=== PATIENT | female | born 1980 | race Caucasian/White ===

== ENCOUNTER 2018-06-03 15:29 | Emergency (ER) | payer BC ==
[2018-06-03] MEDS ORDERED: NA CHLORIDE 0.9% 1,000 ML ONE (16:21)
[2018-06-03] MEDS ORDERED: ONDANSETRON 4 MG/2 ML VIAL ONE (16:21)
[2018-06-03] MEDS ORDERED: DIAZEPAM 10 MG/2 ML INJ SYRINGE ONE (16:25)
[2018-06-03 16:28] LABS: Absolute Lymphocytes (CBC) 1.9 K/uL (0.7-4.9); Absolute Monocytes 0.5 K/uL (0.1-1.3); Absolute Neutrophil 8.7 K/uL (1.8-8.0); Basophils % 0.4 % (0-1.3); Eosinophils % 0.5 % (0-4.4); Hematocrit 48.9 % (36.0-45.0); Lymphocytes % 16.7 % (15.3-44.8); MCH 32.9 pg (27.0-35.0); MCV 97.5 fL (80-100); MPV 8.9 fL (7.6-11.3); Monocytes % 4.7 % (3.3-12.3); RBC Red Blood Cell Count 5.02 M/uL (3.86-4.86)
[2018-06-03 16:46] LABS: ALT/SGPT 19 U/L (12-78); AST/SGOT 23 U/L (15-37); Alkaline Phosphatase 88 U/L (45-117); BUN Blood Urea Nitrogen 9 mg/dL (7-18); Bicarbonate 20 mmol/L (21-32); Bilirubin Total 0.7 mg/dL (0.2-1.0); Glucose Level 89 mg/dL (74-106); Potassium 3.7 mmol/L (3.5-5.1); Protein, Total 7.7 g/dL (6.4-8.2); Sodium Level 141 mmol/L (136-145)
[2018-06-03] MEDS ORDERED: MORPHINE 4 MG/ML SYR ONE (17:01)
--- NOTE | 2018-06-03 17:15 | RAD REPORT ---
EXAM DESCRIPTION: RAD - Chest Pa And Lat (2 Views) - 06/03/2018 4:40 pm CLINICAL HISTORY: Back pain, neck pain, cough COMPARISON: November 2016 TECHNIQUE: AP and lateral views obtained with the patient seated. FINDINGS: The lungs are normal volume. No peripheral mass, consolidation or failure. Enlarged right pulmonary artery has not changed. Left pulmonary artery is not enlarged. Heart size is normal. No a cute vascular engorgement. No pleural effusion or pneumothorax seen. No acute bony finding noted. N o aortic abnormality. IMPRESSION: No acute cardiopulmonary process. Above detailed findings are not significantly differe nt from comparison.
--- NOTE | 2018-06-03 17:33 | EDPHYS ---
Physician Documentation [facility] Name: Alicia Morton Age: 37 yrs Sex: Female : 1980 Arrival Date: 06/03/2018 Time: 15:30 Bed 28 Private MD: ED Physician Yonathan John HPI: 06/03 16:04 This 37 yrs old Female presents to ER via Wheelchair with complaints of Neck jmm Pain, >24Hrs Old, Ear Pain, Nausea/Vomiting. 16:04 The patient or guardian complains of pain, that is acute. Onset: The symptoms/episode jmm began/occurred 1 week(s) ago. This is a 37 year old female with a history of ASD that presents to the ED with right sided neck pain which she awoke too approx 1 week ago. Patient states the pain has worsened radiating to her right ear. Patient also admits to chronic vomiting and cough she attributes to her medication and smoking. Denies other symptoms. . 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 - Social history:: Smoking status: Patient uses tobacco products, smokes one-half pack cigarettes per day. - Ebola Screening: : No symptoms or risks identified at this time. ROS: 16:04 Constitutional: Negative for fever, chills, and weight loss, Cardiovascular: Negative jmm for chest pain, palpitations, and edema. 16:04 Neck: Positive for pain with movement. 16:04 Respiratory: Positive for cough. 16:04 Abdomen/GI: Positive for vomiting. 16:04 All other systems are negative. Exam: 16:04 Head/Face: atraumatic. jmm 16:04 Constitutional: The patient appears alert, awake, uncomfortable. 16:04 Neck: painful rotation to the right, the right trapezius is tender to palpation. 16:04 Cardiovascular: Rate: normal, Rhythm: regular, Pulses: no pulse deficits are appreciated. 16:04 Respiratory: the patient does not display signs of respiratory distress, Respirations: normal, Breath sounds: are clear throughout. 16:04 Abdomen/GI: Inspection: abdomen appears normal, Bowel sounds: normal, Palpation: abdomen is soft and non-tender. 16:04 Musculoskeletal/extremity: ROM: intact in all extremities. 16:04 Skin: Appearance: Color: normal in color. 16:04 Neuro: Orientation: is normal, Mentation: is normal, Memory: is normal. 16:04 Psych: Behavior/mood is pleasant, cooperative. Vital Signs: 15:40 BP 110 / 90; Pulse 91; Resp 16; Temp 97.3; Pulse Ox 92% on R/A; Weight 56.7 kg; Height la1 5 ft. 3 in. (160.02 cm); 17:30 Pulse 62; Resp 18; Pulse Ox 94% on R/A; Pain 4/10; mg2 17:57 BP 111 / 78; Pulse 68; Resp 18; Pulse Ox 95% on R/A; Pain 0/10; mg2 15:40 Body Mass Index 22.14 (56.70 kg, 160.02 cm) la1 MDM: 16:10 Patient medically screened. [facility] 17:29 Data reviewed: vital signs, nurses notes, lab test result(s), radiologic studies, plain [facility] films. Data interpreted: Pulse oximetry: on room air is 92 %. Counseling: I had a detailed discussion with the patient and/or guardian regarding: the historical points, exam findings, and any diagnostic results supporting the discharge/admit diagnosis, lab results, radiology results, the need for outpatient follow up, to return to the emergency department if symptoms worsen or persist or if there are any questions or concerns that arise at home. ED course: Patient states feeling much better. Patient still has mild point tenderness along the insertion point of the scm. Symptoms appear musculoskeletal. Patient will be prescribed muscle relaxers and is advised to follow up with PCP for reevaluation and otherwise given strict return precautions for worsening symptoms. Patient understood and agrees with the plan of care. . 06/03 16:04 Order name: Urine Dipstick--Ancillary (enter results) [facility] 06/03 16:13 Order name: CBC with Diff [facility] 06/03 16:13 Order name: CMP [facility] 06/03 16:13 Order name: Influenza Screen (a \T\ B) [facility] 06/03 16:13 Order name: CBC with Automated Diff; Complete Time: 16:37 EDMS 06/03 16:13 Order name: Comprehensive Metabolic Panel; Complete Time: 16:51 EDMS 06/03 16:04 Order name: Urine Dipstick-Ancillary (obtain specimen); Complete Time: 16:04 em1 06/03 16:13 Order name: Chest Pa And Lat (2 Views) XRAY; Complete Time: 17:21 [facility] 06/03 16:13 Order name: Influenza Screen (A ; Complete Time: 16:51 EDMS Administered Medications: 16:26 Drug: NS 0.9% 1000 ml Route: IV; Rate: 1 bolus; Site: left antecubital; mg2 17:30 Follow up: Response: No adverse reaction; Marked relief of symptoms; IV Status: mg2 Completed infusion 17:56 Follow up: Response: No adverse reaction mg2 16:26 Drug: Valium 5 mg Route: IVP; Site: left antecubital; mg2 17:30 Follow up: Response: No adverse reaction; Marked relief of symptoms mg2 16:26 Drug: Zofran 4 mg Route: IVP; Site: left antecubital; mg2 17:30 Follow up: Response: No adverse reaction; Nausea is decreased; Vomiting decreased mg2 16:59 Drug: morphine 4 mg Route: IVP; Site: left antecubital; mg2 17:25 Follow up: Response: No adverse reaction; Pain is decreased mg2 17:30 Drug: Ketorolac 30 mg Route: IVP; Site: left antecubital; mg2 17:37 Follow up: Response: No adverse reaction; Marked relief of symptoms mg2 Disposition: 18:04 Co-signature as Attending Physician, Yonathan John MD I agree with the assessment and kdr plan of care. Disposition: 06/03/18 17:32 Discharged to Home. Impression: Muscle spasm. - Condition is Stable. - Discharge Instructions: Muscle Pain, Adult. - Prescriptions for Zanaflex 4 mg Oral Tablet - take 1 tablet by ORAL route every 8 hours As needed; 20 tablet. Zofran ODT 4 mg Oral tablet,disintegrating - place 1 tablet by TRANSLINGUAL route every 4-6 hours; 20 tablet. - Medication Reconciliation Form, Thank You Letter, Antibiotic Education, Prescription Opioid Use form. - Follow up: Private Physician; When: 2 - 3 days; Reason: Recheck today's complaints, Continuance of care, Re-evaluation by your physician. Signatures: Dispatcher [employer] EDMS Yonathan John MD MD [facility] Jacques Berrios PA PA jmm Martinez, Eric em1 Kirit Daniels RN RN la1 Beka Celeste, MANUELA RN mg2 Corrections: (The following items were deleted from the chart) 17:57 17:32 06/03/2018 17:32 Discharged to Home. Impression: Muscle spasm. Condition is mg2 Stable. Forms are Medication Reconciliation Form, Thank You Letter, Antibiotic Education, Prescription Opioid Use. Follow up: Private Physician; When: 2 - 3 days; Reason: Recheck today's complaints, Continuance of care, Re-evaluation by your physician. kermit
--- NOTE | 2018-06-03 17:33 | ER ---
Nurse's Notes [facility] Name: Bassam Morton Age: 37 yrs Sex: Female : 1980 Arrival Date: 06/03/2018 Time: 15:30 Bed 28 Private MD: Diagnosis: Muscle spasm Presentation: 06/03 15:38 Presenting complaint: Patient states: I started having neck pain a week ago then it la1 became a headache. I have also been vomiting about every day for the last year because of a medication I started but I have not been able to follow up with my doctor. Transition of care: patient was not received from another setting of care. Onset of symptoms was June 03, 2018. Risk Assessment: Do you want to hurt yourself or someone else? Patient reports no desire to harm self or others. Initial Sepsis Screen: Does the patient meet any 2 criteria? No. Patient's initial sepsis screen is negative. Does the patient have a suspected source of infection? No. Patient's initial sepsis screen is negative. Care prior to arrival: None. 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 - Social history:: Smoking status: Patient uses tobacco products, smokes one-half pack cigarettes per day. - Ebola Screening: : No symptoms or risks identified at this time. Screenin:50 Abuse screen: Denies threats or abuse. Denies injuries from another. Nutritional mg2 screening: No deficits noted. Tuberculosis screening: No symptoms or risk factors identified. Fall Risk Gait- Weak (10 pts.). Assessment: 15:51 General: Appears in no apparent distress. uncomfortable, Behavior is calm, cooperative. mg2 Pain: Complains of pain in head Pain does not radiate. Pain currently is 8 out of 10 on a pain scale. Quality of pain is described as aching, Pain began gradually, Is intermittent. Neuro: Level of Consciousness is awake, alert, obeys commands, Oriented to person, place, time, situation. Cardiovascular: Capillary refill < 3 seconds Patient's skin is warm and dry. Respiratory: Airway is patent Respiratory effort is even, unlabored, Respiratory pattern is regular, symmetrical. GI: Reports vomiting. EENT: No deficits noted. Derm: Skin is intact, is healthy with good turgor, Skin is pink, warm \T\ dry. normal. Musculoskeletal: No deficits noted. 16:27 Reassessment: Patient appears in no apparent distress at this time. patient [place] [facility]. Vital Signs: 15:40 BP 110 / 90; Pulse 91; Resp 16; Temp 97.3; Pulse Ox 92% on R/A; Weight 56.7 kg; Height la1 5 ft. 3 in. (160.02 cm); 17:30 Pulse 62; Resp 18; Pulse Ox 94% on R/A; Pain 4/10; mg2 17:57 BP 111 / 78; Pulse 68; Resp 18; Pulse Ox 95% on R/A; Pain 0/10; mg2 15:40 Body Mass Index 22.14 (56.70 kg, 160.02 cm) la1 ED Course: 15:30 Patient arrived in ED. as 15:39 Triage completed. la1 15:40 Arm band placed on left wrist. la1 15:41 Beka Celeste, MANUELA is Primary Nurse. mg2 15:49 Jacques Berrios PA is PHCP. [facility] 15:49 Yonathan John MD is Attending Physician. [facility] 15:50 No provider procedures requiring assistance completed. mg2 15:51 Patient has correct armband on for positive identification. Pulse ox on. NIBP on. Door mg2 closed. Warm blanket given. 16:00 Inserted saline lock: 20 gauge in left antecubital area, using aseptic technique. Blood mg2 collected. 16:23 Initial lab(s) drawn, by ED staff, sent to lab. Urine collected: clean catch specimen, jp3 clear, bassam colored, Amount Voided: 2mL Flu and/or RSV swab sent to lab. 16:23 Influenza Screen (A Sent. jp3 16:23 Comprehensive Metabolic Panel Sent. jp3 16:24 CBC with Automated Diff Sent. jp3 16:24 Influenza Screen (a \T\ B) Sent. jp3 16:24 CMP Sent. jp3 16:24 CBC with Diff Sent. jp3 16:26 Patient moved to radiology via wheelchair. tm4 16:26 X-ray completed. Patient tolerated procedure well. tm4 16:35 Chest Pa And Lat (2 Views) XRAY In Process Unspecified. EDMS 17:56 IV discontinued, intact, bleeding controlled, No redness/swelling at site. Pressure mg2 dressing applied. Administered Medications: 16:26 Drug: NS 0.9% 1000 ml Route: IV; Rate: 1 bolus; Site: left antecubital; mg2 17:30 Follow up: Response: No adverse reaction; Marked relief of symptoms; IV Status: mg2 Completed infusion 17:56 Follow up: Response: No adverse reaction mg2 16:26 Drug: Valium 5 mg Route: IVP; Site: left antecubital; mg2 17:30 Follow up: Response: No adverse reaction; Marked relief of symptoms mg2 16:26 Drug: Zofran 4 mg Route: IVP; Site: left antecubital; mg2 17:30 Follow up: Response: No adverse reaction; Nausea is decreased; Vomiting decreased mg2 16:59 Drug: morphine 4 mg Route: IVP; Site: left antecubital; mg2 17:25 Follow up: Response: No adverse reaction; Pain is decreased mg2 17:30 Drug: Ketorolac 30 mg Route: IVP; Site: left antecubital; mg2 17:37 Follow up: Response: No adverse reaction; Marked relief of symptoms mg2 Outcome: 17:32 Discharge ordered by MD. jmm 17:56 Discharged to home ambulatory, with family. mg2 17:56 Condition: stable 17:56 Discharge instructions given to patient, family, Instructed on discharge instructions, follow up and referral plans. medication usage, Demonstrated understanding of instructions, follow-up care, medications, Prescriptions given X 2. 17:57 Patient left the ED. mg2 Signatures: Dispatcher [employer] EDMS Jacques Berrios PA PA jmm Elis Caceres tm4 Madelin Kasper Lee RN RN la1 Beka Celeste RN RN mg2 Jonah Lentz jp3 Corrections: (The following items were deleted from the chart) 17:57 17:30 Pulse 62bpm; Resp 18bpm; Pulse Ox 100% RA; Pain 4/10; mg2 mg2
[2018-06-03] MEDS ORDERED: KETOROLAC 30 MG/ML INJ ONE (17:35)
[2018-06-03 18:19] VITALS: TEMP 97.3
[2018-06-03 18:24] VITALS: BP 111/78; O2SAT 95
[2018-06-03 20:57] LABS: Urine Blood 1+ (NEG); Urine Glucose TRACE (NEG); Urine Protein 3+ (NEG); Urine Specific Gravity >1.030 (1.005-1.030); Urine pH 5.5 (5.0-7.0)
== END 2018-06-03 17:57 | disposition home or self-care (01) ==
LOC: ER 15:29
DX: M62.838 Other muscle spasm (principal); F17.210 Nicotine dependence, cigarettes, uncomplicated; Z91.018 Allergy to other foods
CPT/HCPCS: 36415; 71046; 80053; 81003; 85025; 87804; 96361; 96374; 96375; 99284; J2405; J3360; J7030

== ENCOUNTER 2018-06-09 11:08 | Observation (INO) | payer BC ==
[2018-06-09] MEDS ORDERED: MORPHINE 4 MG/ML SYR ONE ×2 (12:31→14:48)
[2018-06-09] MEDS ORDERED: NA CHLORIDE 0.9% 1,000 ML ONE (12:31)
[2018-06-09] MEDS ORDERED: ONDANSETRON 4 MG/2 ML VIAL ONE ×2 (12:31→14:48)
[2018-06-09 13:03] LABS: Absolute Lymphocytes (CBC) 0.8 K/uL (0.7-4.9); Absolute Monocytes 0.6 K/uL (0.1-1.3); Absolute Neutrophil 7.3 K/uL (1.8-8.0); Basophils % 0.4 % (0-1.3); Eosinophils % 0.6 % (0-4.4); Hematocrit 46.7 % (36.0-45.0); Lymphocytes % 9.2 % (15.3-44.8); MCH 33.7 pg (27.0-35.0); MCV 97.3 fL (80-100); MPV 9.5 fL (7.6-11.3); Monocytes % 6.5 % (3.3-12.3)
[2018-06-09 13:23] LABS: Albumin 3.9 g/dL (3.4-5.0); Bilirubin Direct 0.2 mg/dL (0-0.2); Bilirubin Total 0.8 mg/dL (0.2-1.0); Potassium 3.2 mmol/L (3.5-5.1); Protein, Total 7.6 g/dL (6.4-8.2)
[2018-06-09 13:40] LABS: Urine RBC <5 /HPF (NONE SEEN)
[2018-06-09 13:41] LABS: Urine Bacteria 20-50 /HPF (<20); Urine Culture Reflex Order REFLEXED; Urine Mucus 3+ /HPF (NONE SEEN)
[2018-06-09 13:42] LABS: Urine Blood NEGATIVE (NEG); Urine Glucose NEGATIVE (NEG); Urine Protein 2+ (NEG); Urine pH 5.5 (5.0-7.0)
--- NOTE | 2018-06-09 13:44 | RAD REPORT ---
EXAM DESCRIPTION: CT - Abdomen Pelvis W Contrast - 06/09/2018 1:28 pm CLINICAL HISTORY: Abdominal pain with vomiting COMPARISON: 2014 TECHNIQUE: Computed axial tomography of the abdomen pelvis was obtained. 100 cc Isovue-300 was admin istered intravenously. Oral contrast was not requested which limits evaluation of bowel. All CT scans are performed using dose optimization technique as appropriate and may include automated exposure control or mA/KV adjustment according to patient size. FINDINGS: The liver, spleen, pancreas, adrenal and kidneys appear unremarkable. There is no evidence of diverticulitis. The gallbladder is been removed The wall of most of the colon is mildly thickened The appendix is dilated measuring 10 millimeters. It is without significant change the prior exam. St randing within the adjacent fat not seen IMPRESSION: Mild pancolitis The appendix is dilated without significant change from the 2014 exam this may simply be a normal fin ding for the patient. An appendicitis can also have this appearance should be correlated clinically
--- NOTE | 2018-06-09 14:13 | EDPHYS ---
Physician Documentation [facility] Name: Alicia Morton Age: 37 yrs Sex: Female : 1980 Arrival Date: 06/09/2018 Time: 11:10 Bed 8 Private MD: ED Physician Jairon Coronado HPI: 06/09 12:30 This 37 yrs old Female presents to ER via Wheelchair with complaints of pm1 Vomiting. 12:30 The patient presents to the emergency department with nausea, vomiting, multiple times pm1 unable to count, greater than 10 daily, described as bilious, undigested food. Onset: The symptoms/episode began/occurred onset 1 week ago, stopped for two and then has continued for the past 3 days. Possible causes: unknown. The symptoms are aggravated by nothing. The symptoms are alleviated by nothing. Associated signs and symptoms: Pertinent positives: abdominal pain, constipation, Decreased urination, Pertinent negatives: fever, chest pain, shortness of breath. Severity of symptoms: in the emergency department the symptoms are worse. The patient has experienced similar episodes in the past, a few times. The patient has not recently seen a physician, and does not have an established primary care provider, See a specialist in [place] for ASD and PAH. 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 - Social history:: Smoking status: Patient uses tobacco products, smokes one-half pack cigarettes per day. - Ebola Screening: : No symptoms or risks identified at this time. ROS: 12:30 Constitutional: Negative for fever, chills, and weight loss, Eyes: Negative for injury, pm1 pain, redness, and discharge, ENT: Negative for injury, pain, and discharge, Neck: Negative for injury, pain, and swelling, Cardiovascular: Negative for chest pain, palpitations, and edema, Respiratory: Negative for shortness of breath, cough, wheezing, and pleuritic chest pain. 12:30 Back: Negative for injury and pain, MS/Extremity: Negative for injury and deformity, Skin: Negative for injury, rash, and discoloration. 12:30 Neuro: Negative for headache, weakness, numbness, tingling, and seizure. 12:30 Abdomen/GI: Positive for abdominal pain, of the epigastric area, right lower quadrant and left lower quadrant. 12:30 : Positive for difficulty urinating, Negative for flank pain, burning with urination. Exam: 12:30 Constitutional: This is a well developed, well nourished patient who is awake, alert, pm1 and in no acute distress. Head/Face: Normocephalic, atraumatic. Eyes: Pupils equal round and reactive to light, extra-ocular motions intact. Lids and lashes normal. Conjunctiva and sclera are non-icteric and not injected. Cornea within normal limits. Periorbital areas with no swelling, redness, or edema. ENT: Nares patent. No nasal discharge, no septal abnormalities noted. Tympanic membranes are normal and external auditory canals are clear. Oropharynx with no redness, swelling, or masses, exudates, or evidence of obstruction, uvula midline. Mucous membranes moist. Neck: Trachea midline, no thyromegaly or masses palpated, and no cervical lymphadenopathy. Supple, full range of motion without nuchal rigidity, or vertebral point tenderness. No Meningismus. Chest/axilla: Normal chest wall appearance and motion. Nontender with no deformity. No lesions are appreciated. Cardiovascular: Regular rate and rhythm with a normal S1 and S2. No gallops, murmurs, or rubs. No pulse deficits. Respiratory: Lungs have equal breath sounds bilaterally, clear to auscultation and percussion. No rales, rhonchi or wheezes noted. No increased work of breathing, no retractions or nasal flaring. 12:30 Back: No spinal tenderness. No costovertebral tenderness. Full range of motion. Skin: Warm, dry with normal turgor. Normal color with no rashes, no lesions, and no evidence of cellulitis. MS/ Extremity: Pulses equal, no cyanosis. Neurovascular intact. Full, normal range of motion. 12:30 Abdomen/GI: Inspection: abdomen appears normal, Bowel sounds: normal, Palpation: abdomen is soft and non-tender, in all quadrants, mass, is not appreciated, rebound tenderness, is not appreciated, Indicators: McBurney's point is not tender, Still's sign is negative, Rovsing's sign is negative, Obturator sign is negative, Psoas sign is negative. 12:30 Neuro: Orientation: is normal, Motor: is normal, moves all fours, Gait: is steady, at a normal pace, without difficulty, no abdominal pain present with ambulation. Vital Signs: 11:47 BP 121 / 69; Pulse 80; Resp 22 S; Temp 97.9(O); Pulse Ox 96% on R/A; Weight 56.7 kg aa5 (R); Height 5 ft. 4 in. (162.56 cm) (R); Pain 8/10; 13:00 BP 130 / 80; Pulse 79; Resp 16 S; Pulse Ox 97% on R/A; jl7 14:45 BP 131 / 82; Pulse 80; Resp 14; Pulse Ox 91% ; jl7 11:47 Body Mass Index 21.46 (56.70 kg, 162.56 cm) aa5 MDM: 12:11 Patient medically screened. pm1 14:08 Data reviewed: vital signs. Data interpreted: Pulse oximetry: on room air is 96 %. pm1 Interpretation: normal. Counseling: I had a detailed discussion with the patient and/or guardian regarding: the historical points, exam findings, and any diagnostic results supporting the discharge/admit diagnosis, lab results, radiology results, the need for further work-up and treatment in the hospital. 14:25 Physician consultation: Los Quintanilla MD was called at 14:25, was contacted at 14:25, pm1 regarding admission, patient's condition, and will see patient in ED. 06/09 12:17 Order name: Creatinine for Radiology; Complete Time: 13:46 pm1 06/09 12:17 Order name: Basic Metabolic Panel; Complete Time: 13:46 pm1 06/09 12:17 Order name: CBC with Diff; Complete Time: 13:10 pm1 06/09 12:17 Order name: Hepatic Function; Complete Time: 13:46 pm1 06/09 12:17 Order name: Lipase; Complete Time: 13:46 pm1 06/09 13:09 Order name: Urine Microscopic Only; Complete Time: 13:46 iw 06/09 12:17 Order name: CT Abd/Pelvis - W/Contrast: IV contrast only; Complete Time: 13:46 pm1 06/09 13:40 Order name: Urine Dipstick--Ancillary (enter results); Complete Time: 13:46 eb 06/09 13:40 Order name: Urine --Ancillary (enter results); Complete Time: 13:46 eb 06/09 13:42 Order name: Urine Culture EDMS 06/09 12:17 Order name: IV Saline Lock; Complete Time: 13:33 pm1 06/09 12:17 Order name: Labs collected and sent; Complete Time: 13:33 pm1 06/09 12:17 Order name: Urine Dipstick-Ancillary (obtain specimen); Complete Time: 13:33 pm1 06/09 12:17 Order name: Urine Test (obtain specimen); Complete Time: 13:33 pm1 06/09 13:33 Order name: Straight Cath; Complete Time: 13:33 jl7 Administered Medications: 12:44 Drug: NS 0.9% 1000 ml Route: IV; Rate: 1000 ml; Site: right antecubital; jl7 13:45 Follow up: IV Status: Completed infusion jl7 12:45 Drug: Zofran 4 mg Route: IVP; Site: right antecubital; jl7 14:25 Follow up: Response: No adverse reaction; Nausea is decreased jl7 12:47 Drug: morphine 4 mg Route: IVP; Site: right antecubital; jl7 13:30 Follow up: Response: No adverse reaction; Pain is decreased jl7 14:19 Drug: Rocephin 1 grams Route: IV; Rate: calculated rate; Site: right antecubital; jl7 14:22 Follow up: Response: No adverse reaction; IV Status: Completed infusion jl7 14:23 Drug: Flagyl 500 mg Volume: 100 ml; Route: IVPB; Rate: 200 ml/hr; Infused Over: 30 jl7 mins; Site: right antecubital; 15:03 Follow up: Response: No adverse reaction; IV Status: Completed infusion jl7 14:43 Drug: Zofran 4 mg Route: IVP; Site: right antecubital; jl7 15:01 Follow up: Response: No adverse reaction; Nausea is decreased jl7 14:45 Drug: morphine 4 mg Route: IVP; Site: right antecubital; jl7 15:01 Follow up: Response: No adverse reaction; Pain is decreased jl7 Disposition: 16:35 Co-signature as Attending Physician, Jairon Coronado MD. Disposition: 06/09/18 14:12 Hospitalization ordered by Los Quintanilla for Observation. Preliminary diagnosis are Pancolitis, Dehydration, Vomiting. - Bed requested for Telemetry/MedSurg (observation). - Status is Observation. jl7 - Condition is Stable. - Problem is new. - Symptoms have improved. UTI on Admission? No Signatures: Dispatcher [employer] EDMS Kendal Disla RN RN Chey Vasquez RN RN aa5 Viral Patel, FEDERAL MEDIATION COMMISSIONER FEDERAL MEDIATION COMMISSIONER pm1 Kulwant Mckeon RN RN jl7 Jairon Coronado MD MD Corrections: (The following items were deleted from the chart) 14:12 14:12 Hospitalization Ordered by Gianni Avila DO for Observation. Preliminary pm1 diagnosis is Pancolitis; Dehydration. Bed requested for Telemetry/MedSurg (observation). Status is Observation. Condition is Stable. Problem is new. Symptoms have improved. UTI on Admission? No. pm1 14:13 14:12 06/09/2018 14:12 Hospitalization Ordered by Gianni Avila DO for Observation. pm1 Preliminary diagnosis is Pancolitis; Dehydration. Bed requested for Telemetry/MedSurg (observation). Status is Observation. Condition is Stable. Problem is new. Symptoms have improved. UTI on Admission? Yes. pm1 14:21 14:13 06/09/2018 14:12 Hospitalization Ordered by Gianni Avila DO for Observation. pm1 Preliminary diagnosis is Pancolitis; Dehydration; Urinary tract infection, site not specified. Bed requested for Telemetry/MedSurg (observation). Status is Observation. Condition is Stable. Problem is new. Symptoms have improved. UTI on Admission? Yes. pm1 14:25 14:21 06/09/2018 14:12 Hospitalization Ordered by Los Quintanilla MD for Observation. pm1 Preliminary diagnosis is Pancolitis; Dehydration; Urinary tract infection, site not specified. Bed requested for Telemetry/MedSurg (observation). Status is Observation. Condition is Stable. Problem is new. Symptoms have improved. UTI on Admission? Yes. pm1 14:29 14:25 06/09/2018 14:12 Hospitalization Ordered by Los Quintanilla MD for Observation. pm1 Preliminary diagnosis is Pancolitis; Dehydration. Bed requested for Telemetry/MedSurg (observation). Status is Observation. Condition is Stable. Problem is new. Symptoms have improved. UTI on Admission? No. pm1 14:33 14:29 06/09/2018 14:12 Hospitalization Ordered by Los Quintanilla MD for Observation. dw Preliminary diagnosis is Pancolitis; Dehydration; Vomiting. Bed requested for Telemetry/MedSurg (observation). Status is Observation. Condition is Stable. Problem is new. Symptoms have improved. UTI on Admission? No. pm1 15:05 14:33 06/09/2018 14:12 Hospitalization Ordered by Los Quintanilla MD for Observation. jl7 Preliminary diagnosis is Pancolitis; Dehydration; Vomiting. Bed requested for Telemetry/MedSurg (observation). Status is Observation. Condition is Stable. Problem is new. Symptoms have improved. UTI on Admission? No. dw
--- NOTE | 2018-06-09 14:13 | ER ---
Nurse's Notes [facility] Name: Bassam Morton Age: 37 yrs Sex: Female : 1980 Arrival Date: 06/09/2018 Time: 11:10 Bed 8 Private MD: Diagnosis: Pancolitis;Dehydration;Vomiting Presentation: 06/09 11:45 Presenting complaint: Patient states: vomiting x 1 week ago. Pt states last BM was last aa5 week. Pt denies abd pain. Transition of care: patient was not received from another setting of care. Onset of symptoms was May 2018. Risk Assessment: Do you want to hurt yourself or someone else? Patient reports no desire to harm self or others. Care prior to arrival: None. 11:45 Method Of Arrival: Wheelchair aa5 11:45 Acuity: RICARDO 3 aa5 12:00 Initial Sepsis Screen: Does the patient meet any 2 criteria? No. Patient's initial jl7 sepsis screen is negative. Does the patient have a suspected source of infection? No. Patient's initial sepsis screen is negative. 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 - Social history:: Smoking status: Patient uses tobacco products, smokes one-half pack cigarettes per day. - Ebola Screening: : No symptoms or risks identified at this time. Screenin:45 Abuse screen: Denies threats or abuse. Denies injuries from another. Nutritional jl7 screening: No deficits noted. Tuberculosis screening: No symptoms or risk factors identified. Fall Risk IV access (20 points). Total Garcia Fall Scale indicates No Risk (0-24 pts). Assessment: 12:45 General: Appears in no apparent distress. uncomfortable, Behavior is cooperative, jl7 anxious. Pain: Complains of pain in left lower quadrant and right lower quadrant Pain currently is 8 out of 10 on a pain scale. Neuro: Level of Consciousness is awake, alert, obeys commands, Oriented to person, place, time, situation. Cardiovascular: Patient's skin is warm and dry. Respiratory: Airway is patent Respiratory effort is even, unlabored, Respiratory pattern is regular, symmetrical. GI: Abdomen is flat, non-distended, Stools are reported to be loose, Bowel sounds present X 4 quads. Abd is soft X 4 quads Abdomen is tender to palpation X 4 quads. Reports constipation. : No signs and/or symptoms were reported regarding the genitourinary system. EENT: No signs and/or symptoms were reported regarding the EENT system. Derm: Skin is pink, warm \T\ dry. Musculoskeletal: No signs and/or symptoms reported regarding the musculoskeletal system. 13:45 Reassessment: Patient and/or family updated on plan of care and expected duration. Pain jl7 level reassessed. Patient is alert, oriented x 3, equal unlabored respirations, skin warm/dry/pink. Patient states feeling better. 14:35 Reassessment: Pt c/o increased pain and nausea, provider notified, see MAR for orders. jl7 Vital Signs: 11:47 BP 121 / 69; Pulse 80; Resp 22 S; Temp 97.9(O); Pulse Ox 96% on R/A; Weight 56.7 kg aa5 (R); Height 5 ft. 4 in. (162.56 cm) (R); Pain 8/10; 13:00 BP 130 / 80; Pulse 79; Resp 16 S; Pulse Ox 97% on R/A; jl7 14:45 BP 131 / 82; Pulse 80; Resp 14; Pulse Ox 91% ; jl7 11:47 Body Mass Index 21.46 (56.70 kg, 162.56 cm) aa5 ED Course: 11:10 Patient arrived in ED. mr 11:45 Arm band placed on. aa5 11:46 Triage completed. aa5 12:00 Patient has correct armband on for positive identification. Placed in gown. Bed in low jl7 position. Call light in reach. Side rails up X 1. Pulse ox on. NIBP on. Warm blanket given. 12:00 Inserted saline lock: 22 gauge in right antecubital area, using aseptic technique. jl7 Blood collected. 12:11 Viral Patel NP is PHCP. pm1 12:11 Jairon Coronado MD is Attending Physician. pm1 12:11 Kulwant Mckeon RN is Primary Nurse. jl7 12:24 Radiology exam delayed due to test not completed at this time. 12:45 Initial lab(s) drawn, by me, sent to lab. Urine collected: straight cath specimen, jl7 bassam colored, Amount Returned: 50mL. Straight cath inserted, using sterile technique, 16 Fr. Specimen obtained. Returned bassam urine. Patient tolerated well. 13:28 CT completed. Patient moved to CT via stretcher. Patient moved back from CT. cw1 13:28 CT Abd/Pelvis - W/Contrast: IV contrast only In Process Unspecified. EDMS 14:11 Gianni Avila DO is Hospitalizing Provider. pm1 14:21 Los Quintanilla MD is Hospitalizing Provider. pm1 15:04 No provider procedures requiring assistance completed. Patient admitted, IV remains in jl7 place. intact, No redness/swelling at site. Administered Medications: 12:44 Drug: NS 0.9% 1000 ml Route: IV; Rate: 1000 ml; Site: right antecubital; jl7 13:45 Follow up: IV Status: Completed infusion jl7 12:45 Drug: Zofran 4 mg Route: IVP; Site: right antecubital; jl7 14:25 Follow up: Response: No adverse reaction; Nausea is decreased jl7 12:47 Drug: morphine 4 mg Route: IVP; Site: right antecubital; jl7 13:30 Follow up: Response: No adverse reaction; Pain is decreased jl7 14:19 Drug: Rocephin 1 grams Route: IV; Rate: calculated rate; Site: right antecubital; jl7 14:22 Follow up: Response: No adverse reaction; IV Status: Completed infusion jl7 14:23 Drug: Flagyl 500 mg Volume: 100 ml; Route: IVPB; Rate: 200 ml/hr; Infused Over: 30 jl7 mins; Site: right antecubital; 15:03 Follow up: Response: No adverse reaction; IV Status: Completed infusion jl7 14:43 Drug: Zofran 4 mg Route: IVP; Site: right antecubital; jl7 15:01 Follow up: Response: No adverse reaction; Nausea is decreased jl7 14:45 Drug: morphine 4 mg Route: IVP; Site: right antecubital; jl7 15:01 Follow up: Response: No adverse reaction; Pain is decreased jl7 Outcome: 14:12 Decision to Hospitalize by Provider. pm1 15:04 Admitted to Tele accompanied by tech, via wheelchair, room 426, with chart, Report jl7 called to MANUELA Rodriguez 15:04 Condition: stable 15:04 Discharge instructions given to patient, Instructed on the need for admit, Demonstrated understanding of instructions. 15:05 Patient left the ED. jl7 Signatures: Dispatcher [employer] IAN Malik Herminia ChristiansonKristofer Audri, RN RN aa5 Yolie Kilgore cw1 Viral Patel, UDAY DATA EXAMINATION CLERK pm1 Kulwant Mckeon RN RN jl7 Corrections: (The following items were deleted from the chart) 11:48 11:47 Pulse 80bpm; Resp 22bpm; Spontaneous; Pulse Ox 96% RA; 56.7 kg Reported; Height 5 aa5 ft. 4 in. Reported; BMI: 21.4; Pain 10/10; aa5 11:49 11:47 BP 121 / 69; Pulse 80bpm; Resp 22bpm; Spontaneous; Pulse Ox 96% RA; 56.7 kg aa5 Reported; Height 5 ft. 4 in. Reported; BMI: 21.4; Pain 8/10; aa5 14:24 14:10 Rocephin 1 grams IV at calculated rate in right antecubital jl7 jl7
[2018-06-09] MEDS ORDERED: CEFTRIAXONE/SWI 1gm 1 GM/10 ML SYR ONE (14:26)
[2018-06-09] MEDS ORDERED: METRONIDAZOLE 500mg IVPB 500 MG/100 ML BAG IV ONE (14:26)
[2018-06-09 15:18] VITALS: BMI 21.4
[2018-06-09] MEDS ORDERED: ENOXAPARIN 40 MG/0.4 ML SQ SCH (17:00)
[2018-06-09] MEDS: NA CHLORIDE 0.9% 1,000 ML IV SCH ×2 (17:03→23:32)
--- NOTE | 2018-06-09 17:42 | P.HP ---
Certification for Inpatient Patient admitted to: Observation Practitioner: I am a practitioner with admitting privileges, knowledge of patient current condition, hospital course, and medical plan of care. Services: Services provided to patient in accordance with Admission requirements found in Title 42 Section 412.3 of the Code of Federal Regulations Patient History Date of Service: 06/09/18 Reason for admission: Abdominal pain History of Present Illness: This is a 37-year-old female with history of pulmonary artery hypertension admitted for abdominal pain, constipation vomiting. Per patient sat mild pain since yesterday along with constant vomiting and constipation. She has a history of similar symptoms in the past and has been previously also diagnosed with colitis. At the time of my exam, patient reported that her abdominal pain had almost resolved and she was having good bowel movements. The CT scan of her abdomen/pelvis showed da silva colitis, questionable appendicitis and though stable from previous imaging and no stranding. She was hemodynamically stable, alert oriented x3. 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 - Family History Mother -: Lung disease Brother -: GI disease, Other (see notes) - Social History Smoking Status: Current every day smoker Alcohol use: Yes CD- Drugs: No Caffeine use: No Place of Residence: Home Review of Systems General: Unremarkable Eyes: Unremarkable ENT: Unremarkable Respiratory: Unremarkable Cardiovascular: Unremarkable Gastrointestinal: Nausea, Vomiting, Abdominal Pain, Constipation, As per HPI Genitourinary: Unremarkable Musculoskeletal: Unremarkable Integumentary: Unremarkable Neurological: Unremarkable Lymphatics: Unremarkable Physical Examination - Vital Signs Temperature: 97.9 F Blood Pressure: 136/74 Pulse: 73 Respirations: 16 Pulse Ox (%): 91 - Physical Exam General: Alert, In no apparent distress, Oriented x3 HEENT: Atraumatic, PERRLA, Mucous membr. moist/pink, EOMI, Sclerae nonicteric Neck: Supple, 2+ carotid pulse no bruit, No LAD, Without JVD or thyroid abnormality Respiratory: Clear to auscultation bilaterally, Normal air movement Cardiovascular: Regular rate/rhythm, Normal S1 S2 Gastrointestinal: No masses, No rebound, No guarding, Tenderness Musculoskeletal: No tenderness Integumentary: No rashes Neurological: Normal gait, Normal speech, Normal strength at 5/5 x4 extr, Normal tone, Normal affect - Studies Laboratory Data (last 24 hrs) 06/09/18 12:45: WBC 8.8 D, Hgb 16.2 H, Hct 46.7 H, Plt Count 230 D 06/09/18 12:45: Sodium 140, Potassium 3.2 L, BUN 7, Creatinine 0.80, Glucose 123 H, Total Bilirubin 0.8, AST 14 L, ALT 16, Alkaline Phosphatase 83, Lipase 102 06/09/18 12:45: Creatinine 0.80 Assessment and Plan - Plan This is a 37-year-old female with Abdominal pain with nausea and vomiting. Mild Da Silva colitis Patient with abdominal pain, nausea and vomiting with constipation. Symptoms have almost resolved and patient states she is hungry she would like to eat as she has had previous episodes like this before. IV fluids, will start clear liquid diet. Advance as tolerated. Discussed with patient that if unable to tolerate diet, back off. Pain control IV antibiotics with Rocephin and Flagyl Monitor with serial abdominal exams, though abdominal exam fairly unremarkable at the time of my exam. UA with evidence of urinary tract infection Cultures pending, continue IV Rocephin Pulmonary artery hypertension Stable. Restart home meds. Patient has own medication bottles. DVT prophylaxis: Lovenox GI prophylaxis: Not needed Diet: Clear liquid diet, advance as tolerated Disposition: Admit to floor with tele. Monitor with serial abdominal exams. Monitor overnight for possible appendicitis, though clinically not looking like an appendicitis picture. Likely discharge home tomorrow if tolerating diet. Discharge Plan: Home Plan to discharge in: 24 Hours - Advance Directives Does patient have a Living Will: No Does patient have a Durable POA for Healthcare: No
[2018-06-09] MEDS: METRONIDAZOLE 250mg IVPB 250 MG/50 ML BAG IV SCH ×2 (18:15→23:32)
[2018-06-09] MEDS: MORPHINE 2 MG/ML SYR IV PRN (18:17)
[2018-06-09 18:32] LABS: Urine Appearance CLEAR; Urine Blood NEGATIVE (NEG); Urine Color DK YELLOW; Urine Glucose NEGATIVE (NEG); Urine Protein TRACE (NEG); Urine Specific Gravity >=1.030 (1.005-1.030); Urine pH 5.5 (5.0-7.0)
[2018-06-09 19:06] LABS: Urine Microscopic Reflex ORDER UMIC
[2018-06-09 19:19] LABS: Urine Bacteria <20 /HPF (<20); Urine RBC <5 /HPF (NONE SEEN)
[2018-06-09 19:20] LABS: Urine Culture Reflex Order NOT NEEDED
[2018-06-09] MEDS: RIOCIGUAT 2.5 MG PO SCH (19:37)
[2018-06-09 20:29] LABS: Urine Bilirubin NEGATIVE (NEG)
[2018-06-09] MEDS: ACETAMINOPHEN 500 MG TAB PO PRN (23:32)
[2018-06-10 05:20] LABS: Absolute Lymphocytes (CBC) 1.4 K/uL (0.7-4.9); Absolute Monocytes 0.6 K/uL (0.1-1.3); Absolute Neutrophil 4.2 K/uL (1.8-8.0); Basophils % 0.6 % (0-1.3); Eosinophils % 2.3 % (0-4.4); Hematocrit 39.4 % (36.0-45.0); Lymphocytes % 21.7 % (15.3-44.8); MCH 33.6 pg (27.0-35.0); MCV 99.7 fL (80-100); MPV 9.6 fL (7.6-11.3); Monocytes % 9.7 % (3.3-12.3); RBC Red Blood Cell Count 3.95 M/uL (3.86-4.86)
[2018-06-10 05:42] LABS: ALT/SGPT 11 U/L (12-78); AST/SGOT 15 U/L (15-37); Albumin 2.7 g/dL (3.4-5.0); Alkaline Phosphatase 53 U/L (45-117); BUN Blood Urea Nitrogen 6 mg/dL (7-18); Bicarbonate 26 mmol/L (21-32); Bilirubin Total 0.5 mg/dL (0.2-1.0); Glucose Level 89 mg/dL (74-106); Potassium 3.6 mmol/L (3.5-5.1); Protein, Total 5.2 g/dL (6.4-8.2); Sodium Level 142 mmol/L (136-145)
[2018-06-10] MEDS ORDERED: POTASSIUM 25 MEQ EFFERV TAB PO ONE (06:02)
[2018-06-10] MEDS: METRONIDAZOLE 250mg IVPB 250 MG/50 ML BAG IV SCH ×2 (06:14→11:57)
[2018-06-10] MEDS: MORPHINE 2 MG/ML SYR IV PRN (06:20)
[2018-06-10] MEDS ORDERED: MACITENTAN PO SCH (09:00)
[2018-06-10] MEDS: RIOCIGUAT 2.5 MG PO SCH ×2 (09:00→14:00)
[2018-06-10] MEDS ORDERED: CEFTRIAXONE/SWI 1gm 1 GM/10 ML SYR IV SCH (09:00)
[2018-06-10] MEDS: NA CHLORIDE 0.9% 1,000 ML IV SCH (11:43)
[2018-06-10] MEDS: ACETAMINOPHEN 500 MG TAB PO PRN (11:58)
[2018-06-10 12:33] VITALS: BP 113/61; TEMP 98.8
[2018-06-10 13:50] VITALS: O2SAT 93
== END 2018-06-10 16:26 | disposition home or self-care (01) ==
LOC: ER 11:08 → ERHOLD 14:28 → 4TH 15:01
PROVIDERS: ADMIT Family Medicine; ATTEND Family Medicine
DX: K51.00 Ulcerative (chronic) pancolitis without complications (principal); N39.0 Urinary tract infection, site not specified; I27.20 Pulmonary hypertension, unspecified; F17.210 Nicotine dependence, cigarettes, uncomplicated; Z91.018 Allergy to other foods
CPT/HCPCS: 36415; 51702; 74177; 80048; 80053; 80076; 81003; 81015; 81025; 83690; 85025; 87086; 87088; 87493; 96361; 96365; 96375; 99285; G0378; J0696; J1650; J2270; J2405; J7030; Q9967

== ENCOUNTER 2018-06-19 00:08 | Observation (INO) | payer BC ==
[2018-06-19] MEDS ORDERED: MORPHINE 4 MG/ML SYR ONE (01:01)
[2018-06-19] MEDS ORDERED: ONDANSETRON 4 MG/2 ML VIAL ONE (01:01)
[2018-06-19 01:11] LABS: Absolute Neutrophil 8.1 K/uL (1.8-8.0); Basophils % 0.7 % (0-1.3); Eosinophils % 1.9 % (0-4.4); Hematocrit 48.7 % (36.0-45.0); Lymphocytes % 17.3 % (15.3-44.8); MCH 33.4 pg (27.0-35.0); MCV 97.2 fL (80-100); MPV 9.1 fL (7.6-11.3); Monocytes % 8.5 % (3.3-12.3); RBC Red Blood Cell Count 5.01 M/uL (3.86-4.86)
[2018-06-19 01:18] LABS: ALT/SGPT 21 U/L (12-78); AST/SGOT 23 U/L (15-37); Albumin 3.8 g/dL (3.4-5.0); Alkaline Phosphatase 60 U/L (45-117); BUN Blood Urea Nitrogen 6 mg/dL (7-18); Bicarbonate 21 mmol/L (21-32); Bilirubin Direct 0.2 mg/dL (0-0.2); Bilirubin Total 0.7 mg/dL (0.2-1.0); Glucose Level 106 mg/dL (74-106); Lipase 94 U/L (73-393); Potassium 3.3 mmol/L (3.5-5.1); Protein, Total 7.6 g/dL (6.4-8.2); Sodium Level 138 mmol/L (136-145)
[2018-06-19] MEDS ORDERED: CIPROFLOXACIN 400mg IV 400 MG/200 ML BAG IV ONE (02:04)
[2018-06-19] MEDS ORDERED: ACETAMINOPHEN 500 MG TAB PO PRN (02:40)
[2018-06-19] MEDS ORDERED: ONDANSETRON 4 MG/2 ML VIAL IV PRN (02:40)
[2018-06-19] MEDS ORDERED: POLYETHYL GLY 3350 17 GM/DOSE PO PRN (02:42)
[2018-06-19] MEDS ORDERED: POLYETHYL GLY 3350 17 GM/DOSE PO ONE (02:42)
--- NOTE | 2018-06-19 03:05 | EDPHYS ---
Physician Documentation [facility] Name: Alicia Morton Age: 37 yrs Sex: Female : 1980 Arrival Date: 06/19/2018 Time: 00:10 Bed 23 Private MD: ED Physician Barron Ordoñez HPI: 06/19 00:54 This 37 yrs old Female presents to ER via Ambulatory with complaints of jmm Abdominal Pain, Constipation, Nausea/Vomiting. 00:54 The patient presents with abdominal pain in the lower abdomen. Onset: The jmm symptoms/episode began/occurred gradually, 2 day(s) ago. The symptoms do not radiate. Associated signs and symptoms: Pertinent positives: nausea and vomiting, constipation, diarrhea. The symptoms are described as achy, sharp. Modifying factors: The symptoms are alleviated by nothing, the symptoms are aggravated by. This is a 37 year old female that presents to the ED with abdominal pain, vomiting beginning today. Lower abdominal pain began two days ago with complains of constipation and loose bowel movements. Patient states is currently taking metronidazole with no relief. . Historical: - Allergies: 00:25 AVOCADO (LAURUS PERSEA); wh - Home Meds: 00:25 Opsumit 10 mg Oral tab 1 tab once daily [Active]; riociguat oral oral 1 tab 3 times per wh day [Active]; - PMHx: 00:25 ASD; Pulmonary Hypertensive Artery Dz; wh - PSHx: 00:25 None; wh - Immunization history:: Adult Immunizations up to date. - Social history:: Smoking status: Patient uses tobacco products, smokes one-half pack cigarettes per day. - Ebola Screening: : Patient negative for fever greater than or equal to 101.5 degrees Fahrenheit, and additional compatible Ebola Virus Disease symptoms Patient denies exposure to infectious person. ROS: 00:54 Constitutional: Negative for fever, chills, and weight loss, Cardiovascular: Negative jmm for chest pain, palpitations, and edema, Respiratory: Negative for shortness of breath, cough, wheezing, and pleuritic chest pain. 00:54 Abdomen/GI: Positive for abdominal pain, nausea and vomiting, diarrhea, constipation. 00:54 All other systems are negative. Exam: 00:54 Constitutional: This is a well developed, well nourished patient who is awake, alert, jmm and in no acute distress. Head/Face: atraumatic. Eyes: EOMI, no conjunctival erythema appreciated ENT: Moist Mucus Membranes Neck: Trachea midline, Supple Chest/axilla: Normal chest wall appearance and motion. Cardiovascular: Regular rate and rhythm. No edema appreciated Respiratory: Normal respirations, no respiratory distress appreciated 00:54 Abdomen/GI: Inspection: abdomen appears normal, Bowel sounds: normal, Palpation: soft, moderate abdominal tenderness, in all quadrants. 00:54 Back: ROM is normal. 00:54 Musculoskeletal/extremity: ROM: intact in all extremities. 00:54 Skin: Appearance: Color: normal in color. 00:54 Neuro: Orientation: is normal, Mentation: is normal, Memory: is normal. 00:54 Psych: Behavior/mood is pleasant, cooperative. Vital Signs: 00:20 BP 121 / 88; Pulse 81; Resp 18; Temp 97.7; Pulse Ox 95% on R/A; Pain 10/10; mg2 02:09 BP 107 / 71; Pulse 71; Resp 18; Pulse Ox 100% on R/A; Pain 2/10; mg2 MDM: 00:49 Patient medically screened. [facility] 02:57 Data reviewed: vital signs, nurses notes, lab test result(s), radiologic studies, CT [facility] scan. Counseling: I had a detailed discussion with the patient and/or guardian regarding: the historical points, exam findings, and any diagnostic results supporting the discharge/admit diagnosis, lab results, radiology results. 06/19 00:32 Order name: Basic Metabolic Panel tw4 06/19 00:32 Order name: CBC with Diff tw4 06/19 00:32 Order name: Creatinine for Radiology tw4 06/19 00:32 Order name: Hepatic Function tw4 06/19 00:32 Order name: Lipase tw4 06/19 01:17 Order name: Creatinine (Radiology Only); Complete Time: 01:24 EDMS 06/19 01:25 Order name: Basic Metabolic Panel; Complete Time: 01:47 EDMS 06/19 01:25 Order name: Liver (Hepatic) Function; Complete Time: 01:47 EDMS 06/19 01:25 Order name: Lipase; Complete Time: 01:47 EDMS 06/19 01:25 Order name: CBC with Automated Diff; Complete Time: 01:47 EDMS 06/19 02:29 Order name: Urine Dipstick--Ancillary (enter results) ar5 06/19 02:29 Order name: Test, Serum ar5 06/19 03:09 Order name: Urine Dipstick-Ancillary; Complete Time: 03:26 EDNM 06/19 03:14 Order name: Test Serum, Qualitat; Complete Time: 03:26 EDNM 06/19 00:32 Order name: IV Saline Lock; Complete Time: 00:35 tw4 06/19 00:32 Order name: Labs collected and sent; Complete Time: 00:35 tw4 06/19 00:50 Order name: CT Abd/Pelvis - W/Contrast [facility] Administered Medications: 01:00 Drug: Zofran 4 mg Route: IVP; Site: right forearm; mg2 01:50 Follow up: Response: No adverse reaction; Marked relief of symptoms mg2 01:00 Drug: morphine 4 mg Route: IVP; Site: right forearm; mg2 01:50 Follow up: Response: No adverse reaction; Marked relief of symptoms mg2 02:12 Drug: Cipro 400 mg Volume: 200 ml; Route: IVPB; Infused Over: 60 mins; Site: right mg2 forearm; 03:16 Follow up: IV Status: Completed infusion ak1 Disposition: 05:29 Co-signature as Attending Physician, Barron Ordoñez MD I agree with the assessment and 4 plan of care. Disposition: 06/19/18 03:04 Hospitalization ordered by Shanice De Luna for Observation. Preliminary diagnosis is Sigmoid Diverticulitis without performation. - Bed requested for Telemetry/MedSurg (observation). - Status is Observation. ak1 - Condition is Stable. - Problem is new. - Symptoms have improved. UTI on Admission? No Signatures: Dispatcher [employer] [facility] Jacques Berrios PA PA jmm Krenek, Amber, RN RN ak1 Carolina Jaramillo RN RN Elias Rodriguez Terrence, MD MD tw4 Beka Celeste RN RN mg2 Corrections: (The following items were deleted from the chart) 03:16 03:04 Hospitalization Ordered by Shanice De Luna MD for Observation. Preliminary cg diagnosis is Sigmoid Diverticulitis without performation. Bed requested for Telemetry/MedSurg (observation). Status is Observation. Condition is Stable. Problem is new. Symptoms have improved. UTI on Admission? No. jmm 03:29 03:16 06/19/2018 03:04 Hospitalization Ordered by Shanice De Luna MD for Observation. ak1 Preliminary diagnosis is Sigmoid Diverticulitis without performation. Bed requested for Telemetry/MedSurg (observation). Status is Observation. Condition is Stable. Problem is new. Symptoms have improved. UTI on Admission? No. cg
--- NOTE | 2018-06-19 03:05 | ER ---
Nurse's Notes [facility] Name: Alicia Morton Age: 37 yrs Sex: Female : 1980 Arrival Date: 06/19/2018 Time: 00:10 Bed 23 Private MD: Diagnosis: Sigmoid Diverticulitis without performation Presentation: 06/19 00:21 Presenting complaint: Patient states: Pt C/O abdominal pain that started 2-3 days ago, Abd pain is sharp, 10/10 on pain scale, associated Sx of projectile vomiting and nausea. Pt was already seen with the same complaint last Monday and was prescribed flagyl and zofran. Transition of care: patient was not received from another setting of care. Onset of symptoms was June 18, 2018. Risk Assessment: Do you want to hurt yourself or someone else? Patient reports no desire to harm self or others. Initial Sepsis Screen: Does the patient meet any 2 criteria? No. Patient's initial sepsis screen is negative. Does the patient have a suspected source of infection? No. Patient's initial sepsis screen is negative. Care prior to arrival: None. 00:21 Acuity: RICARDO 3 00:21 Method Of Arrival: Ambulatory Historical: - Allergies: 00:25 AVOCADO (LAURUS PERSEA); - Home Meds: 00:25 Opsumit 10 mg Oral tab 1 tab once daily [Active]; riociguat oral oral 1 tab 3 times per day [Active]; - PMHx: 00:25 ASD; Pulmonary Hypertensive Artery Dz; - PSHx: 00:25 None; - Immunization history:: Adult Immunizations up to date. - Social history:: Smoking status: Patient uses tobacco products, smokes one-half pack cigarettes per day. - Ebola Screening: : Patient negative for fever greater than or equal to 101.5 degrees Fahrenheit, and additional compatible Ebola Virus Disease symptoms Patient denies exposure to infectious person. Screenin:18 Abuse screen: Denies threats or abuse. Denies injuries from another. Nutritional mg2 screening: No deficits noted. Tuberculosis screening: No symptoms or risk factors identified. Fall Risk Assessment: 00:35 General: Appears uncomfortable, Behavior is crying. Pain:. mg2 02:10 Reassessment: Patient appears in no apparent distress at this time. Patient and/or mg2 family updated on plan of care and expected duration. Pain level reassessed. Patient is alert, oriented x 3, equal unlabored respirations, skin warm/dry/pink. patient is back from ct scan. 03:13 GI: Bowel sounds present X 4 quads. ak1 Vital Signs: 00:20 BP 121 / 88; Pulse 81; Resp 18; Temp 97.7; Pulse Ox 95% on R/A; Pain 10/10; mg2 02:09 BP 107 / 71; Pulse 71; Resp 18; Pulse Ox 100% on R/A; Pain 2/10; mg2 ED Course: 00:10 Patient arrived in ED. am2 00:18 Beka Celeste, RN is Primary Nurse. mg2 00:18 No provider procedures requiring assistance completed. Inserted saline lock: 24 gauge mg2 in right forearm, using aseptic technique. Blood collected. by ESTEPHANIA Olguin Tech. 00:24 Triage completed. wh 00:25 Patient has correct armband on for positive identification. Bed in low position. Call light in reach. Side rails up X 1. Pulse ox on. NIBP on. 00:36 Jacques Berrios PA is PHCP. [facility] 00:36 Barron Ordoñez MD is Attending Physician. jmm 01:28 Radiology exam delayed due to lab results not completed at this time. (BUN/Creatinine) kw1 test not completed at this time. 01:[address] via wheelchair. kw1 02:01 CT completed. Patient tolerated procedure well. Patient moved back from CT. kw1 03:03 Shanice De Luna MD is Hospitalizing Provider. jm 03:11 Arm band placed on Patient placed in an exam room, on a stretcher, Patient notified of ak1 wait time. 03:13 Patient admitted, IV remains in place. ak1 Administered Medications: 01:00 Drug: Zofran 4 mg Route: IVP; Site: right forearm; mg2 01:50 Follow up: Response: No adverse reaction; Marked relief of symptoms mg2 01:00 Drug: morphine 4 mg Route: IVP; Site: right forearm; mg2 01:50 Follow up: Response: No adverse reaction; Marked relief of symptoms mg2 02:12 Drug: Cipro 400 mg Volume: 200 ml; Route: IVPB; Infused Over: 60 mins; Site: right mg2 forearm; 03:16 Follow up: IV Status: Completed infusion ak1 Outcome: 03:04 Decision to Hospitalize by Provider. kermit 03:13 Condition: stable ak1 03:13 Instructed on the need for admit. 03:25 Admitted to Med/surg accompanied by claudia, via wheelchair, room 229, with chart, Report ak1 called to milton 03:29 Patient left the ED. ak1 Signatures: Jacques Berrios PA PA jmm Krenek, Amber, RN RN ak1 Olga Jalloh Winsy wh Wilhelm, Kimberly kw1 Beka Celeste, MANUELA RN mg2 Corrections: (The following items were deleted from the chart) 00:23 00:19 Initial Sepsis Screen: Does the patient meet any 2 criteria? mg2 mg2
[2018-06-19 03:09] LABS: Urine Blood NEGATIVE (NEG); Urine Glucose NEGATIVE (NEG); Urine Protein NEGATIVE (NEG); Urine Specific Gravity <1.005 (1.005-1.030)
[2018-06-19] MEDS: NA CHLORIDE 0.9% 1,000 ML IV SCH ×3 (03:47→21:12)
[2018-06-19] MEDS ORDERED: KCL 20 MEQ/100 mL IVPB 20 MEQ/100 ML BAG IV SCH (04:00)
[2018-06-19 04:38] VITALS: BMI 20.4
--- NOTE | 2018-06-19 06:29 | P.HP ---
Certification for Inpatient Patient admitted to: Observation With expected LOS: <2 Midnights Patient will require the following post-hospital care: None Practitioner: I am a practitioner with admitting privileges, knowledge of patient current condition, hospital course, and medical plan of care. Services: Services provided to patient in accordance with Admission requirements found in Title 42 Section 412.3 of the Code of Federal Regulations Patient History Date of Service: 06/19/18 Reason for admission: Abdominal pain; nausea and vomiting; constipation History of Present Illness: Patient is a 37-year-old female who presents to the hospital with abdominal discomfort. Patient also has been having intractable nausea and vomiting. She has had 2 different episodes. She states she has had a hard time moving her bowels as well. She was recently diagnosed with inflammation in her colon. However, she states everything was ruled out. She presented to the emergency room with the complaints as above and her CT reveals she has acute sigmoid diverticulitis. She has had prior C diff colitis in the past however recent C diff testing was negative. She does not have any diarrhea at this time. Try to review prior pathology reports but there are none. She has not had a Prometheus screen either. Will go ahead and admit her to the hospital for further evaluation. Continue her on antibiotics for now. If her symptoms do not improve then she may benefit from IV steroids. Patient does have a history of cardiac issues including atrial septal defect and pulmonary hypertension. She has leukocytosis and secondary polycythemia as well as a reactive thrombocytosis. Will need to keep these in mind as we treat the patient while in the hospital. 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 - Family History Mother Medical History: Lung disease, Other (see notes) Notes: CROHNS DSE Brother Medical History: GI disease, Other (see notes) Notes: CROHNS DSE - Social History Smoking Status: Current every day smoker Alcohol use: No CD- Drugs: No Caffeine use: No Place of Residence: Home Review of Systems 10-point ROS is otherwise unremarkable Physical Examination - Vital Signs Temperature: 97.5 F Blood Pressure: 107/55 Pulse: 72 Respirations: 16 Pulse Ox (%): 91 - Physical Exam General: Alert, In no apparent distress, Oriented x3 HEENT: Atraumatic, PERRLA, Mucous membr. moist/pink, EOMI, Sclerae nonicteric Neck: Supple, 2+ carotid pulse no bruit, No LAD, Without JVD or thyroid abnormality Respiratory: Clear to auscultation bilaterally, Normal air movement Cardiovascular: Regular rate/rhythm, Normal S1 S2, No murmurs Gastrointestinal: Normal bowel sounds, Soft and benign, Non-distended, No rebound, No guarding, Tenderness Musculoskeletal: No tenderness Integumentary: No rashes, No breakdown Neurological: Normal gait, Normal speech, Normal strength at 5/5 x4 extr, Normal tone, Sensation intact, Cranial nerves 3-12 intact, Normal affect Lymphatics: No axilla or inguinal lymphadenopathy - Studies Laboratory Data (last 24 hrs) 06/19/18 00:40: Creatinine 0.60 06/19/18 00:40: WBC 11.3 H D, Hgb 16.7 H D, Hct 48.7 H D, Plt Count 414 H D 06/19/18 00:40: Sodium 138, Potassium 3.3 L, BUN 6 L, Creatinine 0.60, Glucose 106, Total Bilirubin 0.7, AST 23, ALT 21, Alkaline Phosphatase 60, Lipase 94 Assessment & Plan - Problems (Diagnosis) (1) Sigmoid diverticulitis Current Visit: Yes Status: Acute (2) Intractable nausea and vomiting Current Visit: Yes Status: Acute (3) Leukocytosis Current Visit: Yes Status: Acute (4) Secondary polycythemia Current Visit: Yes Status: Acute (5) Reactive thrombocytosis Current Visit: Yes Status: Acute (6) ASD (atrial septal defect) Onset Date: 12/30/16 Current Visit: No Status: Acute (7) Abdominal pain Onset Date: 12/30/16 Current Visit: No Status: Acute Qualifiers: Abdominal location: left lower quadrant Qualified Code(s): R10.32 - Left lower quadrant pain (8) Pulmonary HTN Onset Date: 12/30/16 Current Visit: No Status: Acute - Plan 1. Continue with IV hydration 2. Continue with IV antibiotics 3. Continue with pain control 4. NPO 5. GI consultation as an outpatient; outpatient colonoscopy in 6-12 weeks; may need Prometheus screening 6. Serial H&H, and we will monitor CBC, BMP, LFTs and lipase along with electrolytes. 7. GI and DVT prophylaxis Discharge Plan: Home Plan to discharge in: 48 Hours - Advance Directives Does patient have a Living Will: No Does patient have a Durable POA for Healthcare: No - Code Status/Comfort Care Code Status Assessed: Yes Code Status: Full Code Critical Care: No Time Spent Managing PTS Care (In Minutes): 50
[2018-06-19] MEDS: MORPHINE 4 MG/ML SYR IV PRN ×4 (07:23→23:30)
[2018-06-19 07:47] LABS: Urine Appearance CLEAR; Urine Bilirubin NEGATIVE (NEG); Urine Blood NEGATIVE (NEG); Urine Color YELLOW; Urine Glucose NEGATIVE (NEG); Urine Protein NEGATIVE (NEG); Urine Specific Gravity >=1.030 (1.005-1.030); Urine Urobilinogen 0.2 mg/dL (0.2-1.0); Urine pH 6.5 (5.0-7.0)
[2018-06-19 07:49] LABS: Urine Microscopic Reflex NO UMIC
--- NOTE | 2018-06-19 08:51 | RAD REPORT ---
EXAM DESCRIPTION: CTAbdomen Pelvis W Contrast - 06/19/2018 6:26 am CLINICAL HISTORY: Abdominal pain. Abdominal pain, vomiting, IV ONLY COMPARISON: Abdomen Pelvis W Contrast dated 06/09/2018; Abdomen Pelvis W Contrast dated 12/29/2016 ; CT ABD PELVIS W CONTRAST dated 02/13/2014 TECHNIQUE: Biphasic CT imaging of the abdomen and pelvis was performed with 100 ml non-ionic IV cont rast. All CT scans are performed using dose optimization technique as appropriate and may include automated exposure control or mA/KV adjustment according to patient size. FINDINGS: The lung bases are clear.Cholecystectomy clips. Mild intra and extrahepatic biliary tree dilatation is seen. This may be a result of cholecystectomy reservoir effect. The spleen, pancreas, adrenal glands and kidneys are within normal limits. The proximal sigmoid colon demonstrates multiple diverticula with wall thickening and pericolonic inf lammatory changes. Findings have a similar appearance to the comparative study. Fluid is present in t he right adnexal region. Moderate fecal retention is noted. Mild wall thickening of the descending co isabel with trace left pericolic gutter fluid also seen. The appendix is poorly visualized on this study . No evidence of significant lymphadenopathy. No suspicious bony findings. IMPRESSION: Prominent intramural edema and wall thickening with surrounding inflammatory changes and fluid particularly in the region of the sigmoid colon noted. The findings are most compatible with c olitis or acute diverticulitis. Followup colonoscopy would be useful for further assessment. The appendix is poorly visualized on this study. Cholecystectomy with mild biliary prominence. If clinically indicated, MRCP may be of value for furth er characterization.
[2018-06-19] MEDS: METRONIDAZOLE 500mg IVPB 500 MG/100 ML BAG IV SCH ×2 (09:26→18:14)
[2018-06-19] MEDS: Levofloxacin500mg IV 500 MG/100 ML BAG IV SCH (09:26)
[2018-06-19] MEDS: RIOCIGUAT 2.5 MG PO SCH (21:12)
[2018-06-20] MEDS: MORPHINE 4 MG/ML SYR IV PRN (05:32)
[2018-06-20 06:47] LABS: Absolute Lymphocytes (CBC) 1.6 K/uL (0.7-4.9); Absolute Monocytes 0.9 K/uL (0.1-1.3); Absolute Neutrophil 4.6 K/uL (1.8-8.0); Basophils % 0.6 % (0-1.3); Eosinophils % 3.3 % (0-4.4); Hematocrit 40.5 % (36.0-45.0); Lymphocytes % 22.3 % (15.3-44.8); MCH 33.7 pg (27.0-35.0); MCV 99.6 fL (80-100); MPV 8.4 fL (7.6-11.3); Monocytes % 11.7 % (3.3-12.3); RBC Red Blood Cell Count 4.07 M/uL (3.86-4.86)
[2018-06-20 07:06] LABS: ALT/SGPT 17 U/L (12-78); AST/SGOT 22 U/L (15-37); Albumin 2.9 g/dL (3.4-5.0); Alkaline Phosphatase 50 U/L (45-117); BUN Blood Urea Nitrogen 3 mg/dL (7-18); Bicarbonate 26 mmol/L (21-32); Bilirubin Total 0.4 mg/dL (0.2-1.0); Glucose Level 84 mg/dL (74-106); Potassium 4.6 mmol/L (3.5-5.1); Protein, Total 5.8 g/dL (6.4-8.2); Sodium Level 142 mmol/L (136-145)
[2018-06-20] MEDS: NA CHLORIDE 0.9% 1,000 ML IV SCH (09:00)
[2018-06-20] MEDS: RIOCIGUAT 2.5 MG PO SCH ×3 (09:00→14:00)
[2018-06-20] MEDS: MACITENTAN 10 MG PO SCH ×2 (09:00→09:38)
[2018-06-20] MEDS: Levofloxacin500mg IV 500 MG/100 ML BAG IV SCH (09:28)
[2018-06-20] MEDS: METRONIDAZOLE 500mg IVPB 500 MG/100 ML BAG IV SCH ×2 (09:28)
[2018-06-20 11:10] VITALS: O2SAT 90
[2018-06-20 15:49] VITALS: BP 110/60; TEMP 98.2
--- NOTE | 2018-06-20 16:27 | P.SSS ---
Patient History Date of Service: 06/20/18 Reason for admission: Abdominal pain; nausea and vomiting; constipation History of Present Illness: Patient is a 37-year-old female who presents to the hospital with abdominal discomfort. Patient also has been having intractable nausea and vomiting. She has had 2 different episodes. She states she has had a hard time moving her bowels as well. She was recently diagnosed with inflammation in her colon. However, she states everything was ruled out. She presented to the emergency room with the complaints as above and her CT reveals she has acute sigmoid diverticulitis. She has had prior C diff colitis in the past however recent C diff testing was negative. She does not have any diarrhea at this time. Try to review prior pathology reports but there are none. She has not had a Prometheus screen either. Will go ahead and admit her to the hospital for further evaluation. Continue her on antibiotics for now. If her symptoms do not improve then she may benefit from IV steroids. Patient does have a history of cardiac issues including atrial septal defect and pulmonary hypertension. She has leukocytosis and secondary polycythemia as well as a reactive thrombocytosis. Will need to keep these in mind as we treat the patient while in the hospital. 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 - Family History Mother -: Lung disease, Other (see notes) Notes: CROHNS DSE Brother -: GI disease, Other (see notes) Notes: CROHNS DSE - Social History Smoking Status: Current every day smoker Alcohol use: No CD- Drugs: No Caffeine use: No Place of Residence: Home Review of Systems 10-point ROS is otherwise unremarkable Physical Examination - Vital Signs Temperature: 98.2 F Blood Pressure: 110/60 Pulse: 71 Respirations: 20 Pulse Ox (%): 90 - Physical Exam General: Alert, In no apparent distress HEENT: Atraumatic, PERRLA, Mucous membr. moist/pink, EOMI, Sclerae nonicteric Neck: Supple, 2+ carotid pulse no bruit, No LAD, Without JVD or thyroid abnormality Respiratory: Clear to auscultation bilaterally, Normal air movement Cardiovascular: Regular rate/rhythm, Normal S1 S2 Gastrointestinal: Normal bowel sounds, No tenderness Musculoskeletal: No tenderness Integumentary: No rashes Neurological: Normal gait, Normal speech, Normal strength at 5/5 x4 extr, Normal tone, Normal affect Lymphatics: No axilla or inguinal lymphadenopathy - Studies Microbiology Data (last 24 hrs): 06/19/18 11:40 Stool Clostridium difficile Toxin Assay - Final 06/19/18 02:44 Stool Fecal Leukocyte Stain - Final - Diagnosis (Problem(s)) (1) Intractable nausea and vomiting Onset Date: 06/20/18 Status: Acute Qualifiers: Vomiting type: cyclical vomiting Qualified Code(s): G43.A1 - Cyclical vomiting, intractable (2) Sigmoid diverticulitis Onset Date: 06/20/18 Status: Acute (3) Alcohol use Onset Date: 12/30/16 Status: Chronic (4) GERD (gastroesophageal reflux disease) Onset Date: 12/30/16 Status: Chronic Qualifiers: Esophagitis presence: esophagitis presence not specified Qualified Code(s) : K21.9 - Gastro-esophageal reflux disease without esophagitis (5) Tobacco abuse Onset Date: 12/30/16 Status: Chronic Treatment Summary: Overall during the hospital stay patient remained stable Patient was admitted to the hospital for acute sigmoid colon diverticulitis was started on IV antibiotics had marked improvement in her symptoms abdominal pain will improved markedly while here in the hospital. Patient's diet was advanced to as tolerated. Patient's antibiotics was switched over to p.o.. Patient was discharged home in about 24-48 hr post admission. When she had marked resolution of her symptoms. Patient was asked to follow up with GI doctor outpatient and was asked to get a colonoscopy in 6 weeks with GI doctor. - Disposition Disposition: ROUTINE DISCHARGE Condition: GOOD Diet: Regular Activity: Ad doris
== END 2018-06-20 14:11 | disposition home or self-care (01) ==
LOC: ER 00:08 → ERHOLD 02:44 → 2ND 03:20 → OBSVTOIN 11:47 → INTOOBSV 11:47
PROVIDERS: ADMIT Hospitalist; ATTEND Hospitalist
DX: K57.32 Diverticulitis of large intestine without perforation or abscess without bleeding (principal); K21.9 Gastro-esophageal reflux disease without esophagitis; Z72.89 Other problems related to lifestyle; Q21.1 Atrial septal defect; I27.20 Pulmonary hypertension, unspecified; F17.210 Nicotine dependence, cigarettes, uncomplicated
CPT/HCPCS: 36415; 74177; 80048; 80053; 80076; 81003; 83690; 84132; 84703; 85025; 87045; 87046; 87177; 87209; 87493; 89055; 96365; 96375; 99285; J0744; J2405; J7030; Q9967

== ENCOUNTER 2018-06-23 20:23 | Observation (INO) | payer BC ==
[2018-06-23] MEDS ORDERED: NA CHLORIDE 0.9% 1,000 ML ONE (20:57)
[2018-06-23] MEDS ORDERED: PROMETHAZINE 25 MG/ML VIAL ONE (21:03)
[2018-06-23] MEDS ORDERED: FENTANYL CITR 100 MCG/2 ML ONE (21:26)
[2018-06-23] MEDS ORDERED: METRONIDAZOLE 500mg IVPB 500 MG/100 ML BAG IV ONE (21:27)
[2018-06-23] MEDS ORDERED: CIPROFLOXACIN 400mg IV 400 MG/200 ML BAG IV ONE (21:27)
[2018-06-23 21:42] LABS: Absolute Lymphocytes (CBC) 1.1 K/uL (0.7-4.9); Absolute Monocytes 1.1 K/uL (0.1-1.3); Absolute Neutrophil 4.7 K/uL (1.8-8.0); Basophils % 1.1 % (0-1.3); Eosinophils % 0.4 % (0-4.4); Hematocrit 48.4 % (36.0-45.0); Lymphocytes % 15.5 % (15.3-44.8); MCH 32.8 pg (27.0-35.0); MCV 97.9 fL (80-100); MPV 9.2 fL (7.6-11.3); Monocytes % 15.3 % (3.3-12.3); RBC Red Blood Cell Count 4.95 M/uL (3.86-4.86)
[2018-06-23 21:47] LABS: Albumin 3.8 g/dL (3.4-5.0); Bilirubin Direct 0.2 mg/dL (0-0.2); Bilirubin Total 0.6 mg/dL (0.2-1.0); Potassium 3.1 mmol/L (3.5-5.1); Protein, Total 7.3 g/dL (6.4-8.2)
[2018-06-23 22:16] LABS: Blood Morphology Comment NOT SEEN (NOT SEEN); Platelet Estimate ADEQ; Urine White Blood Cell Casts OK
[2018-06-23] MEDS ORDERED: KCL 20 MEQ/100 mL IVPB 20 MEQ/100 ML BAG IV ONE (23:17)
[2018-06-24] MEDS ORDERED: DIAZEPAM 10 MG/2 ML INJ SYRINGE ONE (00:18)
--- NOTE | 2018-06-24 00:55 | ER ---
Nurse's Notes [facility] Name: Alicia Morton Age: 37 yrs Sex: Female : 1980 Arrival Date: 06/23/2018 Time: 20:24 Bed 24 Private MD: Diagnosis: Vomiting, unspecified;Diarrhea, unspecified;Upper abdominal pain, unspecified-failed outpt therapy Presentation: 06/23 20:37 Presenting complaint: Patient states: she was here three days ago and diagnosed with bb diverticulitis this morning she started having abdominal pain and vomiting with diarrhea. Transition of care: patient was not received from another setting of care. Onset of symptoms was June 23, 2018. Risk Assessment: Do you want to hurt yourself or someone else? Patient reports no desire to harm self or others. Initial Sepsis Screen: Does the patient meet any 2 criteria? No. Patient's initial sepsis screen is negative. Does the patient have a suspected source of infection? No. Patient's initial sepsis screen is negative. Care prior to arrival: None. 20:37 Method Of Arrival: Ambulatory bb 20:37 Acuity: RICARDO 3 bb Triage Assessment: 21:55 General: Appears distressed, uncomfortable, Behavior is cooperative, appropriate for tl3 age, anxious. Pain: Complains of pain in left upper quadrant and right upper quadrant and epigastric area. GI: Reports vomiting. 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 - Social history:: Smoking status: Patient uses tobacco products, smokes one-half pack cigarettes per day. - Ebola Screening: : No symptoms or risks identified at this time. Screenin:52 Abuse screen: Denies threats or abuse. Nutritional screening: No deficits noted. tl3 Tuberculosis screening: No symptoms or risk factors identified. Fall Risk None identified. Assessment: 21:52 Reassessment: No changes from previously documented assessment. Patient and/or family tl3 updated on plan of care and expected duration. Pain level reassessed. Patient is alert, oriented x 3, equal unlabored respirations, skin warm/dry/pink. 22:04 GI: Abdomen is round. tl3 22:04 Reassessment: Patient and/or family updated on plan of care and expected duration. Pain tl3 level reassessed. Patient is alert, oriented x 3, equal unlabored respirations, skin warm/dry/pink. pt is resting no further vomiting, no needs at this time. Pain: Complains of pain in left upper quadrant and right upper quadrant and epigastric area. 23:12 Reassessment: Patient appears in no apparent distress at this time. No changes from tl3 previously documented assessment. Patient and/or family updated on plan of care and expected duration. Pain level reassessed. Patient is alert, oriented x 3, equal unlabored respirations, skin warm/dry/pink. 06/24 00:22 Reassessment: No changes from previously documented assessment. Patient and/or family tl3 updated on plan of care and expected duration. Pain level reassessed. Patient is alert, oriented x 3, equal unlabored respirations, skin warm/dry/pink. pt c/o pain and vomiting new orders received and administered, lights dimmed, no needs at this time. 01:17 Reassessment: No changes from previously documented assessment. Patient and/or family tl3 updated on plan of care and expected duration. Pain level reassessed. Patient is alert, oriented x 3, equal unlabored respirations, skin warm/dry/pink. pt resting, report given to Tony ROY. Vital Signs: 06/23 20:40 BP 126 / 75; Pulse 88; Resp 20 S; Temp 98.6(O); Pulse Ox 92% on R/A; Weight 53.98 kg bb (R); Height 5 ft. 4 in. (162.56 cm) (R); Pain 7/10; 21:52 BP 123 / 76; Pulse 79; Resp 18; Pulse Ox 93% on R/A; tl3 22:04 BP 119 / 76; Pulse 77; Resp 18; Pulse Ox 94% on R/A; tl3 23:12 BP 114 / 75; Pulse 75; Resp 18; Pulse Ox 90% on R/A; tl3 06/24 00:22 BP 122 / 85; Pulse 96; Resp 18; Pulse Ox 92% on R/A; tl3 01:17 BP 114 / 71; Pulse 82; Resp 18; Pulse Ox 88% on R/A; tl3 06/23 20:40 Body Mass Index 20.43 (53.98 kg, 162.56 cm) bb ED Course: 06/23 20:24 Patient arrived in ED. ds1 20:33 Jennifer Jones FNP-C is PHCP. snw 20:33 Shanice Hernandez MD is Attending Physician. snw 20:39 Triage completed. bb 20:40 Nyla Gonzáles, RN is Primary Nurse. tl3 20:40 Arm band placed on Patient placed in an exam room, on a stretcher, on pulse oximetry. bb 21:10 Inserted saline lock: 20 gauge in left forearm, using aseptic technique. tl3 21:52 Patient has correct armband on for positive identification. Placed in gown. Bed in low tl3 position. Call light in reach. Side rails up X2. Pulse ox on. NIBP on. 21:52 No provider procedures requiring assistance completed. tl3 06/24 00:54 Shanice De Luna MD is Hospitalizing Provider. snw Administered Medications: 06/23 21:12 Drug: NS 0.9% 1000 ml Route: IV; Rate: 125 ml/hr; Site: left forearm; Delivery: Primary tl3 tubing; 21:12 Drug: Phenergan 12.5 mg Route: IVP; Infused Over: 3 mins; Site: left forearm; tl3 21:41 Follow up: Response: No adverse reaction; Marked relief of symptoms tl3 21:20 Drug: Flagyl 500 mg Volume: 100 ml; Route: IVPB; Rate: 200 ml/hr; Infused Over: 30 tl3 mins; Site: left forearm; Delivery: Level 1 Tubing; 22:15 Follow up: IV Status: Completed infusion; IV Intake: 100ml tl3 21:20 Drug: fentaNYL (PF) 50 mcg Route: IVP; Infused Over: 2 mins; Site: left forearm; tl3 06/24 00:21 Follow up: Response: No adverse reaction tl3 06/23 21:41 Drug: Cipro 400 mg Volume: 200 ml; Route: IVPB; Infused Over: 60 mins; Site: left tl3 forearm; Delivery: Primary tubing; 23:00 Follow up: IV Status: Completed infusion; IV Intake: 200ml tl3 23:07 Drug: Potassium Chloride 20 mEq Route: IV; Rate: calculated rate; Site: left forearm; tl3 Delivery: Primary tubing; 06/24 00:18 Drug: Valium 5 mg Route: IVP; Infused Over: 3 mins; Site: left forearm; tl3 00:21 Follow up: Response: Marked relief of symptoms tl3 00:19 Drug: Phenergan 12.5 mg Route: IVP; Infused Over: 3 mins; Site: left forearm; tl3 00:21 Follow up: Response: No adverse reaction tl3 Intake: 06/23 22:15 IV: 100ml; Total: 100ml. tl3 23:00 IV: 200ml; Total: 300ml. tl3 Outcome: 06/24 00:55 Decision to Hospitalize by Provider. snw 01:00 Admitted to ER Hold. Please see [facility] for further documentation. bb 14:41 Patient left the ED. iw Signatures: Jennifer Jones, PHARMACY INTAKE TECHNICIAN-C PHARMACY INTAKE TECHNICIAN-Liane Ellison ds1 Praveena Mae RN RN bb Chapis Durant RN RN iw Nyla Gonzáles RN RN tl3
--- NOTE | 2018-06-24 00:55 | EDPHYS ---
Physician Documentation [facility] Name: Alicia Morton Age: 37 yrs Sex: Female : 1980 Arrival Date: 06/23/2018 Time: 20:24 Bed 24 Private MD: ED Physician Shanice Hernandez HPI: 06/23 20:53 This 37 yrs old Female presents to ER via Ambulatory with complaints of snw Vomiting/Diarrhea. 20:53 The patient presents to the emergency department with nausea, vomiting, diarrhea, snw abdominal pain. Onset: The symptoms/episode began/occurred suddenly, today. Possible causes: flare up of bowel problem, just discharged this week with Diverticulitis. Associated signs and symptoms: Pertinent positives: abdominal pain, diarrhea, nausea, vomiting. Severity of symptoms: At their worst the symptoms were moderate severe. The patient has experienced similar episodes in the past, multiple times, today's symptoms are similar. The patient has been recently been admitted at [facility], was discharged earlier this week, for similar complaints, but despite evaluation and treatment the patient has continued symptoms, but despite evaluation and treatment the patient now has worsening symptoms. ate ham and potato salad yesterday, today with worsening abd pain and inability to hold anything down. 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 - Social history:: Smoking status: Patient uses tobacco products, smokes one-half pack cigarettes per day. - Ebola Screening: : No symptoms or risks identified at this time. ROS: 20:53 Constitutional: Negative for fever, chills, and weight loss, Eyes: Negative for injury, snw pain, redness, and discharge, ENT: Negative for injury, pain, and discharge, Neck: Negative for injury, pain, and swelling, Cardiovascular: Negative for chest pain, palpitations, and edema, Respiratory: Negative for shortness of breath, cough, wheezing, and pleuritic chest pain, Back: Negative for injury and pain, : Negative for injury, bleeding, discharge, and swelling, MS/Extremity: Negative for injury and deformity, Skin: Negative for injury, rash, and discoloration, Neuro: Negative for headache, weakness, numbness, tingling, and seizure. 20:53 Abdomen/GI: Positive for abdominal pain, nausea, vomiting, and diarrhea. Exam: 20:52 Head/Face: Normocephalic, atraumatic. Eyes: Pupils equal round and reactive to light, snw extra-ocular motions intact. Lids and lashes normal. Conjunctiva and sclera are non-icteric and not injected. Cornea within normal limits. Periorbital areas with no swelling, redness, or edema. 20:52 Neck: Trachea midline, no thyromegaly or masses palpated, and no cervical lymphadenopathy. Supple, full range of motion without nuchal rigidity, or vertebral point tenderness. No Meningismus. Chest/axilla: Normal chest wall appearance and motion. Nontender with no deformity. No lesions are appreciated. Cardiovascular: Regular rate and rhythm with a normal S1 and S2. No gallops, murmurs, or rubs. Normal PMI, no JVD. No pulse deficits. 20:52 Back: No spinal tenderness. No costovertebral tenderness. Full range of motion. Skin: Warm, dry with normal turgor. Normal color with no rashes, no lesions, and no evidence of cellulitis. MS/ Extremity: Pulses equal, no cyanosis. Neurovascular intact. Full, normal range of motion. Neuro: Awake and alert, GCS 15, oriented to person, place, time, and situation. Cranial nerves II-XII grossly intact. Motor strength 5/5 in all extremities. Sensory grossly intact. Cerebellar exam normal. Normal gait. Psych: Awake, alert, with orientation to person, place and time. Behavior, mood, and affect are within normal limits. 20:52 Constitutional: The patient appears alert, awake, anxious, restless. 20:52 ENT: Mouth: Oral mucosa: dry, Voice: is normal. 20:52 Abdomen/GI: Inspection: abdomen appears normal, Bowel sounds: active, Palpation: moderate abdominal tenderness, in the epigastric area, right upper quadrant and left upper quadrant. Vital Signs: 20:40 BP 126 / 75; Pulse 88; Resp 20 S; Temp 98.6(O); Pulse Ox 92% on R/A; Weight 53.98 kg bb (R); Height 5 ft. 4 in. (162.56 cm) (R); Pain 7/10; 21:52 BP 123 / 76; Pulse 79; Resp 18; Pulse Ox 93% on R/A; tl3 22:04 BP 119 / 76; Pulse 77; Resp 18; Pulse Ox 94% on R/A; tl3 23:12 BP 114 / 75; Pulse 75; Resp 18; Pulse Ox 90% on R/A; tl3 06/24 00:22 BP 122 / 85; Pulse 96; Resp 18; Pulse Ox 92% on R/A; tl3 01:17 BP 114 / 71; Pulse 82; Resp 18; Pulse Ox 88% on R/A; tl3 06/23 20:40 Body Mass Index 20.43 (53.98 kg, 162.56 cm) bb MDM: 06/23 20:39 Patient medically screened. snw 06/24 01:14 Data reviewed: vital signs, nurses notes. Data interpreted: Pulse oximetry: on room air snw is 92 %. Interpretation: acceptable. Counseling: I had a detailed discussion with the patient and/or guardian regarding: the historical points, exam findings, and any diagnostic results supporting the discharge/admit diagnosis, the presence of at least one elevated blood pressure reading (>120/80) during this emergency department visit, lab results, the need for further work-up and treatment in the hospital. Physician consultation: Shanice De Luna MD was called at 01:15, was contacted at 01:15, regarding admission, to the medical/surgical unit. 06/23 20:41 Order name: Basic Metabolic Panel; Complete Time: 21:54 snw 06/23 20:41 Order name: CBC with Diff; Complete Time: 22:18 snw 06/23 20:41 Order name: Creatinine for Radiology; Complete Time: 21:43 snw 06/23 20:41 Order name: Hepatic Function; Complete Time: 21:54 snw 06/23 20:41 Order name: Lipase; Complete Time: 21:54 snw 06/23 20:41 Order name: Blood Culture Adult (2) snw 06/23 21:48 Order name: CBC Smear Scan; Complete Time: 22:18 EDMS 06/24 01:24 Order name: CBC with Automated Diff EDMS 06/24 01:24 Order name: Comprehensive Metabolic Panel EDMS 06/24 01:24 Order name: Creatine Phosphokinase EDMS 06/24 01:24 Order name: Magnesium EDMS 06/24 01:24 Order name: Phosphorus EDMS 06/24 01:24 Order name: PTT, Activated Partial Thromb EDMS 06/24 10:10 Order name: CBC with Automated Diff EDMS 06/24 01:24 Order name: Echo with Doppler EDMS 06/24 10:23 Order name: Protime (+INR) EDMS 06/24 10:23 Order name: PTT, Activated Partial Thromb EDMS 06/24 10:30 Order name: Sedimentation Rate, [place] EDWA 06/24 10:33 Order name: C-Reactive Protein EDMS 06/24 10:33 Order name: Iron EDMS 06/24 10:42 Order name: CBC Smear Scan EDWA 06/24 10:56 Order name: Comprehensive Metabolic Panel EDWA 06/24 10:56 Order name: Phosphorus EDMS 06/24 10:56 Order name: Magnesium EDWA 06/24 10:56 Order name: Folic Acid, (Folate) EDWA 06/24 10:56 Order name: Vitamin B12 Level [facility] 06/23 20:41 Order name: IV Saline Lock; Complete Time: 21:13 [facility] 06/23 20:41 Order name: Labs collected and sent; Complete Time: 21:13 [facility] 06/24 01:24 Order name: CONS Physician Consult EDWA 06/24 01:24 Order name: Heart Healthy EDWA Administered Medications: 06/23 21:12 Drug: NS 0.9% 1000 ml Route: IV; Rate: 125 ml/hr; Site: left forearm; Delivery: Primary tl3 tubing; 21:12 Drug: Phenergan 12.5 mg Route: IVP; Infused Over: 3 mins; Site: left forearm; tl3 21:41 Follow up: Response: No adverse reaction; Marked relief of symptoms tl3 21:20 Drug: Flagyl 500 mg Volume: 100 ml; Route: IVPB; Rate: 200 ml/hr; Infused Over: 30 tl3 mins; Site: left forearm; Delivery: Level 1 Tubing; 22:15 Follow up: IV Status: Completed infusion; IV Intake: 100ml tl3 21:20 Drug: fentaNYL (PF) 50 mcg Route: IVP; Infused Over: 2 mins; Site: left forearm; tl3 06/24 00:21 Follow up: Response: No adverse reaction tl3 06/23 21:41 Drug: Cipro 400 mg Volume: 200 ml; Route: IVPB; Infused Over: 60 mins; Site: left tl3 forearm; Delivery: Primary tubing; 23:00 Follow up: IV Status: Completed infusion; IV Intake: 200ml tl3 23:07 Drug: Potassium Chloride 20 mEq Route: IV; Rate: calculated rate; Site: left forearm; tl3 Delivery: Primary tubing; 06/24 00:18 Drug: Valium 5 mg Route: IVP; Infused Over: 3 mins; Site: left forearm; tl3 00:21 Follow up: Response: Marked relief of symptoms tl3 00:19 Drug: Phenergan 12.5 mg Route: IVP; Infused Over: 3 mins; Site: left forearm; tl3 00:21 Follow up: Response: No adverse reaction tl3 Disposition: 06/24/18 00:55 Hospitalization ordered by Shanice De Luna for Inpatient Admission. Preliminary diagnosis are Vomiting, unspecified, Diarrhea, unspecified, Upper abdominal pain, unspecified - failed outpt therapy. - Bed requested for Telemetry/MedSurg (Inpatient). - Status is Inpatient Admission. iw - Condition is Stable. - Problem is an acute exacerbation. - Symptoms have worsened. UTI on Admission? No Addendum: 06/28/2018 10:27 Co-signature as Attending Physician, Yonathan John MD I agree with the assessment and k dr plan of care. Signatures: Dispatcher [employer] EDMS Leah Alfaro RN RN Kendal Disla RN RN dw Rittger, Kevin, MD MD kdr Therrien, Shelly, MARINE INSURANCE CLAIM EXAMINER-C MARINE INSURANCE CLAIM EXAMINER-Fredericw Praveena Mae, RN RN Chapis Haney, Nyla Lujan RN, RN RN tl3 Corrections: (The following items were deleted from the chart) 06/24 01:01 00:55 Hospitalization Ordered by Shanice De Luna MD for Inpatient Admission. Preliminary diagnosis is Vomiting, unspecified; Diarrhea, unspecified; Upper abdominal pain, unspecified - failed outpt therapy. Bed requested for Telemetry/MedSurg (Inpatient). Status is Inpatient Admission. Condition is Stable. Problem is an acute exacerbation. Symptoms have worsened. UTI on Admission? No. snw 11:37 01:01 06/24/2018 00:55 Hospitalization Ordered by Shanice De Luna MD for Inpatient dw Admission. Preliminary diagnosis is Vomiting, unspecified; Diarrhea, unspecified; Upper abdominal pain, unspecified - failed outpt therapy. Bed requested for [email or web address] ER HOLD. Status is Inpatient Admission. Condition is Stable. Problem is an acute exacerbation. Symptoms have worsened. UTI on Admission? No. mw 14:41 11:37 06/24/2018 00:55 Hospitalization Ordered by Shanice De Luna MD for Inpatient iw Admission. Preliminary diagnosis is Vomiting, unspecified; Diarrhea, unspecified; Upper abdominal pain, unspecified - failed outpt therapy. Bed requested for Telemetry/MedSurg (Inpatient). Status is Inpatient Admission. Condition is Stable. Problem is an acute exacerbation. Symptoms have worsened. UTI on Admission? No. dw
[2018-06-24] MEDS ORDERED: ACETAMINOPHEN 500 MG TAB PO PRN (01:14)
[2018-06-24] MEDS ORDERED: MAGNESIUM HYDROXIDE 8% 30 ML PO PRN (01:14)
[2018-06-24] MEDS ORDERED: ALPRAZOLAM 0.25 MG TABLET PO PRN (01:14)
[2018-06-24] MEDS ORDERED: NITROGLYCERIN 0.4 MG/TAB SL PRN (01:14)
[2018-06-24] MEDS ORDERED: ENOXAPARIN 100 MG/ML SYR SQ SCH (02:00)
[2018-06-24 02:11] VITALS: O2SAT 97
[2018-06-24 02:16] VITALS: BMI 20.4
[2018-06-24] MEDS ORDERED: ENOXAPARIN 100 MG/ML SYR SQ ONE (02:45)
[2018-06-24 05:09] LABS: Absolute Lymphocytes (CBC) 2.1 K/uL (0.7-4.9); Absolute Neutrophil 3.2 K/uL (1.8-8.0); Eosinophils % 0.5 % (0-4.4); Hematocrit 41.8 % (36.0-45.0); Lymphocytes % 33.2 % (15.3-44.8); MCH 33.5 pg (27.0-35.0); MCV 97.9 fL (80-100); MPV 9.3 fL (7.6-11.3); RBC Red Blood Cell Count 4.27 M/uL (3.86-4.86)
[2018-06-24 05:11] LABS: Monocytes % 15.7 % (3.3-12.3)
[2018-06-24] MEDS ORDERED: ONDANSETRON 4 MG/2 ML VIAL IV PRN (05:14)
[2018-06-24 05:16] LABS: ALT/SGPT 93 U/L (12-78); AST/SGOT 219 U/L (15-37); Albumin 3.2 g/dL (3.4-5.0); Alkaline Phosphatase 60 U/L (45-117); BUN Blood Urea Nitrogen 6 mg/dL (7-18); Bicarbonate 23 mmol/L (21-32); Bilirubin Total 0.5 mg/dL (0.2-1.0); Creatine Phosphokinase 44 U/L (26-192); Glucose Level 80 mg/dL (74-106); Magnesium 2.1 mg/dL (1.8-2.4); Phosphorus 3.5 mg/dL (2.5-4.9); Potassium 3.4 mmol/L (3.5-5.1); Protein, Total 6.2 g/dL (6.4-8.2); Sodium Level 142 mmol/L (136-145)
[2018-06-24] MEDS ORDERED: POTASSIUM CL SA 10 MEQ TAB PO ONE ×2 (08:00→09:38)
[2018-06-24] MEDS ORDERED: HEPARIN 5000 UNIT/ML 1 ML VIAL SQ SCH (09:00)
[2018-06-24] MEDS ORDERED: CLOPIDOGREL 75 MG TABLET PO SCH (09:00)
[2018-06-24] MEDS: ENOXAPARIN 40 MG/0.4 ML SQ SCH (09:00)
[2018-06-24] MEDS ORDERED: LISINOPRIL 10 MG TAB PO SCH (09:00)
[2018-06-24] MEDS: ASPIRIN EC 81 MG TAB PO SCH (09:00)
[2018-06-24] MEDS ORDERED: METOPROLOL TAR 50 MG TAB PO SCH (09:00)
[2018-06-24] MEDS ORDERED: MACITENTAN PO SCH (09:00)
[2018-06-24] MEDS ORDERED: ENALAPRIL 10 MG TAB PO SCH (09:00)
[2018-06-24] MEDS: RIOCIGUAT PO SCH ×2 (09:00→13:28)
[2018-06-24] MEDS ORDERED: SPIRONOLACTONE 25 MG TABLET PO SCH (09:00)
[2018-06-24] MEDS ORDERED: ASPIRIN EC 81 MG TAB PO ONE (09:38)
[2018-06-24] MEDS ORDERED: ENOXAPARIN 40 MG/0.4 ML SQ ONE (09:39)
[2018-06-24 10:10] LABS: Absolute Neutrophil 2.8 K/uL (1.8-8.0); Basophils % 1.4 % (0-1.3); Eosinophils % 1.2 % (0-4.4); Hematocrit 42.3 % (36.0-45.0); Lymphocytes % 34.2 % (15.3-44.8); MCH 32.9 pg (27.0-35.0); MCV 97.2 fL (80-100); Monocytes % 16.1 % (3.3-12.3); RBC Red Blood Cell Count 4.35 M/uL (3.86-4.86)
[2018-06-24 10:13] LABS: Protime INR 1.3
[2018-06-24 10:33] LABS: C-Reactive Protein 6.26 mg/L (<3.00)
[2018-06-24 10:40] LABS: Platelet Estimate ADEQ; Urine White Blood Cell Casts OK
[2018-06-24 10:41] LABS: Blood Morphology Comment NOT SEEN (NOT SEEN)
[2018-06-24 10:55] LABS: ALT/SGPT 95 U/L (12-78); AST/SGOT 200 U/L (15-37); Alkaline Phosphatase 56 U/L (45-117); BUN Blood Urea Nitrogen 6 mg/dL (7-18); Bicarbonate 23 mmol/L (21-32); Bilirubin Total 0.5 mg/dL (0.2-1.0); Folic Acid, (Folate) 19.1 ng/mL (3.1-17.5); Glucose Level 93 mg/dL (74-106); Magnesium 2.2 mg/dL (1.8-2.4); Potassium 3.5 mmol/L (3.5-5.1); Sodium Level 141 mmol/L (136-145)
--- NOTE | 2018-06-24 12:05 | CON ---
Chief Complaint: Abdominal pain. Reason For Cardiology Consult: The patient with congenital heart disease and resultant pulmonary hyp ertension. History Of Present Illness: Mrs. Morton is 37. She has an atrial septal defect that was discovere d fairly recently, it was in November 2015. She was discovered to have an atrial septal defect with sever e pulmonary hypertension. Right and left heart catheterization were done and the recommendation was made not to close it. I do not have the notes. I am not sure if they recommended not closing it bec ause it had already resulted in hypertension and there was no significant flow or if it was just too small, but she has not had any attempt at closure. She is on medications to treat pulmonary hyperten carlos and sees a specialist about it. She takes macitentan 10 mg riociguat or Adempas 2.5 mg 3 times a day. 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 Recentl y, she has been seen for the abdominal pain. She has been on metronidazole and Cipro and she was adri d that she probably had diverticulitis, but came to the hospital because the abdominal pain is not ge tting better. She was not having chest pain or any cardiac complaints since she has been in the hosp ital. She has a very elevated AST, otherwise known as SGOT. Bilirubins are fine. The SGOTs are omer nding downward, but they are still very elevated along with SGPT. Lipase level is low. The C-reacti ve protein is very elevated, but that of course is nonspecific. She has a normal white blood cell co unt, normal hemoglobin and hematocrit. The sedimentation rate is 6. Impression: The patient has stable pulmonary hypertension and atrial septal defect that was not clos ed after consideration of the data. I think she should continue on the Adempas and macitentan. We c an do an echocardiogram to estimate what her pulmonary artery pressure is today. I think a consult m ay be in to have more information about the abdominal problem. I wonder if she has diverticulitis or some other diagnosis. At this point, there is not a CT of the abdomen available for us. She has a history of cholecystectomy and tubal ligation. She continues to smoke 10 cigarettes per day, has been instructed on discontinuing tobacco. KATHERINE Voice ID: [id number] Report ID: [id number]
--- NOTE | 2018-06-24 13:51 | P.HP ---
Certification for Inpatient Patient admitted to: Inpatient With expected LOS: >2 Midnights Patient will require the following post-hospital care: None Practitioner: I am a practitioner with admitting privileges, knowledge of patient current condition, hospital course, and medical plan of care. Services: Services provided to patient in accordance with Admission requirements found in Title 42 Section 412.3 of the Code of Federal Regulations Patient History Date of Service: 06/24/18 Reason for admission: Abdominal pain; nausea and vomiting; diarrhea History of Present Illness: patient is a 37-year-old female who was recently admitted to the hospital for similar complaints. She was diagnosed with diverticulitis. She was sent home on IV Cipro and Flagyl. She has history of atrial septal defect and pulmonary hypertension. She tends to be hypoxic. In the emergency room after pain medication she remained slightly hypoxic. Patient continued to have vague abdominal discomfort. Will need to work her up for other causes of abdominal pain and diarrhea. Will consult GI as well. Patient recently had a CT of the abdomen and pelvis so this has not been done but she does not improve then we may need to repeat this as well to make sure patient hasn't developed micro perforations or abscesses. 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 - Family History Mother Medical History: Lung disease, Other (see notes) Notes: CROHNS DSE Brother Medical History: GI disease, Other (see notes) Notes: CROHNS DSE - Social History Smoking Status: Current every day smoker Alcohol use: No CD- Drugs: No Caffeine use: No Place of Residence: Home Review of Systems 10-point ROS is otherwise unremarkable Physical Examination - Vital Signs Temperature: 98.6 F Blood Pressure: 128/72 Pulse: 86 Respirations: 16 Pulse Ox (%): 90 - Physical Exam General: Alert, In no apparent distress, Oriented x3 HEENT: Atraumatic, PERRLA, Mucous membr. moist/pink, EOMI, Sclerae nonicteric Neck: Supple, 2+ carotid pulse no bruit, No LAD, Without JVD or thyroid abnormality Respiratory: Clear to auscultation bilaterally, Normal air movement Cardiovascular: Regular rate/rhythm, Normal S1 S2, No murmurs Gastrointestinal: Normal bowel sounds, Hypoactive, Soft and benign, Non- distended, No masses, No rebound, No guarding, Tenderness Musculoskeletal: No clubbing, No swelling, No tenderness Integumentary: No rashes Neurological: Normal gait, Normal speech, Normal strength at 5/5 x4 extr, Normal tone, Sensation intact, Cranial nerves 3-12 intact, Normal affect Lymphatics: No axilla or inguinal lymphadenopathy - Studies Laboratory Data (last 24 hrs) 06/23/18 21:00: Creatinine 0.70 06/23/18 21:00: WBC 6.9, Hgb 16.2 H D, Hct 48.4 H D, Plt Count 348 D 06/23/18 21:00: Sodium 141, Potassium 3.1 L, BUN 6 L, Creatinine 0.80, Glucose 93, Total Bilirubin 0.6, AST 353 H* D, ALT 111 H, Alkaline Phosphatase 70, Lipase 66 L Assessment & Plan - Problems (Diagnosis) (1) Cirrhosis Current Visit: Yes Status: Acute (2) Acute hepatic failure Current Visit: Yes Status: Acute (3) ASD (atrial septal defect) Onset Date: 12/30/16 Current Visit: No Status: Acute (4) Abdominal pain Onset Date: 12/30/16 Current Visit: No Status: Acute Qualifiers: (5) Intractable nausea and vomiting Onset Date: 06/20/18 Current Visit: No Status: Acute Qualifiers: (6) Pancolitis Onset Date: 12/30/16 Current Visit: No Status: Acute (7) Secondary polycythemia Current Visit: Yes Status: Acute - Plan Plan: 1. Continue with gentle IV hydration 2. Workup for abdominal pain 3. GI consultation 4. Patient with atrial septal defect in secondary pulmonary hypertension- patient remains hypoxic secondary to this-will monitor closely. 5. Patient may need to have a prometheus ordered. 6. Patient has secondary polycythemia. With normal hemoglobin most likely related to bleeding. Will continue to monitor closely. Maybe should recheck reticulocyte count and iron studies as well. 7. GI and DVT prophylaxis Discharge Plan: Home Plan to discharge in: Greater than 2 days - Advance Directives Does patient have a Living Will: No Does patient have a Durable POA for Healthcare: No - Code Status/Comfort Care Code Status Assessed: Yes Code Status: Full Code Critical Care: No Time Spent Managing PTS Care (In Minutes): 50
[2018-06-24] MEDS: TRAMADOL HCL 50 MG TAB PO PRN ×2 (14:45→20:49)
[2018-06-24] MEDS: ADEMPAS 2.5 MG PO SCH (20:46)
[2018-06-24] MEDS ORDERED: ATORVASTATIN 20 MG TAB PO SCH (21:00)
[2018-06-24] MEDS ORDERED: ATORVASTATIN 80 MG TAB PO SCH (21:00)
[2018-06-25 05:57] LABS: RBC Red Blood Cell Count 4.2 M/uL (3.86-4.86)
[2018-06-25 06:26] LABS: BUN Blood Urea Nitrogen 5 mg/dL (7-18); Bicarbonate 24 mmol/L (21-32); Glucose Level 80 mg/dL (74-106); HDL Cholesterol 39 mg/dL (40-60); LDL Cholesterol, Calculated 80 (<130); Potassium 3.7 mmol/L (3.5-5.1); Sodium Level 141 mmol/L (136-145)
--- NOTE | 2018-06-25 07:36 | EKG ---
Test Date: 2018-06-24 Test Time: 16:12:26 Sanitarian: DONOVAN MEASUREMENT RESULTS: Intervals: Rate: 68 ND: 174 QRSD: 90 QT: 432 QTc: 459 [place]: P: 25 ND: 174 QRS: 123 T: 91 INTERPRETIVE STATEMENTS: Normal sinus rhythm Low voltage QRS Lateral infarct, age undetermined T wave abnormality, consider anterior ischemia Abnormal ECG Compared to ECG 12/13/2016 18:49:32 Low QRS voltage now present Myocardial infarct finding still present Possible ischemia still present Electronically Signed On 06-25-18 07:34:48 ANIMAL STICKER by Bogdan Cooper
[2018-06-25] MEDS ORDERED: POTASSIUM CL SA 10 MEQ TAB PO ONE (09:00)
[2018-06-25] MEDS ORDERED: OPSUMIT 10 MG TABLET PO SCH (09:00)
[2018-06-25] MEDS: ENOXAPARIN 40 MG/0.4 ML SQ SCH (09:00)
[2018-06-25] MEDS: ASPIRIN EC 81 MG TAB PO SCH (09:50)
[2018-06-25] MEDS: ADEMPAS 2.5 MG PO SCH ×2 (09:50→13:54)
--- NOTE | 2018-06-25 13:15 | P.DS ---
Admission Date: 06/24/18 Discharge Date: 06/25/18 Primary Care Provider: None; Cardiology-Dr. Kelly([facility]) Discharge Condition: GOOD Reason for Admission: Abdominal pain; nausea and vomiting; diarrhea Consultations: Cardiology-Dr. Cooper Procedures: CT scan: Done 06/19/2018. COMPARISON: Abdomen Pelvis W Contrast dated 06/09/2018; Abdomen Pelvis W Contrast dated 12/29/2016; CT ABD PELVIS W CONTRAST dated 02/13/2014 TECHNIQUE: Biphasic CT imaging of the abdomen and pelvis was performed with 100 ml non-ionic IV contrast. All CT scans are performed using dose optimization technique as appropriate and may include automated exposure control or mA/KV adjustment according to patient size. FINDINGS: The lung bases are clear.Cholecystectomy clips. Mild intra and extrahepatic biliary tree dilatation is seen. This may be a result of cholecystectomy reservoir effect. The spleen, pancreas, adrenal glands and kidneys are within normal limits. The proximal sigmoid colon demonstrates multiple diverticula with wall thickening and pericolonic inflammatory changes. Findings have a similar appearance to the comparative study. Fluid is present in the right adnexal region. Moderate fecal retention is noted. Mild wall thickening of the descending colon with trace left pericolic gutter fluid also seen. The appendix is poorly visualized on this study. No evidence of significant lymphadenopathy. No suspicious bony findings. IMPRESSION: Prominent intramural edema and wall thickening with surrounding inflammatory changes and fluid particularly in the region of the sigmoid colon noted. The findings are most compatible with colitis or acute diverticulitis. Followup colonoscopy would be useful for further assessment. The appendix is poorly visualized on this study. Cholecystectomy with mild biliary prominence. Medical Problem List: Recurrent abdominal pain with nausea/vomiting secondary to sigmoid diverticulitis Elevated liver function with mild prominence of biliary system with improvement GERD History of Atrial septal defect and Pulmonary HTN Brief History of Present Illness: 37-year-old female present emergency room with abdominal pain. Patient recently diagnosed with diverticulitis. She was sent home on Cipro and Flagyl. She reported nausea with Cipro. Patient also has a history of atrial septal defect and pulmonary hypertension. In the emergency room she came and slightly hypoxic with abdominal pain. Patient admitted to the hospital for recurrent diverticulitis. Hospital Course: Patient presented with recurrent abdominal pain. Patient recently hospitalized for sigmoid diverticulitis and sent home with Cipro and Flagyl. She reported increased nausea with Cipro. Patient readmitted for further evaluation and continued abdominal pain with nausea. During the course of her stay her symptoms improved with IV antibiotic therapy. At discharge she is without any significant abdominal pain, nausea and vomiting. No need for repeat CT scan done at this time. At discharge she will continue with Flagyl 500 mg 1 pill 3 times a day for 7 days. Cipro will be discontinued and replaced with Augmentin 875 mg 1 pill twice daily for 7 days. Recommendation is for the patient to follow up with GI in 1-2 weeks to follow up this hospitalization. Patient has appointment to see GI soon. Recommendation is to have a colonoscopy in 4-6 weeks to further monitor and address. Lifestyle modification education on diverticulitis will provided. Diverticular diet education will be provided. Patient had elevated liver function tests. Patient with history of cholecystectomy. Mild biliary prominence noted. Patient reported no further nausea, vomiting or abdominal pain to the epigastric region. Patient with GERD. Repeat lab showed improvement and almost complete resolution. At discharge patient will continue with Protonix 40 mg 1 pill once daily. Repeat lab showed improvement of liver function test. This can be further monitored and addressed as an outpatient with GI. Patient plans to see GI here soon within the next 1-2 weeks to follow up this hospitalization and continue her care. Patient with history of atrial septal defect and pulmonary hypertension. This apparently had been discovered recently in November of 2015. Patient had right and left heart catheterization. Patient seen and followed by Cardiology. No intervention to close it was recommended at that time. At discharge patient will continue with her medication Macitentan 10 mg or Adempas 2.5 mg one pill three times daily. Patient plans to follow up with asset recovery specialist July 10. Further adjustment in medication can be done at that time. Echocardiogram done to evaluate ejection fraction. Patient with tobacco abuse. Tobacco cessation education provided. Vital Signs/Physical Exam: Temp Pulse Resp BP Pulse Ox 97.7 F 64 18 110/56 L 84 L 06/25/18 04:00 06/25/18 04:00 06/25/18 04:00 06/25/18 04:00 06/25/18 04:00 General: Alert, In no apparent distress, Oriented x3, Cooperative HEENT: Atraumatic Neck: Supple Respiratory: Clear to auscultation bilaterally, Normal air movement Cardiovascular: Normal pulses, Regular rate/rhythm, Systolic murmur Gastrointestinal: Normal bowel sounds, No tenderness, No masses, No rebound, No guarding Musculoskeletal: No erythema, No tenderness, No warmth Integumentary: No tenderness/swelling, No erythema, No warmth, No cyanosis Neurological: Normal speech, Normal strength at 5/5 x4 extr, Normal tone, Normal affect Laboratory Data at Discharge: WBC 5.9 K/uL (4.3-10.9) 06/24/18 09:50 Hgb 14.3 g/dL (12.0-15.0) 06/24/18 09:50 Hct 42.3 % (36.0-45.0) 06/24/18 09:50 Plt Count 307 K/uL (152-406) 06/24/18 09:50 PT 15.4 SECONDS (9.5-12.5) H 06/24/18 09:50 INR 1.30 06/24/18 09:50 APTT 49.4 SECONDS (24.3-36.9) H 06/24/18 09:50 Sodium 141 mmol/L (136-145) 06/25/18 05:19 Potassium 3.7 mmol/L (3.5-5.1) 06/25/18 05:19 BUN 5 mg/dL (7-18) L 06/25/18 05:19 Creatinine 0.50 mg/dL (0.55-1.3) L 06/25/18 05:19 Glucose 80 mg/dL (74-106) 06/25/18 05:19 Phosphorus 3.0 mg/dL (2.5-4.9) 06/24/18 09:50 Magnesium 2.2 mg/dL (1.8-2.4) 06/24/18 09:50 Total Bilirubin 0.5 mg/dL (0.2-1.0) 06/24/18 09:50 AST 200 U/L (15-37) H 06/24/18 09:50 ALT 95 U/L (12-78) H 06/24/18 09:50 Alkaline Phosphatase 56 U/L (45-117) 06/24/18 09:50 Triglycerides 121 mg/dL (<150) 06/25/18 05:19 Cholesterol 143 mg/dL (<200) 06/25/18 05:19 HDL Cholesterol 39 mg/dL (40-60) L 06/25/18 05:19 Cholesterol/HDL Ratio 3.67 06/25/18 05:19 Lipase 66 U/L (73-393) L 06/23/18 21:00 Home Medications: Macitentan [Opsumit] 1 tab PO DAILY 06/19/18 Riociguat [Adempas] 1 tab PO TID 06/19/18 Amox/Clavulanate [Augmentin 875-125 Tab*] 875 mg PO BID #14 tab 06/25/18 Pantoprazole [Protonix Tab] 40 mg PO DAILY #30 tab 06/25/18 metroNIDAZOLE [Flagyl*] 500 mg PO TID #21 tablet 06/25/18 New Medications: Amox/Clavulanate [Augmentin 875-125 Tab*] 875 mg PO BID #14 tab metroNIDAZOLE [Flagyl*] 500 mg PO TID #21 tablet Pantoprazole [Protonix Tab] 40 mg PO DAILY #30 tab Patient Discharge Instructions: 1. Follow up with PCP to establish care and continue his care. 2. Patient presented with recurrent abdominal pain and nausea/vomiting. Patient recently hospitalized for sigmoid diverticulitis and sent home with Cipro and Flagyl. She reported increased nausea with Cipro. Patient readmitted for further evaluation and continued abdominal pain with nausea. During the course of her stay her symptoms improved with IV antibiotic therapy. At discharge she is without any significant abdominal pain, nausea and vomiting. No need for repeat CT scan done at this time. At discharge she will continue with Flagyl 500 mg 1 pill 3 times a day for 7 days. Cipro will be discontinued and replaced with Augmentin 875 mg 1 pill twice daily for 7 days. Recommendation is for the patient to follow up with GI in 1-2 weeks to follow up this hospitalization. Patient has appointment to see GI soon. Recommendation is to have a colonoscopy in 4-6 weeks to further monitor and address. Lifestyle modification education on diverticulitis will provided. Diverticular diet education will be provided. 3. Patient had elevated liver function tests. Patient with history of cholecystectomy. Mild biliary prominence noted on recent CT scan. Patient reported no further nausea, vomiting or abdominal pain to the epigastric region. Patient with GERD. Lab improved. At discharge patient will continue with Protonix 40 mg 1 pill once daily. Repeat lab showed improvement of liver function test. This can be further monitored and addressed as an outpatient with GI. Patient plans to see GI here soon within the next 1-2 weeks to follow up this hospitalization and continue her care. 4. Patient with history of atrial septal defect and pulmonary hypertension. This apparently had been discovered recently in November of 2015. Patient had right and left heart catheterization. Patient seen and followed by Cardiology. No intervention to close it was recommended at that time. At discharge patient will continue with her medication Macitentan 10 mg or Adempas 2.5 mg one pill three times daily. Patient plans to follow up with asset recovery specialist July 10. Further adjustment in medication can be done at that time. Echocardiogram done to evaluate ejection fraction. 5. Patient with tobacco abuse. Tobacco cessation education provided. Diet: diverticular diet Activity: Ad doris Time spent managing pt's care (in minutes): 55
[2018-06-25] MEDS ORDERED: metroNIDAZOLE 500 MG TABLET PO SCH (14:00)
[2018-06-25] MEDS: TRAMADOL HCL 50 MG TAB PO PRN (14:05)
[2018-06-25 14:45] LABS: ALT/SGPT 75 U/L (12-78); AST/SGOT 100 U/L (15-37); Alkaline Phosphatase 52 U/L (45-117); BUN Blood Urea Nitrogen 5 mg/dL (7-18); Bicarbonate 25 mmol/L (21-32); Bilirubin Total 0.3 mg/dL (0.2-1.0); Glucose Level 106 mg/dL (74-106); Potassium 4.4 mmol/L (3.5-5.1); Protein, Total 5.9 g/dL (6.4-8.2); Sodium Level 138 mmol/L (136-145)
[2018-06-25 15:21] VITALS: BP 108/55; TEMP 97.2
[2018-06-25] MEDS ORDERED: AMOX/K CLAV 875 MG TAB PO SCH (21:00)
== END 2018-06-25 18:16 | disposition home or self-care (01) ==
LOC: ER 20:23 → ERHOLD 06-24 01:37 → INTOOBSV 06-24 01:37 → 2ND 06-24 13:59
PROVIDERS: ADMIT Hospitalist; ATTEND Hospitalist
DX: K57.92 Diverticulitis of intestine, part unspecified, without perforation or abscess without bleeding (principal); Q21.1 Atrial septal defect; I27.20 Pulmonary hypertension, unspecified; K21.9 Gastro-esophageal reflux disease without esophagitis; F17.210 Nicotine dependence, cigarettes, uncomplicated; R79.89 Other specified abnormal findings of blood chemistry
CPT/HCPCS: 36415; 80048; 80053; 80061; 80076; 82550; 82607; 82746; 82962; 83540; 83690; 83735; 84100; 84132; 85025; 85044; 85610; 85652; 85730; 86140; 87040; 93005; 96365; 96368; 96375; 99285; G0378; J0744; J1650; J2405; J2550; J3010; J3360; J7030

== ENCOUNTER 2018-06-30 14:26 | Observation (INO) | payer BC ==
[2018-06-30] MEDS ORDERED: ONDANSETRON 4 MG/2 ML VIAL ONE (15:05)
[2018-06-30] MEDS ORDERED: NA CHLORIDE 0.9% 1,000 ML ONE (15:05)
[2018-06-30] MEDS ORDERED: MORPHINE 4 MG/ML SYR ONE (15:11)
[2018-06-30 15:17] LABS: Absolute Lymphocytes (CBC) 1.9 K/uL (0.7-4.9); Absolute Neutrophil 10.5 K/uL (1.8-8.0); Basophils % 0.8 % (0-1.3); Eosinophils % 2.1 % (0-4.4); Hematocrit 51.3 % (36.0-45.0); MCH 33.2 pg (27.0-35.0); MCV 96.9 fL (80-100); MPV 9.8 fL (7.6-11.3); Monocytes % 7.2 % (3.3-12.3); RBC Red Blood Cell Count 5.29 M/uL (3.86-4.86)
[2018-06-30 15:32] LABS: BUN Blood Urea Nitrogen 5 mg/dL (7-18); Bicarbonate 22 mmol/L (21-32); Glucose Level 123 mg/dL (74-106); Potassium 3.8 mmol/L (3.5-5.1); Sodium Level 139 mmol/L (136-145)
--- NOTE | 2018-06-30 16:05 | RAD REPORT ---
EXAM DESCRIPTION: CTAbdomen Pelvis W Contrast - 06/30/2018 3:27 pm CLINICAL HISTORY: Abdominal pain. IV contrast only;Abd pain COMPARISON: Abdomen Pelvis W Contrast dated 06/19/2018; Abdomen Pelvis W Contrast dated 06/09/20 18; Abdomen Pelvis W Contrast dated 12/29/2016; CT ABD PELVIS W CONTRAST dated 02/13/2014 TECHNIQUE: Biphasic CT imaging of the abdomen and pelvis was performed with 100 ml non-ionic IV cont rast. All CT scans are performed using dose optimization technique as appropriate and may include automated exposure control or mA/KV adjustment according to patient size. FINDINGS: The lung bases are clear. Diffuse fatty liver infiltration is seen. Cholecystectomy clips are present. The spleen, pancreas, ad renal glands and kidneys are within normal limits. Significant thickening of the rectosigmoid colon is noted with upstream retention of fecal material. Colitis is the most likely etiology of this finding. Several diverticula are present in the sigmoid c olon as well. No drainable abscess. The appendix is not identified as a discrete structure, however, no secondary findings of appendicitis are identified. No free air seen. No suspicious bony findings. IMPRESSION: Significant thickening involving the rectosigmoid colon, most likely representing coliti s, mildly improved since the most recent comparative study, however still present. Upstream retention of fecal material in colon is noted. Prominent fatty liver.
--- NOTE | 2018-06-30 16:46 | EDPHYS ---
Physician Documentation [facility] Name: Alicia Morton Age: 37 yrs Sex: Female : 1980 Arrival Date: 06/30/2018 Time: 14:30 Bed 26 Private MD: ED Physician Anthony May HPI: 06/30 15:00 This 37 yrs old Female presents to ER via Ambulatory with complaints of kb Vomiting. 15:00 The patient presents with abdominal pain in the left lower quadrant. Onset: The kb symptoms/episode began/occurred 1.5 hour(s) ago. The symptoms do not radiate. Associated signs and symptoms: Pertinent positives: nausea and vomiting, Pertinent negatives: anorexia, blood in stools, chest pain, constipation, diarrhea, dysuria, fever, headache, hematuria, palpitations, shortness of breath, vaginal discharge, vomiting blood. The symptoms are described as constant. Modifying factors: The symptoms are alleviated by nothing, the symptoms are aggravated by nothing. Severity of pain: At its worst the pain was moderate in the emergency department the pain is unchanged. The patient has experienced a previous episode. The patient has been recently been admitted at [facility], was discharged a couple of weeks ago. 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 - Social history:: Smoking status: Patient uses tobacco products. - Ebola Screening: : Patient negative for fever greater than or equal to 101.5 degrees Fahrenheit, and additional compatible Ebola Virus Disease symptoms Patient denies exposure to infectious person Patient denies travel to an Ebola-affected area in the 21 days before illness onset No symptoms or risks identified at this time. ROS: 15:00 Constitutional: Negative for fever, chills, and weight loss, ENT: Negative for injury, kb pain, and discharge, Neck: Negative for injury, pain, and swelling, Cardiovascular: Negative for chest pain, palpitations, and edema, Respiratory: Negative for shortness of breath, cough, wheezing, and pleuritic chest pain, Back: Negative for injury and pain, : Negative for injury, bleeding, discharge, and swelling, MS/Extremity: Negative for injury and deformity, Skin: Negative for injury, rash, and discoloration, Neuro: Negative for headache, weakness, numbness, tingling, and seizure. 15:00 Abdomen/GI: Positive for abdominal pain, nausea and vomiting, Negative for diarrhea, constipation, abdominal cramps, abdominal distension, anorexia. Exam: 15:00 Constitutional: This is a well developed, well nourished patient who is awake, alert, kb and in no acute distress. Head/Face: Normocephalic, atraumatic. Chest/axilla: Normal chest wall appearance and motion. Nontender with no deformity. No lesions are appreciated. Cardiovascular: Regular rate and rhythm with a normal S1 and S2. No gallops, murmurs, or rubs. Normal PMI, no JVD. No pulse deficits. Respiratory: Lungs have equal breath sounds bilaterally, clear to auscultation and percussion. No rales, rhonchi or wheezes noted. No increased work of breathing, no retractions or nasal flaring. Back: No spinal tenderness. No costovertebral tenderness. Full range of motion. Skin: Warm, dry with normal turgor. Normal color with no rashes, no lesions, and no evidence of cellulitis. MS/ Extremity: Pulses equal, no cyanosis. Neurovascular intact. Full, normal range of motion. Neuro: Awake and alert, GCS 15, oriented to person, place, time, and situation. Cranial nerves II-XII grossly intact. Motor strength 5/5 in all extremities. Sensory grossly intact. Cerebellar exam normal. Normal gait. 15:00 Abdomen/GI: Inspection: abdomen appears normal, Bowel sounds: normal, in all quadrants, Palpation: mild abdominal tenderness, in all quadrants, moderate abdominal tenderness, in the left lower quadrant. Vital Signs: 14:57 BP 152 / 87; Pulse 111; Resp 17; Temp 97.7; Pulse Ox 100% on R/A; Pain 10/10; sg 16:00 BP 126 / 75; Pulse 73; Resp 18; Temp 98; Pulse Ox 93% on R/A; Pain 5/10; mg2 16:00 BP 95 / 68; Pulse 70; Resp 20; Temp 98; Pulse Ox 98% on R/A; Pain 0/10; mg2 MDM: 14:36 Patient medically screened. kb 15:00 Data reviewed: vital signs, nurses notes. Data interpreted: Pulse oximetry: on room air kb is 100 %. Interpretation: normal. 16:36 Counseling: I had a detailed discussion with the patient and/or guardian regarding: the kb historical points, exam findings, and any diagnostic results supporting the discharge/admit diagnosis, lab results, radiology results, the need for further work-up and treatment in the hospital. Physician consultation: Gianni Avila DO was contacted at 16:37, regarding admission, to the medical/surgical unit. patient's condition, and will see patient in ED, shortly. 06/30 14:48 Order name: Basic Metabolic Panel kb 06/30 14:48 Order name: CBC with Diff kb 06/30 15:20 Order name: CBC with Automated Diff; Complete Time: 15:22 EDMS 06/30 15:49 Order name: Basic Metabolic Panel; Complete Time: 15:53 EDMS 06/30 16:44 Order name: Procalcitonin 06/30 16:44 Order name: Lactate 06/30 14:48 Order name: IV Saline Lock; Complete Time: 15:04 kb 06/30 14:48 Order name: Labs collected and sent; Complete Time: 15:04 kb 06/30 14:49 Order name: CT Abd/Pelvis - W/Contrast kb 06/30 16:06 Order name: CT; Complete Time: 16:12 EDMS 06/30 17:08 Order name: Urine Dipstick--Ancillary (enter results) bd Administered Medications: 15:03 Drug: Zofran 4 mg Route: IVP; Site: right forearm; mg2 18:34 Follow up: Response: No adverse reaction; Marked relief of symptoms mg2 15:03 Drug: morphine 4 mg Route: IVP; Site: right forearm; mg2 18:04 Follow up: Response: No adverse reaction; Marked relief of symptoms mg2 15:04 Drug: NS 0.9% 1000 ml Route: IV; Rate: 1000 ml; Site: right forearm; mg2 18:34 Follow up: Response: No adverse reaction; IV Status: Completed infusion mg2 Disposition: 06/30/18 16:45 Hospitalization ordered by Gianni Avila for Observation. Preliminary diagnosis are Lower abdominal pain, unspecified - colitis - failed outpatient treatment, Nausea and vomiting. - Bed requested for Telemetry/MedSurg (observation). - Status is Observation. mg2 - Condition is Stable. - Problem is an ongoing problem. - Symptoms are unchanged. UTI on Admission? No Addendum: 07/02/2018 07:27 Co-signature as Attending Physician, Anthony May MD I agree with the assessment and c donahue plan of care. Signatures: Dispatcher [employer] EDMS Carmelina Ramesh, BAND SAW OPERATOR CAKE CUTTING-C BAND SAW OPERATOR CAKE CUTTING-Ckb Disha Woo Steven, RN RN Anthony Chahal MD MD cha Gardose, Michele, MANUELA RN mg2 Corrections: (The following items were deleted from the chart) 06/30 16:53 16:45 Hospitalization Ordered by Gianni Avila DO for Inpatient Admission. Preliminary kb diagnosis is Lower abdominal pain, unspecified - colitis - failed outpatient treatment; Nausea and vomiting. Bed requested for Telemetry/MedSurg (Inpatient). Status is Inpatient Admission. Condition is Stable. Problem is an ongoing problem. Symptoms are unchanged. UTI on Admission? No. kb 17:40 16:53 06/30/2018 16:45 Hospitalization Ordered by Gianni Avila DO for Observation. bd Preliminary diagnosis is Lower abdominal pain, unspecified - colitis - failed outpatient treatment; Nausea and vomiting. Bed requested for Telemetry/MedSurg (observation). Status is Observation. Condition is Stable. Problem is an ongoing problem. Symptoms are unchanged. UTI on Admission? No. kb 18:33 17:40 06/30/2018 16:45 Hospitalization Ordered by Gianni Avila DO for Observation. mg2 Preliminary diagnosis is Lower abdominal pain, unspecified - colitis - failed outpatient treatment; Nausea and vomiting. Bed requested for Telemetry/MedSurg (observation). Status is Observation. Condition is Stable. Problem is an ongoing problem. Symptoms are unchanged. UTI on Admission? No. bd
--- NOTE | 2018-06-30 16:46 | ER ---
Nurse's Notes [facility] Name: Alicia Morton Age: 37 yrs Sex: Female : 1980 Arrival Date: 06/30/2018 Time: 14:30 Bed 26 Private MD: Diagnosis: Lower abdominal pain, unspecified-colitis - failed outpatient treatment;Nausea and vomiting Presentation: 06/30 14:40 Presenting complaint: pt in ER lobby vomiting for 15 mins, awaiting pt to finish for sg transport to exam room. 14:42 Transition of care: patient was not received from another setting of care. Onset of sg symptoms was June 29, 2018. Risk Assessment: Do you want to hurt yourself or someone else? Patient reports no desire to harm self or others. Initial Sepsis Screen: Does the patient meet any 2 criteria? HR > 90 bpm. Does the patient have a suspected source of infection? No. Patient's initial sepsis screen is negative. Care prior to arrival: None. 14:42 Acuity: RICARDO 3 sg 14:42 Method Of Arrival: Ambulatory sg 14:42 Presenting complaint: Patient states: I was diagnosed with Diverticulitis about three sg weeks ago, was feeling fine until last night and the abd pain and vomiting came back. Triage Assessment: 15:22 General: Appears uncomfortable. GI: Reports lower abdominal pain, upper abdominal pain. 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 - Social history:: Smoking status: Patient uses tobacco products. - Ebola Screening: : Patient negative for fever greater than or equal to 101.5 degrees Fahrenheit, and additional compatible Ebola Virus Disease symptoms Patient denies exposure to infectious person Patient denies travel to an Ebola-affected area in the 21 days before illness onset No symptoms or risks identified at this time. Screenin:21 Abuse screen: Denies threats or abuse. Denies injuries from another. Nutritional mg2 screening: No deficits noted. Tuberculosis screening: No symptoms or risk factors identified. Fall Risk IV access (20 points). Assessment: 15:19 General: Appears uncomfortable, Behavior is crying. Pain: Complains of pain in left mg2 lower quadrant Pain does not radiate. Neuro: Level of Consciousness is awake, alert, obeys commands, Oriented to person, place, time, situation. Cardiovascular: Capillary refill < 3 seconds Patient's skin is warm and dry. Respiratory: Airway is patent Respiratory effort is even, unlabored, Respiratory pattern is regular, symmetrical. GI: Abdomen is flat, non-distended, Pt is actively vomiting clear fluid. : No signs and/or symptoms were reported regarding the genitourinary system. EENT: No signs and/or symptoms were reported regarding the EENT system. Derm: Skin is intact, is healthy with good turgor, Skin is pink, warm \T\ dry. normal. Musculoskeletal: No signs and/or symptoms reported regarding the musculoskeletal system. 17:00 Reassessment: Patient appears in no apparent distress at this time. Patient and/or mg2 family updated on plan of care and expected duration. Pain level reassessed. Patient is alert, oriented x 3, equal unlabored respirations, skin warm/dry/pink. seen by dr sharma. admission advised. Vital Signs: 14:57 BP 152 / 87; Pulse 111; Resp 17; Temp 97.7; Pulse Ox 100% on R/A; Pain 10/10; sg 16:00 BP 126 / 75; Pulse 73; Resp 18; Temp 98; Pulse Ox 93% on R/A; Pain 5/10; mg2 16:00 BP 95 / 68; Pulse 70; Resp 20; Temp 98; Pulse Ox 98% on R/A; Pain 0/10; mg2 ED Course: 14:30 Patient arrived in ED. as 14:36 Carmelina Ramesh FNP-C [facility]. kb 14:36 Anthony May MD is Attending Physician. kb 14:36 Jennifer Navarrete RN is Primary Nurse. kr2 14:42 Arm band placed on. sg 14:43 Triage completed. sg 15:21 No provider procedures requiring assistance completed. Inserted saline lock: 20 gauge mg2 in right forearm, using aseptic technique. Blood collected. 15:22 Patient has correct armband on for positive identification. mg2 15:24 CT completed. Patient moved to CT via wheelchair. Patient moved back from CT. cw1 16:45 Gianni Sharma DO is Hospitalizing Provider. kb 18:33 Patient admitted, IV remains in place. mg2 Administered Medications: 15:03 Drug: Zofran 4 mg Route: IVP; Site: right forearm; mg2 18:34 Follow up: Response: No adverse reaction; Marked relief of symptoms mg2 15:03 Drug: morphine 4 mg Route: IVP; Site: right forearm; mg2 18:04 Follow up: Response: No adverse reaction; Marked relief of symptoms mg2 15:04 Drug: NS 0.9% 1000 ml Route: IV; Rate: 1000 ml; Site: right forearm; mg2 18:34 Follow up: Response: No adverse reaction; IV Status: Completed infusion mg2 Outcome: 16:45 Decision to Hospitalize by Provider. kb 18:32 Admitted to Tele accompanied by tech, via wheelchair, room 426, with chart, Report mg2 called to MANUELA Escalera 18:32 Condition: stable 18:32 Instructed on the need for admit, Demonstrated understanding of instructions. 18:33 Patient left the ED. mg2 Signatures: Carmelina Ramesh, STRATEGIC PLANNING DIRECTOR-C STRATEGIC PLANNING DIRECTOR-CkRosalino Chadwick RN RN sg Martinez, Amelia as Woodley, Crystal cw1 Jennifer Navarrete RN RN kr2 Beka Celeste RN RN mg2
[2018-06-30] MEDS ORDERED: TRAMADOL HCL 50 MG TAB PO PRN (16:55)
[2018-06-30] MEDS ORDERED: HYDROCODONE/APAP 7.5/325 MG TAB PO PRN (16:55)
[2018-06-30] MEDS ORDERED: ACETAMINOPHEN 500 MG TAB PO PRN (16:55)
[2018-06-30] MEDS ORDERED: ONDANSETRON 4 MG/2 ML VIAL IV PRN (16:55)
--- NOTE | 2018-06-30 17:06 | P.HP ---
Certification for Inpatient Patient admitted to: Observation With expected LOS: <2 Midnights Patient will require the following post-hospital care: None Practitioner: I am a practitioner with admitting privileges, knowledge of patient current condition, hospital course, and medical plan of care. Services: Services provided to patient in accordance with Admission requirements found in Title 42 Section 412.3 of the Code of Federal Regulations Patient History Date of Service: 06/30/18 Primary Care Provider: None Reason for admission: Nausea and vomiting, left lower quadrant pain History of Present Illness: 37-year-old female presented to the emergency room with nausea and vomiting with left lower quadrant pain. Patient recently hospitalized 06/24 through 06/25/2018 for sigmoid diverticulitis. Since discharge patient was doing well. She was tolerating her diet. She was having good bowel movement. Today she reported increased nausea and vomiting. 8 pain to the left lower quadrant was noted. She had been compliant with her medication-Augmentin and Flagyl. She decided to come to the ER for further evaluation. In the ER patient evaluated. White count elevated since last discharge at 13.9 , hemoglobin 17.6. Sodium 139, potassium 3.8, blood sugar 123. CT scan revealed significant thickening of the rectosigmoid colon with upstream fecal retention. No drainable abscess noted. No signs of appendicitis noted. This appeared improved since the most recent CT scan. Patient was given pain medication and nausea medication in the emergency room. I was asked to evaluate the patient for admission. When I saw the patient in the ER, she appeared very comfortable. Pain improved. She just had a large bowel movement. She is without any significant nausea or vomiting. Patient with history of pulmonary hypertension and atrial septal defect. She also has GERD. She still smokes regularly. Allergies Avocado (Laurus Allergy (Uncoded 06/19/18 03:42) Nausea/Vomiting Home medications list reviewed: Yes Home Medications: Macitentan [Opsumit] 1 tab PO DAILY 06/19/18 Riociguat [Adempas] 1 tab PO TID 06/19/18 Amox/Clavulanate [Augmentin 875-125 Tab*] 875 mg PO BID #14 tab 06/25/18 Pantoprazole [Protonix Tab] 40 mg PO DAILY #30 tab 06/25/18 metroNIDAZOLE [Flagyl*] 500 mg PO TID #21 tablet 06/25/18 - Past Medical/Surgical History Diabetic: No -: Tobacco abuse -: Pulmonary hypertension/atrioseptal defect -: GERD -: Secondary polycythemia -: Tubal ligation 1999 -: Cholecystectomy 2009 Psychosocial/ Personal History: -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 - Family History Mother -: Lung disease, Other (see notes) Notes: CROHNS DSE Brother -: GI disease, Other (see notes) Notes: CROHNS DSE - Social History Smoking Status: Heavy Tobacco smoker (>10 cigarettes/day) Counseled patient to stop smoking for: less than 10 minutes Smoking therapy provided: Yes Patient receptive to therapy: Yes Alcohol use: No CD- Drugs: No Caffeine use: No Place of Residence: Home Review of Systems General: Unremarkable Eyes: Unremarkable ENT: Unremarkable Respiratory: Unremarkable Cardiovascular: Unremarkable Gastrointestinal: Nausea, Vomiting, Abdominal Pain, As per HPI Genitourinary: Unremarkable Musculoskeletal: Unremarkable Integumentary: Unremarkable Neurological: Unremarkable Lymphatics: Unremarkable Physical Examination - Physical Exam General: Alert, In no apparent distress, Oriented x3, Cooperative HEENT: Atraumatic Neck: Supple Respiratory: Clear to auscultation bilaterally, Normal air movement Cardiovascular: Normal pulses, Regular rate/rhythm Gastrointestinal: Normal bowel sounds, Soft and benign, Non-distended, No masses , No rebound, No guarding, Tenderness (less tenderness to the LLQ since my last exam on last hospitalization) Musculoskeletal: No erythema, No tenderness, No warmth Integumentary: No tenderness/swelling, No erythema, No warmth, No cyanosis Neurological: Normal speech, Normal strength at 5/5 x4 extr, Normal tone, Normal affect - Studies Laboratory Data (last 24 hrs) 06/30/18 14:45: WBC 13.9 H D, Hgb 17.6 H D, Hct 51.3 H D, Plt Count 325 06/30/18 14:45: Sodium 139, Potassium 3.8, BUN 5 L, Creatinine 0.70, Glucose 123 H Assessment and Plan - Plan Impression: Nausea and vomiting with recurrent abdominal pain, leukocytosis secondary to recurrent sigmoid diverticulitis likely related to constipation History of pulmonary hypertension and atrial septal defect GERD Tobacco abuse Plan: Nausea and vomiting with recurrent abdominal pain, leukocytosis secondary to recurrent sigmoid diverticulitis likely related to constipation: Patient will be admitted for observation. When I saw the patient in the emergency room she had a large bowel movement. This seemed to relieve her significantly. CT scan shows improvement since last CT scan. She appears since the last hospitalization and discharge. White count slightly elevated. Will provide IV fluids. Will continue with IV antibiotic therapy. Will consult surgery further evaluate the patient. Will start with a GI soft diet. Anticipate discharge in the next 24 hr as she has shown significant improvement. Will monitor closely. Patient will need colonoscopy in 4-6 weeks. Patient reports that she has tolerated recent antibiotics-Augmentin and Flagyl. History of pulmonary hypertension and atrial septal defect: Will continue with her medication of Opsumit 10 mg daily and Adempas 2.5 mg 1 pill 3 times a day. GERD: Will continue the Protonix. Tobacco abuse: Cessation education addressed in detail. Will provide nicotine patch. Discharge Plan: Home Plan to discharge in: 24 Hours - Advance Directives Does patient have a Living Will: No Does patient have a Durable POA for Healthcare: No - Code Status/Comfort Care Code Status Assessed: Yes (Patient full code.) Time Spent Managing Pts Care (In Minutes): 55
[2018-06-30 18:44] VITALS: BMI 20.7
[2018-06-30 19:17] LABS: Urine Blood NEGATIVE (NEG); Urine Glucose NEGATIVE (NEG); Urine Specific Gravity <1.005 (1.005-1.030); Urine pH 5.5 (5.0-7.0)
[2018-06-30 19:18] LABS: Urine Protein NEGATIVE (NEG)
[2018-06-30] MEDS: NA CHLORIDE 0.9% 1,000 ML IV SCH ×2 (19:44→21:07)
[2018-06-30] MEDS: METRONIDAZOLE 500mg IVPB 500 MG/100 ML BAG IV SCH (19:45)
[2018-06-30] MEDS ORDERED: CEFTRIAXONE/SWI 1gm 1 GM/10 ML SYR IV SCH (21:00)
[2018-06-30] MEDS ORDERED: CEFAZOLIN/SWI 1gm 1 GM/10 ML SYR IV SCH (21:00)
[2018-06-30] MEDS: ADEMPAS 2.5 MG PO SCH (21:00)
[2018-06-30] MEDS: MORPHINE 2 MG/ML SYR IV PRN (21:07)
[2018-06-30 21:55] LABS: Urine Appearance CLEAR; Urine Bilirubin NEGATIVE (NEG); Urine Blood NEGATIVE (NEG); Urine Color DK YELLOW; Urine Glucose NEGATIVE (NEG); Urine Protein NEGATIVE (NEG); Urine Specific Gravity >=1.030 (1.005-1.030); Urine Urobilinogen 0.2 mg/dL (0.2-1.0); Urine pH 5.5 (5.0-7.0)
[2018-06-30 21:58] LABS: Urine Microscopic Reflex NO UMIC
--- NOTE | 2018-07-01 01:23 | CON ---
Date of Consultation: 06/30/2018 Brief History Of Present Illness: The patient is a 37-year-old female , who presents to the emergency room with nausea, vomiting, left lower quadrant abdominal pain. She was recently hospitalized on 06/24 for 1 day with sigmoid diverticulitis. She has been having issues for the past several weeks, however , with abdominal pain. She was originally told she had colitis, which was later revised to diverticulitis. She tolerated diet, had increased bowel function and decreased pain and as such, was deemed appropriate for discharge on the . She now comes back with the above-stated complaints. She while in the emergency room, however, had a large bowel movement associated with some nausea, vomiting, and after that large bowel movement she describes. She states essentially almost all of her pain is gone now. She has no more nausea, no vomiting. She is very hungry and feels quite well at this time. Past Medical History: Significant for atrial septal defect and pulmonary hypertension, GERD, secondary polycythemia. Past Surgical History: Cholecystectomy in 2009 and tubal ligation in 1999. Social History: She is for 20 years. Children 3. 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 She smokes currently half pack to a pack per day. She recreationally uses marijuana. She denies any other recreational drug use. She has a past history of significant heavy alcohol use of vodka, which she quit 3 months ago, I believe. Allergies: AVOCADO. Home Medications: Include Opsumit, Adempas, Augmentin, Protonix, and Flagyl. Maternal History: Lung disease and Crohn's. Her brother also had Crohn disease. Review of Systems: A 10-point review of systems other than HPI, denies. Physical Examination: Vital Signs: At the time of my examination, BMI is 20.8. Her blood pressure 100/66, pulse is 72, respiratory rate 20, temperature 98.2. General: She is awake, alert, and oriented. Psychiatric: She is appropriate, conversive. HEENT: She is normocephalic. Sclerae icteric. Mucous membranes are moist. Oropharynx is clear. Neck: Supple. No JVD. Chest: Normal expansion and excursion. Cardiovascular: Regular rate and rhythm. Pulmonary: Clear to auscultation bilaterally. Abdomen: Soft, nontender, nondistended. No rebound. No guarding. No focal peritonitis. Well-healed surgical scars are evident from her laparoscopic surgery. Skin: Warm and dry. Laboratory Data: Reveals a white blood count of 13.9, hemoglobin 17.6, hematocrit of 51.3, neutrophils of 75%, platelets are 325. Sodium 139, potassium 3.8, chloride 108, carbon dioxide 22, BUN 5, creatinine 0.7, glucose is 123. Lactic acid 0.6. Procalcitonin is less than 0.05. UA is essentially negative down the line. She had a CT scan of the abdomen and pelvis, which was officially read as significant thickening involving the rectosigmoid colon, most likely representing colitis, mildly improved since most recent comparative study, however, still present. Upstream retention of fecal material and a prominent fatty liver. Assessment And Plan: This is a 37-year-old female, who comes in with likely continuation or exacerbation of her past evidence of colitis, possibly diverticulitis. 1. IV fluid hydration. 2. Antibiotic coverage. 3. I recommend starting clear liquid diet advancing as tolerated. 4. Patient requires colonoscopy as an outpatient to confirm the diagnosis, however, not during the acute inflammatory. She has an appointment with Dr. Yang to follow up. I have reiterated the need for her to follow up with Dr. Yang regarding this, will be available for future need. PATTIE Voice ID: [id number] Report ID: [id number] MTDD
[2018-07-01] MEDS: METRONIDAZOLE 500mg IVPB 500 MG/100 ML BAG IV SCH ×2 (01:51→09:59)
[2018-07-01 05:49] LABS: Absolute Monocytes 0.8 K/uL (0.1-1.3); Absolute Neutrophil 5.6 K/uL (1.8-8.0); Basophils % 0.6 % (0-1.3); Hematocrit 39.3 % (36.0-45.0); Lymphocytes % 23.1 % (15.3-44.8); MCH 33.4 pg (27.0-35.0); MCV 97.5 fL (80-100); MPV 9.7 fL (7.6-11.3); Monocytes % 9.6 % (3.3-12.3); RBC Red Blood Cell Count 4.03 M/uL (3.86-4.86)
[2018-07-01 05:55] LABS: BUN Blood Urea Nitrogen 7 mg/dL (7-18); Bicarbonate 25 mmol/L (21-32); Glucose Level 93 mg/dL (74-106); Magnesium 2.1 mg/dL (1.8-2.4); Potassium 4.5 mmol/L (3.5-5.1); Sodium Level 140 mmol/L (136-145)
[2018-07-01] MEDS ORDERED: PANTOPRAZOLE 40MG TABLET PO SCH (06:30)
[2018-07-01] MEDS: ADEMPAS 2.5 MG PO SCH ×2 (08:13→12:45)
[2018-07-01 08:58] VITALS: BP 101/52; TEMP 97.5
[2018-07-01] MEDS ORDERED: ENOXAPARIN 40 MG/0.4 ML SQ SCH (09:00)
[2018-07-01] MEDS ORDERED: CEFTRIAXONE 1 GM/NS 50 ML 1 GM/50 ML BAG IV SCH (09:00)
[2018-07-01] MEDS ORDERED: OPSUMIT 10 MG PO SCH (09:00)
[2018-07-01] MEDS ORDERED: NICOTINE 21 MG/PAT TD SCH (09:00)
[2018-07-01 09:15] VITALS: O2SAT 91
[2018-07-01] MEDS: MORPHINE 2 MG/ML SYR IV PRN (10:30)
--- NOTE | 2018-07-01 11:02 | P.DS ---
Admission Date: 06/30/18 Discharge Date: 07/01/18 Primary Care Provider: None Disposition: ROUTINE DISCHARGE Discharge Condition: GOOD Reason for Admission: Nausea and vomiting, left lower quadrant pain Consultations: Surgery-Dr. Steinberg Procedures: CT scan: COMPARISON: Abdomen Pelvis W Contrast dated 06/19/2018; Abdomen Pelvis W Contrast dated 06/09/2018; Abdomen Pelvis W Contrast dated 12/29/2016; CT ABD PELVIS W CONTRAST dated 02/13/2014 TECHNIQUE: Biphasic CT imaging of the abdomen and pelvis was performed with 100 ml non-ionic IV contrast. All CT scans are performed using dose optimization technique as appropriate and may include automated exposure control or mA/KV adjustment according to patient size. FINDINGS: The lung bases are clear. Diffuse fatty liver infiltration is seen. Cholecystectomy clips are present. The spleen, pancreas, adrenal glands and kidneys are within normal limits. Significant thickening of the rectosigmoid colon is noted with upstream retention of fecal material. Colitis is the most likely etiology of this finding. Several diverticula are present in the sigmoid colon as well. No drainable abscess. The appendix is not identified as a discrete structure, however, no secondary findings of appendicitis are identified. No free air seen. No suspicious bony findings. IMPRESSION: Significant thickening involving the rectosigmoid colon, most likely representing colitis, mildly improved since the most recent comparative study, however still present. Upstream retention of fecal material in colon is noted. Prominent fatty liver. Medical Problem List: Nausea and vomiting with recurrent abdominal pain, leukocytosis secondary to recurrent sigmoid diverticulitis likely related to constipation History of pulmonary hypertension and atrial septal defect Fatty liver GERD Tobacco abuse Brief History of Present Illness: 37-year-old female presented to the emergency room with nausea and vomiting with left lower quadrant pain. Patient recently hospitalized 06/24 through 06/25/2018 for sigmoid diverticulitis. Since discharge patient was doing well. She was tolerating her diet. She was having good bowel movement. Today she reported increased nausea and vomiting. 8 pain to the left lower quadrant was noted. She had been compliant with her medication-Augmentin and Flagyl. She decided to come to the ER for further evaluation. In the ER patient evaluated. White count elevated since last discharge at 13.9 , hemoglobin 17.6. Sodium 139, potassium 3.8, blood sugar 123. CT scan revealed significant thickening of the rectosigmoid colon with upstream fecal retention. No drainable abscess noted. No signs of appendicitis noted. This appeared improved since the most recent CT scan. Patient was given pain medication and nausea medication in the emergency room. I was asked to evaluate the patient for admission. When I saw the patient in the ER, she appeared very comfortable. Pain improved. She just had a large bowel movement. She is without any significant nausea or vomiting. Patient with history of pulmonary hypertension and atrial septal defect. She also has GERD. She still smokes regularly. Hospital Course: Patient presented with nausea, vomiting and recurrent abdominal pain. Patient recently hospitalized for sigmoid diverticulitis. Patient had a sharp pain to the left lower quadrant. It was associated with some nausea and vomiting. Patient was evaluated the emergency room. CT scan showed thickening involving the rectosigmoid colon. This was improved since her last comparative study. Upstream fecal retention was noted. Patient did have a good bowel movement which resolved her symptoms. Patient likely with constipation. At discharge she was able tolerate her diet. Patient without any significant abdominal pain , nausea and vomiting. Lab significantly improved. At discharge she will continue with her previous medications of Augmentin and Flagyl for diverticulitis. She is to continue to finish the course of treatment. Patient will also be provided docusate 100 mg daily as a stool softener and lactulose twice daily as needed for constipation. Patient will continue with a GI soft diet. Recommendation is for the patient follow up with surgery or GI for colonoscopy in 4-6 weeks. Patient on diverticulitis addressed in detail. Patient has pulmonary hypertension and atrial septal defect. Patient recently evaluated by Cardiology. Patient may continue with her medication of Opsumit 10 mg daily and Adempas 2.5 mg 1 pill 3 times a day. Recommendations for the patient follow up with cardiology as an outpatient to further monitor. Patient has GERD. Patient will continue with Protonix 40 mg 1 pill once daily. Lifestyle modification education will be provided. Patient has fatty liver. Patient may follow up with GI as an outpatient to further assess and evaluate. Tobacco cessation addressed in detail. This will need to be enforced as an outpatient. Vital Signs/Physical Exam: Temp Pulse Resp BP Pulse Ox 97.5 F 70 18 101/52 L 92 07/01/18 08:00 07/01/18 08:00 07/01/18 08:00 07/01/18 08:00 07/01/18 08:00 General: Alert, In no apparent distress, Oriented x3, Cooperative HEENT: Atraumatic, Normocephalic, PERRLA, Mucous membr. moist/pink Neck: Supple, No Thyromegaly Respiratory: Clear to auscultation bilaterally Cardiovascular: Normal pulses, Regular rate/rhythm Gastrointestinal: Normal bowel sounds, Soft and benign, Non-distended, No tenderness, No masses, No rebound, No guarding Musculoskeletal: No erythema, No tenderness, No warmth Integumentary: No tenderness/swelling, No erythema, No warmth, No cyanosis Neurological: Normal speech, Normal strength at 5/5 x4 extr, Normal tone, Normal affect Laboratory Data at Discharge: WBC 8.7 K/uL (4.3-10.9) D 07/01/18 05:09 Hgb 13.5 g/dL (12.0-15.0) D 07/01/18 05:09 Hct 39.3 % (36.0-45.0) D 07/01/18 05:09 Plt Count 231 K/uL (152-406) D 07/01/18 05:09 Sodium 140 mmol/L (136-145) 07/01/18 05:09 Potassium 4.5 mmol/L (3.5-5.1) 07/01/18 05:09 BUN 7 mg/dL (7-18) 07/01/18 05:09 Creatinine 0.60 mg/dL (0.55-1.3) 07/01/18 05:09 Glucose 93 mg/dL (74-106) 07/01/18 05:09 Magnesium 2.1 mg/dL (1.8-2.4) 07/01/18 05:09 Home Medications: Macitentan [Opsumit] 1 tab PO DAILY 06/19/18 Riociguat [Adempas] 1 tab PO TID 06/19/18 Amox/Clavulanate [Augmentin 875-125 Tab*] 875 mg PO BID #14 tab 06/25/18 Pantoprazole [Protonix Tab*] 40 mg PO DAILY #30 tab 06/25/18 metroNIDAZOLE [Flagyl*] 500 mg PO TID #21 tablet 06/25/18 Docusate [Colace Cap*] 100 mg PO DAILY #30 cap 07/01/18 Lactulose 15 ml PO BID PRN #1 bottle 07/01/18 New Medications: Docusate [Colace Cap*] 100 mg PO DAILY #30 cap Lactulose 15 ml PO BID PRN #1 bottle PRN Reason: Constipation Patient Discharge Instructions: 1. Will need to follow up with her PCP in 1 week to follow up this hospitalization. 2. Patient presented with nausea, vomiting and recurrent abdominal pain. Patient recently hospitalized for sigmoid diverticulitis. Patient had a sharp pain to the left lower quadrant. It was associated with some nausea and vomiting. Patient was evaluated the emergency room. CT scan showed thickening involving the rectosigmoid colon. This was improved since her last comparative study. Upstream fecal retention was noted. Patient did have a good bowel movement which resolved her symptoms. Patient likely with constipation. At discharge she was able tolerate her diet. Patient without any significant abdominal pain, nausea and vomiting. Lab significantly improved. At discharge she will continue with her previous medications of Augmentin and Flagyl for diverticulitis. She is to continue to finish the course of treatment. Patient will also be provided docusate 100 mg daily as a stool softener and lactulose twice daily as needed for constipation. Patient will continue with a GI soft diet. Recommendation is for the patient follow up with surgery or GI for colonoscopy in 4-6 weeks. Patient on diverticulitis addressed in detail. 3. Patient has pulmonary hypertension and atrial septal defect. Patient recently evaluated by Cardiology. Patient may continue with her medication of Opsumit 10 mg daily and Adempas 2.5 mg 1 pill 3 times a day. Recommendations for the patient follow up with cardiology as an outpatient to further monitor. 4. Patient has GERD. Patient will continue with Protonix 40 mg 1 pill once daily. Lifestyle modification education will be provided. 5. Patient has fatty liver. Patient may follow up with GI as an outpatient to further assess and evaluate. 6. Tobacco cessation addressed in detail. This will need to be enforced as an outpatient. Diet: GI soft Activity: Ad doris Time spent managing pt's care (in minutes): 55
--- NOTE | 2018-07-01 12:24 | P.PN ---
Subjective Date of Service: 07/01/18 Primary Care Provider: None Chief Complaint: Nausea and vomiting, left lower quadrant pain Subjective: Improving Physical Examination - Vital Signs Temperature: 97.5 F Blood Pressure: 101/52 Pulse: 70 Respirations: 18 Pulse Ox (%): 92 - Physical Exam General: Alert, In no apparent distress, Cooperative HEENT: Mucous membr. moist/pink Gastrointestinal: Soft and benign, No ascites, No tenderness, No masses, No rebound, No guarding - Studies Laboratory Data (last 24 hrs) 06/30/18 14:45: WBC 13.9 H D, Hgb 17.6 H D, Hct 51.3 H D, Plt Count 325 06/30/18 14:45: Sodium 139, Potassium 3.8, BUN 5 L, Creatinine 0.70, Glucose 123 H Assessment And Plan - Current Problems (Diagnosis) (1) Abdominal pain Onset Date: 06/11/18 Current Visit: No Status: Acute Plan: DC home on antibiotics -stool softeners - low residue diet - follow up with Dr. Sanders
== END 2018-07-01 13:21 | disposition home or self-care (01) ==
LOC: ER 14:26 → INTOOBSV 16:46 → ERHOLD 16:46 → 4TH 18:21
PROVIDERS: ADMIT Family Medicine; ATTEND Family Medicine
DX: K57.32 Diverticulitis of large intestine without perforation or abscess without bleeding (principal); I27.20 Pulmonary hypertension, unspecified; Q21.1 Atrial septal defect; K76.0 Fatty (change of) liver, not elsewhere classified; K21.9 Gastro-esophageal reflux disease without esophagitis; F17.210 Nicotine dependence, cigarettes, uncomplicated
CPT/HCPCS: 36415; 74177; 80048; 81003; 83605; 83735; 84145; 85025; 87045; 87046; 87177; 87209; 96361; 96374; 96375; 99285; G0378; J0696; J1650; J2270; J2405; J7030; Q9967

== ENCOUNTER 2018-07-10 14:08 | Inpatient (IN) | payer BC ==
[2018-07-10] MEDS ORDERED: ONDANSETRON 4 MG/2 ML VIAL ONE (15:20)
[2018-07-10] MEDS ORDERED: NA CHLORIDE 0.9% 1,000 ML ONE ×2 (15:20→16:15)
[2018-07-10] MEDS ORDERED: MEPERIDINE HCL 25 MG/0.5 ML ONE (15:20)
[2018-07-10 15:33] LABS: Absolute Lymphocytes (CBC) 1.1 K/uL (0.7-4.9); Absolute Neutrophil 9.1 K/uL (1.8-8.0); Basophils % 0.6 % (0-1.3); Eosinophils % 1.8 % (0-4.4); Hematocrit 49.3 % (36.0-45.0); Lymphocytes % 9.5 % (15.3-44.8); MCH 32.8 pg (27.0-35.0); MCV 96.5 fL (80-100); MPV 9.5 fL (7.6-11.3); Monocytes % 8.7 % (3.3-12.3); RBC Red Blood Cell Count 5.11 M/uL (3.86-4.86)
[2018-07-10 15:37] LABS: ALT/SGPT 31 U/L (12-78); AST/SGOT 22 U/L (15-37); Alkaline Phosphatase 65 U/L (45-117); BUN Blood Urea Nitrogen 7 mg/dL (7-18); Bicarbonate 23 mmol/L (21-32); Bilirubin Direct 0.2 mg/dL (0-0.2); Bilirubin Total 0.8 mg/dL (0.2-1.0); Glucose Level 101 mg/dL (74-106); Lipase 116 U/L (73-393); Protein, Total 7.8 g/dL (6.4-8.2); Sodium Level 138 mmol/L (136-145)
[2018-07-10 15:47] LABS: Urine Bacteria <20 /HPF (<20); Urine Culture Reflex Order NOT NEEDED; Urine RBC >50 /HPF (NONE SEEN)
--- NOTE | 2018-07-10 17:32 | RAD REPORT ---
EXAM DESCRIPTION: CT - Abdomen Pelvis W Contrast - 07/10/2018 5:21 pm CLINICAL HISTORY: Abdominal pain. Vomiting COMPARISON: June 30, 2018 TECHNIQUE: Computed axial tomography of the abdomen and pelvis was obtained. 100 cc Isovue-300 is ad ministered intravenously. Oral contrast was given. All CT scans are performed using dose optimization technique as appropriate and may include automated exposure control or mA/KV adjustment according to patient size. FINDINGS: The liver, spleen, pancreas, adrenals and kidneys appear unremarkable. The appendix is normal caliber. There is no evidence of diverticulitis Moderate to marked thickening of the wall of the distal transverse colon, descending colon, sigmoid c olon and rectum. Pneumatosis intestinalis is not seen. Mild thickening of the right colon wall A tampon is present within the vagina IMPRESSION: Moderate to marked left colitis
--- NOTE | 2018-07-10 17:47 | EDPHYS ---
Physician Documentation [facility] Name: Alicia Morton Age: 37 yrs Sex: Female : 1980 Arrival Date: 07/10/2018 Time: 14:12 Bed External Waiting Private MD: None, None ED Physician Zaid Cortez HPI: 07/10 15:27 This 37 yrs old Female presents to ER via Ambulatory with complaints of rn Vomiting. 15:27 The patient presents to the emergency department with nausea, vomiting. Onset: The rn symptoms/episode began/occurred this morning. Possible causes: unknown. The symptoms are aggravated by nothing. The symptoms are alleviated by nothing. Severity of symptoms: At their worst the symptoms were moderate in the emergency department the symptoms have improved. The patient has experienced similar episodes in the past. REports vomiting, abd pain, similar to previous episodes of diverticulitis, reports has GI appt scheduled and colonoscopy planned, reports several episodes of this before, usually gets pain meds/zofran/abx, and gets better, had a flare 2 weeks ago, finished amoxicillin and flagyl, got better, symptoms returned today. . 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 - Social history:: Smoking status: Patient uses tobacco products, smokes one pack cigarettes per day. - Ebola Screening: : Patient negative for fever greater than or equal to 101.5 degrees Fahrenheit, and additional compatible Ebola Virus Disease symptoms. - Family history:: not pertinent. - Hospitalizations: : No recent hospitalization is reported. ROS: 15:27 Constitutional: Negative for fever, chills, and weight loss, Eyes: Negative for injury, rn pain, redness, and discharge, Neck: Negative for injury, pain, and swelling, Cardiovascular: Negative for chest pain, palpitations, and edema, Respiratory: Negative for shortness of breath, cough, wheezing, and pleuritic chest pain, Abdomen/GI: Negative for diarrhea, and constipation, MS/Extremity: Negative for injury and deformity, Skin: Negative for injury, rash, and discoloration, Neuro: Negative for headache, weakness, numbness, tingling, and seizure. Exam: 15:27 Constitutional: This is a well developed, well nourished patient who is awake, alert, rn and in no acute distress. Head/Face: Normocephalic, atraumatic. ENT: mmm Cardiovascular: Regular rate and rhythm, No pulse deficits. Respiratory: Lungs have equal breath sounds bilaterally, clear to auscultation, speaking full sentences Abdomen/GI: soft, + mild RLQ/suprapubic/LLE tenderness. MS/ Extremity: Pulses equal, no cyanosis. Neurovascular intact. Full, normal range of motion. Equal circumference. Neuro: Awake and alert, GCS 15, oriented to person, place, time, and situation. Cranial nerves II-XII grossly intact. Motor strength 5/5 in all extremities. Sensory grossly intact. Cerebellar exam normal. Normal gait. Vital Signs: 14:28 BP 99 / 69; Pulse 90; Resp 26; Temp 97.5; Pulse Ox 94% on R/A; Weight 54.88 kg; Height ph 5 ft. 4 in. (162.56 cm); Pain 8/10; 16:01 BP 102 / 73; Pulse 82; Resp 18; Pulse Ox 93% on R/A; Pain 2/10; mg2 17:04 BP 103 / 69; Pulse 80; Resp 18; Pulse Ox 97% on R/A; Pain 0/10; mg2 18:23 BP 98 / 68; Pulse 77; Resp 18; Pulse Ox 91% on R/A; Pain 0/10; mg2 14:28 Body Mass Index 20.77 (54.88 kg, 162.56 cm) ph MDM: 14:31 Patient medically screened. rn 17:44 Differential diagnosis: Nonspecific abd pain, colitis, divertilculitis. Data reviewed: rn vital signs, nurses notes, lab test result(s), radiologic studies, CT scan, and as a result, I will admit patient. Counseling: I had a detailed discussion with the patient and/or guardian regarding: the historical points, exam findings, and any diagnostic results supporting the discharge/admit diagnosis, lab results, radiology results, the need for further work-up and treatment in the hospital. Response to treatment: the patient's symptoms have mildly improved after treatment, and as a result, I will admit patient. Admission orders: after a detailed discussion of the patient's condition and case, the admit orders are written by me. ED course: Pt admitted to Dr. Hernandez for colitis, has had multiple episodes and given young age, most likely IBD, has outpt colonoscopy scheduled in July, but just finished abx, will admit for marked colitis. 07/10 14:36 Order name: Basic Metabolic Panel; Complete Time: 15:53 rn 07/10 14:36 Order name: CBC with Diff; Complete Time: 15:53 rn 07/10 14:36 Order name: Creatinine for Radiology; Complete Time: 15:53 rn 07/10 14:36 Order name: Hepatic Function; Complete Time: 15:53 rn 07/10 14:36 Order name: Lipase; Complete Time: 15:53 rn 07/10 14:36 Order name: Urine Microscopic Only; Complete Time: 15:53 rn 07/10 16:09 Order name: Urine Dipstick--Ancillary (enter results) eb 07/10 17:54 Order name: CBC with Automated Diff EDMS 07/10 17:54 Order name: CBC with Automated Diff EDMS 07/10 17:54 Order name: CBC with Automated Diff EDMS 07/10 17:54 Order name: CBC with Automated Diff EDMS 07/10 17:54 Order name: Comprehensive Metabolic Panel EDMS 07/10 17:54 Order name: Comprehensive Metabolic Panel EDMS 07/10 17:54 Order name: Comprehensive Metabolic Panel EDMS 07/10 14:36 Order name: IV Saline Lock; Complete Time: 15:32 rn 07/10 14:36 Order name: Labs collected and sent; Complete Time: 15:32 rn 07/10 14:36 Order name: Urine Test (obtain specimen); Complete Time: 15:32 rn 07/10 14:36 Order name: Urine Dipstick-Ancillary (obtain specimen); Complete Time: 15:32 rn 07/10 14:59 Order name: CT Abd/Pelvis - W/Contrast; Complete Time: 17:37 rn 07/10 17:54 Order name: NPO EDMS 07/10 17:54 Order name: Magnesium EDMS 07/10 17:54 Order name: Magnesium EDMS 07/10 17:54 Order name: Phosphorus EDMS 07/10 17:54 Order name: Phosphorus EDMS Administered Medications: 15:20 Drug: Demerol 25 mg Route: IVP; Site: right wrist; rb1 15:40 Follow up: Response: No adverse reaction; Pain is decreased rb1 15:20 Drug: Zofran 4 mg Route: IVP; Site: right wrist; rb1 15:40 Follow up: Response: No adverse reaction; Nausea is decreased rb1 15:20 Drug: NS 0.9% 1000 ml Route: IV; Rate: 1000 ml; Site: right wrist; rb1 16:00 Follow up: Response: No adverse reaction; IV Status: Completed infusion mg2 16:13 Drug: NS 0.9% 1000 ml Route: IV; Rate: 1000 ml; Site: right forearm; mg2 16:45 Follow up: Response: No adverse reaction; IV Status: Completed infusion mg2 17:46 Drug: Zosyn 3.375 grams Route: IVPB; Infused Over: 60 mins; Site: right forearm; mg2 19:18 Follow up: Response: No adverse reaction; IV Status: Completed infusion mg2 Disposition: 07/10/18 17:47 Hospitalization ordered by David Hernandez for Inpatient Admission. Preliminary diagnosis are Left sided colitis, Failure of outpatient therapy. - Bed requested for Telemetry/MedSurg (Inpatient). - Status is Inpatient Admission. mg2 - Condition is Stable. - Problem is new. - Symptoms have improved. UTI on Admission? No Signatures: Dispatcher [facility] Kendal Disla RN RN Zaid Cortez MD MD rn Hall, Patricia, RN RN Jessica Barnhart, MANUELA RN rb1 Beka Celeste RN RN mg2 Corrections: (The following items were deleted from the chart) 18:37 17:47 Hospitalization Ordered by David Hernandez MD for Inpatient Admission. Preliminary dw diagnosis is Left sided colitis; Failure of outpatient therapy. Bed requested for Telemetry/MedSurg (Inpatient). Status is Inpatient Admission. Condition is Stable. Problem is new. Symptoms have improved. UTI on Admission? No. rn 20:22 18:37 07/10/2018 17:47 Hospitalization Ordered by David Hernandez MD for Inpatient mg2 Admission. Preliminary diagnosis is Left sided colitis; Failure of outpatient therapy. Bed requested for Telemetry/MedSurg (Inpatient). Status is Inpatient Admission. Condition is Stable. Problem is new. Symptoms have improved. UTI on Admission? No. dw
--- NOTE | 2018-07-10 17:47 | ER ---
Nurse's Notes [facility] Name: Alicia Morton Age: 37 yrs Sex: Female : 1980 Arrival Date: 07/10/2018 Time: 14:12 Bed External Waiting Private MD: None, None Diagnosis: Left sided colitis;Failure of outpatient therapy Presentation: 07/10 14:26 Presenting complaint: Patient states: N/V and lower abdominal pain since this morning, ph states, " I was just seen here for the same thing not long ago and I'm pretty sure it's diverticulitis again." Pt reports that she has follow up appt w/ GI but not until 08/02, recently finished ABX, denies diarrhea or fever. Transition of care: patient was not received from another setting of care. Onset of symptoms was July 10, 2018. Risk Assessment: Do you want to hurt yourself or someone else? Patient reports no desire to harm self or others. Initial Sepsis Screen: Does the patient meet any 2 criteria? No. Patient's initial sepsis screen is negative. Does the patient have a suspected source of infection? No. Patient's initial sepsis screen is negative. Care prior to arrival: None. 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 - Social history:: Smoking status: Patient uses tobacco products, smokes one pack cigarettes per day. - Ebola Screening: : Patient negative for fever greater than or equal to 101.5 degrees Fahrenheit, and additional compatible Ebola Virus Disease symptoms. - Family history:: not pertinent. - Hospitalizations: : No recent hospitalization is reported. Screenin:25 Abuse screen: Denies threats or abuse. Nutritional screening: No deficits noted. rb1 Tuberculosis screening: No symptoms or risk factors identified. Fall Risk None identified. Assessment: 14:25 General: Appears uncomfortable, slender, Behavior is calm, cooperative, Denies fever. rb1 Pain: Complains of pain in right lower quadrant and left lower quadrant Pain currently is 8 out of 10 on a pain scale. Pain began this morning. Neuro: Level of Consciousness is awake, alert, obeys commands, Oriented to person, place, time, situation. Cardiovascular: Capillary refill < 3 seconds is brisk in bilateral fingers. Respiratory: Airway is patent Respiratory effort is even, unlabored, Respiratory pattern is regular, symmetrical. GI: Abdomen is non-distended, Reports nausea, vomiting, x 5 times today. Pt. reports soft stools. : No signs and/or symptoms were reported regarding the genitourinary system. Derm: Skin is pink, warm \\T\\ dry. 15:20 Reassessment: Patient appears in no apparent distress at this time. Patient and/or rb1 family updated on plan of care and expected duration. Pain level reassessed. Patient is alert, oriented x 3, equal unlabored respirations, skin warm/dry/pink. 16:00 Reassessment: Patient appears in no apparent distress at this time. Patient and/or mg2 family updated on plan of care and expected duration. Pain level reassessed. Patient is alert, oriented x 3, equal unlabored respirations, skin warm/dry/pink. 18:22 Reassessment: Patient appears in no apparent distress at this time. Patient and/or mg2 family updated on plan of care and expected duration. Pain level reassessed. Patient is alert, oriented x 3, equal unlabored respirations, skin warm/dry/pink. patient informed about the need for admission, patient agreed. Vital Signs: 14:28 BP 99 / 69; Pulse 90; Resp 26; Temp 97.5; Pulse Ox 94% on R/A; Weight 54.88 kg; Height ph 5 ft. 4 in. (162.56 cm); Pain 8/10; 16:01 BP 102 / 73; Pulse 82; Resp 18; Pulse Ox 93% on R/A; Pain 2/10; mg2 17:04 BP 103 / 69; Pulse 80; Resp 18; Pulse Ox 97% on R/A; Pain 0/10; mg2 18:23 BP 98 / 68; Pulse 77; Resp 18; Pulse Ox 91% on R/A; Pain 0/10; mg2 14:28 Body Mass Index 20.77 (54.88 kg, 162.56 cm) ph ED Course: 14:12 Patient arrived in ED. mr 14:12 None, None is Private Physician. mr 14:25 Patient has correct armband on for positive identification. Bed in low position. Call rb1 light in reach. Side rails up X 1. Pulse ox on. NIBP on. 14:25 Arm band placed on right wrist. rb1 14:28 Triage completed. ph 14:31 Zaid Cortez MD is Attending Physician. rn 14:37 Jessica Barnhart RN is Primary Nurse. rb1 15:07 Inserted saline lock: 22 gauge in right wrist, using aseptic technique. Blood collected.rb1 16:00 Report given to MANUELA Ireland. rb1 16:01 No provider procedures requiring assistance completed. mg2 17:21 CT Abd/Pelvis - W/Contrast In Process Unspecified. EDMS 17:46 David Hernandez MD is Hospitalizing Provider. rn 19:54 Patient admitted, IV remains in place. mg2 Administered Medications: 15:20 Drug: Demerol 25 mg Route: IVP; Site: right wrist; rb1 15:40 Follow up: Response: No adverse reaction; Pain is decreased rb1 15:20 Drug: Zofran 4 mg Route: IVP; Site: right wrist; rb1 15:40 Follow up: Response: No adverse reaction; Nausea is decreased rb1 15:20 Drug: NS 0.9% 1000 ml Route: IV; Rate: 1000 ml; Site: right wrist; rb1 16:00 Follow up: Response: No adverse reaction; IV Status: Completed infusion mg2 16:13 Drug: NS 0.9% 1000 ml Route: IV; Rate: 1000 ml; Site: right forearm; mg2 16:45 Follow up: Response: No adverse reaction; IV Status: Completed infusion mg2 17:46 Drug: Zosyn 3.375 grams Route: IVPB; Infused Over: 60 mins; Site: right forearm; mg2 19:18 Follow up: Response: No adverse reaction; IV Status: Completed infusion mg2 Outcome: 17:47 Decision to Hospitalize by Provider. rn 20:21 Admitted to Tele accompanied by nurse, via wheelchair, room 419, with chart, Report mg2 called to MANUELA Vargas 20:21 Condition: stable 20:21 Instructed on the need for admit, Demonstrated understanding of instructions. 20:22 Patient left the ED. mg2 Signatures: Dispatcher [employer] IAN GanHerminia CortezZaid MD MD rn Hall, Patricia, RN RN Jessica Quezada RN RN [facility] Beka Celeste RN RN mg2 Corrections: (The following items were deleted from the chart) : 19:54 Patient transferred, IV remains in place. mg2 mg2
[2018-07-10] MEDS ORDERED: PIPER/TAZO/NS 3.375gm 3.375 GM/100 ML BAG ONE (17:50)
[2018-07-10] MEDS ORDERED: ONDANSETRON 4 MG/2 ML VIAL IV PRN (17:50)
[2018-07-10] MEDS ORDERED: ACETAMINOPHEN 650MG/RECT SUPP PR PRN (17:50)
[2018-07-10] MEDS: D5.45NS W/KCL 20MEQ 1,000 ML IV SCH ×2 (18:00→21:13)
[2018-07-10 19:13] LABS: Urine Blood 3+ (NEG); Urine Glucose NEGATIVE (NEG); Urine Protein NEGATIVE (NEG); Urine Specific Gravity 1.005 (1.005-1.030); Urine pH 6.5 (5.0-7.0)
[2018-07-10 22:06] VITALS: BMI 20.2
[2018-07-10] MEDS: KETOROLAC 30 MG/ML INJ IV PRN (22:30)
--- NOTE | 2018-07-10 22:38 | P.HP ---
Certification for Inpatient Patient admitted to: Inpatient With expected LOS: >2 Midnights Practitioner: I am a practitioner with admitting privileges, knowledge of patient current condition, hospital course, and medical plan of care. Services: Services provided to patient in accordance with Admission requirements found in Title 42 Section 412.3 of the Code of Federal Regulations Patient History Date of Service: 07/10/18 Reason for admission: colitis History of Present Illness: Ms Morton is a 37 years old woman with history of ASD, pulmonary HTN, who start about 1 month ago with abdominal pain, associated with nausea and vomiting , previous CT abd pelvis showed extensive diverticula and she was diagnosed with colitis. The patient has scheduled a colonoscopy for the next month. Today , she came back to ED because a new episode of abdominal pain, localized on LLQ , 05/09, associated with nausea and vomiting. She denied fever, chills, or diarrhea. Lab work remarkable for leukocytosis, CT abdomen and pelvis remarkable for extensive area of inflammation, involving rectosigmoid, transeverse, descending and right colon, consistent with colitis. Allergies Avocado (Laurus Allergy (Mild, Uncoded 07/10/18 22:24) Nausea/Vomiting Home medications list reviewed: Yes Home Medications: Macitentan [Opsumit] 1 tab PO DAILY 06/19/18 Riociguat [Adempas] 1 tab PO TID 06/19/18 Amox/Clavulanate [Augmentin 875-125 Tab*] 875 mg PO BID #14 tab 06/25/18 Pantoprazole [Protonix Tab*] 40 mg PO DAILY #30 tab 06/25/18 metroNIDAZOLE [Flagyl*] 500 mg PO TID #21 tablet 06/25/18 Docusate [Colace Cap*] 100 mg PO DAILY #30 cap 07/01/18 Lactulose 15 ml PO BID PRN #1 bottle 07/01/18 - Past Medical/Surgical History Diabetic: No -: Tobacco abuse -: Pulmonary hypertension/atrioseptal defect -: GERD -: Secondary polycythemia -: Secondary polycythemia -: Tubal ligation 1999 -: Cholecystectomy 2009 Psychosocial/ Personal History: -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 - Family History Mother -: Lung disease, Other (see notes) Notes: CROHNS DSE Brother -: GI disease, Other (see notes) Notes: CROHNS DSE - Social History Smoking Status: Current every day smoker Counseled patient to stop smoking for: less than 10 minutes Smoking therapy provided: Yes Alcohol use: Yes CD- Drugs: No Caffeine use: No Place of Residence: Home Review of Systems 10-point ROS is otherwise unremarkable Physical Examination - Vital Signs Temperature: 97.6 F Blood Pressure: 98/59 Pulse: 83 Respirations: 20 Pulse Ox (%): 94 - Physical Exam General: Alert, In no apparent distress HEENT: Atraumatic, PERRLA, Mucous membr. moist/pink, EOMI, Sclerae nonicteric Neck: Supple, 2+ carotid pulse no bruit, No LAD, Without JVD or thyroid abnormality Respiratory: Clear to auscultation bilaterally, Normal air movement Cardiovascular: Regular rate/rhythm, Normal S1 S2 Gastrointestinal: Normal bowel sounds, Tenderness (LLQ) Musculoskeletal: No tenderness Integumentary: No rashes Neurological: Normal speech, Normal strength at 5/5 x4 extr, Normal tone, Normal affect Lymphatics: No axilla or inguinal lymphadenopathy - Studies Laboratory Data (last 24 hrs) 07/10/18 15:07: Creatinine 0.50 L 07/10/18 15:07: WBC 11.5 H D, Hgb 16.7 H D, Hct 49.3 H D, Plt Count 289 D 07/10/18 15:07: Sodium 138, Potassium 4.0, BUN 7, Creatinine 0.60, Glucose 101, Total Bilirubin 0.8, AST 22, ALT 31, Alkaline Phosphatase 65, Lipase 116 Assessment and Plan - Problems (Diagnosis) (1) Abdominal pain Onset Date: 12/30/16 Current Visit: No Status: Acute Qualifiers: Abdominal location: left lower quadrant Qualified Code(s): R10.32 - Left lower quadrant pain (2) Nausea and vomiting Onset Date: 12/30/16 Current Visit: No Status: Acute Qualifiers: Vomiting type: unspecified Vomiting Intractability: non-intractable Qualified Code(s): R11.2 - Nausea with vomiting, unspecified (3) Pancolitis Onset Date: 12/30/16 Current Visit: No Status: Acute (4) Tobacco abuse Onset Date: 12/30/16 Current Visit: No Status: Chronic - Plan The patient will be admitted to the hospital due to colitis. She states that Crohn's disease strongly runs in her family. Will continue empiric antibiotic treatment, start IV steroids, consult GI specialist for evaluation and recommendations. - Advance Directives Does patient have a Living Will: No Does patient have a Durable POA for Healthcare: No - Code Status/Comfort Care Code Status Assessed: Yes Code Status: Full Code
[2018-07-10] MEDS: METHYLPREDNISOLONE 125 MG INJ IV SCH (23:52)
[2018-07-11] MEDS: PIPER/TAZO/NS 3.375gm 3.375 GM/100 ML BAG IVPB SCH ×3 (01:25→16:54)
[2018-07-11] MEDS: D5.45NS W/KCL 20MEQ 1,000 ML IV SCH ×4 (02:00→15:00)
[2018-07-11 04:44] LABS: Absolute Lymphocytes (CBC) 0.6 K/uL (0.7-4.9); Absolute Monocytes 0.1 K/uL (0.1-1.3); Absolute Neutrophil 8.3 K/uL (1.8-8.0); Basophils % 0.3 % (0-1.3); Eosinophils % 0.2 % (0-4.4); Hematocrit 41.6 % (36.0-45.0); Lymphocytes % 6.3 % (15.3-44.8); MCH 33.3 pg (27.0-35.0); MCV 96.9 fL (80-100); Monocytes % 0.9 % (3.3-12.3); RBC Red Blood Cell Count 4.29 M/uL (3.86-4.86)
[2018-07-11 04:54] LABS: ALT/SGPT 26 U/L (12-78); AST/SGOT 21 U/L (15-37); Albumin 3.4 g/dL (3.4-5.0); Alkaline Phosphatase 53 U/L (45-117); BUN Blood Urea Nitrogen 5 mg/dL (7-18); Bicarbonate 23 mmol/L (21-32); Bilirubin Total 0.8 mg/dL (0.2-1.0); Glucose Level 115 mg/dL (74-106); Phosphorus 2.8 mg/dL (2.5-4.9); Potassium 4.4 mmol/L (3.5-5.1); Protein, Total 6.5 g/dL (6.4-8.2); Sodium Level 139 mmol/L (136-145)
[2018-07-11 05:16] LABS: Blood Morphology Comment NOT SEEN (NOT SEEN); Platelet Estimate ADEQ; Toxic Granulation 1+; Urine White Blood Cell Casts OK
[2018-07-11] MEDS: METHYLPREDNISOLONE 125 MG INJ IV SCH ×3 (05:22→16:54)
[2018-07-11] MEDS: RIOCIGUAT 2.5 MG PO SCH (14:33)
[2018-07-11] MEDS: MACITENTAN 10 MG PO SCH (14:33)
--- NOTE | 2018-07-11 19:37 | PN ---
Date of Progress Note: 07/11/2018 Subjective: The patient seen and examined. Chart reviewed and case discussed with RN and Dr. Rojas. The patient denies any significant amount of pain. States that her pain has improved. According to nurses, patient did go downstairs and smoke. The patient asking for food. Code Status: Full code. Medications: List reviewed. Physical Examination: Vital Signs: Temperature 96.8, heart rate 70, blood pressure 95/55, respirations 16, O2 93% on room air, did have desaturation of 86% earlier. General: Awake, alert, oriented x3, not in any acute distress. CV: S1 and S2. Regular rate and rhythm. Peripheral pulses present. Respiratory: Moving air well bilaterally. No wheezing or stridor. Gastrointestinal: Abdomen is soft. Minimal tenderness to palpation. Nondistended. Positive bowel sounds. No guarding or rigidity. Extremities: No clubbing, cyanosis, or edema. Neuro: Cranial nerves 2 through 12 intact grossly. No focal neurological deficit. Speech is normal. Laboratory Data: Sodium 139, potassium 4.4, chloride 109, CO2 23, BUN 5, creatinine 0.5, glucose 115, calcium 8.2, phosphorus 2.8, magnesium 2. WBC 9, H and H 14.3 and 41.6, platelets 247, neutrophils 92%. Assessment And Plan: A 37-year-old female with: 1. Acute abdominal pain, left lower quadrant secondary to colitis. 2. Pancolitis. CT shows thickening of the wall of the distal transverse colon , descending colon, sigmoid colon and rectum. The patient has family history of Crohn's disease and will need a colonoscopy to determine and biopsy to determine the etiology. We will continue with IV antibiotics and steroids. GI has been consulted. We will advance diet to clear liquids and advance as tolerated. 3. Nicotine dependence with cigarette smoking. Counseled. 4. Not intractable nausea and vomiting. Continue antiemetics. Plan: Continue to monitor closely. GI and DVT prophylaxis addressed. Likely discharge in next 24-48 hours depending on response. We will need outpatient colonoscopy once the inflammation resolves. The patient states she has colonoscopy scheduled in early July. /MARYBETH Voice ID: [id number] Report ID: [id number] KARL
[2018-07-11] MEDS: KETOROLAC 30 MG/ML INJ IV PRN (20:13)
[2018-07-11] MEDS ORDERED: ZOLPIDEM TARTRATE 5 MG TABLET PO PRN (21:26)
[2018-07-12] MEDS: PIPER/TAZO/NS 3.375gm 3.375 GM/100 ML BAG IVPB SCH ×3 (00:20→16:27)
[2018-07-12] MEDS: METHYLPREDNISOLONE 125 MG INJ IV SCH ×3 (00:20→12:40)
[2018-07-12 04:17] LABS: Absolute Lymphocytes (CBC) 0.7 K/uL (0.7-4.9); Absolute Monocytes 0.3 K/uL (0.1-1.3); Basophils % 0.1 % (0-1.3); Hematocrit 40.7 % (36.0-45.0); Lymphocytes % 6.6 % (15.3-44.8); MCH 33.1 pg (27.0-35.0); MPV 9.5 fL (7.6-11.3); Monocytes % 2.6 % (3.3-12.3)
[2018-07-12 04:31] LABS: ALT/SGPT 22 U/L (12-78); AST/SGOT 13 U/L (15-37); Albumin 3.2 g/dL (3.4-5.0); Alkaline Phosphatase 49 U/L (45-117); BUN Blood Urea Nitrogen 8 mg/dL (7-18); Bicarbonate 24 mmol/L (21-32); Bilirubin Total 0.5 mg/dL (0.2-1.0); Glucose Level 166 mg/dL (74-106); Potassium 4.4 mmol/L (3.5-5.1); Protein, Total 6.3 g/dL (6.4-8.2); Sodium Level 140 mmol/L (136-145)
[2018-07-12] MEDS: D5.45NS W/KCL 20MEQ 1,000 ML IV SCH ×2 (05:50→16:27)
[2018-07-12] MEDS ORDERED: PANTOPRAZOLE 40MG TABLET PO SCH ×2 (07:30)
[2018-07-12] MEDS: RIOCIGUAT 2.5 MG PO SCH (08:10)
[2018-07-12] MEDS: MACITENTAN 10 MG PO SCH (08:12)
[2018-07-12 11:33] VITALS: O2SAT 87
--- NOTE | 2018-07-12 13:01 | RAD REPORT ---
EXAM DESCRIPTION: RAD - Chest Pa And Lat (2 Views) - 07/12/2018 12:55 pm CLINICAL HISTORY: Shortness of breath, decreased O2 saturation COMPARISON: Chest exam June 03, 2018 TECHNIQUE: PA and lateral views of the chest were obtained. FINDINGS: The lungs are clear of focal infiltrate, mass or failure finding. Lung markings are simila r to comparison. Heart size is normal and central vasculature is within normal limits. No pleural effusion or pneumothorax seen. No acute bony finding noted. No aortic abnormality. IMPRESSION: No acute cardiopulmonary process. No significant change from comparison.
[2018-07-12 16:14] VITALS: BP 120/55; TEMP 98
--- NOTE | 2018-07-13 07:50 | DS ---
Date of Discharge: 07/12/2018 Consultants: Dr. Rojas, GI. Admitting Diagnoses: 1. Abdominal pain, left lower quadrant. 2. Non-intractable nausea and vomiting. 3. Pancolitis. 4. Nicotine dependence with cigarette smoking. 5. Atrial septal defect. 6. Pulmonary hypertension. Discharge Diagnoses: 1. Acute abdominal pain at left lower quadrant secondary to colitis. 2. Pancolitis including distal transverse colon, descending colon, and sigmoid colon, as well as rectum. 3. Atrial septal defect. 4. Hypoxia, secondary to atrial septal defect. 5. Pulmonary hypertension. 6. Nicotine dependence with cigarette smoking, continuous, counseled. Hospital Course: The patient is a 37-year-old female who has had recurrent episodes of colitis with multiple admissions to the hospital. The patient again was found to have pancolitis on CT scan. The patient was started on IV antibiotics and IV steroids. The patient does have a strong family history of Crohn's disease. The patient will need outpatient colonoscopy. GI was consulted and Dr. Rojas was involved in the care of the patient. He recommended outpatient colonoscopy once inflammation from the colitis has resolved and able to safely perform colonoscopy without risk of perforation. The patient overall did well. Her white count normalized. Her pain improved. She was able to tolerate a diet. She did continue to smoke multiple times throughout the hospital stay. C. diff assay was obtained which was negative for C. diff. The patient overall started feeling better. Diarrhea improved as well. The patient was noted to be hypoxic. Chest x-ray was done, which showed no acute cardiopulmonary process. No change from comparison. The patient does have ASD. Initially, she was refusing supplemental oxygen and also refused 6- minute walk test. The patient was to be set up with home oxygen if she qualifies. The patient was counseled again regarding smoking cessation. Activity: As tolerated. Medications: As per medication reconciliation list. Followup: Follow up with primary care physician in 2-3 days. Follow up with GI , Dr. Rojas, in 2-4 weeks for repeat colonoscopy. Return to ER for worsening condition. Diet: [place] diet. Activity: As tolerated. Medications: As per medication reconciliation list. Finish off course of Cipro and Flagyl and steroid taper. Physical Examination: General: Awake, alert, oriented x3. No acute distress. CV: S1, S2. Murmurs present. Respiratory: Moving air well bilaterally. No wheezing. Gastrointestinal: Abdomen is soft, nontender, nondistended. Positive bowel sounds. Extremities: No clubbing, cyanosis, or edema. Neurologic: Nonfocal. Total Time Spent Discharging The Patient: 45 minutes. ADDENDUM: Patient refused to have walk test done w resp therapy and refused to have O2 set up. She said it would not help her. I explained to her that she is hypoxic which will worsen her pulmon HTN however she was not interested in home oxygen. She understands the risks. Significant other at the bedside. Patient then signed out MANNIE LOBATO/MARYBETH Voice ID: [id number] Report ID: [id number] KARL
== END 2018-07-12 17:34 | disposition left against medical advice (07) | DRG 392 ==
LOC: ER 14:08 → ERHOLD 18:05 → 4TH 19:54
PROVIDERS: ADMIT Family Medicine; ATTEND Family Medicine
DX: K52.9 Noninfective gastroenteritis and colitis, unspecified (principal); K51.00 Ulcerative (chronic) pancolitis without complications; Q21.1 Atrial septal defect; R09.02 Hypoxemia; I27.20 Pulmonary hypertension, unspecified; F17.210 Nicotine dependence, cigarettes, uncomplicated; D75.1 Secondary polycythemia
CPT/HCPCS: 36415; 71046; 74177; 80048; 80053; 80076; 81003; 81015; 83690; 83735; 84100; 85025; 87493; 94760; 96361; 96365; 96366; 96375; 99285; J2175; J2405; J2543; J2930; J7030; Q9967

== ENCOUNTER 2018-07-20 22:42 | Observation (INO) | payer BC ==
[2018-07-20 23:40] LABS: Absolute Lymphocytes (CBC) 2.5 K/uL (0.7-4.9); Absolute Monocytes 0.9 K/uL (0.1-1.3); Absolute Neutrophil 4.2 K/uL (1.8-8.0); Basophils % 0.8 % (0-1.3); Eosinophils % 2.9 % (0-4.4); Hematocrit 44.3 % (36.0-45.0); Lymphocytes % 31.4 % (15.3-44.8); Monocytes % 11.5 % (3.3-12.3); RBC Red Blood Cell Count 4.63 M/uL (3.86-4.86)
[2018-07-20 23:41] LABS: Protime INR 1.08
[2018-07-20 23:41] LABS: Urine Blood NEGATIVE (NEG); Urine Glucose NEGATIVE (NEG); Urine Protein NEGATIVE (NEG); Urine pH 8.5 (5.0-7.0)
[2018-07-20] MEDS ORDERED: ONDANSETRON 4 MG/2 ML VIAL ONE (23:44)
[2018-07-20] MEDS ORDERED: MORPHINE 4 MG/ML SYR ONE (23:44)
[2018-07-20] MEDS ORDERED: NA CHLORIDE 0.9% 1,000 ML ONE (23:44)
[2018-07-21 00:28] LABS: ALT/SGPT 42 U/L (12-78); AST/SGOT 31 U/L (15-37); Albumin 3.3 g/dL (3.4-5.0); Alkaline Phosphatase 42 U/L (45-117); BUN Blood Urea Nitrogen 4 mg/dL (7-18); Bicarbonate 24 mmol/L (21-32); Bilirubin Direct 0.1 mg/dL (0-0.2); Bilirubin Total 0.4 mg/dL (0.2-1.0); Glucose Level 90 mg/dL (74-106); Lipase 77 U/L (73-393); NT PRO-BNP 820 pg/mL (<125); Potassium 3.8 mmol/L (3.5-5.1); Protein, Total 6.4 g/dL (6.4-8.2); Sodium Level 142 mmol/L (136-145); Troponin (Emerg Dept Use Only) < 0.02 ng/mL (0.0-0.045)
[2018-07-21] MEDS ORDERED: ONDANSETRON 4 MG/2 ML VIAL ONE (00:30)
[2018-07-21] MEDS ORDERED: MORPHINE 4 MG/ML SYR ONE (00:30)
--- NOTE | 2018-07-21 00:34 | ER ---
Nurse's Notes [facility] Name: Alicia Morton Age: 37 yrs Sex: Female : 1980 Arrival Date: 07/20/2018 Time: 22:52 Bed 28 Private MD: Diagnosis: Vomiting;Other chest pain;Primary pulmonary hypertension Presentation: 07/20 23:03 Presenting complaint: Patient states: cullen been vomiting for 3-4 hours now. denies mg2 abdominal pain. Transition of care: patient was not received from another setting of care. Onset of symptoms was July 20, 2018 at 19:00. Risk Assessment: Do you want to hurt yourself or someone else? Patient reports no desire to harm self or others. Initial Sepsis Screen: Does the patient meet any 2 criteria? No. Patient's initial sepsis screen is negative. Does the patient have a suspected source of infection? No. Patient's initial sepsis screen is negative. Care prior to arrival: None. 23:03 Method Of Arrival: Ambulatory mg2 23:03 Acuity: RICARDO 3 mg2 Triage Assessment: 23:08 General: Appears in no apparent distress. uncomfortable, Behavior is calm, cooperative. mg2 Pain: Denies pain. EENT: No deficits noted. Neuro: Level of Consciousness is awake, alert, obeys commands, Oriented to person, place, time, situation. Cardiovascular: Capillary refill < 3 seconds Patient's skin is warm and dry. Respiratory: Airway is patent Respiratory effort is even, unlabored, Respiratory pattern is regular, symmetrical. GI: Pt is actively vomiting clear fluid, Reports vomiting. : No signs and/or symptoms were reported regarding the genitourinary system. Derm: Skin is intact, is healthy with good turgor, Skin is pink, warm \T\ dry. normal. Musculoskeletal: No signs and/or symptoms reported regarding the musculoskeletal system. 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 - Social history:: Smoking status: Patient uses tobacco products, smokes one-half pack cigarettes per day, Patient/guardian denies using alcohol, street drugs, IV drugs. - Ebola Screening: : No symptoms or risks identified at this time. Screenin:07 Abuse screen: Denies threats or abuse. Denies injuries from another. Nutritional mg2 screening: No deficits noted. Tuberculosis screening: No symptoms or risk factors identified. Fall Risk None identified. Assessment: 23:55 General: Appears in no apparent distress. uncomfortable, Behavior is calm, cooperative. mg2 Pain: Complains of pain in left lower quadrant and right lower quadrant and left upper quadrant and right upper quadrant Pain does not radiate. Pain currently is 4 out of 10 on a pain scale. Quality of pain is described as aching, Pain began gradually, 30 min ago. Is intermittent, Alleviated by medications. Neuro: Level of Consciousness is awake, alert, obeys commands, Oriented to person, place, time, situation. Cardiovascular: Capillary refill < 3 seconds Patient's skin is warm and dry. Respiratory: Airway is patent Respiratory effort is even, unlabored, Respiratory pattern is regular, symmetrical. GI: Abdomen is flat, non-distended, Pt is actively vomiting. : No signs and/or symptoms were reported regarding the genitourinary system. EENT: No signs and/or symptoms were reported regarding the EENT system. Derm: Skin is intact, is healthy with good turgor, Skin is pink, warm \T\ dry. normal. Musculoskeletal: No signs and/or symptoms reported regarding the musculoskeletal system. 07/21 00:52 Reassessment: Patient appears in no apparent distress at this time. Patient and/or mg2 family updated on plan of care and expected duration. Pain level reassessed. Patient is alert, oriented x 3, equal unlabored respirations, skin warm/dry/pink. patient informed about the need for admission. patient agreed. Vital Signs: 07/20 23:04 BP 106 / 81; Pulse 98; Resp 18; Temp 98.5; Pulse Ox 95% on R/A; Weight 56.7 kg; Height mg2 5 ft. 4 in. (162.56 cm); Pain 0/10; 23:55 BP 93 / 67; Pulse 89; Resp 18; Pulse Ox 92% on R/A; Pain 5/10; mg2 07/21 02:12 BP 101 / 59; Pulse 70; Resp 18; Temp 98.8; Pulse Ox 92% on R/A; Pain 0/10; mg2 07/20 23:04 Body Mass Index 21.46 (56.70 kg, 162.56 cm) mg2 ED Course: 07/20 22:52 Patient arrived in ED. ag3 22:53 Anthony May MD is Attending Physician. hailey 22:59 Beka Celeste, MANUELA is Primary Nurse. mg2 23:04 Triage completed. mg2 23:07 Arm band placed on. mg2 23:10 Patient has correct armband on for positive identification. mg2 23:10 No provider procedures requiring assistance completed. mg2 23:35 X-ray completed. Portable x-ray completed in exam room. Patient tolerated procedure sg4 well. 23:37 XRAY Chest (1 view) In Process Unspecified. EDMS 23:57 Inserted saline lock: 20 gauge in left forearm, using aseptic technique. Blood mg2 collected. 07/21 00:32 Shanice De Luna MD is Hospitalizing Provider. hailey 02:23 Patient admitted, IV remains in place. mg2 Administered Medications: 07/20 23:42 Drug: Zofran 4 mg Route: IVP; Site: left forearm; mg2 07/21 00:10 Follow up: Response: No adverse reaction; Marked relief of symptoms mg2 07/20 23:42 Drug: morphine 4 mg Route: IVP; Site: left forearm; mg2 07/21 00:10 Follow up: Response: No adverse reaction; Pain is decreased mg2 07/20 23:43 Drug: NS 0.9% 1000 ml Route: IV; Rate: 1 bolus; Site: left forearm; mg2 07/21 00:30 Follow up: Response: No adverse reaction; IV Status: Completed infusion mg2 00:25 Drug: morphine 4 mg Route: IVP; Site: left forearm; mg2 02:21 Follow up: Response: No adverse reaction; Marked relief of symptoms mg2 00:25 Drug: Zofran 4 mg Route: IVP; Site: left forearm; mg2 02:21 Follow up: Response: No adverse reaction; Marked relief of symptoms mg2 00:52 Drug: Aspirin 162 mg Route: PO; mg2 02:21 Follow up: Response: No adverse reaction mg2 00:52 Drug: Pepcid 20 mg Route: IVP; Site: left forearm; mg2 02:21 Follow up: Response: No adverse reaction; Marked relief of symptoms mg2 00:52 Drug: Lovenox 1 mg/kg Route: Sub-Q; Site: left lower abdomen; mg2 02:20 Follow up: Response: No adverse reaction mg2 Outcome: 00:33 Decision to Hospitalize by Provider. hailey 02:23 Admitted to Med/surg accompanied by nurse, via wheelchair, room 210, with chart, Report mg2 called to MANUELA bradley 02:23 Condition: stable 02:23 Instructed on the need for admit, Demonstrated understanding of instructions. 02:53 Patient left the ED. mg2 Signatures: Dispatcher [employer] Anthony Cristina MD MD cha Gardose, Michele, RN RN mg2 Suleman, Alicia [email or web address] Myah Jaramillo [email or web address]
--- NOTE | 2018-07-21 00:34 | EDPHYS ---
Physician Documentation [facility] Name: Alicia Morton Age: 37 yrs Sex: Female : 1980 Arrival Date: 07/20/2018 Time: 22:52 Bed 28 Private MD: ED Physician Anthony May HPI: 07/20 23:47 This 37 yrs old Female presents to ER via Ambulatory with complaints of hailey Vomiting. 23:47 The patient presents to the emergency department with nausea, vomiting, abdominal pain, hailey of the right upper quadrant, left upper quadrant, right lower quadrant and left lower quadrant. Onset: The symptoms/episode began/occurred today. Possible causes: unknown. The symptoms are aggravated by nothing. The symptoms are alleviated by nothing. Associated signs and symptoms: The patient has no apparent associated signs or symptoms. Severity of symptoms: At their worst the symptoms were. The patient has not experienced similar symptoms in the past. 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 - Social history:: Smoking status: Patient uses tobacco products, smokes one-half pack cigarettes per day, Patient/guardian denies using alcohol, street drugs, IV drugs. - Ebola Screening: : No symptoms or risks identified at this time. ROS: 23:48 Constitutional: Negative for fever, chills, and weight loss, Eyes: Negative for injury, hailey pain, redness, and discharge, ENT: Negative for injury, pain, and discharge, Neck: Negative for injury, pain, and swelling, Cardiovascular: Negative for chest pain, palpitations, and edema, Respiratory: Negative for shortness of breath, cough, wheezing, and pleuritic chest pain, Back: Negative for injury and pain, : Negative for injury, bleeding, discharge, and swelling, MS/Extremity: Negative for injury and deformity, Skin: Negative for injury, rash, and discoloration, Neuro: Negative for headache, weakness, numbness, tingling, and seizure, Psych: Negative for depression, anxiety, suicide ideation, homicidal ideation, and hallucinations, Allergy/Immunology: Negative for hives, rash, and allergies, Endocrine: Negative for neck swelling, polydipsia, polyuria, polyphagia, and marked weight changes, Hematologic/Lymphatic: Negative for swollen nodes, abnormal bleeding, and unusual bruising. 23:48 Abdomen/GI: Positive for abdominal pain, nausea and vomiting. Exam: 23:48 Constitutional: This is a well developed, well nourished patient who is awake, alert, hailey and in no acute distress. Head/Face: Normocephalic, atraumatic. Eyes: Pupils equal round and reactive to light, extra-ocular motions intact. Lids and lashes normal. Conjunctiva and sclera are non-icteric and not injected. Cornea within normal limits. Periorbital areas with no swelling, redness, or edema. ENT: Nares patent. No nasal discharge, no septal abnormalities noted. Tympanic membranes are normal and external auditory canals are clear. Oropharynx with no redness, swelling, or masses, exudates, or evidence of obstruction, uvula midline. Mucous membranes moist. Neck: Trachea midline, no thyromegaly or masses palpated, and no cervical lymphadenopathy. Supple, full range of motion without nuchal rigidity, or vertebral point tenderness. No Meningismus. Chest/axilla: Normal chest wall appearance and motion. Nontender with no deformity. No lesions are appreciated. Cardiovascular: Regular rate and rhythm with a normal S1 and S2. No gallops, murmurs, or rubs. Normal PMI, no JVD. No pulse deficits. Respiratory: Lungs have equal breath sounds bilaterally, clear to auscultation and percussion. No rales, rhonchi or wheezes noted. No increased work of breathing, no retractions or nasal flaring. Abdomen/GI: Soft, non-tender, with normal bowel sounds. No distension or tympany. No guarding or rebound. No evidence of tenderness throughout. Back: No spinal tenderness. No costovertebral tenderness. Full range of motion. Skin: Warm, dry with normal turgor. Normal color with no rashes, no lesions, and no evidence of cellulitis. MS/ Extremity: Pulses equal, no cyanosis. Neurovascular intact. Full, normal range of motion. Neuro: Awake and alert, GCS 15, oriented to person, place, time, and situation. Cranial nerves II-XII grossly intact. Motor strength 5/5 in all extremities. Sensory grossly intact. Cerebellar exam normal. Normal gait. Psych: Awake, alert, with orientation to person, place and time. Behavior, mood, and affect are within normal limits. Vital Signs: 23:04 BP 106 / 81; Pulse 98; Resp 18; Temp 98.5; Pulse Ox 95% on R/A; Weight 56.7 kg; Height mg2 5 ft. 4 in. (162.56 cm); Pain 0/10; 23:55 BP 93 / 67; Pulse 89; Resp 18; Pulse Ox 92% on R/A; Pain 5/10; mg2 07/21 02:12 BP 101 / 59; Pulse 70; Resp 18; Temp 98.8; Pulse Ox 92% on R/A; Pain 0/10; mg2 07/20 23:04 Body Mass Index 21.46 (56.70 kg, 162.56 cm) mg2 MDM: 07/20 22:58 Patient medically screened. [facility] 23:49 Data reviewed: vital signs, nurses notes, lab test result(s), EKG, radiologic studies, [facility] plain films. 07/20 23:15 Order name: Basic Metabolic Panel; Complete Time: 00:30 [facility] 07/20 23:15 Order name: CBC with Diff; Complete Time: 23:46 [facility] 07/20 23:15 Order name: LFT's; Complete Time: 00:30 [facility] 07/20 23:15 Order name: Magnesium; Complete Time: 00:30 [facility] 07/20 23:15 Order name: NT PRO-BNP; Complete Time: 00:30 [facility] 07/20 23:15 Order name: PT-INR; Complete Time: 00:30 [facility] 07/20 23:15 Order name: Troponin (emerg Dept Use Only); Complete Time: 00:30 [facility] 07/20 23:15 Order name: Lipase; Complete Time: 00:30 [facility] 07/20 23:15 Order name: Urine Culture [facility] 07/20 23:35 Order name: Urine Dipstick--Ancillary (enter results); Complete Time: 23:46 07/20 23:35 Order name: Urine --Ancillary (enter results); Complete Time: 23:46 gm 07/21 01:26 Order name: Basic Metabolic Panel [facility] 07/21 01:26 Order name: Basic Metabolic Panel [facility] 07/21 01:26 Order name: CBC with Automated Diff [facility] 07/20 23:15 Order name: XRAY Chest (1 view) [facility] 07/20 23:15 Order name: EKG; Complete Time: 23:16 [facility] 07/21 01:26 Order name: Heart Healthy [facility] 07/21 01:26 Order name: Echo with Doppler [facility] 07/21 01:26 Order name: CBC with Automated Diff [facility] 07/21 01:26 Order name: Troponin I [facility] 07/21 01:26 Order name: Troponin I [facility] 07/21 01:26 Order name: Troponin I [facility] 07/20 23:15 Order name: Cardiac monitoring; Complete Time: 23:44 [facility] 07/20 23:15 Order name: EKG - Nurse/Tech; Complete Time: 23:44 [facility] 07/20 23:15 Order name: IV Saline Lock; Complete Time: 23:44 [facility] 07/20 23:15 Order name: Labs collected and sent; Complete Time: 23:44 [facility] 07/20 23:15 Order name: O2 Per Protocol; Complete Time: 23:44 [facility] 07/20 23:15 Order name: O2 Sat Monitoring; Complete Time: 23:44 [facility] 07/20 23:15 Order name: Urine Dipstick-Ancillary (obtain specimen); Complete Time: 23:42 [facility] 07/21 01:26 Order name: EKG Electrocardiogram [facility] 07/21 01:26 Order name: EKG Electrocardiogram [facility] Administered Medications: 23:42 Drug: Zofran 4 mg Route: IVP; Site: left forearm; mg2 07/21 00:10 Follow up: Response: No adverse reaction; Marked relief of symptoms mg2 07/20 23:42 Drug: morphine 4 mg Route: IVP; Site: left forearm; mg2 07/21 00:10 Follow up: Response: No adverse reaction; Pain is decreased mg2 07/20 23:43 Drug: NS 0.9% 1000 ml Route: IV; Rate: 1 bolus; Site: left forearm; mg2 07/21 00:30 Follow up: Response: No adverse reaction; IV Status: Completed infusion mg2 00:25 Drug: morphine 4 mg Route: IVP; Site: left forearm; mg2 02:21 Follow up: Response: No adverse reaction; Marked relief of symptoms mg2 00:25 Drug: Zofran 4 mg Route: IVP; Site: left forearm; mg2 02:21 Follow up: Response: No adverse reaction; Marked relief of symptoms mg2 00:52 Drug: Aspirin 162 mg Route: PO; mg2 02:21 Follow up: Response: No adverse reaction mg2 00:52 Drug: Pepcid 20 mg Route: IVP; Site: left forearm; mg2 02:21 Follow up: Response: No adverse reaction; Marked relief of symptoms mg2 00:52 Drug: Lovenox 1 mg/kg Route: Sub-Q; Site: left lower abdomen; mg2 02:20 Follow up: Response: No adverse reaction mg2 Disposition: 07/21/18 00:33 Hospitalization ordered by Shanice De Luna for Observation. Preliminary diagnosis are Vomiting, Other chest pain, Primary pulmonary hypertension. - Bed requested for Telemetry/MedSurg (observation). - Status is Observation. mg2 - Condition is Fair. - Problem is new. - Symptoms have improved. UTI on Admission? No Signatures: Dispatcher [employer] EDMS Anthony May MD MD cha Garcia, Cindy, MANUELA RN cg Beka Celeste RN RN mg2 Corrections: (The following items were deleted from the chart) 00:36 00:33 Hospitalization Ordered by Shanice De Luna MD for Observation. Preliminary hailey diagnosis is Vomiting; Other chest pain. Bed requested for Telemetry/MedSurg (observation). Status is Observation. Condition is Fair. Problem is new. Symptoms have improved. UTI on Admission? No. hailey 02:11 00:36 07/21/2018 00:33 Hospitalization Ordered by Shanice De Luna MD for Observation. cg Preliminary diagnosis is Vomiting; Other chest pain; Primary pulmonary hypertension. Bed requested for Telemetry/MedSurg (observation). Status is Observation. Condition is Fair. Problem is new. Symptoms have improved. UTI on Admission? No. hailey 02:53 02:11 07/21/2018 00:33 Hospitalization Ordered by Shanice De Luna MD for Observation. mg2 Preliminary diagnosis is Vomiting; Other chest pain; Primary pulmonary hypertension. Bed requested for Telemetry/MedSurg (observation). Status is Observation. Condition is Fair. Problem is new. Symptoms have improved. UTI on Admission? No. cg
[2018-07-21] MEDS ORDERED: FAMOTIDINE 20 MG/2 ML VIAL IV ONE (00:55)
[2018-07-21] MEDS ORDERED: ASPIRIN EC 81 MG TAB PO ONE (00:55)
[2018-07-21] MEDS ORDERED: ENOXAPARIN 60 MG/0.6 ML SQ ONE (00:56)
[2018-07-21] MEDS ORDERED: ACETAMINOPHEN 500 MG TAB PO PRN (01:23)
[2018-07-21] MEDS ORDERED: MORPHINE 4 MG/ML SYR IV PRN (01:23)
[2018-07-21 03:38] VITALS: BMI 20.6
--- NOTE | 2018-07-21 08:41 | P.HP ---
Certification for Inpatient Patient admitted to: Observation With expected LOS: <2 Midnights Patient will require the following post-hospital care: None Practitioner: I am a practitioner with admitting privileges, knowledge of patient current condition, hospital course, and medical plan of care. Services: Services provided to patient in accordance with Admission requirements found in Title 42 Section 412.3 of the Code of Federal Regulations Patient History Date of Service: 07/21/18 Reason for admission: Chest pain History of Present Illness: Patient is a 37-year-old female who came to the hospital with chest discomfort. Pain was mainly in the sternal region. Patient has some shortness of breath. Patient states the pain subsided. She has had multiple admissions for similar complaints. She has significant cardiac disease. She has had significant workup in the past. She will be admitted for rule out acute coronary syndrome. Allergies Avocado (Laurus Allergy (Mild, Uncoded 07/21/18 03:26) itchiness and tighthness of throat Home Medications: Macitentan [Opsumit] 1 tab PO DAILY 06/19/18 Riociguat [Adempas] 1 tab PO TID 06/19/18 Pantoprazole [Protonix Tab*] 40 mg PO DAILY #30 tab 06/25/18 Docusate [Colace Cap*] 100 mg PO DAILY #30 cap 07/01/18 Lactulose 15 ml PO BID PRN #1 bottle 07/01/18 Ciprofloxacin HCl [Cipro 500 MG Tablet] 500 mg PO BID #16 tab 07/12/18 metroNIDAZOLE [Flagyl] 500 mg PO Q8H #24 tablet 07/12/18 predniSONE [Prednisone] 20 mg PO SEECOM #14 tablet 07/12/18 - Past Medical/Surgical History Has patient received pneumonia vaccine in the past: No Diabetic: No -: Tobacco abuse -: Pulmonary hypertension/atrioseptal defect -: GERD -: Secondary polycythemia -: Tubal ligation 1999 -: Cholecystectomy 2009 Psychosocial/ Personal History: -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 - Family History Mother Medical History: Lung disease, Other (see notes) Notes: CROHNS DSE Brother Medical History: GI disease, Other (see notes) Notes: CROHNS DSE - Social History Smoking Status: Current every day smoker Alcohol use: No CD- Drugs: No Place of Residence: Home Review of Systems 10-point ROS is otherwise unremarkable Physical Examination - Vital Signs Temperature: 97.4 F Blood Pressure: 96/54 Pulse: 76 Respirations: 17 Pulse Ox (%): 92 - Physical Exam General: Alert, In no apparent distress, Oriented x3 HEENT: Atraumatic, Normocephalic, PERRLA, Mucous membr. moist/pink Neck: Supple, 2+ carotid pulse no bruit, JVD not distended, No Thyromegaly Respiratory: Clear to auscultation bilaterally, Normal air movement Cardiovascular: Regular rate/rhythm, Normal S1 S2, No murmurs Gastrointestinal: Normal bowel sounds, Hypoactive, Soft and benign, Non- distended, No tenderness Musculoskeletal: No clubbing, No swelling, No contractures Integumentary: No rashes, No breakdown, No significant lesion, No tenderness/ swelling Neurological: Normal gait, Normal speech, Normal strength at 5/5 x4 extr, Normal tone, Sensation intact, Cranial nerves 3-12 intact, Normal reflexes 2+ Lymphatics: No axilla or inguinal lymphadenopathy - Studies Laboratory Data (last 24 hrs) 07/20/18 23:25: PT 12.7 H, INR 1.08 07/20/18 23:25: WBC 7.9 D, Hgb 15.1 H, Hct 44.3, Plt Count 304 07/20/18 23:25: Sodium 142, Potassium 3.8, BUN 4 L, Creatinine 0.59, Glucose 90 , Magnesium 2.0, Total Bilirubin 0.4, AST 31, ALT 42, Alkaline Phosphatase 42 L , Lipase 77 Assessment & Plan - Problems (Diagnosis) (1) Chest pain, rule out acute myocardial infarction Current Visit: Yes Status: Acute (2) Secondary polycythemia Onset Date: 06/20/18 Current Visit: No Status: Acute (3) GERD (gastroesophageal reflux disease) Onset Date: 12/30/16 Current Visit: No Status: Chronic Qualifiers: - Plan 1. Serial troponins and EKG 2. Anti-platelet therapy, anti coagulation, beta-cody, statin, and O2 as needed 3. PPI 4. Outpatient follow-up Discharge Plan: Home Plan to discharge in: 24 Hours - Advance Directives Does patient have a Living Will: No Does patient have a Durable POA for Healthcare: No - Code Status/Comfort Care Code Status Assessed: Yes Code Status: Full Code Critical Care: No Time Spent Managing PTS Care (In Minutes): 50
--- NOTE | 2018-07-21 08:46 | P.DS ---
Discharge Date: 07/21/18 Disposition: ROUTINE DISCHARGE Discharge Condition: GOOD Reason for Admission: Chest pain - Problems (1) Chest pain, rule out acute myocardial infarction Current Visit: Yes Status: Acute (2) Secondary polycythemia Onset Date: 06/20/18 Current Visit: No Status: Acute (3) GERD (gastroesophageal reflux disease) Onset Date: 12/30/16 Current Visit: No Status: Chronic Qualifiers: Brief History of Present Illness: Patient is a 37-year-old female who came to the hospital with chest discomfort. Pain was mainly in the sternal region. Patient has some shortness of breath. Patient states the pain subsided. She has had multiple admissions for similar complaints. She has significant cardiac disease. She has had significant workup in the past. She will be admitted for rule out acute coronary syndrome. Hospital Course: Patient has serial troponins and EKG which were negative. Patient stable for discharge home. Patient needs to follow-up with Cardiology and GI. Vital Signs/Physical Exam: Temp Pulse Resp BP Pulse Ox 97.4 F 70 17 102/64 92 07/21/18 08:42 07/21/18 08:43 07/21/18 08:42 07/21/18 08:43 07/21/18 08:42 General: Alert, In no apparent distress, Oriented x3 Laboratory Data at Discharge: WBC 7.9 K/uL (4.3-10.9) D 07/20/18 23:25 Hgb 15.1 g/dL (12.0-15.0) H 07/20/18 23:25 Hct 44.3 % (36.0-45.0) 07/20/18 23:25 Plt Count 304 K/uL (152-406) 07/20/18 23:25 PT 12.7 SECONDS (9.5-12.5) H 07/20/18 23:25 INR 1.08 07/20/18 23:25 Sodium 142 mmol/L (136-145) 07/20/18 23:25 Potassium 3.8 mmol/L (3.5-5.1) 07/20/18 23:25 BUN 4 mg/dL (7-18) L 07/20/18 23:25 Creatinine 0.59 mg/dL (0.55-1.3) 07/20/18 23:25 Glucose 90 mg/dL (74-106) 07/20/18 23:25 Magnesium 2.0 mg/dL (1.8-2.4) 07/20/18 23:25 Total Bilirubin 0.4 mg/dL (0.2-1.0) 07/20/18 23:25 AST 31 U/L (15-37) 07/20/18 23:25 ALT 42 U/L (12-78) 07/20/18 23:25 Alkaline Phosphatase 42 U/L (45-117) L 07/20/18 23:25 Troponin I 0.03 ng/mL (0.0-0.045) 07/21/18 04:59 Lipase 77 U/L (73-393) 07/20/18 23:25 Home Medications: Macitentan [Opsumit] 1 tab PO DAILY 06/19/18 Riociguat [Adempas] 1 tab PO TID 06/19/18 Pantoprazole [Protonix Tab*] 40 mg PO DAILY #30 tab 06/25/18 Docusate [Colace Cap*] 100 mg PO DAILY #30 cap 07/01/18 Lactulose 15 ml PO BID PRN #1 bottle 07/01/18 Ciprofloxacin HCl [Cipro 500 MG Tablet] 500 mg PO BID #16 tab 07/12/18 metroNIDAZOLE [Flagyl*] 500 mg PO Q8H #24 tablet 07/12/18 predniSONE [Prednisone] 20 mg PO SEECOM #14 tablet 07/12/18 Patient Discharge Instructions: OK TO DC IV AND DC HOME. FOLLOW-UP WITH PRIMARY CARE PROVIDER IN 1-2 WEEKS. FOLLOW-UP WITH CARDIOLOGY and gastroenterology IN 1-2 WEEKS. RETURN TO THE ER IF symptoms worsen. CALL or TEXT DR. ZARATE AT [phone] IF ANY QUESTIONS REGARDING HOSPITAL STAY. PLEASE CALL THE FLOOR AT [phone] IF ANY MEDICATION OR NURSING QUESTIONS. Diet: AHA Activity: Fall precautions Time spent managing pt's care (in minutes): 20
[2018-07-21] MEDS ORDERED: ASPIRIN EC 81 MG TAB PO SCH (09:00)
[2018-07-21] MEDS ORDERED: METOPROLOL TAR 50 MG TAB PO SCH (09:00)
[2018-07-21] MEDS ORDERED: ENOXAPARIN 40 MG/0.4 ML SQ SCH (09:00)
--- NOTE | 2018-07-21 09:25 | RAD REPORT ---
EXAM DESCRIPTION: Jessicat Single View07/20/2018 11:37 pm CLINICAL HISTORY: Cough COMPARISON: May 2018 FINDINGS: The lungs appear clear of acute infiltrate. The heart is normal size. Mild prominence of the central pulmonary arteries
[2018-07-21 12:15] VITALS: O2SAT 92
[2018-07-21 15:20] VITALS: BP 111/66; TEMP 97.1
--- NOTE | 2018-07-21 16:09 | EKG ---
Test Date: 2018-07-20 Test Time: 23:46:19 Toter: MEASUREMENT RESULTS: Intervals: Rate: 74 [place]: 166 QRSD: 76 QT: 458 QTc: 508 [place]: P: 41 [place]: 166 QRS: 110 T: 94 INTERPRETIVE STATEMENTS: Normal sinus rhythm Septal infarct, age undetermined Lateral infarct, age undetermined ST & T wave abnormality, consider anterior ischemia Prolonged QT Abnormal ECG Compared to ECG 06/24/2018 16:12:26 ST (T wave) deviation now present Prolonged QT interval now present T-wave abnormality no longer present Myocardial infarct finding still present Possible ischemia still present Electronically Signed On 07-21-18 16:08:07 DIGITAL CARTOGRAPHER by Sherif Moreno
--- NOTE | 2018-07-22 17:29 | EKG ---
Test Date: 2018-07-21 Test Time: 00:25:57 Financial Analysis Manager: CORKY MEASUREMENT RESULTS: Intervals: Rate: 80 MD: 158 QRSD: 78 QT: 456 QTc: 525 [place]: P: 47 MD: 158 QRS: 110 T: 82 INTERPRETIVE STATEMENTS: Normal sinus rhythm Low voltage QRS Septal infarct, age undetermined Lateral infarct, age undetermined ST & T wave abnormality, consider anterior ischemia Prolonged QT Abnormal ECG Compared to ECG 07/20/2018 23:46:19 Low QRS voltage now present Myocardial infarct finding still present ST (T wave) deviation still present Possible ischemia still present Electronically Signed On 07-22-18 17:18:22 LOOSELEAF BINDER COVERER by Sherif Moreno
== END 2018-07-21 12:18 | disposition home or self-care (01) ==
LOC: ER 22:42 → ERHOLD 07-21 01:23 → 2ND 07-21 02:30
PROVIDERS: ADMIT Hospitalist; ATTEND Hospitalist
DX: R07.9 Chest pain, unspecified (principal); D75.1 Secondary polycythemia; Q21.1 Atrial septal defect; K21.9 Gastro-esophageal reflux disease without esophagitis; F17.210 Nicotine dependence, cigarettes, uncomplicated; Z91.018 Allergy to other foods
CPT/HCPCS: 36415; 71045; 80048; 80076; 81003; 81025; 83690; 83735; 83880; 84484; 85025; 85610; 87086; 87088; 93005; 96361; 96372; 96374; 96375; 99285; G0378; J1650; J2405; J7030

== ENCOUNTER 2018-07-23 15:55 | Emergency (ER) | payer BC ==
[2018-07-23] MEDS ORDERED: NA CHLORIDE 0.9% 1,000 ML ONE (16:41)
[2018-07-23] MEDS ORDERED: MORPHINE 4 MG/ML SYR ONE ×2 (16:41→17:09)
[2018-07-23] MEDS ORDERED: ONDANSETRON 4 MG/2 ML VIAL ONE (16:41)
[2018-07-23 16:46] LABS: Absolute Lymphocytes (CBC) 0.7 K/uL (0.7-4.9); Absolute Monocytes 0.3 K/uL (0.1-1.3); Basophils % 0.5 % (0-1.3); Eosinophils % 0.1 % (0-4.4); Hematocrit 44.4 % (36.0-45.0); Lymphocytes % 7.2 % (15.3-44.8); MCH 32.8 pg (27.0-35.0); MCV 96.1 fL (80-100); MPV 10.1 fL (7.6-11.3); Monocytes % 2.9 % (3.3-12.3); RBC Red Blood Cell Count 4.62 M/uL (3.86-4.86)
[2018-07-23] MEDS ORDERED: METRONIDAZOLE 500mg IVPB 500 MG/100 ML BAG IV ONE (17:09)
[2018-07-23] MEDS ORDERED: CIPROFLOXACIN 400mg IV 400 MG/200 ML BAG IV ONE (17:09)
--- NOTE | 2018-07-23 17:24 | RAD REPORT ---
EXAM DESCRIPTION: CT - Abdomen Pelvis W Contrast - 07/23/2018 5:10 pm CLINICAL HISTORY: Abdominal pain with vomiting COMPARISON: none. TECHNIQUE: Computed axial tomography of the abdomen pelvis was obtained. 100 cc Isovue-300 was admin istered intravenously. Oral contrast was not requested which limits evaluation of bowel. All CT scans are performed using dose optimization technique as appropriate and may include automated exposure control or mA/KV adjustment according to patient size. FINDINGS: The liver, spleen, pancreas, adrenal and kidneys appear unremarkable. There is no evidence of diverticulitis. Mild thickening of the wall of the left colon. The appendix appears mildly dilated. Stranding within the adjacent fat is not seen. Small area of inc reased density within the appendix likely represents contrast from prior exams IMPRESSION: Mild left colitis Mild dilatation of the appendix. This may be a normal finding given that stranding within the adjacen t fat is not seen. Early appendicitis is a another consideration
[2018-07-23 17:28] LABS: Platelet Estimate ADEQ; Urine White Blood Cell Casts OK
[2018-07-23 17:29] LABS: Blood Morphology Comment NOT SEEN (NOT SEEN)
--- NOTE | 2018-07-23 17:31 | ER ---
Nurse's Notes [facility] Name: Alicia Morton Age: 38 yrs Sex: Female : 1980 Arrival Date: 07/23/2018 Time: 15:58 Bed 23 Private MD: None, None Diagnosis: Abdominal tenderness;Left sided colitis;Vomiting Presentation: 07/23 16:03 Presenting complaint: Patient states: lower abd pain with nausea and vomiting. Pt aa5 reports being seen here 3 days ago for same complaint. Transition of care: patient was not received from another setting of care. Onset of symptoms was June 2018. Risk Assessment: Do you want to hurt yourself or someone else? Patient reports no desire to harm self or others. Initial Sepsis Screen: Does the patient meet any 2 criteria? No. Patient's initial sepsis screen is negative. Does the patient have a suspected source of infection? No. Patient's initial sepsis screen is negative. Care prior to arrival: None. 16:03 Method Of Arrival: Ambulatory aa5 16:03 Acuity: RICARDO 3 aa5 Triage Assessment: 16:39 General: Appears in no apparent distress. uncomfortable, Behavior is calm, cooperative. mg2 GI: Abdomen is flat, non-distended, Reports lower abdominal pain, nausea, vomiting. 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 - Social history:: Smoking status: Patient uses tobacco products, smokes one-half pack cigarettes per day. - Ebola Screening: : No symptoms or risks identified at this time. Screenin:36 Abuse screen: Denies threats or abuse. Denies injuries from another. Nutritional mg2 screening: No deficits noted. Tuberculosis screening: No symptoms or risk factors identified. Fall Risk IV access (20 points). Assessment: 16:16 General: Appears in no apparent distress. uncomfortable, Behavior is calm, cooperative. mg2 Pain: Complains of pain in abdomen Pain does not radiate. Pain Quality of pain is described as aching, Pain began gradually, Is intermittent. 17:32 Neuro: Level of Consciousness is awake, alert, obeys commands, Oriented to person, mg2 place, time, situation. Cardiovascular: Capillary refill < 3 seconds Patient's skin is warm and dry. Respiratory: Airway is patent Respiratory effort is even, unlabored, Respiratory pattern is regular, symmetrical. GI: Bowel sounds present X 4 quads. Abd is soft and non tender. : No signs and/or symptoms were reported regarding the genitourinary system. EENT: No signs and/or symptoms were reported regarding the EENT system. Derm: Skin is intact, is healthy with good turgor, Skin is pink, warm \T\ dry. normal. Musculoskeletal: No signs and/or symptoms reported regarding the musculoskeletal system. 17:34 GI: Reports lower abdominal pain, nausea, vomiting. mg2 19:05 Reassessment: Patient appears in no apparent distress at this time. Patient and/or mg2 family updated on plan of care and expected duration. Pain level reassessed. Patient is alert, oriented x 3, equal unlabored respirations, skin warm/dry/pink. Vital Signs: 16:04 BP 129 / 82; Pulse 71; Resp 18 S; Temp 98.8(TE); Pulse Ox 96% on R/A; Weight 54.43 kg aa5 (R); Height 5 ft. 4 in. (162.56 cm) (R); Pain 8/10; 18:00 BP 108 / 80; Pulse 82; Resp 18; Pulse Ox 92% on R/A; Pain 1/10; mg2 19:05 BP 110 / 78; Pulse 70; Resp 18; Pulse Ox 94% on R/A; Pain 0/10; mg2 16:04 Body Mass Index 20.60 (54.43 kg, 162.56 cm) aa5 ED Course: 15:58 Patient arrived in ED. sb2 15:58 None, None is Private Physician. sb2 16:03 Arm band placed on. aa5 16:04 Triage completed. aa5 16:06 Beka Celeste, MANUELA is Primary Nurse. mg2 16:18 Anthony May MD is Attending Physician. hailey 16:38 Patient has correct armband on for positive identification. mg2 16:38 No provider procedures requiring assistance completed. Inserted saline lock: 22 gauge mg2 in right forearm, using aseptic technique. Blood collected. 17:11 CT Abd/Pelvis - W/Contrast: iv oral , no oral In Process Unspecified. EDMS 19:00 IV discontinued, intact, bleeding controlled, No redness/swelling at site. Pressure mg2 dressing applied. Administered Medications: 16:35 Drug: NS 0.9% 1000 ml Route: IV; Rate: 1 bolus; Site: right forearm; mg2 19:04 Follow up: Response: No adverse reaction; IV Status: Completed infusion mg2 16:36 Drug: morphine 4 mg Route: IVP; Site: right forearm; mg2 17:00 Follow up: Response: No adverse reaction; Marked relief of symptoms mg2 16:36 Drug: Zofran 4 mg Route: IVP; Site: right forearm; mg2 17:00 Follow up: Response: No adverse reaction; Marked relief of symptoms mg2 17:21 Drug: Flagyl 500 mg Volume: 100 ml; Route: IVPB; Rate: 200 ml/hr; Infused Over: 30 mg2 mins; Site: right forearm; 19:04 Follow up: Response: No adverse reaction; IV Status: Completed infusion mg2 17:21 Drug: morphine 4 mg Route: IVP; Site: right forearm; mg2 19:03 Follow up: Response: No adverse reaction; Marked relief of symptoms mg2 18:00 Drug: Cipro 400 mg Volume: 200 ml; Route: IVPB; Infused Over: 60 mins; Site: right mg2 forearm; 19:04 Follow up: Response: No adverse reaction; IV Status: Completed infusion mg2 Outcome: 17:31 Discharge ordered by . hailey 19:06 Discharged to home ambulatory. mg2 19:06 Condition: stable 19:06 Discharge instructions given to patient, Instructed on discharge instructions, follow up and referral plans. medication usage, Demonstrated understanding of instructions, follow-up care, medications, Prescriptions given X 3. 19:07 Patient left the ED. mg2 Signatures: Dispatcher [employer] EDOK Anthony May MD MD cha Calderon, Audri, RN RN aa5 Apoorva Toledo sb2 Beka Celeste RN RN mg2 Corrections: (The following items were deleted from the chart) 17:33 16:16 Pain: Complains of pain in abdomen Pain does not radiate. Pain mg2 mg2 17:34 17:32 : Reports pain in left flank(s), since today mg2 mg2
--- NOTE | 2018-07-23 17:31 | EDPHYS ---
Physician Documentation [facility] Name: Alicia Morton Age: 38 yrs Sex: Female : 1980 Arrival Date: 07/23/2018 Time: 15:58 Bed 23 Private MD: None, None ED Physician Anthony May HPI: 07/23 16:50 This 38 yrs old Female presents to ER via Ambulatory with complaints of hailey Abdominal Pain, Vomiting. 16:50 The patient presents to the emergency department with nausea, vomiting, abdominal pain, hailey of the left upper quadrant and left lower quadrant. Onset: The symptoms/episode began/occurred 1 day(s) ago. Possible causes: unknown, colitis. The symptoms are aggravated by nothing. The symptoms are alleviated by nothing. Associated signs and symptoms: The patient has no apparent associated signs or symptoms. Severity of symptoms: At their worst the symptoms were mild moderate in the emergency department the symptoms are unchanged. The patient has experienced similar episodes in the past, several times. 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 - Social history:: Smoking status: Patient uses tobacco products, smokes one-half pack cigarettes per day. - Ebola Screening: : No symptoms or risks identified at this time. ROS: 16:51 Constitutional: Negative for fever, chills, and weight loss, Eyes: Negative for injury, hailey pain, redness, and discharge, ENT: Negative for injury, pain, and discharge, Neck: Negative for injury, pain, and swelling, Cardiovascular: Negative for chest pain, palpitations, and edema, Respiratory: Negative for shortness of breath, cough, wheezing, and pleuritic chest pain, Back: Negative for injury and pain, : Negative for injury, bleeding, discharge, and swelling, MS/Extremity: Negative for injury and deformity, Skin: Negative for injury, rash, and discoloration, Neuro: Negative for headache, weakness, numbness, tingling, and seizure, Psych: Negative for depression, anxiety, suicide ideation, homicidal ideation, and hallucinations, Allergy/Immunology: Negative for hives, rash, and allergies, Endocrine: Negative for neck swelling, polydipsia, polyuria, polyphagia, and marked weight changes, Hematologic/Lymphatic: Negative for swollen nodes, abnormal bleeding, and unusual bruising. 16:51 Abdomen/GI: Positive for abdominal pain, nausea and vomiting, of the epigastric area, left upper quadrant and left lower quadrant. Exam: 16:51 Constitutional: This is a well developed, well nourished patient who is awake, alert, hailey and in no acute distress. Head/Face: Normocephalic, atraumatic. Eyes: Pupils equal round and reactive to light, extra-ocular motions intact. Lids and lashes normal. Conjunctiva and sclera are non-icteric and not injected. Cornea within normal limits. Periorbital areas with no swelling, redness, or edema. ENT: Nares patent. No nasal discharge, no septal abnormalities noted. Tympanic membranes are normal and external auditory canals are clear. Oropharynx with no redness, swelling, or masses, exudates, or evidence of obstruction, uvula midline. Mucous membranes moist. Neck: Trachea midline, no thyromegaly or masses palpated, and no cervical lymphadenopathy. Supple, full range of motion without nuchal rigidity, or vertebral point tenderness. No Meningismus. Chest/axilla: Normal chest wall appearance and motion. Nontender with no deformity. No lesions are appreciated. Cardiovascular: Regular rate and rhythm with a normal S1 and S2. No gallops, murmurs, or rubs. Normal PMI, no JVD. No pulse deficits. Respiratory: Lungs have equal breath sounds bilaterally, clear to auscultation and percussion. No rales, rhonchi or wheezes noted. No increased work of breathing, no retractions or nasal flaring. Back: No spinal tenderness. No costovertebral tenderness. Full range of motion. Skin: Warm, dry with normal turgor. Normal color with no rashes, no lesions, and no evidence of cellulitis. MS/ Extremity: Pulses equal, no cyanosis. Neurovascular intact. Full, normal range of motion. Neuro: Awake and alert, GCS 15, oriented to person, place, time, and situation. Cranial nerves II-XII grossly intact. Motor strength 5/5 in all extremities. Sensory grossly intact. Cerebellar exam normal. Normal gait. Psych: Awake, alert, with orientation to person, place and time. Behavior, mood, and affect are within normal limits. 16:51 Abdomen/GI: Inspection: abdomen appears normal, Bowel sounds: normal, Palpation: mild abdominal tenderness, in the left upper quadrant and left lower quadrant. Vital Signs: 16:04 BP 129 / 82; Pulse 71; Resp 18 S; Temp 98.8(TE); Pulse Ox 96% on R/A; Weight 54.43 kg aa5 (R); Height 5 ft. 4 in. (162.56 cm) (R); Pain 8/10; 18:00 BP 108 / 80; Pulse 82; Resp 18; Pulse Ox 92% on R/A; Pain 1/10; mg2 19:05 BP 110 / 78; Pulse 70; Resp 18; Pulse Ox 94% on R/A; Pain 0/10; mg2 16:04 Body Mass Index 20.60 (54.43 kg, 162.56 cm) aa5 MDM: 16:18 Patient medically screened. [facility] 16:52 Data reviewed: vital signs, nurses notes, lab test result(s), radiologic studies, CT hailey scan. 07/23 16:20 Order name: Basic Metabolic Panel [facility] 07/23 16:20 Order name: CBC with Diff; Complete Time: 17:30 [facility] 07/23 16:20 Order name: Creatinine for Radiology; Complete Time: 17:10 [facility] 07/23 16:20 Order name: Hepatic Function [facility] 07/23 16:20 Order name: Lipase [facility] 07/23 16:20 Order name: Urine Culture [facility] 07/23 16:53 Order name: CT Abd/Pelvis - W/Contrast: iv oral , no oral; Complete Time: 17:30 [facility] 07/23 17:09 Order name: Urine Dipstick--Ancillary (enter results) 07/23 17:09 Order name: Urine --Ancillary (enter results) 07/23 17:29 Order name: CBC Smear Scan; Complete Time: 17:30 [facility] 07/23 16:20 Order name: IV Saline Lock; Complete Time: 16:24 [facility] 07/23 16:20 Order name: Labs collected and sent; Complete Time: 16:24 [facility] 07/23 16:20 Order name: Urine Dipstick-Ancillary (obtain specimen); Complete Time: 17:13 [facility] 07/23 16:20 Order name: Urine Test (obtain specimen); Complete Time: 17:13 [facility] 07/23 16:48 Order name: Labs - recollect needed; Complete Time: 17:31 bd Administered Medications: 16:35 Drug: NS 0.9% 1000 ml Route: IV; Rate: 1 bolus; Site: right forearm; mg2 19:04 Follow up: Response: No adverse reaction; IV Status: Completed infusion mg2 16:36 Drug: morphine 4 mg Route: IVP; Site: right forearm; mg2 17:00 Follow up: Response: No adverse reaction; Marked relief of symptoms mg2 16:36 Drug: Zofran 4 mg Route: IVP; Site: right forearm; mg2 17:00 Follow up: Response: No adverse reaction; Marked relief of symptoms mg2 17:21 Drug: Flagyl 500 mg Volume: 100 ml; Route: IVPB; Rate: 200 ml/hr; Infused Over: 30 mg2 mins; Site: right forearm; 19:04 Follow up: Response: No adverse reaction; IV Status: Completed infusion mg2 17:21 Drug: morphine 4 mg Route: IVP; Site: right forearm; mg2 19:03 Follow up: Response: No adverse reaction; Marked relief of symptoms mg2 18:00 Drug: Cipro 400 mg Volume: 200 ml; Route: IVPB; Infused Over: 60 mins; Site: right mg2 forearm; 19:04 Follow up: Response: No adverse reaction; IV Status: Completed infusion mg2 Disposition: 07/23/18 17:31 Discharged to Home. Impression: Abdominal tenderness, Left sided colitis, Vomiting. - Condition is Stable. - Discharge Instructions: Abdominal Pain, Adult, Nausea and Vomiting, Adult, Nausea and Vomiting, Adult, [id number], Abdominal Pain, Adult, [id number]. - Prescriptions for Flagyl 500 mg Oral Tablet - take 1 tablet by ORAL route every 8 hours for 7 days; 21 tablet. Zofran 4 mg Oral Tablet - take 1 tablet by ORAL route every 12 hours As needed; 20 tablet. Cipro 500 mg Oral Tablet - take 1 tablet by ORAL route every 12 hours for 7 days; 14 tablet. - Medication Reconciliation Form, Thank You Letter, Antibiotic Education, Prescription Opioid Use form. - Follow up: Private Physician; When: 2 - 3 days; Reason: Recheck today's complaints, Continuance of care, Re-evaluation by your physician. - Problem is new. - Symptoms have improved. Signatures: Dispatcher [employer] [facility] Disha Woo Corey, MD MD cha Calderon, Audri, RN RN aa5 Beka Celeste, MANUELA RN mg2 Corrections: (The following items were deleted from the chart) 16:57 16:50 Abdomen Pelvis W Con+[id number] ordered. [facility] 19:07 17:31 07/23/2018 17:31 Discharged to Home. Impression: Abdominal tenderness; Left sided mg2 colitis; Vomiting. Condition is Stable. Discharge Instructions: Abdominal Pain, Adult, Nausea and Vomiting, Adult, Nausea and Vomiting, Adult, [id number], Abdominal Pain, Adult, [id number]. Prescriptions for Flagyl 500 mg Oral Tablet - take 1 tablet by ORAL route every 8 hours for 7 days; 21 tablet, Zofran 4 mg Oral Tablet - take 1 tablet by ORAL route every 12 hours As needed; 20 tablet, Cipro 500 mg Oral Tablet - take 1 tablet by ORAL route every 12 hours for 7 days; 14 tablet. and Forms are Medication Reconciliation Form, Thank You Letter, Antibiotic Education, Prescription Opioid Use. Follow up: Private Physician; When: 2 - 3 days; Reason: Recheck today's complaints, Continuance of care, Re-evaluation by your physician. Problem is new. Symptoms have improved. hailey
[2018-07-23 17:51] LABS: ALT/SGPT 64 U/L (12-78); AST/SGOT 70 U/L (15-37); Albumin 3.1 g/dL (3.4-5.0); Alkaline Phosphatase 67 U/L (45-117); BUN Blood Urea Nitrogen 4 mg/dL (7-18); Bicarbonate 25 mmol/L (21-32); Bilirubin Direct 0.2 mg/dL (0-0.2); Bilirubin Total 0.4 mg/dL (0.2-1.0); Glucose Level 111 mg/dL (74-106); Lipase 84 U/L (73-393); Potassium 3.7 mmol/L (3.5-5.1); Protein, Total 5.8 g/dL (6.4-8.2); Sodium Level 139 mmol/L (136-145)
[2018-07-23 19:19] LABS: Urine Blood NEGATIVE (NEG); Urine Glucose NEGATIVE (NEG); Urine Protein NEGATIVE (NEG); Urine Specific Gravity 1.015 (1.005-1.030)
[2018-07-23 20:42] VITALS: TEMP 98.8
[2018-07-23 20:45] VITALS: BP 110/78; O2SAT 94
== END 2018-07-23 19:07 | disposition home or self-care (01) ==
LOC: ER 15:55
DX: K51.50 Left sided colitis without complications (principal); R11.2 Nausea with vomiting, unspecified; F17.210 Nicotine dependence, cigarettes, uncomplicated; Z91.018 Allergy to other foods
CPT/HCPCS: 36415; 74177; 80048; 80076; 81003; 81025; 83690; 85025; 87086; 87088; 96361; 96365; 96368; 96375; 99284; J0744; J2405; J7030; Q9967

== ENCOUNTER 2018-08-03 08:19 | Emergency (ER) | payer BC ==
[2018-08-03] MEDS ORDERED: ONDANSETRON 4 MG/2 ML VIAL ONE ×2 (08:47→09:28)
[2018-08-03] MEDS ORDERED: MORPHINE 4 MG/ML SYR ONE (08:47)
[2018-08-03] MEDS ORDERED: NA CHLORIDE 0.9% 1,000 ML ONE (08:47)
[2018-08-03 08:58] LABS: Absolute Monocytes 0.9 K/uL (0.1-1.3); Absolute Neutrophil 6.3 K/uL (1.8-8.0); Basophils % 0.7 % (0-1.3); Eosinophils % 2.4 % (0-4.4); Hematocrit 48.4 % (36.0-45.0); Lymphocytes % 20.9 % (15.3-44.8); MPV 9.5 fL (7.6-11.3); Monocytes % 9.6 % (3.3-12.3); RBC Red Blood Cell Count 5.04 M/uL (3.86-4.86)
[2018-08-03] MEDS ORDERED: METOCLOPRAMIDE 10 MG/2mL INJ ONE (09:50)
[2018-08-03 09:51] LABS: Bilirubin Direct 0.2 mg/dL (0-0.2); Bilirubin Total 0.6 mg/dL (0.2-1.0); Potassium 3.7 mmol/L (3.5-5.1); Protein, Total 7.8 g/dL (6.4-8.2)
--- NOTE | 2018-08-03 10:50 | RAD REPORT ---
EXAM DESCRIPTION: CT - Thorax W/ Con CLINICAL HISTORY: Chest pain PAIN COMPARISON: Chest For Pe Angio dated 12/24/2015 FINDINGS: The lungs are clear. No pleural thickening or pleural effusion. No pneumothorax. No axillary, mediastinal or hilar adenopathy. Aberrant right subclavian artery noted, normal variant. No concerning bony finding. No gross upper abdominal finding. All CT scans are performed using dose optimization technique as appropriate and may include automated exposure control or mA/KV adjustment according to patient size. IMPRESSION: No acute intrathoracic finding.
--- NOTE | 2018-08-03 12:08 | EDPHYS ---
Physician Documentation [facility] Name: Alicia Morton Age: 38 yrs Sex: Female : 1980 Arrival Date: 08/03/2018 Time: 08:20 Bed 6 Private MD: None, None ED Physician Yonathan John HPI: 08/03 08:48 This 38 yrs old Female presents to ER via Ambulatory with complaints of kdr Vomiting. 08:48 The patient presents to the emergency department with nausea, that is severe, with "dry kdr heaves", vomiting, that is intermittent, abdominal pain, of the epigastric area, Esophageal pain. Onset: The symptoms/episode began/occurred suddenly, this morning. Possible causes: unknown. The symptoms are aggravated by food , The symptoms are alleviated by nothing. Associated signs and symptoms: Pertinent positives: belching, nausea, vomiting, Pertinent negatives: fever, GI bleeding. Severity of symptoms: At their worst the symptoms were moderate severe incapacitating just prior to arrival, in the emergency department the symptoms are unchanged. The patient has experienced similar episodes in the past, multiple times. The patient has been recently seen by a physician: The patient has been recently seen at the [facility] Emergency Department, The patient had a colonoscopy on Monday with only mild inflammation of the sigmoid colon per Dr. Penn. 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 - Social history:: Smoking status: Patient uses tobacco products, Patient uses alcohol. - Ebola Screening: : Patient negative for fever greater than or equal to 101.5 degrees Fahrenheit, and additional compatible Ebola Virus Disease symptoms Patient denies exposure to infectious person Patient denies travel to an Ebola-affected area in the 21 days before illness onset. ROS: 08:54 Constitutional: Negative for fever, chills, and weight loss, Eyes: Negative for injury, kdr pain, redness, and discharge, ENT: Negative for injury, pain, and discharge, Neck: Negative for injury, pain, and swelling, Cardiovascular: Negative for chest pain, palpitations, and edema, Respiratory: Negative for shortness of breath, cough, wheezing, and pleuritic chest pain, Back: Negative for injury and pain, : Negative for injury, bleeding, discharge, and swelling, MS/Extremity: Negative for injury and deformity, Skin: Negative for injury, rash, and discoloration, Neuro: Negative for headache, weakness, numbness, tingling, and seizure activity. Psych: Negative for depression, anxiety, suicide ideation, homicidal ideation, and hallucinations, Allergy/Immunology: Negative for hives, rash, and allergies, Endocrine: Negative for neck swelling, polydipsia, polyuria, polyphagia, and marked weight changes, Hematologic/Lymphatic: Negative for swollen nodes, abnormal bleeding, and unusual bruising. 08:54 Abdomen/GI: Positive for nausea and vomiting, Negative for constipation, abdominal cramps, abdominal distension, anorexia, black/tarry stool, rectal pain, rectal bleeding. Exam: 08:54 Constitutional: This is a well developed, well nourished patient who is awake, alert, kdr and in no acute distress. Head/Face: Normocephalic, atraumatic. Neck: Trachea midline, no thyromegaly or masses palpated, and no cervical lymphadenopathy. Supple, full range of motion without nuchal rigidity, or vertebral point tenderness. No Meningismus. Chest/axilla: Normal chest wall appearance and motion. Nontender with no deformity. No lesions are appreciated. Cardiovascular: Regular rate and rhythm with a normal S1 and S2. No gallops, murmurs, or rubs. Normal PMI, no JVD. No pulse deficits. Respiratory: Lungs have equal breath sounds bilaterally, clear to auscultation and percussion. No rales, rhonchi or wheezes noted. No increased work of breathing, no retractions or nasal flaring. Back: No spinal tenderness. No costovertebral tenderness. Full range of motion. Skin: Warm, dry with normal turgor. Normal color with no rashes, no lesions, and no evidence of cellulitis. MS/ Extremity: Pulses equal, no cyanosis. Neurovascular intact. Full, normal range of motion. Neuro: Awake and alert, GCS 15, oriented to person, place, time, and situation. Cranial nerves II-XII grossly intact. Motor strength 5/5 in all extremities. Sensory grossly intact. Cerebellar exam normal. Normal gait. Psych: Awake, alert, with orientation to person, place and time. Behavior, mood, and affect are within normal limits. 08:54 Abdomen/GI: Inspection: abdomen appears normal, Bowel sounds: active, diminished, Palpation: soft, moderate abdominal tenderness, in the epigastric area, mass, is not appreciated, rebound tenderness, is not appreciated. Vital Signs: 08:29 BP 118 / 77; Pulse 85; Resp 18; Temp 96.8(O); Pulse Ox 98% on R/A; Weight 54.43 kg; hj Height 5 ft. 4 in. (162.56 cm); Pain 7/10; 09:13 BP 113 / 67; Pulse 63; Resp 18; Pulse Ox 100% on R/A; hj 13:25 BP 108 / 82; Pulse 74; Resp 16; Temp 98.5; Pulse Ox 99% on R/A; Pain 0/10; ch 08:29 Body Mass Index 20.60 (54.43 kg, 162.56 cm) hj MDM: 09:33 Data reviewed: vital signs, nurses notes, lab test result(s), radiologic studies. kdr Counseling: I had a detailed discussion with the patient and/or guardian regarding: the historical points, exam findings, and any diagnostic results supporting the discharge/admit diagnosis, lab results, radiology results. ED course: D/w Dr. Black - no significant findings from the colonoscopy earlier this week. He will see her in clinic today if we can discharge her. 12:06 Patient medically screened. kdr 08/03 08:45 Order name: Basic Metabolic Panel; Complete Time: 10:29 kdr 08/03 08:45 Order name: CBC with Diff kdr 08/03 08:45 Order name: Creatinine for Radiology; Complete Time: 10:29 kdr 08/03 08:45 Order name: Hepatic Function; Complete Time: 10:29 kdr 08/03 08:45 Order name: Lipase; Complete Time: 10: kdr 01/04 08:57 Order name: Troponin (emerg Dept Use Only); Complete Time: 10:29 kdr 08/03 08:58 Order name: CT Chest W/ Con; Complete Time: 11:03 kdr 08/03 11:09 Order name: Troponin (emerg Dept Use Only); Complete Time: 12:05 iw 08/03 08:45 Order name: IV Saline Lock; Complete Time: 08:47 kdr 08/03 08:45 Order name: Labs collected and sent; Complete Time: 08:47 kdr 08/03 08:57 Order name: EKG - Nurse/Tech; Complete Time: 09:22 kdr 08/03 10:54 Order name: EKG Electrocardiogram EDMS Administered Medications: 08:45 Drug: morphine 4 mg Route: IVP; Site: right antecubital; hj 09:05 Follow up: Response: No adverse reaction; Pain is decreased hj 08:45 Drug: Zofran 4 mg Route: IVP; Site: right antecubital; hj 09:04 Follow up: Response: No adverse reaction hj 08:45 Drug: NS 0.9% 1000 ml Route: IV; Rate: 1 bolus; Site: right antecubital; hj 08:47 Not Given (Duplicate Order): morphine 4 mg IVP once hj 08:47 Not Given (Duplicate Order): Zofran 4 mg IVP once; over 2 minutes hj 09:23 Drug: Zofran 4 mg Route: IVP; Site: right antecubital; hj 09:42 Follow up: Response: No adverse reaction; Nausea unchanged hj 09:43 Drug: Reglan 10 mg Route: IVP; Site: right antecubital; hj 13:00 Follow up: Response: No adverse reaction; Marked relief of symptoms ch Disposition: 08/03/18 12:06 Discharged to Home. Impression: Functional dyspepsia, Chest pain, unspecified, Nausea and vomiting. - Condition is Stable. - Discharge Instructions: Nonspecific Chest Pain, [id number], Gastroesophageal Reflux Disease, Adult, Fyix-[id number]. - Prescriptions for Protonix 40 mg Oral Tablet - take 1 tablet by ORAL route once daily; 30 tablet. - Medication Reconciliation Form, Thank You Letter form. - Follow up: Tristan Rojas MD; When: Upon discharge from the Emergency Department; Reason: If symptoms return, Further diagnostic work-up, Recheck today's complaints, Continuance of care, Re-evaluation by your physician. - Problem is an acute exacerbation. - Symptoms are resolved. - Notes: Follow-up in Dr. Black's office immediately Signatures: Dispatcher [employer] [facility] Kimberly Mulligan, RN RN Yonathan John MD MD [facility] Carlton Clark RN RN Corrections: (The following items were deleted from the chart) 09:06 08:58 TROPONIN (EMERG DEPT USE ONLY)+C.LAB.BRZ ordered. [facility] 12:07 12:06 08/03/2018 12:06 Discharged to Home. Impression: Functional dyspepsia; Chest kdr pain, unspecified. Condition is Stable. Forms are Medication Reconciliation Form, Thank You Letter, Antibiotic Education, Prescription Opioid Use. Follow up: Tristan Rojas; When: Upon discharge from the Emergency Department; Reason: If symptoms return, Further diagnostic work-up, Recheck today's complaints, Continuance of care, Re-evaluation by your physician. Problem is an acute exacerbation. Symptoms are resolved. kdr 13:27 12:07 08/03/2018 12:06 Discharged to Home. Impression: Functional dyspepsia; Chest ch pain, unspecified; Nausea and vomiting. Condition is Stable. Forms are Medication Reconciliation Form, Thank You Letter, Antibiotic Education, Prescription Opioid Use. Follow up: Tristan Rojas; When: Upon discharge from the Emergency Department; Reason: If symptoms return, Further diagnostic work-up, Recheck today's complaints, Continuance of care, Re-evaluation by your physician. Problem is an acute exacerbation. Symptoms are resolved. kdr
--- NOTE | 2018-08-03 12:08 | ER ---
Nurse's Notes [facility] Name: Alicia Morton Age: 38 yrs Sex: Female : 1980 Arrival Date: 08/03/2018 Time: 08:20 Bed 6 Private MD: None, None Diagnosis: Functional dyspepsia;Chest pain, unspecified;Nausea and vomiting Presentation: 08/03 08:28 Presenting complaint: Patient states: vomiting since 5 am today, reports abd pain, hj epigastric area; hx of colitis; denies diarrhoea, constipation; denies fever, reports chills;. Transition of care: patient was not received from another setting of care. Onset of symptoms was August 03, 2018. Risk Assessment: Do you want to hurt yourself or someone else? Patient reports no desire to harm self or others. Initial Sepsis Screen: Does the patient meet any 2 criteria? No. Patient's initial sepsis screen is negative. Does the patient have a suspected source of infection? Yes: Acute abdominal pain. Care prior to arrival: None. 08:28 Method Of Arrival: Ambulatory 08:28 Acuity: RICARDO 3 hj Triage Assessment: 08:30 General: Appears in no apparent distress. uncomfortable, Behavior is cooperative, hj appropriate for age, anxious, crying. Pain: Complains of pain in abdomen. GI: Reports upper abdominal pain, nausea, vomiting. 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 - Social history:: Smoking status: Patient uses tobacco products, Patient uses alcohol. - Ebola Screening: : Patient negative for fever greater than or equal to 101.5 degrees Fahrenheit, and additional compatible Ebola Virus Disease symptoms Patient denies exposure to infectious person Patient denies travel to an Ebola-affected area in the 21 days before illness onset. Screenin:30 Abuse screen: Denies threats or abuse. Denies injuries from another. Nutritional hj screening: No deficits noted. Tuberculosis screening: No symptoms or risk factors identified. Fall Risk None identified. Assessment: 08:31 GI: Abdomen is non-distended, Pt is actively vomiting. hj 08:31 General: Appears in no apparent distress. uncomfortable, slender, Behavior is hj cooperative, appropriate for age, anxious, crying. Pain: Complains of pain in epigastric area Pain currently is 7 out of 10 on a pain scale. Neuro: Level of Consciousness is awake, alert, obeys commands, Oriented to person, place, time, situation, Appropriate for age. Cardiovascular: Denies chest pain, Capillary refill < 3 seconds Patient's skin is warm and dry. Respiratory: Airway is patent Respiratory effort is even, unlabored, Respiratory pattern is regular. : No signs and/or symptoms were reported regarding the genitourinary system. EENT: No signs and/or symptoms were reported regarding the EENT system. Derm: No signs and/or symptoms reported regarding the dermatologic system. Musculoskeletal: No signs and/or symptoms reported regarding the musculoskeletal system. 09:09 Reassessment: Patient and/or family updated on plan of care and expected duration. Pain hj level reassessed. Patient is alert, oriented x 3, equal unlabored respirations, skin warm/dry/pink. awaiting results and POC;. 09:23 Reassessment: pt still complains of vomiting x 2; MD notified, verbal orders to give hj another dose of Zofran 4 mg IV and if no relief to give Reglan 10 mg IV after 10 mins;. 10:05 Reassessment: Patient taken to CT via wheelchair. aj1 10:30 Reassessment: Patient appears in no apparent distress at this time. No changes from aj1 previously documented assessment. Patient and/or family updated on plan of care and expected duration. Pain level reassessed. Patient is alert, oriented x 3, equal unlabored respirations, skin warm/dry/pink. 11:47 Reassessment: Patient appears in no apparent distress at this time. No changes from aj1 previously documented assessment. Patient and/or family updated on plan of care and expected duration. Pain level reassessed. Patient is alert, oriented x 3, equal unlabored respirations, skin warm/dry/pink. 13:10 Reassessment: Patient appears in no apparent distress at this time. Patient and/or ch family updated on plan of care and expected duration. Pain level reassessed. Patient is alert, oriented x 3, equal unlabored respirations, skin warm/dry/pink. Patient denies pain at this time. Patient states feeling better. Patient states symptoms have improved. Vital Signs: 08:29 BP 118 / 77; Pulse 85; Resp 18; Temp 96.8(O); Pulse Ox 98% on R/A; Weight 54.43 kg; hj Height 5 ft. 4 in. (162.56 cm); Pain 7/10; 09:13 BP 113 / 67; Pulse 63; Resp 18; Pulse Ox 100% on R/A; hj 13:25 BP 108 / 82; Pulse 74; Resp 16; Temp 98.5; Pulse Ox 99% on R/A; Pain 0/10; ch 08:29 Body Mass Index 20.60 (54.43 kg, 162.56 cm) ED Course: 08:20 Patient arrived in ED. mr 08:20 None, None is Private Physician. mr 08:25 Yonathan John MD is Attending Physician. kdr 08:28 Carlton Clark, MANUELA is Primary Nurse. hj 08:29 Triage completed. hj 08:30 Arm band placed on left wrist. hj 08:44 Patient has correct armband on for positive identification. Placed in gown. Bed in low hj position. Call light in reach. Side rails up X 1. Adult w/ patient. 08:47 Initial lab(s) drawn, by me, sent to lab. Inserted saline lock: 20 gauge in right hj antecubital area, using aseptic technique. Blood collected. 09:02 Radiology exam delayed due to lab results not completed at this time. (BUN/Creatinine). 09:04 Troponin (emerg Dept Use Only) Sent. 09:48 Radiology exam delayed due to lab results not completed at this time. (BUN/Creatinine). 10:04 Report given to MANUELA Morgan. 10:10 Florencia Villa, RN is Primary Nurse. aj1 10:10 CT completed. Patient tolerated procedure well. Patient moved to CT via wheelchair. Patient moved back from CT. 10:11 CT Chest W/ Con In Process Unspecified. EDMS 12:06 Tristan Rojas MD is Referral Physician. kdr 13:25 No apparent distress. Resting quietly. ch 13:25 Pulse ox on. NIBP on. ch 13:25 No provider procedures requiring assistance completed. IV discontinued, intact, ch bleeding controlled, No redness/swelling at site. Pressure dressing applied. Administered Medications: 08:45 Drug: morphine 4 mg Route: IVP; Site: right antecubital; hj 09:05 Follow up: Response: No adverse reaction; Pain is decreased hj 08:45 Drug: Zofran 4 mg Route: IVP; Site: right antecubital; hj 09:04 Follow up: Response: No adverse reaction hj 08:45 Drug: NS 0.9% 1000 ml Route: IV; Rate: 1 bolus; Site: right antecubital; hj 08:47 Not Given (Duplicate Order): morphine 4 mg IVP once hj 08:47 Not Given (Duplicate Order): Zofran 4 mg IVP once; over 2 minutes hj 09:23 Drug: Zofran 4 mg Route: IVP; Site: right antecubital; hj 09:42 Follow up: Response: No adverse reaction; Nausea unchanged hj 09:43 Drug: Reglan 10 mg Route: IVP; Site: right antecubital; hj 13:00 Follow up: Response: No adverse reaction; Marked relief of symptoms ch Outcome: 12:06 Discharge ordered by . kdr 13:25 Discharged to home ambulatory, with family. ch 13:25 Condition: improved 13:25 Discharge instructions given to patient, family, Instructed on discharge instructions, follow up and referral plans. medication usage, Demonstrated understanding of instructions, follow-up care, medications, Prescriptions given X 1. 13:27 Patient left the ED. ch Signatures: Dispatcher [employer] [facility] Kimberly Mulligan RN RN ch Johnson, Angela, RN RN aj1 Yonathan John MD MD kdr Rivera, Mary mr Jones, Carlton Hinton RN RN hj Corrections: (The following items were deleted from the chart) 09:13 08:29 BP 118 / 77; Pulse 85bpm; Resp 18bpm; Pulse Ox 98% RA; Temp 96.8F Oral; 54.43 kg; hj Height 5 ft. 4 in.; BMI: 20.6; Pain 05/09; hj 09:25 09:23 Reassessment: pt still complains of vomiting x 2; notified, verbal orders to hj give another dose of Zofran 4 mg IV and if no relief to give Bentyl 10 mg IV after 10 mins; fausto
[2018-08-03 13:38] VITALS: BP 108/82; TEMP 98.5; O2SAT 99
--- NOTE | 2018-08-04 13:59 | EKG ---
Test Date: 2018-08-03 Test Time: 09:15:43 Testing And Regulating Technician: JAMES MEASUREMENT RESULTS: Intervals: Rate: 69 IL: 180 QRSD: 80 QT: 454 QTc: 486 Dingle: P: 52 IL: 180 QRS: 119 T: 252 INTERPRETIVE STATEMENTS: Normal sinus rhythm Septal infarct, age undetermined Lateral infarct, age undetermined ST & T wave abnormality, consider anterior ischemia Abnormal ECG Compared to ECG 07/21/2018 00:25:57 Prolonged QT interval no longer present Myocardial infarct finding still present ST (T wave) deviation still present Possible ischemia still present Electronically Signed On 08-04-18 13:54:39 TIE LAYER by Sherif Moreno
== END 2018-08-03 13:27 | disposition home or self-care (01) ==
LOC: ER 08:19
DX: K30 Functional dyspepsia (principal); R07.9 Chest pain, unspecified; Z72.0 Tobacco use; Z91.018 Allergy to other foods
CPT/HCPCS: 36415; 71260; 80048; 80076; 83690; 84484; 85025; 93005; 96374; 96375; 99284; J2405; J2765; J7030; Q9967

== ENCOUNTER 2018-08-11 12:25 | Emergency (ER) | payer BC ==
[2018-08-11] MEDS ORDERED: ONDANSETRON 4 MG/2 ML VIAL ONE (13:07)
[2018-08-11] MEDS ORDERED: NA CHLORIDE 0.9% 1,000 ML ONE (13:08)
[2018-08-11 13:18] LABS: Absolute Monocytes 0.6 K/uL (0.1-1.3); Absolute Neutrophil 4.5 K/uL (1.8-8.0); Basophils % 0.8 % (0-1.3); Hematocrit 45.9 % (36.0-45.0); Lymphocytes % 27.8 % (15.3-44.8); MPV 9.3 fL (7.6-11.3); Monocytes % 8.2 % (3.3-12.3); RBC Red Blood Cell Count 4.86 M/uL (3.86-4.86)
[2018-08-11] MEDS ORDERED: FAMOTIDINE 20 MG/2 ML VIAL IV ONE (13:18)
[2018-08-11 13:34] LABS: Urine Bacteria 20-50 /HPF (<20); Urine Culture Reflex Order REFLEXED; Urine RBC <5 /HPF (NONE SEEN)
[2018-08-11 13:36] LABS: ALT/SGPT 23 U/L (12-78); AST/SGOT 20 U/L (15-37); Albumin 3.9 g/dL (3.4-5.0); Alkaline Phosphatase 64 U/L (45-117); BUN Blood Urea Nitrogen 3 mg/dL (7-18); Bicarbonate 23 mmol/L (21-32); Bilirubin Direct 0.1 mg/dL (0-0.2); Bilirubin Total 0.5 mg/dL (0.2-1.0); Glucose Level 86 mg/dL (74-106); Lipase 73 U/L (73-393); Potassium 3.6 mmol/L (3.5-5.1); Protein, Total 7.5 g/dL (6.4-8.2); Sodium Level 144 mmol/L (136-145)
[2018-08-11] MEDS ORDERED: FENTANYL CITR 100 MCG/2 ML ONE (14:19)
--- NOTE | 2018-08-11 15:10 | ER ---
Nurse's Notes [facility] Name: Alicia Morton Age: 38 yrs Sex: Female : 1980 Arrival Date: 08/11/2018 Time: 12:27 Bed 26 Private MD: None, None Diagnosis: Vomiting Presentation: 08/11 12:31 Presenting complaint: Patient states: abd pain and vomiting started this morning. Pt sv has been seen recently for this and was dx with colitis and had a colonoscopy recently. No BM x 4 days. Transition of care: patient was not received from another setting of care. Onset of symptoms was August 11, 2018. Care prior to arrival: None. 12:31 Method Of Arrival: Ambulatory sv 12:31 Acuity: RICARDO 3 sv 13:05 Initial Sepsis Screen: Does the patient meet any 2 criteria? No. Patient's initial la1 sepsis screen is negative. Does the patient have a suspected source of infection? No. Patient's initial sepsis screen is negative. 13:06 Risk Assessment: Do you want to hurt yourself or someone else? Patient reports no la1 desire to harm self or others. 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 - Social history:: Smoking status: unknown. - Ebola Screening: : No symptoms or risks identified at this time. Screenin:04 Abuse screen: Denies threats or abuse. Nutritional screening: No deficits noted. la1 Tuberculosis screening: No symptoms or risk factors identified. Fall Risk None identified. Assessment: 13:03 General: Appears in no apparent distress. Behavior is calm, cooperative. Pain: la1 Complains of pain in epigastric area and left lower quadrant. Neuro: Level of Consciousness is awake, alert, obeys commands, Oriented to person, place, time, situation. Cardiovascular: Capillary refill < 3 seconds Patient's skin is warm and dry. Respiratory: Airway is patent Respiratory effort is even, unlabored, Respiratory pattern is regular, symmetrical. GI: Abdomen is round non-distended, Pt is actively vomiting bile, Bowel sounds present X 4 quads. Abd is soft X 4 quads Abd is non tender X 4 quads Reports constipation, nausea, vomiting. : No signs and/or symptoms were reported regarding the genitourinary system. 15:03 Reassessment: pt states "do you know when i am going to be let go from here" Patient tw2 states feeling better. Patient states symptoms have improved. 15:36 Reassessment: Patient appears in no apparent distress at this time. No changes from la1 previously documented assessment. Patient and/or family updated on plan of care and expected duration. Pain level reassessed. Patient is alert, oriented x 3, equal unlabored respirations, skin warm/dry/pink. Vital Signs: 12:33 BP 124 / 81; Pulse 94; Resp 22; Temp 97.6; Pulse Ox 95% ; Weight 54.43 kg; Height 5 ft. sv 4 in. (162.56 cm); Pain 8/10; 14:49 BP 109 / 65; Pulse 71; Resp 16; Pulse Ox 98% on R/A; la1 12:33 Body Mass Index 20.60 (54.43 kg, 162.56 cm) sv ED Course: 12:27 Patient arrived in ED. dl4 12:27 None, None is Private Physician. dl4 12:32 Triage completed. sv 12:33 Arm band placed on. sv 12:34 Jairon Coronado MD is Attending Physician. gs 12:40 Kirit Daniels, MANUELA is Primary Nurse. la1 13:04 Call light in reach. Side rails up X 1. la1 13:04 Inserted saline lock: 22 gauge in right forearm, using aseptic technique. Blood la1 collected. 15:36 No provider procedures requiring assistance completed. IV discontinued, intact, la1 bleeding controlled, No redness/swelling at site. Pressure dressing applied. Administered Medications: 13:03 Drug: NS 0.9% 1000 ml Route: IV; Rate: 1 bolus; Site: right forearm; la1 13:56 Follow up: IV Status: Completed infusion la1 13:03 Drug: Zofran 4 mg Route: IVP; Site: right forearm; la1 13:56 Follow up: Response: No adverse reaction la1 13:56 Follow up: Response: No adverse reaction la1 13:17 Drug: Pepcid 20 mg Route: IVP; Site: right forearm; la1 13:56 Follow up: Response: No adverse reaction; Pain is decreased la1 14:32 Drug: fentaNYL (PF) 50 mcg Route: IVP; Site: left antecubital; la1 15:35 Follow up: Response: No adverse reaction; Pain is decreased la1 Outcome: 15:09 Discharge ordered by . 15:36 Discharged to home ambulatory. la1 15:36 Condition: stable 15:36 Discharge instructions given to patient, Instructed on discharge instructions, follow up and referral plans. Demonstrated understanding of instructions, follow-up care. 15:36 Patient left the ED. la1 Signatures: Cynthia Ingram RN RN Kirit Simon RN RN la1 Leola Smith RN RN tw2 Jairon Coronado MD MD gs Luna, David dl4
--- NOTE | 2018-08-11 15:10 | EDPHYS ---
Physician Documentation [facility] Name: Alicia Morton Age: 38 yrs Sex: Female : 1980 Arrival Date: 08/11/2018 Time: 12:27 Bed 26 Private MD: None, None ED Physician Jairon Coronado HPI: 08/11 15:06 This 38 yrs old Female presents to ER via Ambulatory with complaints of gs Vomiting, Abdominal Pain. 15:06 Onset: The symptoms/episode began/occurred yesterday. Possible causes: flare up of gs bowel problem. The symptoms are aggravated by nothing. The symptoms are alleviated by nothing. Associated signs and symptoms: Pertinent negatives: fever, GI bleeding. Severity of symptoms: At their worst the symptoms were severe in the emergency department the symptoms have improved moderately. The patient has experienced similar episodes in the past, multiple times, chronically. The patient has not recently seen a physician. 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 - Social history:: Smoking status: unknown. - Ebola Screening: : No symptoms or risks identified at this time. ROS: 15:06 All other systems are negative. gs Exam: 15:06 Head/Face: Normocephalic, atraumatic. Eyes: Pupils equal round and reactive to light, gs extra-ocular motions intact. Lids and lashes normal. Conjunctiva and sclera are non-icteric and not injected. Cornea within normal limits. Periorbital areas with no swelling, redness, or edema. ENT: Nares patent. No nasal discharge, no septal abnormalities noted. Tympanic membranes are normal and external auditory canals are clear. Oropharynx with no redness, swelling, or masses, exudates, or evidence of obstruction, uvula midline. Mucous membranes moist. Neck: Trachea midline, no thyromegaly or masses palpated, and no cervical lymphadenopathy. Supple, full range of motion without nuchal rigidity, or vertebral point tenderness. No Meningismus. Chest/axilla: Normal chest wall appearance and motion. Nontender with no deformity. No lesions are appreciated. Cardiovascular: Regular rate and rhythm with a normal S1 and S2. No gallops, murmurs, or rubs. Normal PMI, no JVD. No pulse deficits. Respiratory: Lungs have equal breath sounds bilaterally, clear to auscultation and percussion. No rales, rhonchi or wheezes noted. No increased work of breathing, no retractions or nasal flaring. Back: No spinal tenderness. No costovertebral tenderness. Full range of motion. Skin: Warm, dry with normal turgor. Normal color with no rashes, no lesions, and no evidence of cellulitis. MS/ Extremity: Pulses equal, no cyanosis. Neurovascular intact. Full, normal range of motion. Neuro: Awake and alert, GCS 15, oriented to person, place, time, and situation. Cranial nerves II-XII grossly intact. Motor strength 5/5 in all extremities. Sensory grossly intact. Cerebellar exam normal. Normal gait. 15:06 Constitutional: The patient appears alert, awake. 15:06 Abdomen/GI: Palpation: mild abdominal tenderness, in all quadrants, rebound tenderness, is not appreciated. Vital Signs: 12:33 BP 124 / 81; Pulse 94; Resp 22; Temp 97.6; Pulse Ox 95% ; Weight 54.43 kg; Height 5 ft. sv 4 in. (162.56 cm); Pain 8/10; 14:49 BP 109 / 65; Pulse 71; Resp 16; Pulse Ox 98% on R/A; la1 12:33 Body Mass Index 20.60 (54.43 kg, 162.56 cm) sv MDM: 12:58 Patient medically screened. 15:06 Differential diagnosis: pancreatitis, viral gastroenteritis, gastroenteritis. Data reviewed: vital signs, nurses notes. Response to treatment: the patient's symptoms have markedly improved after treatment, the patient's symptoms have resolved after treatment, the patient's condition has returned to base line, and as a result, I will discharge patient. 08/11 12:59 Order name: Basic Metabolic Panel; Complete Time: 15:05 08/11 12:59 Order name: CBC with Diff; Complete Time: 15:05 08/11 12:59 Order name: Hepatic Function; Complete Time: 15:05 08/11 12:59 Order name: Lipase; Complete Time: 15: 08/11 12:59 Order name: Urine Microscopic Only; Complete Time: 15: 08/11 13:36 Order name: Urine Culture [facility] 08/11 12:59 Order name: IV Saline Lock; Complete Time: 13:03 08/11 13:54 Order name: Urine Dipstick--Ancillary (enter results) 08/11 13:54 Order name: Urine --Ancillary (enter results) 08/11 13:56 Order name: Urine --Ancillary (enter results) 08/11 12:59 Order name: Labs collected and sent; Complete Time: 13:03 08/11 12:59 Order name: Urine Test (obtain specimen); Complete Time: 13:17 gs 08/11 12:59 Order name: Urine Dipstick-Ancillary (obtain specimen); Complete Time: 13:17 gs Administered Medications: 13:03 Drug: NS 0.9% 1000 ml Route: IV; Rate: 1 bolus; Site: right forearm; la1 13:56 Follow up: IV Status: Completed infusion la1 13:03 Drug: Zofran 4 mg Route: IVP; Site: right forearm; la1 13:56 Follow up: Response: No adverse reaction la1 13:56 Follow up: Response: No adverse reaction la1 13:17 Drug: Pepcid 20 mg Route: IVP; Site: right forearm; la1 13:56 Follow up: Response: No adverse reaction; Pain is decreased la1 14:32 Drug: fentaNYL (PF) 50 mcg Route: IVP; Site: left antecubital; la1 15:35 Follow up: Response: No adverse reaction; Pain is decreased la1 Disposition: 08/11/18 15:09 Discharged to Home. Impression: Vomiting. - Condition is Stable. - Discharge Instructions: Nausea and Vomiting, Adult. - Medication Reconciliation Form, Thank You Letter, Antibiotic Education, Prescription Opioid Use form. - Follow up: Private Physician; When: 2 - 3 days; Reason: Re-evaluation by your physician. Signatures: Dispatcher [facility] HospitalCynthia Whitmore RN RN sv Attema, Lee, RN RN la1 Jairon Coronado MD MD Corrections: (The following items were deleted from the chart) 15:36 15:09 08/11/2018 15:09 Discharged to Home. Impression: Vomiting. Condition is Stable. la1 Forms are Medication Reconciliation Form, Thank You Letter, Antibiotic Education, Prescription Opioid Use. Follow up: Private Physician; When: 2 - 3 days; Reason: Re-evaluation by your physician. gs
[2018-08-11 15:43] VITALS: TEMP 97.6
[2018-08-11 15:45] VITALS: BP 109/65; O2SAT 98
[2018-08-11 18:59] LABS: Urine Blood NEGATIVE (NEG); Urine Glucose NEGATIVE (NEG); Urine Protein 2+ (NEG); Urine Specific Gravity 1.015 (1.005-1.030); Urine pH 8.5 (5.0-7.0)
[2018-08-11 20:04] LABS: Urine Specific Gravity 1.015 (1.005-1.030)
== END 2018-08-11 15:36 | disposition home or self-care (01) ==
LOC: ER 12:25
DX: R11.10 Vomiting, unspecified (principal); Z91.018 Allergy to other foods
CPT/HCPCS: 36415; 80048; 80076; 81003; 81015; 81025; 83690; 85025; 87086; 87088; 99283; J2405; J3010; J7030

== ENCOUNTER 2018-08-12 01:53 | Emergency (ER) | payer BC ==
[2018-08-12] MEDS ORDERED: NA CHLORIDE 0.9% 1,000 ML ONE ×2 (02:28→03:26)
[2018-08-12] MEDS ORDERED: DIPHENHYDRAMINE 50 MG/ML VIAL ONE (02:28)
[2018-08-12] MEDS ORDERED: LORazepam 2 MG/ML VIAL ONE (02:28)
[2018-08-12 02:33] LABS: Absolute Lymphocytes (CBC) 3.5 K/uL (0.7-4.9); Absolute Monocytes 0.6 K/uL (0.1-1.3); Basophils % 0.6 % (0-1.3); Eosinophils % 3.7 % (0-4.4); Hematocrit 47.9 % (36.0-45.0); Lymphocytes % 47.7 % (15.3-44.8); MPV 9.5 fL (7.6-11.3); RBC Red Blood Cell Count 4.94 M/uL (3.86-4.86)
[2018-08-12] MEDS ORDERED: BISACODYL 10 MG RECTAL SUPP ONE (02:35)
[2018-08-12 02:46] LABS: ALT/SGPT 21 U/L (12-78); AST/SGOT 18 U/L (15-37); Albumin 3.9 g/dL (3.4-5.0); Alkaline Phosphatase 70 U/L (45-117); BUN Blood Urea Nitrogen 6 mg/dL (7-18); Bicarbonate 24 mmol/L (21-32); Bilirubin Direct 0.3 mg/dL (0-0.2); Bilirubin Total 0.8 mg/dL (0.2-1.0); Glucose Level 107 mg/dL (74-106); Lipase 64 U/L (73-393); Phosphorus 4.5 mg/dL (2.5-4.9); Protein, Total 7.4 g/dL (6.4-8.2); Sodium Level 140 mmol/L (136-145)
[2018-08-12] MEDS ORDERED: THIAMINE 200 MG/2 ML INJ ONE (03:24)
[2018-08-12] MEDS ORDERED: MULTIVITAMINS 10 ML VIAL (INJ) IV ONE (03:25)
[2018-08-12] MEDS ORDERED: FOLIC ACID 5 MG/ML VIAL ONE (03:26)
[2018-08-12] MEDS ORDERED: KCL 20 MEQ/100 mL IVPB 20 MEQ/100 ML BAG IV ONE (03:26)
--- NOTE | 2018-08-12 05:09 | ER ---
Nurse's Notes [facility] Name: Alicia Morton Age: 38 yrs Sex: Female : 1980 Arrival Date: 08/12/2018 Time: 01:55 Bed 7 Private MD: Diagnosis: Unspecified abdominal pain;Vomiting;Constipation Presentation: 08/12 02:00 Presenting complaint: Patient states: that she has been having stomach problems on and fc off for months. Sees Dr Rojas. Was seen here yesterday for the same issues and was given Zofran and felt better. Then woke up this am with severe abd pain along with nausea and vomiting. States that she has not had a BM in 3-4 days. Did take Dulcolax yesterday am. Transition of care: patient was not received from another setting of care. Onset of symptoms was April 2018. Risk Assessment: Do you want to hurt yourself or someone else? Patient reports no desire to harm self or others. Initial Sepsis Screen: Does the patient meet any 2 criteria? No. Patient's initial sepsis screen is negative. Does the patient have a suspected source of infection? No. Patient's initial sepsis screen is negative. Care prior to arrival: None. 02:00 Method Of Arrival: Wheelchair fc 02:00 Acuity: RICARDO 3 fc Historical: - Allergies: 02:13 AVOCADO (LAURUS PERSEA); fc - Home Meds: 02:13 Adempas Oral [Active]; macitentan 10 mg Oral [Active]; fc - PMHx: 02:13 ASD; Pulmonary Hypertensive Artery Dz; Diverticulitis; fc - PSHx: 02:13 Cholecystectomy; Tubal ligation; fc - Immunization history:: Last tetanus immunization: up to date Flu vaccine is not up to date. - Social history:: Smoking status: Patient uses tobacco products, smokes one-half pack cigarettes per day, Patient/guardian denies using alcohol, the patient reports quitting approximately .25 years ago. - Ebola Screening: : Patient negative for fever greater than or equal to 101.5 degrees Fahrenheit, and additional compatible Ebola Virus Disease symptoms Patient denies exposure to infectious person Patient denies travel to an Ebola-affected area in the 21 days before illness onset. Screenin:12 Abuse screen: Denies threats or abuse. Nutritional screening: No deficits noted. fc Tuberculosis screening: No symptoms or risk factors identified. Fall Risk None identified. Assessment: 02:05 General: Appears in no apparent distress. uncomfortable, unkempt, Behavior is crying, aa1 restless. Pain: Complains of pain in abdomen Pain currently is 10 out of 10 on a pain scale. Quality of pain is described as stabbing, Is continuous. Neuro: Level of Consciousness is awake, alert, obeys commands, Oriented to person, place, time, situation, Moves all extremities. Speech is normal. Cardiovascular: Heart tones S1 S2 present Rhythm is regular. Respiratory: Airway is patent Respiratory effort is even, unlabored, Respiratory pattern is regular, symmetrical. GI: Abdomen is non-distended, Bowel sounds present X 4 quads. Abd is soft X 4 quads Abdomen is tender to palpation in abdomen diffusely Reports lower abdominal pain, upper abdominal pain, constipation, nausea, vomiting. : No signs and/or symptoms were reported regarding the genitourinary system. EENT: No signs and/or symptoms were reported regarding the EENT system. Derm: Skin is intact, is healthy with good turgor, Skin is pink, warm \T\ dry. Musculoskeletal: Circulation, motion, and sensation intact. Capillary refill < 3 seconds. 02:30 Reassessment: Patient appears in no apparent distress at this time. Pt returned from [facility] restroom and reports she was not able to provide a urine sample but states she did have a large bowel movement. 03:27 Reassessment: Patient appears in no apparent distress at this time. Patient and/or aa1 family updated on plan of care and expected duration. Pain level reassessed. Pt resting quietly. No episodes of vomiting noted after benadryl and ativan. IV potassium infusing. 04:51 Reassessment: Patient appears in no apparent distress at this time. Patient and/or aa1 family updated on plan of care and expected duration. Pain level reassessed. Patient is alert, oriented x 3, equal unlabored respirations, skin warm/dry/pink. IV potassium continues to infuse. Awaiting provider reassessment. 05:25 Reassessment: Patient appears in no apparent distress at this time. Patient and/or aa1 family updated on plan of care and expected duration. Pain level reassessed. Patient is alert, oriented x 3, equal unlabored respirations, skin warm/dry/pink. Pt reports she vomited again and feels like her stomach is turning. Per ERP, ok to remedicate with Ativan and Benadryl. 05:50 Reassessment: Patient appears in no apparent distress at this time. Patient is alert, aa1 oriented x 3, equal unlabored respirations, skin warm/dry/pink. IV potassium complete. Discussed d/c \T\ f/u instructions with pt \T\ spouse; denies questions or concerns at this time. Vital Signs: 02:00 BP 138 / 97; Pulse 84; Resp 20; Temp 97.8(O); Pulse Ox 93% on R/A; Weight 54.43 kg (R); fc Height 5 ft. 4 in. (162.56 cm) (R); Pain 10/10; 02:50 BP 121 / 76; Pulse 67; Resp 20; Pulse Ox 97% on R/A; aa1 03:29 BP 127 / 89; Pulse 65; Resp 18; Pulse Ox 95% on R/A; aa1 04:51 BP 132 / 91; Pulse 70; Resp 18; Pulse Ox 95% on R/A; aa1 05:50 BP 128 / 61; Pulse 75; Resp 18; Pulse Ox 97% on R/A; Pain 7/10; aa1 02:00 Body Mass Index 20.60 (54.43 kg, 162.56 cm) fc ED Course: 01:55 Patient arrived in ED. es 01:57 Jennifer Jones, [facility] snw 01:57 Zaid Cortez MD is Attending Physician. snw 01:58 Aleja Bhatia, MANUELA is Primary Nurse. aa1 02:00 Arm band placed on Patient placed in an exam room, on a stretcher. fc 02:00 Patient has correct armband on for positive identification. Placed in gown. Bed in low fc position. Call light in reach. 02:10 Triage completed. fc 02:15 Initial lab(s) drawn, by me, sent to lab. Inserted saline lock: 20 gauge in right upper aa1 arm, using aseptic technique. Blood collected. 05:08 Tristan Rojas MD is Referral Physician. rn 05:50 No provider procedures requiring assistance completed. IV discontinued, intact, aa1 bleeding controlled, No redness/swelling at site. Pressure dressing applied. Administered Medications: 02:30 Drug: Ativan 1 mg Route: IVP; Site: right upper arm; aa1 03:25 Follow up: Response: No adverse reaction; Marked relief of symptoms aa1 02:30 Drug: Benadryl 12.5 mg Route: IVP; Site: right upper arm; aa1 03:26 Follow up: Response: No adverse reaction; Marked relief of symptoms aa1 02:31 Drug: NS 0.9% 1000 ml Route: IV; Rate: 1 bolus; Site: right upper arm; aa1 03:10 Follow up: IV Status: Completed infusion aa1 03:26 Not Given (Patient Refused): Bisacodyl Suppository 10 mg IN once aa1 03:26 Drug: Banana Bag - (NS 0.9% 1000 ml, foLIC Acid 1 mg, Thiamine 100 mg, Multivitamin 1 aa1 amp) Route: IV; Rate: 250 ml/hr; Site: right upper arm; 05:55 Follow up: IV Status: Completed infusion aa1 03:27 Drug: Potassium Chloride 20 mEq Route: IV; Rate: calculated rate; Site: right upper arm;aa1 05:55 Follow up: IV Status: Completed infusion aa1 05:29 Drug: Ativan 1 mg Route: IVP; Site: right upper arm; aa1 05:54 Follow up: Response: No adverse reaction; Vomiting decreased aa1 05:29 Drug: Benadryl 12.5 mg Route: IVP; Site: right upper arm; aa1 05:54 Follow up: Response: No adverse reaction; Vomiting decreased aa1 Outcome: 05:08 Discharge ordered by . rn 05:50 Discharged to home ambulatory, with significant other. aa1 05:50 Condition: good 05:50 Discharge instructions given to patient, significant other, Instructed on discharge instructions, follow up and referral plans. medication usage, Demonstrated understanding of instructions, follow-up care, medications, Prescriptions given X 2. 05:55 Patient left the ED. aa1 Signatures: Aleja Bhatia RN RN aa1 Jennifer Jones, DEJUAN-C CONCRETE VIBRATOR OPERATOR-[employer] Nathalie Christine Felicia, RN RN fc Nieto, Roman, MD MD [employer]: (The following items were deleted from the chart) 02:14 02:00 Presenting complaint: Patient states: that she has been having stomach problems fc on and off for months. Sees Dr Rojas. Was seen here yesterday for the same issues and was given Zofran and felt better. Then woke up this am with severe abd pain along with nausea and vomiting. fc
--- NOTE | 2018-08-12 05:09 | EDPHYS ---
Physician Documentation [facility] Name: Alicia Morton Age: 38 yrs Sex: Female : 1980 Arrival Date: 08/12/2018 Time: 01:55 Bed 7 Private MD: ED Physician Zaid Cortez HPI: 08/12 02:23 This 38 yrs old Female presents to ER via Wheelchair with complaints of snw Abdominal Pain, Vomiting. 02:23 The patient presents with abdominal pain in the epigastric area, in the upper abdomen. snw Onset: The symptoms/episode began/occurred 10 week(s) ago. The symptoms do not radiate. Associated signs and symptoms: Pertinent positives: nausea and vomiting, constipation. The symptoms are described as crampy. Severity of pain: At its worst the pain was moderate severe. The patient has experienced similar episodes in the past, chronically. The patient has been recently seen by a physician: The patient has been recently seen at the [facility] Emergency Department, yesterday, for similar complaints. 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 - Social history:: Smoking status: Patient uses tobacco products, smokes one-half pack cigarettes per day, Patient/guardian denies using alcohol, the patient reports quitting approximately .25 years ago. - Ebola Screening: : Patient negative for fever greater than or equal to 101.5 degrees Fahrenheit, and additional compatible Ebola Virus Disease symptoms Patient denies exposure to infectious person Patient denies travel to an Ebola-affected area in the 21 days before illness onset. ROS: 02:23 Constitutional: Negative for fever, chills, and weight loss, Eyes: Negative for injury, snw pain, redness, and discharge, ENT: Negative for injury, pain, and discharge, Neck: Negative for injury, pain, and swelling, Cardiovascular: Negative for chest pain, palpitations, and edema, Respiratory: Negative for shortness of breath, cough, wheezing, and pleuritic chest pain, Back: Negative for injury and pain, : Negative for injury, bleeding, discharge, and swelling, MS/Extremity: Negative for injury and deformity, Skin: Negative for injury, rash, and discoloration, Neuro: Negative for headache, weakness, numbness, tingling, and seizure, Psych: Negative for depression, anxiety, suicide ideation, homicidal ideation, and hallucinations. 02:23 Abdomen/GI: Positive for abdominal pain, nausea, vomiting, constipation. Exam: 02:18 Constitutional: This is a well developed, well nourished patient who is awake, alert, snw and in no acute distress. Head/Face: Normocephalic, atraumatic. Eyes: Pupils equal round and reactive to light, extra-ocular motions intact. Lids and lashes normal. Conjunctiva and sclera are non-icteric and not injected. Cornea within normal limits. Periorbital areas with no swelling, redness, or edema. ENT: Nares patent. No nasal discharge, no septal abnormalities noted. Tympanic membranes are normal and external auditory canals are clear. Oropharynx with no redness, swelling, or masses, exudates, or evidence of obstruction, uvula midline. Mucous membranes moist. Neck: Trachea midline, no thyromegaly or masses palpated, and no cervical lymphadenopathy. Supple, full range of motion without nuchal rigidity, or vertebral point tenderness. No Meningismus. Chest/axilla: Normal chest wall appearance and motion. Nontender with no deformity. No lesions are appreciated. Cardiovascular: Regular rate and rhythm with a normal S1 and S2. No gallops, murmurs, or rubs. Normal PMI, no JVD. No pulse deficits. 02:18 Back: No spinal tenderness. No costovertebral tenderness. Full range of motion. Skin: Warm, dry with normal turgor. Normal color with no rashes, no lesions, and no evidence of cellulitis. MS/ Extremity: Pulses equal, no cyanosis. Neurovascular intact. Full, normal range of motion. Neuro: Awake and alert, GCS 15, oriented to person, place, time, and situation. Cranial nerves II-XII grossly intact. Motor strength 5/5 in all extremities. Sensory grossly intact. Cerebellar exam normal. Normal gait. 02:18 Respiratory: the patient does not display signs of respiratory distress, Respirations: shallow respirations, tachypnea, Breath sounds: are clear throughout. 02:18 Abdomen/GI: Inspection: abdomen appears normal, Bowel sounds: normal, Palpation: mild abdominal tenderness, in the epigastric area, right upper quadrant and left upper quadrant, moderate abdominal tenderness. 02:18 Psych: Behavior/mood is anxious, Oriented to person, place, time. Vital Signs: 02:00 BP 138 / 97; Pulse 84; Resp 20; Temp 97.8(O); Pulse Ox 93% on R/A; Weight 54.43 kg (R); fc Height 5 ft. 4 in. (162.56 cm) (R); Pain 10/10; 02:50 BP 121 / 76; Pulse 67; Resp 20; Pulse Ox 97% on R/A; aa1 03:29 BP 127 / 89; Pulse 65; Resp 18; Pulse Ox 95% on R/A; aa1 04:51 BP 132 / 91; Pulse 70; Resp 18; Pulse Ox 95% on R/A; aa1 05:50 BP 128 / 61; Pulse 75; Resp 18; Pulse Ox 97% on R/A; Pain 7/10; aa1 02:00 Body Mass Index 20.60 (54.43 kg, 162.56 cm) fc MDM: 01:58 Patient medically screened. snw 05:08 Differential diagnosis: Nonspecific abd pain, gastritis, viral gastroenteritis, rn gastroenteritis. Differential diagnosis: pancreatitis. Data reviewed: vital signs, nurses notes. Data reviewed: lab test result(s), and as a result, I will discharge patient. Counseling: I had a detailed discussion with the patient and/or guardian regarding: the historical points, exam findings, and any diagnostic results supporting the discharge/admit diagnosis, lab results, the need for outpatient follow up, to return to the emergency department if symptoms worsen or persist or if there are any questions or concerns that arise at home. Response to treatment: the patient's symptoms have markedly improved after treatment, and as a result, I will discharge patient. Special discussion: Based on the patient's Hx, exam, and Dx evaluation, there is no indication for emergent surgery or inpatient Tx. It is understood by the patient/guardian that if the Sx's persist or worsen they need to return immediately for re-evaluation. I discussed with the patient/guardian in detail that at this point there is no indication for admission to the hospital. It is understood, however, that if the symptoms persist or worsen the patient needs to return immediately for re-evaluation. Based on the history and exam findings, there is no indication for further emergent testing or inpatient evaluation. I discussed with the patient/guardian the need to see the associate justice for further evaluation of the symptoms. 08/12 01:57 Order name: Basic Metabolic Panel; Complete Time: 02:55 snw 08/12 01:57 Order name: CBC with Diff; Complete Time: 02:43 snw 08/12 01:57 Order name: Hepatic Function; Complete Time: 02:55 snw 08/12 01:57 Order name: Lipase; Complete Time: 02:55 snw 08/12 02:09 Order name: Phosphorus; Complete Time: 02:55 EDMS 08/12 01:57 Order name: IV Saline Lock; Complete Time: 02:13 snw 08/12 01:57 Order name: Labs collected and sent; Complete Time: 02:13 snw Administered Medications: 02:30 Drug: Ativan 1 mg Route: IVP; Site: right upper arm; aa1 03:25 Follow up: Response: No adverse reaction; Marked relief of symptoms aa1 02:30 Drug: Benadryl 12.5 mg Route: IVP; Site: right upper arm; aa1 03:26 Follow up: Response: No adverse reaction; Marked relief of symptoms aa1 02:31 Drug: NS 0.9% 1000 ml Route: IV; Rate: 1 bolus; Site: right upper arm; aa1 03:10 Follow up: IV Status: Completed infusion aa1 03:26 Not Given (Patient Refused): Bisacodyl Suppository 10 mg MN once aa1 03:26 Drug: Banana Bag - (NS 0.9% 1000 ml, foLIC Acid 1 mg, Thiamine 100 mg, Multivitamin 1 aa1 amp) Route: IV; Rate: 250 ml/hr; Site: right upper arm; 05:55 Follow up: IV Status: Completed infusion aa1 03:27 Drug: Potassium Chloride 20 mEq Route: IV; Rate: calculated rate; Site: right upper arm;aa1 05:55 Follow up: IV Status: Completed infusion aa1 05:29 Drug: Ativan 1 mg Route: IVP; Site: right upper arm; aa1 05:54 Follow up: Response: No adverse reaction; Vomiting decreased aa1 05:29 Drug: Benadryl 12.5 mg Route: IVP; Site: right upper arm; aa1 05:54 Follow up: Response: No adverse reaction; Vomiting decreased aa1 Disposition: 06:07 Co-signature as Attending Physician, Zaid Cortez MD. rn Disposition: 08/12/18 05:08 Discharged to Home. Impression: Unspecified abdominal pain, Vomiting, Constipation. - Condition is Stable. - Discharge Instructions: Abdominal Pain, Adult, Constipation, Adult, High-Fiber Diet, Nausea and Vomiting, Adult, Rehydration, Adult. - Prescriptions for Bentyl 20 mg Oral Tablet - take 1 tablet by ORAL route every 6 hours As needed; 20 tablet. Miralax 17 gram/dose Oral - take 1 packet by ORAL route once daily dilute powder in 8 ounces of water or juice; 1 box. - Medication Reconciliation Form, Thank You Letter, Antibiotic Education, Prescription Opioid Use form. - Follow up: Private Physician; When: 2 - 3 days; Reason: Recheck today's complaints, Continuance of care, Re-evaluation by your physician. Follow up: Tristanair Rojas; When: 2 - 3 days; Reason: Recheck today's complaints, Continuance of care, Re-evaluation by your physician. Signatures: Dispatcher [employer] EDAleja Diana RN RN aa1 Jennifer Jones, TEA LEAF READER-C TEA LEAF READER-Csnw Yanet Sawyer RN RN fc Nieto, Roman, MD MD ornament setter: (The following items were deleted from the chart) 02:02 01:58 Urine Test ordered. snw snw 02:09 02:03 PHOSPHORUS+C.LAB.BRZ ordered. EDUT EDMS 05:55 05:08 08/12/2018 05:08 Discharged to Home. Impression: Unspecified abdominal pain; aa1 Vomiting; Constipation. Condition is Stable. Discharge Instructions: Abdominal Pain, Adult, Constipation, Adult, High-Fiber Diet, Nausea and Vomiting, Adult, Rehydration, Adult. Prescriptions for Bentyl 20 mg Oral Tablet - take 1 tablet by ORAL route every 6 hours As needed; 20 tablet, Miralax 17 gram/dose Oral - take 1 packet by ORAL route once daily dilute powder in 8 ounces of water or juice; 1 box. and Forms are Medication Reconciliation Form, Thank You Letter, Antibiotic Education, Prescription Opioid Use. Follow up: Private Physician; When: 2 - 3 days; Reason: Recheck today's complaints, Continuance of care, Re-evaluation by your physician. Follow up: Tristan Rojas; When: 2 - 3 days; Reason: Recheck today's complaints, Continuance of care, Re-evaluation by your physician. rn
[2018-08-12 06:01] VITALS: TEMP 97.8
[2018-08-12 06:07] VITALS: BP 128/61; O2SAT 97
== END 2018-08-12 05:55 | disposition home or self-care (01) ==
LOC: ER 01:53
DX: R11.2 Nausea with vomiting, unspecified (principal); K59.00 Constipation, unspecified; F17.210 Nicotine dependence, cigarettes, uncomplicated; Z91.018 Allergy to other foods
CPT/HCPCS: 36415; 80048; 80076; 83690; 84100; 85025; 96361; 96365; 96368; 96375; 99284; J3411; J7030

== ENCOUNTER 2018-08-12 10:36 | Observation (INO) | payer BC ==
[2018-08-12 11:58] LABS: Absolute Lymphocytes (CBC) 0.9 K/uL (0.7-4.9); Absolute Monocytes 0.4 K/uL (0.1-1.3); Absolute Neutrophil 5.3 K/uL (1.8-8.0); Basophils % 0.5 % (0-1.3); Eosinophils % 0.2 % (0-4.4); Hematocrit 46.3 % (36.0-45.0); MPV 9.2 fL (7.6-11.3); Monocytes % 6.4 % (3.3-12.3); RBC Red Blood Cell Count 4.77 M/uL (3.86-4.86)
[2018-08-12] MEDS ORDERED: HYDROMORPHONE HCL 0.5 MG/0.5 ML INJ ONE ×2 (12:05→14:44)
[2018-08-12] MEDS ORDERED: ONDANSETRON 4 MG/2 ML VIAL ONE ×2 (12:05→14:44)
[2018-08-12] MEDS ORDERED: NA CHLORIDE 0.9% 2,000 ML ONE (12:05)
[2018-08-12 12:15] LABS: ALT/SGPT 19 U/L (12-78); AST/SGOT 18 U/L (15-37); Albumin 3.9 g/dL (3.4-5.0); Alkaline Phosphatase 64 U/L (45-117); BUN Blood Urea Nitrogen 5 mg/dL (7-18); Bicarbonate 20 mmol/L (21-32); Bilirubin Direct 0.2 mg/dL (0-0.2); Bilirubin Total 0.7 mg/dL (0.2-1.0); Glucose Level 94 mg/dL (74-106); Lipase 46 U/L (73-393); Potassium 3.4 mmol/L (3.5-5.1); Protein, Total 7.1 g/dL (6.4-8.2); Sodium Level 141 mmol/L (136-145)
--- NOTE | 2018-08-12 12:30 | RAD REPORT ---
EXAM DESCRIPTION: CT - Abdomen Pelvis Wo Contrast - 08/12/2018 12:13 pm CLINICAL HISTORY: Abdominal pain. ABD PAIN COMPARISON: Abdomen Pelvis W Contrast dated 07/23/2018; Thorax W/ Con dated 08/03/2018; Abdomen Pe lvis W Contrast dated 07/10/2018 TECHNIQUE: CT imaging of the abdomen and pelvis was performed without contrast. Solid organ and vasc ular assessment is limited due to lack of IV contrast. All CT scans are performed using dose optimization technique as appropriate and may include automated exposure control or mA/KV adjustment according to patient size. FINDINGS: The lower lung luis are clear.Cholecystectomy clips. The liver, spleen, pancreas, adrenal glands and kidneys are within normal limits for a limited non-co ntrast examination. No bowel obstruction, free air, free fluid or abscess. Colon wall thickening is present with multiple large diverticula present particularly in the sigmoid colon. Surrounding pericolonic fat is slightly reticulated. The appendix is normal. The osseous structures are within normal limits. IMPRESSION: A mild diffuse pancolitis is suspected. Prominent diverticulosis of sigmoid colon is see n. A limited non-contrast examination was performed as detailed.
--- NOTE | 2018-08-12 13:20 | ER ---
Nurse's Notes [facility] Name: Alicia Morton Age: 38 yrs Sex: Female : 1980 Arrival Date: 08/12/2018 Time: 10:37 Bed 17 Private MD: None, None Diagnosis: Ulcerative (chronic) pancolitis with complications Presentation: 08/12 10:57 Presenting complaint: Patient states: Abdominal pain, nausea and vomiting since aj1 yesterday. Patient reports that she was seen in this ER early this morning, they gave her something to settle her stomach and discharged her, but she isn't feeling any better. Transition of care: patient was not received from another setting of care. Onset of symptoms was August 11, 2017. Risk Assessment: Do you want to hurt yourself or someone else? Patient reports no desire to harm self or others. Initial Sepsis Screen: Does the patient meet any 2 criteria? No. Patient's initial sepsis screen is negative. Does the patient have a suspected source of infection? Yes: Acute abdominal pain. Care prior to arrival: None. 10:57 Method Of Arrival: Wheelchair aj1 10:57 Acuity: RICARDO 3 aj1 Triage Assessment: 10:58 General: Appears uncomfortable, Behavior is cooperative, anxious, restless. Pain: aj1 Complains of pain in abdomen Pain currently is 8 out of 10 on a pain scale. Neuro: Level of Consciousness is awake, alert, obeys commands. Cardiovascular: Patient's skin is warm and dry. Respiratory: Airway is patent Respiratory effort is even, unlabored, Respiratory pattern is regular, symmetrical. GI: Reports nausea, vomiting. 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 - Social history:: The patient lives at home, Smoking status: unknown. - Ebola Screening: : Patient denies exposure to infectious person Patient denies travel to an Ebola-affected area in the 21 days before illness onset. Screenin:04 Abuse screen: Denies threats or abuse. Denies injuries from another. Nutritional ss screening: No deficits noted. Tuberculosis screening: No symptoms or risk factors identified. Never had TB. Fall Risk None identified. Assessment: 11:40 General: Appears distressed, uncomfortable, Behavior is cooperative, Reports feeling ss ill for x months. Was just released from the ED for same complaints. Pt reports feeling better on discharge, but states that she cannot get rid of the nausea and the pain is back. . Denies fever. Pain: Complains of pain in abdomen Pain currently is 8 out of 10 on a pain scale. Pain began "months ago" Is continuous. Pain: Noted to be guarding. Neuro: Level of Consciousness is awake, alert, obeys commands, Oriented to person, place, time, situation. Cardiovascular: Denies chest pain, lightheadedness, shortness of breath, Heart tones S1 S2 S4 present Capillary refill < 3 seconds is brisk in bilateral fingers Patient's skin is warm and dry. Chest pain is denied. Respiratory: Airway is patent Respiratory effort is even, unlabored, Respiratory pattern is regular, symmetrical. GI: Abdomen is flat, non-distended, Bowel sounds present X 4 quads. Abd is soft and non tender X 4 quads. Reports lower abdominal pain, upper abdominal pain, nausea, vomiting. : No signs and/or symptoms were reported regarding the genitourinary system. Denies burning with urination, urinary frequency, vaginal bleeding. EENT: Nares are clear Throat is clear. Derm: Skin is intact, is healthy with good turgor, Skin is dry, Skin is pink, warm \\T\\ dry. normal. Musculoskeletal: Circulation, motion, and sensation intact. Range of motion: intact in all extremities, Swelling absent. 13:00 Reassessment: Patient appears in no apparent distress at this time. Patient and/or em family updated on plan of care and expected duration. Pain level reassessed. Patient is alert, oriented x 3, equal unlabored respirations, skin warm/dry/pink. 14:00 Reassessment: Patient appears in no apparent distress at this time. Patient and/or em family updated on plan of care and expected duration. Pain level reassessed. Patient is alert, oriented x 3, equal unlabored respirations, skin warm/dry/pink. 14:30 Reassessment: Patient appears in no apparent distress at this time. reports pain and em nausea, emesis noted in bag, provider notified, new orders received. 15:15 Reassessment: Patient appears in no apparent distress at this time. Patient and/or em family updated on plan of care and expected duration. Pain level reassessed. Patient is alert, oriented x 3, equal unlabored respirations, skin warm/dry/pink. Patient states symptoms have improved. 16:03 Reassessment: Patient appears in no apparent distress at this time. Patient and/or em family updated on plan of care and expected duration. Pain level reassessed. Patient is alert, oriented x 3, equal unlabored respirations, skin warm/dry/pink. Patient states feeling better. Vital Signs: 10:58 BP 129 / 88; Pulse 84; Resp 18; Temp 97.2; Pulse Ox 96% on R/A; Weight 54.43 kg; Pain aj1 8/10; 14:00 BP 116 / 63; Pulse 67; Resp 18; Pulse Ox 95% on R/A; em 15:15 BP 106 / 65; Pulse 57; Resp 16; Pulse Ox 95% on R/A; Pain 4/10; em 16:01 BP 107 / 72; Pulse 72; Resp 16; Temp 99(O); Pulse Ox 95% on R/A; Pain 4/10; em ED Course: 10:37 Patient arrived in ED. sb2 10:37 None, None is Private Physician. sb2 10:58 Triage completed. aj1 10:58 Arm band placed on Patient placed in an exam room. aj1 11:23 Jairon Coronado MD is Attending Physician. gs 11:50 Inserted saline lock: 22 gauge in left forearm, using aseptic technique. Blood ss collected. 12:03 mAisha Goodman, MANUELA is Primary Nurse. ss 12:04 Patient has correct armband on for positive identification. Placed in gown. Bed in low ss position. Call light in reach. Side rails up X2. Pulse ox on. NIBP on. 12:04 Patient maintains SpO2 saturation greater than 95% on room air. ss 12:10 CT completed. Patient moved to CT via stretcher. Patient moved back from CT. bq 12:13 CT Abd/Pelvis - Without Cont In Process Unspecified. EDMS 13:18 Melissa Enriquez MD is Hospitalizing Provider. 16:01 No provider procedures requiring assistance completed. Patient admitted, IV remains in em place. Administered Medications: 12:00 Drug: NS 0.9% 1000 ml Route: IV; Rate: 1 bolus; Site: left forearm; ss 13:00 Follow up: IV Status: Completed infusion; IV Intake: 1000ml em 13:30 Follow up: IV Status: Completed infusion; IV Intake: 1000ml ss 12:00 Drug: Zofran 4 mg Route: IVP; Site: left forearm; ss 13:00 Follow up: Response: No adverse reaction; Nausea is decreased em 12:04 Drug: Dilaudid 0.5 mg Route: IVP; Site: left forearm; ss 13:00 Follow up: Response: No adverse reaction; Pain is decreased em 13:51 Drug: NS 0.9% 1000 ml Route: IV; Rate: 125 ml/hr; Site: left forearm; ss 16:37 Follow up: IV Status: Infusion continued upon admission ss 14:48 Drug: Dilaudid 0.5 mg Route: IVP; Site: left forearm; em 15:50 Follow up: Response: No adverse reaction; Pain is decreased em 14:48 Drug: Zofran 4 mg Route: IVP; Site: left forearm; em 15:50 Follow up: Response: No adverse reaction; Nausea is decreased em 15:10 Drug: NS 0.9% 1000 ml Route: IV; Rate: 1 bolus; Site: left forearm; em 15:15 Follow up: IV Status: Infusion continued upon admission ss Intake: 13:00 IV: 1000ml; Total: 1000ml. em 13:30 IV: 1000ml; Total: 2000ml. Outcome: 13:19 Decision to Hospitalize by Provider. 16:01 Admitted to Med/surg accompanied by tech, via wheelchair, room 230, with chart, Report em called to MANUELA Mcgee 16:01 Condition: good 16:01 Instructed on the need for admit, Demonstrated understanding of instructions. 16:24 Patient left the ED. em Signatures: Dispatcher [employer] EDMS Florencia Villa RN RN aj1 Robina Santacruz bq Chai Lerma, MAINTENANCE TECHNICIAN 2ND SHIFT MAINTENANCE TECHNICIAN 2ND SHIFT em Amisha Goodman RN RN Jairon Coronado MD MD Apoorva Toledo sb2
--- NOTE | 2018-08-12 13:20 | EDPHYS ---
Physician Documentation [facility] Name: Alicia Morton Age: 38 yrs Sex: Female : 1980 Arrival Date: 08/12/2018 Time: 10:37 Bed 17 Private MD: None, None ED Physician Jairon Coronado HPI: 08/12 13:35 This 38 yrs old Female presents to ER via Wheelchair with complaints of gs Abdominal Pain, Vomiting. 13:35 The patient presents to the emergency department with nausea, vomiting, abdominal pain. gs Onset: The symptoms/episode began/occurred 1 week(s) ago, and became worse and became persistent. Possible causes: flare up of bowel problem. The symptoms are aggravated by food , The symptoms are alleviated by prescription meds. Associated signs and symptoms: Pertinent negatives: fever, GI bleeding, hematuria. Severity of symptoms: At their worst the symptoms were severe in the emergency department the symptoms are unchanged. The patient has experienced similar episodes in the past, a few times. 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 - Social history:: The patient lives at home, Smoking status: unknown. - Ebola Screening: : Patient denies exposure to infectious person Patient denies travel to an Ebola-affected area in the 21 days before illness onset. ROS: 13:35 All other systems are negative. gs Exam: 13:35 Head/Face: Normocephalic, atraumatic. Eyes: Pupils equal round and reactive to light, gs extra-ocular motions intact. Lids and lashes normal. Conjunctiva and sclera are non-icteric and not injected. Cornea within normal limits. Periorbital areas with no swelling, redness, or edema. ENT: Nares patent. No nasal discharge, no septal abnormalities noted. Tympanic membranes are normal and external auditory canals are clear. Oropharynx with no redness, swelling, or masses, exudates, or evidence of obstruction, uvula midline. Mucous membranes moist. Neck: Trachea midline, no thyromegaly or masses palpated, and no cervical lymphadenopathy. Supple, full range of motion without nuchal rigidity, or vertebral point tenderness. No Meningismus. Chest/axilla: Normal chest wall appearance and motion. Nontender with no deformity. No lesions are appreciated. Cardiovascular: Regular rate and rhythm with a normal S1 and S2. No gallops, murmurs, or rubs. Normal PMI, no JVD. No pulse deficits. Respiratory: Lungs have equal breath sounds bilaterally, clear to auscultation and percussion. No rales, rhonchi or wheezes noted. No increased work of breathing, no retractions or nasal flaring. Back: No spinal tenderness. No costovertebral tenderness. Full range of motion. Skin: Warm, dry with normal turgor. Normal color with no rashes, no lesions, and no evidence of cellulitis. MS/ Extremity: Pulses equal, no cyanosis. Neurovascular intact. Full, normal range of motion. Neuro: Awake and alert, GCS 15, oriented to person, place, time, and situation. Cranial nerves II-XII grossly intact. Motor strength 5/5 in all extremities. Sensory grossly intact. Cerebellar exam normal. Normal gait. 13:35 Constitutional: The patient appears alert, awake, unkempt. 13:35 Abdomen/GI: Inspection: abdomen appears normal, Palpation: moderate abdominal tenderness, in all quadrants, rebound tenderness, is not appreciated. Vital Signs: 10:58 BP 129 / 88; Pulse 84; Resp 18; Temp 97.2; Pulse Ox 96% on R/A; Weight 54.43 kg; Pain aj1 8/10; 14:00 BP 116 / 63; Pulse 67; Resp 18; Pulse Ox 95% on R/A; em 15:15 BP 106 / 65; Pulse 57; Resp 16; Pulse Ox 95% on R/A; Pain 4/10; em 16:01 BP 107 / 72; Pulse 72; Resp 16; Temp 99(O); Pulse Ox 95% on R/A; Pain 4/10; em MDM: 11:34 Patient medically screened. gs 13:35 Differential diagnosis: Nonspecific abd pain, gastritis, viral gastroenteritis, gs gastroenteritis. Data reviewed: vital signs, nurses notes. Response to treatment: the patient's symptoms have mildly improved after treatment, and as a result, I will admit patient. 08/12 11:35 Order name: Basic Metabolic Panel; Complete Time: 13:02 08/12 11:35 Order name: CBC with Diff; Complete Time: 13:02 08/12 11:35 Order name: Hepatic Function; Complete Time: 13:02 08/12 11:35 Order name: Lipase; Complete Time: 13:02 08/12 11:35 Order name: Urine Microscopic Only 08/12 11:51 Order name: CT Abd/Pelvis - Without Cont; Complete Time: 13:02 08/12 13:23 Order name: NPO EDMS 08/12 11:35 Order name: IV Saline Lock; Complete Time: 11:52 08/12 11:35 Order name: Labs collected and sent; Complete Time: 11:52 08/12 11:35 Order name: Urine Test (obtain specimen); Complete Time: 15:21 08/12 11:35 Order name: Urine Dipstick-Ancillary (obtain specimen); Complete Time: 15:21 Administered Medications: 12:00 Drug: NS 0.9% 1000 ml Route: IV; Rate: 1 bolus; Site: left forearm; ss 13:00 Follow up: IV Status: Completed infusion; IV Intake: 1000ml em 13:30 Follow up: IV Status: Completed infusion; IV Intake: 1000ml ss 12:00 Drug: Zofran 4 mg Route: IVP; Site: left forearm; ss 13:00 Follow up: Response: No adverse reaction; Nausea is decreased em 12:04 Drug: Dilaudid 0.5 mg Route: IVP; Site: left forearm; ss 13:00 Follow up: Response: No adverse reaction; Pain is decreased em 13:51 Drug: NS 0.9% 1000 ml Route: IV; Rate: 125 ml/hr; Site: left forearm; ss 16:37 Follow up: IV Status: Infusion continued upon admission ss 14:48 Drug: Dilaudid 0.5 mg Route: IVP; Site: left forearm; em 15:50 Follow up: Response: No adverse reaction; Pain is decreased em 14:48 Drug: Zofran 4 mg Route: IVP; Site: left forearm; em 15:50 Follow up: Response: No adverse reaction; Nausea is decreased em 15:10 Drug: NS 0.9% 1000 ml Route: IV; Rate: 1 bolus; Site: left forearm; em 15:15 Follow up: IV Status: Infusion continued upon admission Disposition: 08/12/18 13:19 Hospitalization ordered by Melissa Enriquez for Observation. Preliminary diagnosis is Ulcerative (chronic) pancolitis with complications. - Bed requested for Telemetry/MedSurg (observation). - Status is Observation. em - Condition is Stable. - Problem is an acute exacerbation. - Symptoms have improved. UTI on Admission? No Signatures: Dispatcher [employer] EDMS Disha Woo Angela RN RN aj1 Chai Lerma, BUTADIENE CONVERTER UTILITY OPERATOR BUTADIENE CONVERTER UTILITY OPERATOR em Amisha Goodman RN RN Jairon Coronado MD MD gs Corrections: (The following items were deleted from the chart) 15:40 13:19 Hospitalization Ordered by Melissa Enriquez MD for Observation. Preliminary bd diagnosis is Ulcerative (chronic) pancolitis with complications. Bed requested for Telemetry/MedSurg (observation). Status is Observation. Condition is Stable. Problem is an acute exacerbation. Symptoms have improved. UTI on Admission? No. gs 16:24 15:40 08/12/2018 13:19 Hospitalization Ordered by Melissa Enriquez MD for Observation. em Preliminary diagnosis is Ulcerative (chronic) pancolitis with complications. Bed requested for Telemetry/MedSurg (observation). Status is Observation. Condition is Stable. Problem is an acute exacerbation. Symptoms have improved. UTI on Admission? No. bd
[2018-08-12] MEDS ORDERED: ACETAMINOPHEN 500 MG TAB PO PRN (13:22)
[2018-08-12] MEDS ORDERED: NA CHLORIDE 0.9% 1,000 ML ONE (15:09)
[2018-08-12 15:32] LABS: Urine Bacteria <20 /HPF (<20); Urine RBC <5 /HPF (NONE SEEN)
[2018-08-12 15:33] LABS: Urine Culture Reflex Order NOT NEEDED
--- NOTE | 2018-08-12 16:16 | P.HP ---
Certification for Inpatient Patient admitted to: Observation With expected LOS: <2 Midnights Patient will require the following post-hospital care: None Practitioner: I am a practitioner with admitting privileges, knowledge of patient current condition, hospital course, and medical plan of care. Services: Services provided to patient in accordance with Admission requirements found in Title 42 Section 412.3 of the Code of Federal Regulations Patient History Date of Service: 08/12/18 Reason for admission: Abdominal Pain and N/v History of Present Illness: Ms Morton is a 38 years old woman with history of ASD, pulmonary HTN, and recurrent colitis who presented to the ED complaining of having abdominal pain nausea vomiting. Patient does have history of recurrent abdominal pain, associated with nausea and vomiting, previous CT abd pelvis consistent with da silva colitis. Patient has been scheduled for colonoscopy with GI however has not been able to make it due to acute flareup before the appointment. Patient has been coming to the ER for last 2 days for similar complaints and has been discharged from the ER with oral medication however has not been able to keep anything down and abdominal pain has not resolved. Today, she came back to ED because of abdominal pain, localized on LLQ, 10/10, associated with nausea and vomiting. She denied fever, chills, or diarrhea. Lab work remarkable for hypokalemia along with dehydration and CT abdomen and pelvis remarkable for extensive area of inflammation, involving rectosigmoid, transeverse, descending and right colon, consistent with colitis. Patient was thus admitted to the hospital under observation for IV fluids and IV antibiotics at this time. 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 - Family History Mother -: Lung disease, Other (see notes) Notes: CROHNS DSE Brother -: GI disease, Other (see notes) Notes: CROHNS DSE - Social History Alcohol use: No CD- Drugs: No Caffeine use: No Review of Systems 10-point ROS is otherwise unremarkable Physical Examination - Physical Exam General: Alert, In no apparent distress HEENT: Atraumatic, PERRLA, Mucous membr. moist/pink, EOMI, Sclerae nonicteric Neck: Supple, 2+ carotid pulse no bruit, No LAD, Without JVD or thyroid abnormality Respiratory: Clear to auscultation bilaterally, Normal air movement Cardiovascular: Regular rate/rhythm, Normal S1 S2 Gastrointestinal: Hypoactive, Tenderness (Generalizied ) Musculoskeletal: No tenderness Integumentary: No rashes Neurological: Normal speech, Normal strength at 5/5 x4 extr, Normal tone Lymphatics: No axilla or inguinal lymphadenopathy - Studies Laboratory Data (last 24 hrs) 08/12/18 11:50: WBC 6.7, Hgb 15.4 H, Hct 46.3 H, Plt Count 239 08/12/18 11:50: Sodium 141, Potassium 3.4 L, BUN 5 L, Creatinine 0.62, Glucose 94, Total Bilirubin 0.7, AST 18, ALT 19, Alkaline Phosphatase 64, Lipase 46 L Assessment and Plan - Problems (Diagnosis) (1) Pancolitis Onset Date: 12/30/16 Current Visit: No Status: Acute Plan: CT abdomen and pelvis consistent with pancolitis. Failed outpatient therapy at this time. -started on IV Cipro and Flagyl at this time. -once patient is able to tolerate her diet and abdominal pain resolves patient can be discharged home safely and have follow up appointment with GI outpatient. (2) Intractable nausea and vomiting Onset Date: 06/20/18 Current Visit: No Status: Acute Plan: Patient with intractable nausea vomiting failed outpatient therapy -IV Zofran at this time. -advance diet slowly once able to tolerate something p.o. Qualifiers: Vomiting type: unspecified Qualified Code(s): R11.2 - Nausea with vomiting , unspecified (3) ASD (atrial septal defect) Onset Date: 12/30/16 Current Visit: No Status: Chronic (4) Alcohol use Onset Date: 12/30/16 Current Visit: No Status: Chronic (5) GERD (gastroesophageal reflux disease) Onset Date: 12/30/16 Current Visit: No Status: Chronic Qualifiers: Esophagitis presence: with esophagitis Qualified Code(s): K21.0 - Gastro- esophageal reflux disease with esophagitis (6) Tobacco abuse Onset Date: 12/30/16 Current Visit: No Status: Chronic - Plan Patient will be admitted to medical-surgical floor for observation for her intractable nausea vomiting abdominal pain and failed outpatient therapy. Discharge Plan: Home Plan to discharge in: 48 Hours - Advance Directives Does patient have a Living Will: No Does patient have a Durable POA for Healthcare: No - Code Status/Comfort Care Code Status Assessed: Yes Critical Care: No
[2018-08-12 17:09] VITALS: O2SAT 94; BMI 20.7
[2018-08-12 17:47] LABS: Urine Blood NEGATIVE (NEG); Urine Glucose NEGATIVE (NEG); Urine Protein 2+ (NEG); Urine pH 5.5 (5.0-7.0)
[2018-08-12] MEDS: NA CHLORIDE 0.9% 1,000 ML IV SCH (18:26)
[2018-08-12] MEDS: METRONIDAZOLE 500mg IVPB 500 MG/100 ML BAG IV SCH (18:32)
[2018-08-12] MEDS ORDERED: TRAMADOL HCL 50 MG TAB PO PRN (19:00)
[2018-08-12] MEDS ORDERED: ONDANSETRON 4 MG/2 ML VIAL IV PRN (20:04)
[2018-08-12] MEDS: predniSONE 20 MG TAB PO SCH (20:07)
[2018-08-12] MEDS: CIPROFLOXACIN 400mg IV 400 MG/200 ML BAG IV SCH (20:08)
[2018-08-12] MEDS ORDERED: RIOCIGUAT PO SCH (21:00)
[2018-08-12] MEDS: KCL 20 MEQ/100 mL IVPB 20 MEQ/100 ML BAG IV SCH (21:32)
[2018-08-13] MEDS: METRONIDAZOLE 500mg IVPB 500 MG/100 ML BAG IV SCH ×2 (00:14→05:57)
[2018-08-13] MEDS: NA CHLORIDE 0.9% 1,000 ML IV SCH ×2 (00:21→09:31)
[2018-08-13] MEDS: KCL 20 MEQ/100 mL IVPB 20 MEQ/100 ML BAG IV SCH (00:21)
[2018-08-13 04:38] LABS: Absolute Lymphocytes (CBC) 0.8 K/uL (0.7-4.9); Absolute Monocytes 0.1 K/uL (0.1-1.3); Absolute Neutrophil 3.7 K/uL (1.8-8.0); Basophils % 0.2 % (0-1.3); Eosinophils % 0.5 % (0-4.4); Hematocrit 38.2 % (36.0-45.0); Lymphocytes % 16.5 % (15.3-44.8); MPV 9.3 fL (7.6-11.3); Monocytes % 3.1 % (3.3-12.3); RBC Red Blood Cell Count 3.91 M/uL (3.86-4.86)
[2018-08-13 05:13] LABS: ALT/SGPT 13 U/L (12-78); AST/SGOT 13 U/L (15-37); Albumin 2.9 g/dL (3.4-5.0); Alkaline Phosphatase 48 U/L (45-117); BUN Blood Urea Nitrogen 4 mg/dL (7-18); Bicarbonate 20 mmol/L (21-32); Bilirubin Total 0.5 mg/dL (0.2-1.0); Glucose Level 98 mg/dL (74-106); Magnesium 1.8 mg/dL (1.8-2.4); Phosphorus 2.7 mg/dL (2.5-4.9); Protein, Total 5.4 g/dL (6.4-8.2); Sodium Level 140 mmol/L (136-145)
[2018-08-13] MEDS ORDERED: PANTOPRAZOLE 40MG TABLET PO SCH (07:30)
--- NOTE | 2018-08-13 07:57 | EKG ---
Test Date: 2018-08-13 Test Time: 01:19:47 Pre Owned Sales Manager: RT MEASUREMENT RESULTS: Intervals: Rate: 60 SD: 178 QRSD: 80 QT: 472 QTc: 472 [place]: P: 23 SD: 178 QRS: 122 T: 121 INTERPRETIVE STATEMENTS: Normal sinus rhythm Possible Right ventricular hypertrophy Septal infarct, age undetermined Lateral infarct, age undetermined ST & T wave abnormality, consider anterior ischemia Abnormal ECG Compared to ECG 08/03/2018 09:15:43 No significant changes Electronically Signed On 08-13-18 07:57:02 EQUIPMENT SERVICES ASSOCIATE by Bogdan Cooper
[2018-08-13 08:34] VITALS: BP 115/72; TEMP 97.9
[2018-08-13 08:50] LABS: Urine Appearance CLEAR; Urine Bilirubin NEGATIVE (NEG); Urine Blood NEGATIVE (NEG); Urine Color YELLOW; Urine Glucose NEGATIVE (NEG); Urine Protein NEGATIVE (NEG); Urine Urobilinogen 0.2 mg/dL (0.2-1.0)
[2018-08-13 09:00] LABS: Urine Microscopic Reflex NO UMIC
[2018-08-13] MEDS ORDERED: MACITENTAN PO SCH (09:00)
[2018-08-13] MEDS ORDERED: MAGNESIUM SULFATE 1 gm IVPB 1 GM/100 ML BAG IV ONE (09:00)
[2018-08-13] MEDS: CIPROFLOXACIN 400mg IV 400 MG/200 ML BAG IV SCH (09:30)
[2018-08-13] MEDS: predniSONE 20 MG TAB PO SCH (09:31)
--- NOTE | 2018-08-13 11:01 | P.SSS ---
Patient History Date of Service: 08/13/18 Reason for admission: Abdominal Pain and N/v History of Present Illness: Ms Morton is a 38 years old woman with history of ASD, pulmonary HTN, and recurrent colitis who presented to the ED complaining of having abdominal pain nausea vomiting. Patient does have history of recurrent abdominal pain, associated with nausea and vomiting, previous CT abd pelvis consistent with da silva colitis. Patient has been scheduled for colonoscopy with GI however has not been able to make it due to acute flareup before the appointment. Patient has been coming to the ER for last 2 days for similar complaints and has been discharged from the ER with oral medication however has not been able to keep anything down and abdominal pain has not resolved. Today, she came back to ED because of abdominal pain, localized on LLQ, 05/09, associated with nausea and vomiting. She denied fever, chills, or diarrhea. Lab work remarkable for hypokalemia along with dehydration and CT abdomen and pelvis remarkable for extensive area of inflammation, involving rectosigmoid, transeverse, descending and right colon, consistent with colitis. Patient was thus admitted to the hospital under observation for IV fluids and IV antibiotics at this time. 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 - Family History Mother -: Lung disease, Other (see notes) Notes: CROHNS DSE Brother -: GI disease, Other (see notes) Notes: CROHNS DSE - Social History Smoking Status: Current every day smoker Alcohol use: No CD- Drugs: No Caffeine use: No Place of Residence: Home Review of Systems 10-point ROS is otherwise unremarkable Physical Examination - Vital Signs Temperature: 97.9 F Blood Pressure: 115/72 Pulse: 77 Respirations: 18 Pulse Ox (%): 90 - Physical Exam General: Alert, In no apparent distress HEENT: Atraumatic, PERRLA, Mucous membr. moist/pink, EOMI, Sclerae nonicteric Neck: Supple, 2+ carotid pulse no bruit, No LAD, Without JVD or thyroid abnormality Respiratory: Clear to auscultation bilaterally, Normal air movement Cardiovascular: Regular rate/rhythm, Normal S1 S2 Gastrointestinal: Normal bowel sounds, No tenderness Musculoskeletal: No tenderness Integumentary: No rashes Neurological: Normal gait, Normal speech, Normal strength at 5/5 x4 extr, Normal tone, Normal affect Lymphatics: No axilla or inguinal lymphadenopathy - Studies Laboratory Data (last 24 hrs) 08/12/18 11:50: WBC 6.7, Hgb 15.4 H, Hct 46.3 H, Plt Count 239 08/12/18 11:50: Sodium 141, Potassium 3.4 L, BUN 5 L, Creatinine 0.62, Glucose 94, Total Bilirubin 0.7, AST 18, ALT 19, Alkaline Phosphatase 64, Lipase 46 L - Diagnosis (Problem(s)) (1) Pancolitis Onset Date: 12/30/16 Current Visit: No Status: Acute Plan: CT abdomen and pelvis consistent with pancolitis. Now resolved -case discussed with GI in detail. Recent colonoscopy with no colon disease -no further need for treatment at this time -patient educated on smoking cessation. -not receptive at this time -most likely symptoms are consistent with THC abuse. (2) Intractable nausea and vomiting Onset Date: 06/20/18 Current Visit: No Status: Acute Qualifiers: Vomiting type: unspecified Qualified Code(s): R11.2 - Nausea with vomiting , unspecified (3) ASD (atrial septal defect) Onset Date: 12/30/16 Current Visit: No Status: Chronic (4) Alcohol use Onset Date: 12/30/16 Current Visit: No Status: Chronic (5) GERD (gastroesophageal reflux disease) Onset Date: 12/30/16 Current Visit: No Status: Chronic Qualifiers: Esophagitis presence: with esophagitis Qualified Code(s): K21.0 - Gastro- esophageal reflux disease with esophagitis (6) Tobacco abuse Onset Date: 12/30/16 Current Visit: No Status: Chronic Treatment Summary: Overall during the hospital stay she patient remained stable Patient was initially admitted to the hospital for intractable nausea vomiting and abdominal pain and CT with possibility of da silva colitis. Case discussed at length with GI. Recent colonoscopy 2 weeks ago revealed no colon disease. Patient's symptoms most likely secondary to THC abuse. Patient educated extensively on drugs and smoking cessation at this time. Patient's symptoms resolved and discharged home under stable condition. - Disposition Disposition: ROUTINE DISCHARGE Condition: GOOD Patient Discharge Instructions: Please f.u with Dr Rojas in 2 to 3 week. You EGD and Colonoscopy with Dr Rojas was WNL. With no Evidence of Colon disease. You will need to STOP smoking to help with Symptoms improvment. No New medication
--- NOTE | 2018-08-13 11:59 | EKG ---
Test Date: 2018-08-13 Test Time: 06:11:10 Cap Parts Cutter: RT MEASUREMENT RESULTS: Intervals: Rate: 65 DC: 196 QRSD: 74 QT: 448 QTc: 465 [place]: P: 56 DC: 196 QRS: 125 T: 97 INTERPRETIVE STATEMENTS: Normal sinus rhythm Septal infarct, age undetermined Lateral infarct, age undetermined T wave abnormality, consider anterior ischemia right superior axis Abnormal ECG Compared to ECG 08/13/2018 01:19:47 no significant change from previous ECG Electronically Signed On 08-13-18 11:59:02 SAW MAKER by Bogdan Cooper
== END 2018-08-13 11:51 | disposition home or self-care (01) ==
LOC: ER 10:36 → ERHOLD 15:28 → 2ND 16:02
PROVIDERS: ADMIT Family Medicine; ATTEND Family Medicine
DX: K51.00 Ulcerative (chronic) pancolitis without complications (principal); Q21.1 Atrial septal defect; I27.20 Pulmonary hypertension, unspecified; Z72.89 Other problems related to lifestyle; K21.9 Gastro-esophageal reflux disease without esophagitis; F17.210 Nicotine dependence, cigarettes, uncomplicated
CPT/HCPCS: 36415; 74176; 80048; 80053; 80076; 81003; 81015; 81025; 83690; 83735; 84100; 84132; 85025; 93005; 96361; 96374; 96375; 99285; G0378; J0744; J1170; J2405; J3475; J7030; J7512

== ENCOUNTER 2018-09-05 07:37 | Emergency (ER) | payer BC ==
[2018-09-05] MEDS ORDERED: MORPHINE 4 MG/ML SYR ONE (08:11)
[2018-09-05] MEDS ORDERED: ONDANSETRON 4 MG/2 ML VIAL ONE (08:11)
[2018-09-05] MEDS ORDERED: NA CHLORIDE 0.9% 1,000 ML ONE (08:11)
[2018-09-05] MEDS ORDERED: DIPHENHYDRAMINE 50 MG/ML VIAL ONE (08:11)
[2018-09-05] MEDS ORDERED: METOCLOPRAMIDE 10 MG/2mL INJ ONE (08:13)
[2018-09-05 08:56] LABS: Absolute Monocytes 0.6 K/uL (0.1-1.3); Absolute Neutrophil 5.2 K/uL (1.8-8.0); Basophils % 0.6 % (0-1.3); Eosinophils % 0.7 % (0-4.4); Hematocrit 41.6 % (36.0-45.0); Lymphocytes % 14.8 % (15.3-44.8); MPV 8.9 fL (7.6-11.3); Monocytes % 9.2 % (3.3-12.3); RBC Red Blood Cell Count 4.26 M/uL (3.86-4.86)
[2018-09-05 09:16] LABS: ALT/SGPT 13 U/L (12-78); AST/SGOT 7 U/L (15-37); Albumin 3.2 g/dL (3.4-5.0); Alkaline Phosphatase 71 U/L (45-117); BUN Blood Urea Nitrogen 6 mg/dL (7-18); Bicarbonate 28 mmol/L (21-32); Bilirubin Direct 0.2 mg/dL (0-0.2); Bilirubin Total 0.4 mg/dL (0.2-1.0); Glucose Level 80 mg/dL (74-106); Lipase 68 U/L (73-393); Potassium 3.2 mmol/L (3.5-5.1); Protein, Total 6.3 g/dL (6.4-8.2); Sodium Level 146 mmol/L (136-145)
--- NOTE | 2018-09-05 09:58 | ER ---
Nurse's Notes [facility] Name: Alicia Morton Age: 38 yrs Sex: Female : 1980 Arrival Date: 09/05/2018 Time: 07:39 Bed 17 Private MD: None, None Diagnosis: Vomiting;Generalized abdominal pain Presentation: 09/05 07:49 Presenting complaint: Patient states: generalized abd pain and vomiting since 0200 iw today. Transition of care: patient was not received from another setting of care. Onset of symptoms was September 05, 2018. Risk Assessment: Do you want to hurt yourself or someone else? Patient reports no desire to harm self or others. Initial Sepsis Screen: Does the patient meet any 2 criteria? No. Patient's initial sepsis screen is negative. Does the patient have a suspected source of infection? No. Patient's initial sepsis screen is negative. Care prior to arrival: Medication(s) given: zofran. 07:49 Method Of Arrival: Ambulatory iw 07:49 Acuity: RICARDO 3 iw Triage Assessment: 07:49 General: Appears in no apparent distress. uncomfortable, Behavior is calm, cooperative, hj appropriate for age. Pain: Complains of pain in abdomen. EENT: No signs and/or symptoms were reported regarding the EENT system. Neuro: Level of Consciousness is awake, alert, obeys commands, Oriented to person, place, time, situation, Appropriate for age. Cardiovascular: Capillary refill < 3 seconds Patient's skin is warm and dry. Respiratory: Airway is patent Respiratory effort is even, unlabored, Respiratory pattern is regular, symmetrical. GI: Reports lower abdominal pain, upper abdominal pain, nausea, vomiting. : No signs and/or symptoms were reported regarding the genitourinary system. Derm: No signs and/or symptoms reported regarding the dermatologic system. Musculoskeletal: No signs and/or symptoms reported regarding the musculoskeletal system. 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 - Social history:: Smoking status: Patient uses tobacco products, smokes one-half pack cigarettes per day. - Ebola Screening: : Patient negative for fever greater than or equal to 101.5 degrees Fahrenheit, and additional compatible Ebola Virus Disease symptoms Patient denies exposure to infectious person Patient denies travel to an Ebola-affected area in the 21 days before illness onset No symptoms or risks identified at this time. Screenin:49 Abuse screen: Denies threats or abuse. Denies injuries from another. Nutritional hj screening: No deficits noted. Tuberculosis screening: No symptoms or risk factors identified. Fall Risk None identified. Assessment: 07:49 GI: Bowel sounds present X 4 quads. Abd is soft and non tender. Vital Signs: 07:51 BP 108 / 70; Pulse 68; Resp 18; Temp 97.2(TE); Pulse Ox 95% on R/A; Weight 68.04 kg; hj Height 5 ft. 4 in. (162.56 cm); 09:00 BP 110 / 69; Pulse 70; Resp 18; Pulse Ox 100% on R/A; hj 10:42 BP 109 / 70; Pulse 70; Resp 18; Pulse Ox 100% on R/A; hj 07:51 Body Mass Index 25.75 (68.04 kg, 162.56 cm) ED Course: 07:39 Patient arrived in ED. mr 07:40 None, None is Private Physician. mr 07:43 Jacques Berrios PA is PHCP. jm 07:43 Zaid Cortez MD is Attending Physician. jmm 07:46 Carlton Clark, MANUELA is Primary Nurse. hj 07:49 No provider procedures requiring assistance completed. Initial lab(s) drawn, by me, hj sent to lab. Inserted saline lock: 20 gauge in right forearm, using aseptic technique. Blood collected. 07:50 Triage completed. iw 07:51 Arm band placed on. iw 08:40 Lab(s) recollected, by me, sent to lab. 5 09:18 Patient has correct armband on for positive identification. Placed in gown. Bed in low mh5 position. Call light in reach. Side rails up X 1. Warm blanket given. clinical research monitor on. Pulse ox on. NIBP on. 09:24 EKG done, by agricultural technical officer. reviewed by Jacques GARDNER. at1 09:57 Tristan Rojas MD is Referral Physician. jmm 10:05 Tristan Rojas MD is Referral Physician. jmm 10:40 IV discontinued, intact, bleeding controlled, No redness/swelling at site. Pressure hj dressing applied. Administered Medications: 07:52 Drug: NS 0.9% 1000 ml Route: IV; Rate: 1 bolus; Site: right forearm; hj 08:56 Follow up: IV Status: Completed infusion hj 07:52 Drug: Benadryl 25 mg Route: IVP; Site: right forearm; hj 08:56 Follow up: Response: No adverse reaction hj 07:52 Drug: Reglan 10 mg Route: IVP; Site: right forearm; hj 08:56 Follow up: Response: No adverse reaction hj 07:52 Drug: morphine 4 mg Route: IVP; Site: right forearm; hj 08:55 Follow up: Response: No adverse reaction; Pain is decreased hj Outcome: 09:57 Discharge ordered by . jmm 10:05 Discharge ordered by MD. jmm 10:40 Discharged to home ambulatory. hj 10:40 Condition: stable 10:40 Discharge instructions given to patient, Instructed on discharge instructions, follow up and referral plans. medication usage, Demonstrated understanding of instructions, follow-up care, medications, Prescriptions given X 1. 10:41 Patient left the ED. Signatures: Jacques Berrios PA PA jmm RiveraHerminia Chapis Durant, RN Olga Sanford, dry wall finisher EKG Tat1 Carlton Clark, MANUELA [place] [id number]
--- NOTE | 2018-09-05 09:59 | EDPHYS ---
Physician Documentation [facility] Name: Alicia Morton Age: 38 yrs Sex: Female : 1980 Arrival Date: 09/05/2018 Time: 07:39 Bed 17 Private MD: None, None ED Physician Zaid Cortez HPI: 09/05 07:51 This 38 yrs old Female presents to ER via Ambulatory with complaints of jmm Abdominal Pain, Vomiting. 07:51 The patient presents with abdominal pain that is diffuse. Onset: The symptoms/episode jmm began/occurred gradually, this morning. The symptoms do not radiate. Associated signs and symptoms: Pertinent positives: vomiting. This is a 38 year old female with a history of inflammatory bowel disease that presents to the ED with complaints of abdominal pain, vomiting that she states is similar to previous episodes. Denies diarrhea. Patient is currently under the care of Dr. Black. . 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 - Social history:: Smoking status: Patient uses tobacco products, smokes one-half pack cigarettes per day. - Ebola Screening: : Patient negative for fever greater than or equal to 101.5 degrees Fahrenheit, and additional compatible Ebola Virus Disease symptoms Patient denies exposure to infectious person Patient denies travel to an Ebola-affected area in the 21 days before illness onset No symptoms or risks identified at this time. ROS: 07:51 Constitutional: Negative for fever, chills, and weight loss, Cardiovascular: Negative jmm for chest pain, palpitations, and edema, Respiratory: Negative for shortness of breath, cough, wheezing, and pleuritic chest pain. 07:51 Abdomen/GI: Positive for abdominal pain, nausea and vomiting. 07:51 All other systems are negative. Exam: 07:51 Constitutional: This is a well developed, well nourished patient who is awake, alert, jmm and in no acute distress. Head/Face: atraumatic. Eyes: EOMI, no conjunctival erythema appreciated ENT: Moist Mucus Membranes Neck: Trachea midline, Supple Chest/axilla: Normal chest wall appearance and motion. Cardiovascular: Regular rate and rhythm. No edema appreciated Respiratory: Normal respirations, no respiratory distress appreciated 07:51 Abdomen/GI: Inspection: abdomen appears normal, Bowel sounds: normal, Palpation: abdomen is soft and non-tender, in all quadrants. 07:51 Back: ROM is normal. 07:51 Musculoskeletal/extremity: ROM: intact in all extremities. 07:51 Skin: Appearance: Color: normal in color. 07:51 Neuro: Orientation: is normal, Mentation: is normal, Memory: is normal. 07:51 Psych: Behavior/mood is pleasant, cooperative. Vital Signs: 07:51 BP 108 / 70; Pulse 68; Resp 18; Temp 97.2(TE); Pulse Ox 95% on R/A; Weight 68.04 kg; Height 5 ft. 4 in. (162.56 cm); 09:00 BP 110 / 69; Pulse 70; Resp 18; Pulse Ox 100% on R/A; hj 10:42 BP 109 / 70; Pulse 70; Resp 18; Pulse Ox 100% on R/A; 07:51 Body Mass Index 25.75 (68.04 kg, 162.56 cm) MDM: 07:51 Patient medically screened. [facility] 09:56 Data reviewed: vital signs, nurses notes. Counseling: I had a detailed discussion with [facility] the patient and/or guardian regarding: the historical points, exam findings, and any diagnostic results supporting the discharge/admit diagnosis, lab results, the need for outpatient follow up, to return to the emergency department if symptoms worsen or persist or if there are any questions or concerns that arise at home. ED course: I discussed the patient with Dr. Black [employer]EL [employer]ER whom will see patient in clinic later today or tomorrow. Patient states that she feels much better. Tolerates PO. Reexamination of the abdomen is soft and non tender to palpation. patient is given return precautions. patient understood and agrees with the plan of care. . 09/05 07:52 Order name: Basic Metabolic Panel; Complete Time: 09:44 [facility] 09/05 07:52 Order name: CBC with Diff; Complete Time: 09:00 [facility] 09/05 07:52 Order name: Creatinine for Radiology; Complete Time: 09:44 [facility] 09/05 07:52 Order name: Hepatic Function; Complete Time: 09:44 [facility] 09/05 07:52 Order name: Lipase; Complete Time: 09:44 [facility] 09/05 08:57 Order name: EKG; Complete Time: 08:58 09/05 09:56 Order name: Urine Dipstick--Ancillary (enter results) 09/05 09:56 Order name: Urine --Ancillary (enter results) 09/05 07:52 Order name: IV Saline Lock; Complete Time: 08:14 [facility] 09/05 07:52 Order name: Labs collected and sent; Complete Time: 08:14 [facility] 09/05 07:52 Order name: Urine Dipstick-Ancillary (obtain specimen); Complete Time: 09:56 [facility] 09/05 08:27 Order name: Labs - recollect needed; Complete Time: 08:55 09/05 08:50 Order name: Vital Signs; Complete Time: 08:55 [facility] 09/05 09:02 Order name: EKG - Nurse/Tech; Complete Time: 09:08 [facility] Administered Medications: 07:52 Drug: NS 0.9% 1000 ml Route: IV; Rate: 1 bolus; Site: right forearm; hj 08:56 Follow up: IV Status: Completed infusion hj 07:52 Drug: Benadryl 25 mg Route: IVP; Site: right forearm; hj 08:56 Follow up: Response: No adverse reaction hj 07:52 Drug: Reglan 10 mg Route: IVP; Site: right forearm; hj 08:56 Follow up: Response: No adverse reaction hj 07:52 Drug: morphine 4 mg Route: IVP; Site: right forearm; hj 08:55 Follow up: Response: No adverse reaction; Pain is decreased Disposition: 11:45 Co-signature as Attending Physician, Zaid Cortez MD. rn Disposition: 09/05/18 10:05 Discharged to Home. Impression: Vomiting, Generalized abdominal pain. - Condition is Stable. - Discharge Instructions: Abdominal Pain, Adult, Nausea and Vomiting, Adult. - Prescriptions for promethazine 12.5 mg Rectal suppository - insert 1 suppository by RECTAL route every 4-6 hours; 20 suppository. - Medication Reconciliation Form, Thank You Letter, Antibiotic Education, Prescription Opioid Use form. - Follow up: Tristan Rojas MD; When: Upon discharge from the Emergency Department; Reason: Recheck today's complaints, Continuance of care, Re-evaluation by your physician. Signatures: Dispatcher [employer] EDMS Disha Woo Joel, PA PA [facility] Chapis Durant RN RN iw Nieto, Roman, MD MD rn Joaquin, Henry, RN RN Corrections: (The following items were deleted from the chart) 09:00 08:57 Repeat Cardiac Enzymes at ordered. [facility] 10:02 09:57 09/05/2018 09:57 Discharged to Home. Impression: Vomiting; Generalized abdominal jmm pain. Condition is Stable. Forms are Medication Reconciliation Form, Thank You Letter, Antibiotic Education, Prescription Opioid Use. Follow up: Tristan Rojas; When: Upon discharge from the Emergency Department; Reason: Recheck today's complaints, Continuance of care, Re-evaluation by your physician. [facility] 10:41 10:05 09/05/2018 10:05 Discharged to Home. Impression: Vomiting; Generalized abdominal hj pain. Condition is Stable. Prescriptions for Zofran ODT 4 mg Oral tablet,disintegrating - place 2 tablet by TRANSLINGUAL route every 6 hours; 20 tablet. and Forms are Medication Reconciliation Form, Thank You Letter, Antibiotic Education, Prescription Opioid Use. Follow up: Tristan Rojas; When: Upon discharge from the Emergency Department; Reason: Recheck today's complaints, Continuance of care, Re-evaluation by your physician. [facility]
--- NOTE | 2018-09-05 10:29 | EKG ---
Test Date: 2018-09-05 Test Time: 09:09:34 Air Director: JAMES MEASUREMENT RESULTS: Intervals: Rate: 54 TN: 206 QRSD: 82 QT: 536 QTc: 508 [place]ossil: P: 49 TN: 206 QRS: 120 T: 143 INTERPRETIVE STATEMENTS: Sinus bradycardia Septal infarct, age undetermined Lateral infarct, age undetermined ST & T wave abnormality, consider anterior ischemia Prolonged QT Abnormal ECG Compared to ECG 08/13/2018 06:11:10 Prolonged QT interval now present Sinus rhythm no longer present Myocardial infarct finding still present Possible ischemia still present Electronically Signed On 09-05-18 10:28:39 ORDER ENTRY CLERK by Bogdan Cooper
[2018-09-05 10:52] VITALS: BP 108/70; TEMP 97.2; O2SAT 95
[2018-09-05 10:57] LABS: Urine Blood 1+ (NEG); Urine Glucose NEGATIVE (NEG); Urine Protein 2+ (NEG); Urine Specific Gravity >1.030 (1.005-1.030)
== END 2018-09-05 10:41 | disposition home or self-care (01) ==
LOC: ER 07:37
DX: R10.84 Generalized abdominal pain (principal); Q21.1 Atrial septal defect; F17.210 Nicotine dependence, cigarettes, uncomplicated; Z91.018 Allergy to other foods
CPT/HCPCS: 36415; 80048; 80076; 81003; 81025; 83690; 85025; 93005; 96361; 96374; 96375; 99284; J2405; J2765; J7030

== ENCOUNTER 2018-09-08 06:58 | Emergency (ER) | payer BC ==
[2018-09-08] MEDS ORDERED: MAGNE/ALUM HYDROXD 30 ML UCUP ONE (07:25)
[2018-09-08] MEDS ORDERED: NA CHLORIDE 0.9% 1,000 ML ONE (07:26)
[2018-09-08] MEDS ORDERED: LIDOCAINE VISCOUS 2% SOLN 15 ML UDC ONE (07:26)
[2018-09-08] MEDS ORDERED: PROMETHAZINE 25 MG/ML VIAL ONE (07:26)
[2018-09-08 07:27] LABS: Absolute Lymphocytes (CBC) 1.3 K/uL (0.7-4.9); Absolute Monocytes 0.7 K/uL (0.1-1.3); Basophils % 0.8 % (0-1.3); Eosinophils % 1.4 % (0-4.4); Hematocrit 44.5 % (36.0-45.0); Lymphocytes % 18.3 % (15.3-44.8); MPV 8.8 fL (7.6-11.3); Monocytes % 9.1 % (3.3-12.3)
[2018-09-08 07:52] LABS: ALT/SGPT 15 U/L (12-78); AST/SGOT 12 U/L (15-37); Albumin 3.4 g/dL (3.4-5.0); Alkaline Phosphatase 87 U/L (45-117); BUN Blood Urea Nitrogen 3 mg/dL (7-18); Bicarbonate 25 mmol/L (21-32); Bilirubin Direct 0.1 mg/dL (0-0.2); Bilirubin Total 0.4 mg/dL (0.2-1.0); Glucose Level 92 mg/dL (74-106); Lipase 101 U/L (73-393); Protein, Total 6.8 g/dL (6.4-8.2); Sodium Level 145 mmol/L (136-145)
[2018-09-08 07:57] LABS: Potassium 2.9 mmol/L (3.5-5.1)
[2018-09-08] MEDS ORDERED: KCL 20 MEQ/100 mL IVPB 20 MEQ/100 ML BAG IV ONE (08:09)
[2018-09-08] MEDS ORDERED: POTASSIUM CL SA 10 MEQ TAB PO ONE (08:09)
[2018-09-08] MEDS ORDERED: NA CHLORIDE 0.9% 500 ML ONE (08:36)
--- NOTE | 2018-09-08 08:56 | ER ---
Nurse's Notes [facility] Name: Alicia Morton Age: 38 yrs Sex: Female : 1980 Arrival Date: 09/08/2018 Time: 07:01 Bed 18 Private MD: Diagnosis: Gastritis, unspecified;Gastro-esophageal reflux disease Presentation: 09/08 07:06 Presenting complaint: Patient states: epigastric pain after eating fried chicken, em reports nausea and little vomit, denies blood in emesis or fever. Transition of care: patient was not received from another setting of care. Onset of symptoms was September 07, 2018. Risk Assessment: Do you want to hurt yourself or someone else? Patient reports no desire to harm self or others. Initial Sepsis Screen: Does the patient meet any 2 criteria? RR > 20 per min. Does the patient have a suspected source of infection? No. Patient's initial sepsis screen is negative. Care prior to arrival: None. 07:06 Method Of Arrival: Ambulatory em 07:13 Acuity: RICARDO 3 hb Triage Assessment: 07:10 General: Appears uncomfortable, Behavior is calm. Pain: Complains of pain in epigastric em area. GI: Abdomen is flat, Bowel sounds present X 4 quads. Abd is soft X 4 quads Abdomen is tender to palpation in right upper quadrant and left upper quadrant Reports nausea. 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 - Social history:: Smoking status: Patient uses tobacco products, smokes one-half pack cigarettes per day. - Ebola Screening: : Patient negative for fever greater than or equal to 101.5 degrees Fahrenheit, and additional compatible Ebola Virus Disease symptoms Patient denies exposure to infectious person Patient denies travel to an Ebola-affected area in the 21 days before illness onset No symptoms or risks identified at this time. - Family history:: not pertinent. - Hospitalizations: : No recent hospitalization is reported. Screenin:11 Abuse screen: Denies threats or abuse. Nutritional screening: No deficits noted. em Tuberculosis screening: No symptoms or risk factors identified. Fall Risk None identified. Assessment: 07:11 General: Appears in no apparent distress. comfortable, Behavior is calm, cooperative, em Denies fever. Pain: Complains of pain in chest and epigastric area Pain currently is 9 out of 10 on a pain scale. Quality of pain is described as burning, Pain began 1 day ago. Aggravated by eating. Neuro: Level of Consciousness is awake, alert, obeys commands, Oriented to person, place, time, situation. Cardiovascular: Capillary refill < 3 seconds Patient's skin is warm and dry. Respiratory: Airway is patent Respiratory effort is even, unlabored, Respiratory pattern is regular, symmetrical. GI: Abdomen is flat, Bowel sounds present X 4 quads. Abd is soft X 4 quads Abdomen is tender to palpation in right upper quadrant and left upper quadrant Reports nausea, vomiting, Patient currently denies bloody stool, diarrhea. : Denies burning with urination. Derm: Skin is intact, is healthy with good turgor, Skin is pink, warm \T\ dry. Musculoskeletal: Range of motion: intact in all extremities. 07:20 Reassessment: I agree with previous assessment. hb 07:48 Reassessment: Patient appears in no apparent distress at this time. Patient and/or em family updated on plan of care and expected duration. Pain level reassessed. Patient is alert, oriented x 3, equal unlabored respirations, skin warm/dry/pink. rates pain 2/10 Patient states feeling better. Patient states symptoms have improved. 08:04 Reassessment: pt reports that taking more than 1 pill of potassium will make her throw em up, provider notified, 1 10 mEq potassium given. 08:27 Reassessment: reports IV potassium is burning, provider notified, new order for NS em received, pt reports IV potassium is still burning, IV potassium turned off, provider notified, pt will attempt to take the PO potassium. 08:30 Reassessment: PO potassium given, tolerated well. em Vital Signs: 07:11 BP 137 / 89; Pulse 118; Resp 24; Temp 98.1; Pulse Ox 94% on R/A; Pain 10/10; em 07:48 BP 120 / 80; Pulse 89; Resp 18; Pulse Ox 91% on R/A; Pain 2/10; em 08:40 BP 132 / 83; Pulse 83; Resp 18; Pulse Ox 99% on R/A; em 07:11 reports low SPO2 sat. is normal for pt em ED Course: 07:01 Patient arrived in ED. es 07:02 Zaid Cortez MD is Attending Physician. rn 07:06 Chai Lerma LVN is Primary Nurse. em 07:11 Arm band placed on. em 07:11 Patient has correct armband on for positive identification. Placed in gown. Bed in low em position. Call light in reach. Side rails up X2. Pulse ox on. NIBP on. 07:13 Triage completed. hb 07:20 Initial lab(s) drawn, by ED staff, sent to lab. Inserted saline lock: 20 gauge in right em forearm, using aseptic technique. Blood collected. 07:25 EKG done, by ED staff, reviewed by Zaid Cortez MD. dh3 09:00 No provider procedures requiring assistance completed. IV discontinued, intact, em bleeding controlled, No redness/swelling at site. Pressure dressing applied. Administered Medications: Discontinued: Potassium Chloride 20 mEq IV at calculated rate once; administer over 1-2 hours 07:20 Drug: GI Cocktail without - (Maalox Suspension 30 ml, Lidocaine Liquid 2 % 15 em ml) Route: PO; 07:47 Follow up: Response: No adverse reaction; Pain is decreased em 07:20 Drug: NS 0.9% 1000 ml Route: IV; Rate: 1000 ml; Site: right forearm; em 08:42 Follow up: IV Status: Completed infusion; IV Intake: 1000ml em 07:23 Drug: Phenergan 25 mg Route: IVP; Site: right forearm; sv 07:47 Follow up: Response: No adverse reaction; Nausea is decreased em 08:05 Drug: Potassium Chloride 20 mEq Route: IV; Rate: calculated rate; Site: right forearm; em 08:41 Follow up: Response: No adverse reaction; Pain is increased; IV Status: pt reports em burning; IV Intake: 15ml 08:06 Not Given (Patient Refused): Potassium Chloride 40 mEq PO once em 08:06 Drug: Potassium Chloride 10 mEq Route: PO; em 09:04 Follow up: Response: No adverse reaction em 08:30 Drug: Potassium Chloride 30 mEq Route: PO; em 09:04 Follow up: Response: No adverse reaction em Intake: 08:41 IV: 15ml; Total: 15ml. em 08:42 IV: 1000ml; Total: 1015ml. em Outcome: 08:55 Discharge ordered by . rn 09:00 Discharged to home ambulatory. em 09:00 Condition: good 09:00 Discharge instructions given to patient, Instructed on discharge instructions, follow up and referral plans. Demonstrated understanding of instructions, follow-up care. 09:04 Patient left the ED. em Signatures: Cynthia Ingram, RN Nathalie Rubin Edgar, IT CONSULTANT IT CONSULTANT em Zaid Cortez MD MD rn Baxter, Heather, RN RN hb Herrera, Deanna 3 Corrections: (The following items were deleted from the chart) 07:49 07:11 BP 137 / 89; Pulse 118bpm; Resp 24bpm; Pulse Ox 94% RA; Temp 98.1F; Pain 10/10; emem
--- NOTE | 2018-09-08 08:56 | EDPHYS ---
Physician Documentation [facility] Name: Alicia Morton Age: 38 yrs Sex: Female : 1980 Arrival Date: 09/08/2018 Time: 07:01 Bed 18 Private MD: ED Physician Zaid oCrtez HPI: 09/08 07:11 This 38 yrs old Female presents to ER via Ambulatory with complaints of rn Abdominal Pain, Chest Pain, GERD. 07:11 The patient presents with abdominal pain in the epigastric area. Onset: The rn symptoms/episode began/occurred last night. The symptoms radiate to chest. The symptoms are described as crampy, sharp. Modifying factors: The symptoms are alleviated by nothing, the symptoms are aggravated by food, movement, pressure, touching the area. Severity of pain: At its worst the pain was moderate in the emergency department the pain is unchanged. The patient has experienced similar episodes in the past. The patient has been recently seen at the [facility] Emergency Department. Reports abdominal pain, epigastric, burning/sharp, radiates to chest, reports triggered last night after eating fried chicken. No fever. No hemoptysis. NO dark stool or rectal bleeding. Reports many similar episodes in past with GERD. . 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 - Social history:: Smoking status: Patient uses tobacco products, smokes one-half pack cigarettes per day. - Ebola Screening: : Patient negative for fever greater than or equal to 101.5 degrees Fahrenheit, and additional compatible Ebola Virus Disease symptoms Patient denies exposure to infectious person Patient denies travel to an Ebola-affected area in the 21 days before illness onset No symptoms or risks identified at this time. - Family history:: not pertinent. - Hospitalizations: : No recent hospitalization is reported. ROS: 07:11 Constitutional: Negative for fever, chills, and weight loss, Eyes: Negative for injury, rn pain, redness, and discharge, Neck: Negative for injury, pain, and swelling, Cardiovascular: Negative for palpitations, and edema, Respiratory: Negative for shortness of breath, cough, wheezing, and pleuritic chest pain, Abdomen/GI: + abd pain and nausea MS/Extremity: Negative for injury and deformity, Skin: Negative for injury, rash, and discoloration, Neuro: Negative for headache, weakness, numbness, tingling, and seizure. Exam: 07:11 Constitutional: This is a well developed, well nourished patient who is awake, alert, rn crying but no vomiting Head/Face: Normocephalic, atraumatic. Eyes: Pupils equal round and reactive to light, extra-ocular motions intact. Lids and lashes normal. Conjunctiva and sclera are non-icteric and not injected. Cornea within normal limits. Periorbital areas with no swelling, redness, or edema. ENT: dry MM, no stridor Cardiovascular: tachycardic, regular, no murmur Respiratory: Crying and tearful, speaking full sentences Abdomen/GI: soft, + mild epigastric tenderness, no rebound Skin: Warm, dry with normal turgor. Normal color with no rashes, no lesions, and no evidence of cellulitis. MS/ Extremity: Pulses equal, no cyanosis. Neurovascular intact. Full, normal range of motion. Neuro: Awake and alert, GCS 15, oriented to person, place, time, and situation. Cranial nerves II-XII grossly intact. Motor strength 5/5 in all extremities. Sensory grossly intact. Cerebellar exam normal. Normal gait. Vital Signs: 07:11 BP 137 / 89; Pulse 118; Resp 24; Temp 98.1; Pulse Ox 94% on R/A; Pain 10/10; em 07:48 BP 120 / 80; Pulse 89; Resp 18; Pulse Ox 91% on R/A; Pain 2/10; em 08:40 BP 132 / 83; Pulse 83; Resp 18; Pulse Ox 99% on R/A; em 07:11 reports low SPO2 sat. is normal for pt em MDM: 07:02 Patient medically screened. rn 08:39 Differential diagnosis: gastritis, gastroesophageal reflux disease, non-specific abd rn pain, pancreatitis. Data reviewed: vital signs, nurses notes, lab test result(s), EKG, and as a result, I will discharge patient. Counseling: I had a detailed discussion with the patient and/or guardian regarding: the historical points, exam findings, and any diagnostic results supporting the discharge/admit diagnosis, lab results, the need for outpatient follow up, to return to the emergency department if symptoms worsen or persist or if there are any questions or concerns that arise at home. Response to treatment: the patient's symptoms have markedly improved after treatment, and as a result, I will discharge patient. Special discussion: I discussed with the patient/guardian in detail that at this point there is no indication for admission to the hospital. It is understood, however, that if the symptoms persist or worsen the patient needs to return immediately for re-evaluation. 09/08 07:07 Order name: Basic Metabolic Panel; Complete Time: 08:38 rn 09/08 07:07 Order name: CBC with Diff; Complete Time: 07:56 rn 09/08 07:07 Order name: Hepatic Function; Complete Time: 08:38 rn 09/08 07:07 Order name: Lipase; Complete Time: 08:38 rn 09/08 07:28 Order name: Urine Dipstick--Ancillary (enter results) eb 09/08 07:28 Order name: Urine --Ancillary (enter results) eb 09/08 07:07 Order name: EKG; Complete Time: 07:08 rn 09/08 07:07 Order name: IV Saline Lock; Complete Time: 07:36 rn 09/08 07:07 Order name: Labs collected and sent; Complete Time: 07:36 rn 09/08 07:07 Order name: EKG - Nurse/Tech; Complete Time: 07:35 rn Administered Medications: Discontinued: Potassium Chloride 20 mEq IV at calculated rate once; administer over 1-2 hours 07:20 Drug: GI Cocktail without - (Maalox Suspension 30 ml, Lidocaine Liquid 2 % 15 em ml) Route: PO; 07:47 Follow up: Response: No adverse reaction; Pain is decreased em 07:20 Drug: NS 0.9% 1000 ml Route: IV; Rate: 1000 ml; Site: right forearm; em 08:42 Follow up: IV Status: Completed infusion; IV Intake: 1000ml em 07:23 Drug: Phenergan 25 mg Route: IVP; Site: right forearm; sv 07:47 Follow up: Response: No adverse reaction; Nausea is decreased em 08:05 Drug: Potassium Chloride 20 mEq Route: IV; Rate: calculated rate; Site: right forearm; em 08:41 Follow up: Response: No adverse reaction; Pain is increased; IV Status: pt reports em burning; IV Intake: 15ml 08:06 Not Given (Patient Refused): Potassium Chloride 40 mEq PO once em 08:06 Drug: Potassium Chloride 10 mEq Route: PO; em 09:04 Follow up: Response: No adverse reaction em 08:30 Drug: Potassium Chloride 30 mEq Route: PO; em 09:04 Follow up: Response: No adverse reaction em Disposition: 09/08/18 08:55 Discharged to Home. Impression: Gastritis, unspecified, Gastro-esophageal reflux disease. - Condition is Stable. - Discharge Instructions: Gastritis, Adult, Gastroesophageal Reflux Disease, Adult. - Medication Reconciliation Form, Thank You Letter, Antibiotic Education, Prescription Opioid Use form. - Follow up: Private Physician; When: As needed; Reason: Recheck today's complaints, Re-evaluation by your physician. - Problem is new. - Symptoms have improved. Signatures: Dispatcher [employer] Cynthia Pedroza RN RN Chai Mantilla, HADOOP INFRASTRUCTURE ARCHITECT HADOOP INFRASTRUCTURE ARCHITECT Zaid Duggan MD MD government relations director: (The following items were deleted from the chart) 09:04 08:55 09/08/2018 08:55 Discharged to Home. Impression: Gastritis, unspecified; em Gastro-esophageal reflux disease. Condition is Stable. Forms are Medication Reconciliation Form, Thank You Letter, Antibiotic Education, Prescription Opioid Use. Follow up: Private Physician; When: As needed; Reason: Recheck today's complaints, Re-evaluation by your physician. Problem is new. Symptoms have improved. rn
[2018-09-08 09:11] VITALS: TEMP 98.1
[2018-09-08 09:14] VITALS: BP 132/83; O2SAT 99
[2018-09-08 10:22] LABS: Urine Blood NEGATIVE (NEG); Urine Glucose NEGATIVE (NEG); Urine Protein TRACE (NEG); Urine Specific Gravity 1.015 (1.005-1.030); Urine pH 7.5 (5.0-7.0)
--- NOTE | 2018-09-08 14:12 | EKG ---
Test Date: 2018-09-08 Test Time: 07:23:05 [facility]: DIMITRIOS MEASUREMENT RESULTS: Intervals: Rate: 84 DE: 196 QRSD: 82 QT: 368 QTc: 434 [place]: P: 60 DE: 196 QRS: 119 T: 34 INTERPRETIVE STATEMENTS: Normal sinus rhythm Septal infarct, age undetermined Lateral infarct, age undetermined ST & T wave abnormality, consider anterior ischemia Abnormal ECG Compared to ECG 09/05/2018 09:09:34 Sinus bradycardia no longer present Prolonged QT interval no longer present Myocardial infarct finding still present ST (T wave) deviation still present Possible ischemia still present Electronically Signed On 09-08-18 14:11:13 TREATING MACHINE OPERATOR by Bogdan Cooper
== END 2018-09-08 09:04 | disposition home or self-care (01) ==
LOC: ER 06:58
DX: K29.70 Gastritis, unspecified, without bleeding (principal); K21.9 Gastro-esophageal reflux disease without esophagitis; R94.31 Abnormal electrocardiogram [ECG] [EKG]; Q21.1 Atrial septal defect; I27.20 Pulmonary hypertension, unspecified; F17.210 Nicotine dependence, cigarettes, uncomplicated; Z79.899 Other long term (current) drug therapy
CPT/HCPCS: 36415; 80048; 80076; 81003; 81025; 83690; 85025; 93005; 96361; 96365; 96375; 99284; J2550; J7030

== ENCOUNTER 2018-09-08 13:54 | Observation (INO) | payer BC ==
[2018-09-08] MEDS ORDERED: ONDANSETRON 4 MG/2 ML VIAL ONE (14:29)
[2018-09-08 14:45] LABS: Absolute Lymphocytes (CBC) 1.1 K/uL (0.7-4.9); Absolute Monocytes 0.7 K/uL (0.1-1.3); Absolute Neutrophil 6.1 K/uL (1.8-8.0); Basophils % 0.3 % (0-1.3); Eosinophils % 0.5 % (0-4.4); Hematocrit 43.7 % (36.0-45.0); Lymphocytes % 14.2 % (15.3-44.8); MPV 9.5 fL (7.6-11.3); Monocytes % 8.8 % (3.3-12.3); RBC Red Blood Cell Count 4.48 M/uL (3.86-4.86)
[2018-09-08 14:52] LABS: ALT/SGPT 14 U/L (12-78); AST/SGOT 17 U/L (15-37); Albumin 3.7 g/dL (3.4-5.0); Alkaline Phosphatase 81 U/L (45-117); BUN Blood Urea Nitrogen 3 mg/dL (7-18); Bicarbonate 25 mmol/L (21-32); Bilirubin Direct 0.2 mg/dL (0-0.2); Bilirubin Total 0.4 mg/dL (0.2-1.0); Glucose Level 87 mg/dL (74-106); Lipase 69 U/L (73-393); Potassium 3.2 mmol/L (3.5-5.1); Sodium Level 146 mmol/L (136-145)
[2018-09-08] MEDS ORDERED: MORPHINE 4 MG/ML SYR ONE (15:12)
--- NOTE | 2018-09-08 17:31 | EDPHYS ---
Physician Documentation [facility] Name: Alicia Morton Age: 38 yrs Sex: Female : 1980 Arrival Date: 09/08/2018 Time: 13:55 Bed 5 Private MD: None, None ED Physician Zaid Cortez HPI: 09/08 16:33 This 38 yrs old Female presents to ER via Ambulatory with complaints of rn Nausea/Vomiting, STOMACH PAIN. 16:33 The patient presents to the emergency department with nausea, vomiting, abdominal pain, rn of the epigastric area. Onset: The symptoms/episode began/occurred last night. Possible causes: unknown. Severity of symptoms: At their worst the symptoms were moderate in the emergency department the symptoms are unchanged. The patient has experienced similar episodes in the past. Just seen by myself earlier today for same complaints, reports went home, no money to fill prescriptions, cam back because continues to throw up, + upper abd pain, all began after eating fried chicken last night. . Historical: - Allergies: 13:59 AVOCADO (LAURUS PERSEA); la1 - Home Meds: 19:43 Adempas Oral 3 times per day [Active]; Docusate Sodium Oral [Active]; macitentan 10 mg tl2 Oral [Active]; Opsumit 10 mg Oral tab 1 tab once daily [Active]; Protonix Oral [Active]; Zofran Oral [Active]; - PMHx: 13:59 ASD; Diverticulitis; Pulmonary Hypertensive Artery Dz; la1 - Immunization history:: Adult Immunizations up to date. - Social history:: Smoking status: Patient uses tobacco products, smokes one-half pack cigarettes per day. - Family history:: not pertinent. - Ebola Screening: : No symptoms or risks identified at this time. - Hospitalizations: : No recent hospitalization is reported. ROS: 16:33 Constitutional: Negative for fever, chills, and weight loss, Eyes: Negative for injury, rn pain, redness, and discharge, Neck: Negative for injury, pain, and swelling, Cardiovascular: Negative for chest pain, palpitations, and edema, Respiratory: Negative for shortness of breath, cough, wheezing, and pleuritic chest pain, Abdomen/GI: Negative for diarrhea, and constipation, MS/Extremity: Negative for injury and deformity, Skin: Negative for injury, rash, and discoloration, Neuro: Negative for headache, weakness, numbness, tingling, and seizure. Exam: 16:33 Constitutional: This is a well developed, well nourished patient who is awake, alert, rn and in no acute distress. Head/Face: Normocephalic, atraumatic. Eyes: Pupils equal round and reactive to light, extra-ocular motions intact. Lids and lashes normal. Conjunctiva and sclera are non-icteric and not injected. Cornea within normal limits. Periorbital areas with no swelling, redness, or edema. Cardiovascular: Regular rate and rhythm with a normal S1 and S2. No gallops, murmurs, or rubs. Normal PMI, no JVD. No pulse deficits. Respiratory: Lungs have equal breath sounds bilaterally, clear to auscultation and percussion. No rales, rhonchi or wheezes noted. No increased work of breathing, no retractions or nasal flaring. Abdomen/GI: soft, + mild epigastric tenderness, no rebound MS/ Extremity: Pulses equal, no cyanosis. Neurovascular intact. Full, normal range of motion. Equal circumference. Neuro: Awake and alert, GCS 15, oriented to person, place, time, and situation. Cranial nerves II-XII grossly intact. Motor strength 5/5 in all extremities. Sensory grossly intact. Cerebellar exam normal. Normal gait. Vital Signs: 14:00 BP 140 / 89; Pulse 84; Resp 18; Temp 98.6; Pulse Ox 98% on R/A; Weight 54.43 kg; Height la1 5 ft. 4 in. (162.56 cm); 19:10 BP 116 / 78; Pulse 60; Resp 18; Pulse Ox 98% on R/A; tl2 14:00 Body Mass Index 20.60 (54.43 kg, 162.56 cm) la1 MDM: 14:09 Patient medically screened. rn 17:29 Differential diagnosis: Nonspecific abd pain, gastritis, viral gastroenteritis, rn gastroenteritis. Data reviewed: vital signs, nurses notes, lab test result(s), and as a result, I will admit patient. Counseling: I had a detailed discussion with the patient and/or guardian regarding: the historical points, exam findings, and any diagnostic results supporting the discharge/admit diagnosis, lab results, radiology results, the need for further work-up and treatment in the hospital. Admission orders: after a detailed discussion of the patient's condition and case, the admit orders are written by me. ED course: Pt with several visits fo same reason, not filling prescriptions, will admit given persistent problem. . 09/08 14:03 Order name: Basic Metabolic Panel; Complete Time: 15:09 rn 09/08 14:03 Order name: CBC with Diff; Complete Time: 15: rn 09/08 14:03 Order name: Hepatic Function; Complete Time: 15: rn 09/08 14:03 Order name: Lipase; Complete Time: 15: rn 09/08 14:03 Order name: CT Abd/Pelvis - W/Contrast; Complete Time: 18:07 rn 09/08 14:03 Order name: IV Saline Lock; Complete Time: 14:17 rn 09/08 14:03 Order name: Labs collected and sent; Complete Time: 14:17 rn Administered Medications: 14:25 Drug: Zofran 4 mg Route: IVP; Site: left forearm; sg 16:00 Follow up: Response: No adverse reaction sg 15:05 Drug: morphine 4 mg Route: IVP; Site: left femoral; hb 16:00 Follow up: Response: No adverse reaction; Pain is decreased sg 18:59 Drug: Cipro 400 mg Volume: 200 ml; Route: IVPB; Infused Over: 60 mins; Site: left sg forearm; 20:00 Follow up: IV Status: Completed infusion tl2 18:59 Drug: Flagyl 500 mg Volume: 100 ml; Route: IVPB; Rate: 200 ml/hr; Infused Over: 30 sg mins; Site: left forearm; 20:00 Follow up: IV Status: Completed infusion tl2 Disposition: 09/08/18 17:30 Hospitalization ordered by Gianni Avila for Observation. Preliminary diagnosis are Vomiting, Intractable pain and vomiting, Hypokalemia. - Bed requested for Telemetry/MedSurg (observation). - Status is Observation. tl2 - Condition is Stable. - Problem is an ongoing problem. - Symptoms have improved. UTI on Admission? No Signatures: Dispatcher [employer] EDMS Rosalino Canales RN RN sg Zaid Cortez MD MD rn Attema, Lee, RN RN la1 Rissa Loyd RN RN Mimi Good RN RN tl2 Belinda Sommer Corrections: (The following items were deleted from the chart) 18:44 17:30 Hospitalization Ordered by Gianni Avila DO for Observation. Preliminary eb diagnosis is Vomiting; Intractable pain and vomiting; Hypokalemia. Bed requested for Telemetry/MedSurg (observation). Status is Observation. Condition is Stable. Problem is an ongoing problem. Symptoms have improved. UTI on Admission? No. rn 20:20 18:44 09/08/2018 17:30 Hospitalization Ordered by Gianni Avila DO for Observation. tl2 Preliminary diagnosis is Vomiting; Intractable pain and vomiting; Hypokalemia. Bed requested for Telemetry/MedSurg (observation). Status is Observation. Condition is Stable. Problem is an ongoing problem. Symptoms have improved. UTI on Admission? No. eb
--- NOTE | 2018-09-08 17:31 | ER ---
Nurse's Notes [facility] Name: Alicia Morton Age: 38 yrs Sex: Female : 1980 Arrival Date: 09/08/2018 Time: 13:55 Bed 5 Private MD: None, None Diagnosis: Vomiting;Intractable pain and vomiting;Hypokalemia Presentation: 09/08 13:57 Presenting complaint: Patient states: I came in this morning for reflux and they gave la1 me some numbing stuff and potassium and then when I got home I started vomiting and can't stop. I am also having upper abd pain. You guys also gave me an RX for a suppository in the past but I can't afford to fill it. I had a colonoscopy and they couldn;t find anything but they said I need to have an endoscopy. Transition of care: patient was not received from another setting of care. Onset of symptoms was September 08, 2018. Risk Assessment: Do you want to hurt yourself or someone else? Patient reports no desire to harm self or others. Initial Sepsis Screen: Does the patient meet any 2 criteria? No. Patient's initial sepsis screen is negative. Does the patient have a suspected source of infection? No. Patient's initial sepsis screen is negative. Care prior to arrival: None. 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 - Social history:: Smoking status: Patient uses tobacco products, smokes one-half pack cigarettes per day. - Family history:: not pertinent. - Ebola Screening: : No symptoms or risks identified at this time. - Hospitalizations: : No recent hospitalization is reported. Screenin:20 Abuse screen: Denies threats or abuse. Denies injuries from another. Nutritional sg screening: No deficits noted. Tuberculosis screening: No symptoms or risk factors identified. Never had TB. Fall Risk None identified. Assessment: 13:59 GI: Pt is actively vomiting bile. la1 14:20 General: Appears in no apparent distress. comfortable, well groomed, well developed, sg well nourished, Behavior is calm, cooperative, appropriate for age. Pain: Complains of pain in abdomen Quality of pain is described as aching, crampy, Current management - is no interventions. 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 Speech is normal, Facial symmetry appears normal. Cardiovascular: Patient's skin is warm and dry. Chest pain is denied. Respiratory: Airway is patent Respiratory effort is even, unlabored, Respiratory pattern is regular, symmetrical. GI: Reports lower abdominal pain, nausea, vomiting. : No signs and/or symptoms were reported regarding the genitourinary system. EENT: No signs and/or symptoms were reported regarding the EENT system. Derm: Skin is pink, warm \T\ dry. Musculoskeletal: No signs and/or symptoms reported regarding the musculoskeletal system. 14:32 Reassessment: pt complaining of pain and nausea, reports the Zofran has not alleviated sg her nausea, notified, awaiting orders at this time. 15:30 Reassessment: Patient appears in no apparent distress at this time. Patient and/or sg family updated on plan of care and expected duration. Pain level reassessed. Patient is alert, oriented x 3, equal unlabored respirations, skin warm/dry/pink. pt continues to drink contrast at this time, pt reports its difficult to drink the contrast due to the taste but continues to try. 16:51 Reassessment: Patient appears in no apparent distress at this time. Patient and/or sg family updated on plan of care and expected duration. Pain level reassessed. Patient is alert, oriented x 3, equal unlabored respirations, skin warm/dry/pink. awaiting CT scan at this time. 19:10 General: Appears in no apparent distress. comfortable, Behavior is calm, cooperative, tl2 appropriate for age. Pain: Complains of pain in epigastric area and abdomen. Neuro: Level of Consciousness is awake, alert, obeys commands, Oriented to person, place, time, situation. Cardiovascular: Denies chest pain. Respiratory: Airway is patent Respiratory effort is even, unlabored, Respiratory pattern is regular, symmetrical. GI: Reports upper abdominal pain, tolerance of fluids, Patient currently denies nausea, vomiting. : No signs and/or symptoms were reported regarding the genitourinary system. Derm: Skin is pink, warm \T\ dry. Vital Signs: 14:00 BP 140 / 89; Pulse 84; Resp 18; Temp 98.6; Pulse Ox 98% on R/A; Weight 54.43 kg; Height la1 5 ft. 4 in. (162.56 cm); 19:10 BP 116 / 78; Pulse 60; Resp 18; Pulse Ox 98% on R/A; tl2 14:00 Body Mass Index 20.60 (54.43 kg, 162.56 cm) la1 ED Course: 13:55 Patient arrived in ED. ag5 13:55 None, None is Private Physician. ag5 13:59 Triage completed. la1 13:59 Zaid Cortez MD is Attending Physician. rn 14:02 Arm band placed on left wrist. la1 14:15 Inserted saline lock: 20 gauge in left wrist, using aseptic technique. Blood collected. ds4 14:17 Basic Metabolic Panel Sent. ds4 14:17 CBC with Diff Sent. ds4 14:17 Hepatic Function Sent. ds4 14:17 Lipase Sent. ds4 14:36 Basic Metabolic Panel Sent. ds4 14:36 CBC with Diff Sent. ds4 14:36 Hepatic Function Sent. ds4 14:36 Lipase Sent. ds4 14:46 Rosalino Canales, MANUELA is Primary Nurse. sg 17:30 Gianni Avila DO is Hospitalizing Provider. rn 17:48 CT Abd/Pelvis - W/Contrast In Process Unspecified. EDMS 17:52 CT completed. Patient tolerated procedure well. Patient moved to CT via stretcher. Patient moved back from CT. 19:10 No provider procedures requiring assistance completed. Patient admitted, IV remains in tl2 place. 19:41 Patient has correct armband on for positive identification. Placed in gown. Bed in low tl2 position. Call light in reach. Side rails up X2. Administered Medications: 14:25 Drug: Zofran 4 mg Route: IVP; Site: left forearm; sg 16:00 Follow up: Response: No adverse reaction sg 15:05 Drug: morphine 4 mg Route: IVP; Site: left femoral; hb 16:00 Follow up: Response: No adverse reaction; Pain is decreased sg 18:59 Drug: Cipro 400 mg Volume: 200 ml; Route: IVPB; Infused Over: 60 mins; Site: left sg forearm; 20:00 Follow up: IV Status: Completed infusion tl2 18:59 Drug: Flagyl 500 mg Volume: 100 ml; Route: IVPB; Rate: 200 ml/hr; Infused Over: 30 sg mins; Site: left forearm; 20:00 Follow up: IV Status: Completed infusion tl2 Outcome: 17:30 Decision to Hospitalize by Provider. rn 19:10 Admitted to Med/surg accompanied by tech, via stretcher, room 429, with chart, Report tl2 called to MANUELA Vargas 19:10 Condition: stable 19:10 Discharge instructions given to patient, Instructed on the need for admit. 20:20 Patient left the ED. tl2 Signatures: Dispatcher [employer] EDMS Rosalino Canales RN RN sg Hagler, Ervin eh Nieto, Roman, MD MD rn Swanson, Donovan ds4 Kirit Daniels RN RN la1 Rissa Loyd RN RN hb Knox, Taylor, RN RN tl2 Jyotsna Saxena ag5 Corrections: (The following items were deleted from the chart) 19:41 19:40 BP 116 / 78; Pulse 60bpm; Resp 18bpm; Pulse Ox 98% RA; tl2 tl2
--- NOTE | 2018-09-08 18:05 | RAD REPORT ---
EXAM DESCRIPTION: CT - Abdomen Pelvis W Contrast - 09/08/2018 5:48 pm CLINICAL HISTORY: Abdominal pain with vomiting COMPARISON: July 2018 TECHNIQUE: Computed axial tomography of the abdomen pelvis was obtained. 100 cc Isovue-300 was admin istered intravenously. Oral contrast was given All CT scans are performed using dose optimization technique as appropriate and may include automated exposure control or mA/KV adjustment according to patient size. FINDINGS: The liver, spleen, pancreas, adrenal and kidneys appear unremarkable. The gallbladder has been removed The appendix is mildly enlarged. It is unchanged in appearance from the prior exam. It contains an ap pendicolith. Stranding within the adjacent fat is not seen. The wall of the sigmoid colon is mildly to moderately thickened. IMPRESSION: Mild to moderate thickening of the wall of the sigmoid colon probably indicating a colit is The appendix is mildly enlarged containing an appendicolith. It is unchanged in appearance from the p rior CT. Given that there is no stranding within the adjacent fat this may be a normal finding for th e patient. Mild appendicitis can also have this appearance and should be correlated clinically
--- NOTE | 2018-09-08 18:25 | P.HP ---
Certification for Inpatient Patient admitted to: Observation With expected LOS: <2 Midnights Patient will require the following post-hospital care: None Practitioner: I am a practitioner with admitting privileges, knowledge of patient current condition, hospital course, and medical plan of care. Services: Services provided to patient in accordance with Admission requirements found in Title 42 Section 412.3 of the Code of Federal Regulations Patient History Date of Service: 09/08/18 Primary Care Provider: none; GI-Dr. Rojas Reason for admission: Nausea and vomiting History of Present Illness: 38-year-old female presented to the emergency room with nausea and vomiting. Patient was seen earlier by the emergency room. Patient was given medication and sent home. She continued to have nausea and vomiting with mild abdominal pain. The patient came back to the ER for assessment. Pain localized to the epigastric region. She is not able to keep her oral Zofran at home. Patient reports she is seen by GI. She had a colonoscopy done on on August 14 which was unremarkable. She is to having EGDs done soon. Patient with history of tobacco abuse, GERD, atrial septal defect. She admits to smoking marijuana regularly up to twice a day at times. In the ER patient evaluated. White count 8.0, hemoglobin 14. Sodium 146, potassium 3.2, BUN of 3, creatinine 0.5 with a GFR greater than 90. Glucose 87. Lipase unremarkable. CT scan showed mild to moderate sigmoid colitis. Patient was given IV fluids and potassium replacement in the emergency room. Her symptoms did improve but patient was admitted for observation. When I saw the patient in the ER, she appeared stable. 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 - Family History Mother -: Lung disease, Other (see notes) Notes: CROHNS DSE Brother -: GI disease, Other (see notes) Notes: CROHNS DSE - Social History Smoking Status: Heavy Tobacco smoker (>10 cigarettes/day) Counseled patient to stop smoking for: less than 10 minutes Smoking therapy provided: Yes Patient receptive to therapy: No Alcohol use: No CD- Drugs: Yes Caffeine use: No Place of Residence: Home Review of Systems General: As per HPI Eyes: Unremarkable ENT: Unremarkable Respiratory: Unremarkable Cardiovascular: Unremarkable Gastrointestinal: Nausea, Vomiting, Abdominal Pain, As per HPI Genitourinary: Unremarkable Musculoskeletal: Unremarkable Integumentary: Unremarkable Neurological: Unremarkable Lymphatics: Unremarkable Physical Examination - Physical Exam General: Alert, In no apparent distress, Oriented x3, Cooperative HEENT: Atraumatic, Normocephalic, Other (Dry mucous membranes) Neck: Supple Respiratory: Clear to auscultation bilaterally, Normal air movement Cardiovascular: Normal pulses, Regular rate/rhythm Gastrointestinal: Normal bowel sounds, Soft and benign, Non-distended, No masses , No rebound, No guarding, Tenderness (Mild tenderness to the epigastric region) Musculoskeletal: No erythema, No tenderness, No warmth Integumentary: No tenderness/swelling, No erythema, No warmth, No cyanosis Neurological: Normal speech, Normal strength at 5/5 x4 extr, Normal tone, Normal affect - Studies Laboratory Data (last 24 hrs) 09/08/18 14:15: WBC 8.0, Hgb 14.4, Hct 43.7, Plt Count 232 09/08/18 14:15: Sodium 146 H, Potassium 3.2 L, BUN 3 L, Creatinine 0.57, Glucose 87, Total Bilirubin 0.4, AST 17, ALT 14, Alkaline Phosphatase 81, Lipase 69 L Assessment and Plan - Plan Impression: Nausea, vomiting, abdominal pain secondary to sigmoid colitis Tobacco and THC abuse Atrial septal defect GERD Hypokalemia Dehydration Plan: Nausea, vomiting, abdominal pain secondary to sigmoid colitis: Patient will be admitted for observation. Will continue with IV fluids. Will replace electrolytes. Will start IV Cipro and Flagyl. Will start with full liquid diet and advance as tolerated. Anticipate discharge tomorrow. Patient will need a follow up with GI as an outpatient. She is due for an EGD in the near future. Counseling on tobacco and THC cessation addressed in detail. This may be contributing to her chronic nausea. Tobacco and THC abuse: Cessation counseling addressed in detail. Will check urine drug screen. Atrial septal defect: Will continue with her medication. Patient sees cardiology. GERD: Continue with Protonix. She is to have an EGD done soon with GI. Hypokalemia: Will continue monitor and replace appropriately. Dehydration: Continue with IV fluids. Discharge Plan: Home Plan to discharge in: 24 Hours - Advance Directives Does patient have a Living Will: No Does patient have a Durable POA for Healthcare: No - Code Status/Comfort Care Code Status Assessed: Yes (Patient full code.) Time Spent Managing Pts Care (In Minutes): 55
[2018-09-08] MEDS ORDERED: METRONIDAZOLE 500mg IVPB 500 MG/100 ML BAG IV ONE (19:01)
[2018-09-08] MEDS ORDERED: CIPROFLOXACIN 400mg IV 400 MG/200 ML BAG IV ONE (19:01)
[2018-09-08] MEDS ORDERED: ONDANSETRON 4 MG/2 ML VIAL IV PRN (20:38)
[2018-09-08] MEDS ORDERED: ACETAMINOPHEN 500 MG TAB PO PRN (20:38)
[2018-09-08 21:09] VITALS: BMI 19.3
[2018-09-08 21:31] VITALS: O2SAT 86
[2018-09-08] MEDS ORDERED: TRAMADOL HCL 50 MG TAB PO PRN (21:33)
[2018-09-08] MEDS: NA CHLORIDE 0.9% 1,000 ML IV SCH (21:34)
[2018-09-08 21:59] LABS: Urine Appearance CLEAR; Urine Blood NEGATIVE (NEG); Urine Color DK YELLOW; Urine Glucose NEGATIVE (NEG); Urine Protein 1+ (NEG); Urine Specific Gravity >=1.030 (1.005-1.030)
[2018-09-08 22:05] LABS: Urine Bilirubin NEGATIVE (NEG); Urine Microscopic Reflex ORDER UMIC
[2018-09-08 22:11] LABS: Urine Bacteria NONE SEEN /HPF (<20); Urine RBC NONE SEEN /HPF (NONE SEEN)
[2018-09-08 22:12] LABS: Urine Culture Reflex Order NOT NEEDED; Urine Mucus 1+ /HPF (NONE SEEN)
[2018-09-08 22:14] LABS: Barbiturates NEGATIVE (NEGATIVE); Benzodiazepines NEGATIVE (NEGATIVE); Cocaine NEGATIVE (NEGATIVE); METHAMPHETAM NEGATIVE (NEGATIVE); Methadone NEGATIVE (NEGATIVE); Opiates POSITIVE (NEGATIVE); Phencyclidine NEGATIVE (NEGATIVE); THC Cannibis POSITIVE (NEGATIVE)
[2018-09-08] MEDS ORDERED: MORPHINE 2 MG/ML SYR IV ONE (22:33)
[2018-09-09] MEDS: METRONIDAZOLE 500mg IVPB 500 MG/100 ML BAG IV SCH ×2 (01:42→09:55)
[2018-09-09 06:17] LABS: Absolute Lymphocytes (CBC) 1.6 K/uL (0.7-4.9); Absolute Monocytes 0.9 K/uL (0.1-1.3); Absolute Neutrophil 5.9 K/uL (1.8-8.0); Basophils % 0.3 % (0-1.3); Eosinophils % 0.6 % (0-4.4); Hematocrit 38.2 % (36.0-45.0); Lymphocytes % 19.1 % (15.3-44.8); MPV 9.4 fL (7.6-11.3); Monocytes % 10.9 % (3.3-12.3); RBC Red Blood Cell Count 3.92 M/uL (3.86-4.86)
[2018-09-09] MEDS ORDERED: PANTOPRAZOLE 40MG TABLET PO SCH (06:30)
[2018-09-09] MEDS ORDERED: CIPROFLOXACIN 400mg IV 400 MG/200 ML BAG IV SCH (08:00)
[2018-09-09] MEDS: HYDROCODONE/APAP 7.5/325 MG TAB PO PRN ×2 (08:57→15:09)
[2018-09-09] MEDS ORDERED: ENOXAPARIN 40 MG/0.4 ML SQ SCH (09:00)
[2018-09-09] MEDS ORDERED: MACITENTAN PO SCH (09:00)
[2018-09-09] MEDS: RIOCIGUAT PO SCH ×2 (09:00→14:00)
[2018-09-09 09:19] LABS: ALT/SGPT 10 U/L (12-78); AST/SGOT 9 U/L (15-37); Albumin 2.7 g/dL (3.4-5.0); Alkaline Phosphatase 60 U/L (45-117); BUN Blood Urea Nitrogen 5 mg/dL (7-18); Bicarbonate 27 mmol/L (21-32); Glucose Level 82 mg/dL (74-106); Potassium 3.1 mmol/L (3.5-5.1); Protein, Total 5.3 g/dL (6.4-8.2); Sodium Level 144 mmol/L (136-145)
[2018-09-09 09:20] LABS: Bilirubin Total 0.6 mg/dL (0.2-1.0)
[2018-09-09] MEDS: NA CHLORIDE 0.9% 1,000 ML IV SCH (09:56)
[2018-09-09] MEDS ORDERED: INFLUENZA VACCINE (for 3y+) 0.5 ML DOSE IMVAC ONE (10:00)
--- NOTE | 2018-09-09 14:51 | P.DS ---
Admission Date: 09/08/18 Discharge Date: 09/09/18 Primary Care Provider: none; GI-Dr. Rojas Disposition: ROUTINE DISCHARGE Discharge Condition: GOOD Reason for Admission: Nausea and vomiting Consultations: None Procedures: CT scan: COMPARISON: July 2018 TECHNIQUE: Computed axial tomography of the abdomen pelvis was obtained. 100 cc Isovue-300 was administered intravenously. Oral contrast was given All CT scans are performed using dose optimization technique as appropriate and may include automated exposure control or mA/KV adjustment according to patient size. FINDINGS: The liver, spleen, pancreas, adrenal and kidneys appear unremarkable. The gallbladder has been removed The appendix is mildly enlarged. It is unchanged in appearance from the prior exam. It contains an appendicolith. Stranding within the adjacent fat is not seen. The wall of the sigmoid colon is mildly to moderately thickened. IMPRESSION: Mild to moderate thickening of the wall of the sigmoid colon probably indicating a colitis The appendix is mildly enlarged containing an appendicolith. It is unchanged in appearance from the prior CT. Medical Problem List: Nausea, vomiting, abdominal pain secondary to sigmoid colitis Tobacco and THC abuse Atrial septal defect GERD Hypokalemia Dehydration Suspect COPD Brief History of Present Illness: 38-year-old female presented to the emergency room with nausea and vomiting. Patient was seen earlier by the emergency room. Patient was given medication and sent home. She continued to have nausea and vomiting with mild abdominal pain. The patient came back to the ER for assessment. Pain localized to the epigastric region. She is not able to keep her oral Zofran at home. Patient reports she is seen by GI. She had a colonoscopy done on on August 14 which was unremarkable. She is to having EGDs done soon. Patient with history of tobacco abuse, GERD, atrial septal defect. She admits to smoking marijuana regularly up to twice a day at times. In the ER patient evaluated. White count 8.0, hemoglobin 14. Sodium 146, potassium 3.2, BUN of 3, creatinine 0.5 with a GFR greater than 90. Glucose 87. Lipase unremarkable. CT scan showed mild to moderate sigmoid colitis. Patient was given IV fluids and potassium replacement in the emergency room. Her symptoms did improve but patient was admitted for observation. When I saw the patient in the ER, she appeared stable. Hospital Course: Patient presented with nausea, and vomiting and abdominal pain. CT scan revealed sigmoid colitis. Patient was started on antibiotic therapy and given IV fluids. At discharge patient without significant pain. She was able tolerate a soft diet improved. Procalcitonin was normal. At discharge she will continue with Cipro 500 mg twice daily and Flagyl 500 mg 3 times a day for 10 days. Patient had recent colonoscopy with her GI specialist recently. She is due to have an EGD here soon. Recommend to follow up with GI in 1-2 weeks to follow up this hospitalization. Patient with tobacco and THC abuse. Patient smokes THC at least twice daily. This may be contributing to her chronic nausea and vomiting. Recommend on THC cessation or decrease. This was addressed in detail. Patient plans to comply. Patient with atrial septal defect. Patient will continue with her medications Opsumit 10 mg daily and Adempas 2.5 mg 3 times a day. Patient will need a follow up with cardiology. Patient with GERD. Patient will continue with Protonix 40 mg daily. She is to see GI soon for EGD that has been planned as an outpatient. Patient likely has underlying COPD with history of tobacco use. At discharge will recommend patient continue with Dulera puffs twice daily and Pro air 2 puffs 3 times a day as needed for shortness of breath. Patient may follow up with pulmonology as an outpatient to further evaluate. Vital Signs/Physical Exam: Temp Pulse Resp BP Pulse Ox 98.1 F 71 16 116/61 91 09/09/18 12:00 09/09/18 12:00 09/09/18 12:00 09/09/18 12:00 09/09/18 12:00 General: Alert, In no apparent distress, Oriented x3, Cooperative HEENT: Atraumatic Neck: Supple Respiratory: Clear to auscultation bilaterally, Normal air movement Cardiovascular: Normal pulses, Regular rate/rhythm Gastrointestinal: Normal bowel sounds, Soft and benign, Non-distended, No tenderness, No masses, No rebound, No guarding Musculoskeletal: No erythema, No tenderness, No warmth Integumentary: No tenderness/swelling, No erythema, No warmth, No cyanosis Neurological: Normal speech, Normal strength at 5/5 x4 extr, Normal tone, Normal affect Laboratory Data at Discharge: WBC 8.6 K/uL (4.3-10.9) 09/09/18 05:30 Hgb 12.6 g/dL (12.0-15.0) 09/09/18 05:30 Hct 38.2 % (36.0-45.0) 09/09/18 05:30 Plt Count 188 K/uL (152-406) 09/09/18 05:30 Sodium 144 mmol/L (136-145) 09/09/18 05:30 Potassium 3.1 mmol/L (3.5-5.1) L 09/09/18 05:30 BUN 5 mg/dL (7-18) L 09/09/18 05:30 Creatinine 0.44 mg/dL (0.55-1.3) L 09/09/18 05:30 Glucose 82 mg/dL (74-106) 09/09/18 05:30 Magnesium 2.0 mg/dL (1.8-2.4) 09/09/18 05:30 Total Bilirubin 0.6 mg/dL (0.2-1.0) 09/09/18 05:30 AST 9 U/L (15-37) L 09/09/18 05:30 ALT 10 U/L (12-78) L 09/09/18 05:30 Alkaline Phosphatase 60 U/L (45-117) 09/09/18 05:30 Lipase 69 U/L (73-393) L 09/08/18 14:15 Home Medications: Macitentan [Opsumit] 1 tab PO DAILY 06/19/18 Riociguat [Adempas] 1 tab PO TID 06/19/18 Pantoprazole [Protonix Tab*] 40 mg PO DAILY 08/12/18 Albuterol Sulfate [Proair Hfa] 2 puff IH TID PRN #1 hfa.[email or web address] 09/09/18 Ciprofloxacin HCl [Cipro 500 MG Tablet] 500 mg PO BID #20 tab 09/09/18 Mometasone/Formoterol [Dulera 200 Mcg/5 Mcg Inhaler] 2 puff IH BID #1 inhaler Ondansetron HCl 4 mg PO BID PRN #15 tablet 09/09/18 metroNIDAZOLE [Flagyl] 500 mg PO Q8H #30 tablet 09/09/18 New Medications: Albuterol Sulfate [Proair Hfa] 2 puff IH TID PRN #1 hfa.aer.ad PRN Reason: Shortness Of Breath Ciprofloxacin HCl [Cipro 500 MG Tablet] 500 mg PO BID #20 tab metroNIDAZOLE [Flagyl] 500 mg PO Q8H #30 tablet Mometasone/Formoterol [Dulera 200 Mcg/5 Mcg Inhaler] 2 puff IH BID #1 inhaler Ondansetron HCl 4 mg PO BID PRN #15 tablet PRN Reason: Nausea / Vomiting Patient Discharge Instructions: 1. Patient will need to follow up with her PCP and GI to follow up this hospitalization. 2. Patient presented with nausea, and vomiting and abdominal pain. CT scan revealed sigmoid colitis. Patient was started on antibiotic therapy and given IV fluids. At discharge patient without significant pain. She was able tolerate a soft diet improved. Procalcitonin was normal. At discharge she will continue with Cipro 500 mg twice daily and Flagyl 500 mg 3 times a day for 10 days. Patient had recent colonoscopy with her GI specialist recently. She is due to have an EGD here soon. Recommend to follow up with GI in 1-2 weeks to follow up this hospitalization. 3. Patient with tobacco and THC abuse. Patient smokes THC at least twice daily. This may be contributing to her chronic nausea and vomiting. Recommend on THC cessation or decrease. This was addressed in detail. Patient plans to comply. 4. Patient with atrial septal defect. Patient will continue with her medications Opsumit 10 mg daily and Adempas 2.5 mg 3 times a day. Patient will need a follow up with cardiology. 5. Patient with GERD. Patient will continue with Protonix 40 mg daily. She is to see GI soon for EGD that has been planned as an outpatient. 6. Patient likely has underlying COPD with history of tobacco use. At discharge will recommend patient continue with Dulera puffs twice daily and Pro air 2 puffs 3 times a day as needed for shortness of breath. Patient may follow up with pulmonology as an outpatient to further evaluate. Diet: GI soft diet Activity: Ad doris Time spent managing pt's care (in minutes): 55
[2018-09-09 16:39] VITALS: BP 118/62; TEMP 97.7
== END 2018-09-09 18:55 | disposition home or self-care (01) ==
LOC: ER 13:54 → ERHOLD 18:11 → 4TH 20:05
PROVIDERS: ADMIT Family Medicine; ATTEND Family Medicine
DX: K52.9 Noninfective gastroenteritis and colitis, unspecified (principal); F17.210 Nicotine dependence, cigarettes, uncomplicated; F12.10 Cannabis abuse, uncomplicated; Q21.1 Atrial septal defect; K21.9 Gastro-esophageal reflux disease without esophagitis; E87.6 Hypokalemia; E86.0 Dehydration
CPT/HCPCS: 36415; 74177; 80048; 80053; 80076; 80307; 81003; 81015; 83690; 83735; 84145; 85025; 96365; 96368; 96375; 99285; G0378; J0744; J1650; J2270; J2405; J7030; Q9967

== ENCOUNTER 2018-09-11 13:54 | Emergency (ER) | payer BC ==
[2018-09-11] MEDS ORDERED: HALOPERIDOL LACT 5 MG/ML INJ ONE (15:01)
[2018-09-11] MEDS ORDERED: NA CHLORIDE 0.9% 1,000 ML ONE (15:01)
[2018-09-11] MEDS ORDERED: PROMETHAZINE 25 MG/ML VIAL ONE (15:01)
[2018-09-11 15:11] LABS: Absolute Monocytes 0.7 K/uL (0.1-1.3); Absolute Neutrophil 4.3 K/uL (1.8-8.0); Basophils % 0.7 % (0-1.3); Eosinophils % 1.9 % (0-4.4); Lymphocytes % 16.6 % (15.3-44.8); MPV 8.5 fL (7.6-11.3); RBC Red Blood Cell Count 4.29 M/uL (3.86-4.86)
[2018-09-11 15:36] LABS: ALT/SGPT 11 U/L (12-78); AST/SGOT 13 U/L (15-37); Albumin 3.1 g/dL (3.4-5.0); Alkaline Phosphatase 67 U/L (45-117); BUN Blood Urea Nitrogen 3 mg/dL (7-18); Bicarbonate 27 mmol/L (21-32); Bilirubin Direct 0.2 mg/dL (0-0.2); Bilirubin Total 0.5 mg/dL (0.2-1.0); Glucose Level 95 mg/dL (74-106); Lipase 60 U/L (73-393); Potassium 3.1 mmol/L (3.5-5.1); Protein, Total 6.1 g/dL (6.4-8.2); Sodium Level 141 mmol/L (136-145)
--- NOTE | 2018-09-11 16:15 | ER ---
Nurse's Notes [facility] Name: Alicia Morton Age: 38 yrs Sex: Female : 1980 Arrival Date: 09/11/2018 Time: 13:56 Bed 25 Private MD: None, None Diagnosis: Vomiting;Hypokalemia Presentation: 09/11 14:08 Presenting complaint: Patient states: Abdominal pain and N/V x 2 days. Pt recently hb hospitalized with colitis. Not tolerating liquids/medications. Transition of care: patient was not received from another setting of care. Onset of symptoms was September 10, 2018. Risk Assessment: Do you want to hurt yourself or someone else? Patient reports no desire to harm self or others. Initial Sepsis Screen: Does the patient meet any 2 criteria? No. Patient's initial sepsis screen is negative. Does the patient have a suspected source of infection? No. Patient's initial sepsis screen is negative. Care prior to arrival: None. 14:08 Method Of Arrival: Ambulatory hb 14:08 Acuity: RICARDO 3 hb TUBE MOUNTER: 14:09 [facility] 09/01/2018 hb Historical: - Allergies: 14:10 AVOCADO (LAURUS PERSEA); hb - Home Meds: 15:59 Adempas Oral 3 times per day [Active]; Docusate Sodium Oral [Active]; macitentan 10 mg mg2 Oral [Active]; Opsumit 10 mg Oral tab 1 tab once daily [Active]; Protonix Oral [Active]; Zofran Oral [Active]; - PMHx: 15:59 ASD; Diverticulitis; Pulmonary Hypertensive Artery Dz; mg2 - Immunization history:: Adult Immunizations up to date. - Social history:: Smoking status: Patient uses tobacco products, smokes one-half pack cigarettes per day. - Ebola Screening: : No symptoms or risks identified at this time. Screenin:43 Abuse screen: Denies threats or abuse. Denies injuries from another. Nutritional aj screening: No deficits noted. Tuberculosis screening: No symptoms or risk factors identified. Fall Risk None identified. Assessment: 14:43 General: Appears in no apparent distress. comfortable, Behavior is calm, cooperative, aj appropriate for age. Pain: Complains of pain in abdomen. Neuro: Level of Consciousness is awake, alert, obeys commands, Oriented to person, place, time, situation, Appropriate for age. Respiratory: Airway is patent Respiratory effort is even, unlabored, Respiratory pattern is regular, symmetrical. GI: Abdomen is flat, non-distended, Reports nausea, vomiting. Derm: Skin is intact, is healthy with good turgor, Skin is pink, warm \T\ dry. normal. 16:22 Reassessment: Patient denies pain at this time. mg2 Vital Signs: 14:09 BP 132 / 100; Pulse 73; Resp 16; Temp 98.5; Pulse Ox 100% on R/A; Pain 8/10; hb 15:58 BP 120 / 75; Pulse 70; Resp 18; Pulse Ox 95% on R/A; Pain 4/10; mg2 ED Course: 13:56 Patient arrived in ED. sb2 13:56 None, None is Private Physician. sb2 14:09 Triage completed. hb 14:10 Arm band placed on. hb 14:11 Olga Washington, RN is Primary Nurse. aj 14:15 Jairon Coronado MD is Attending Physician. gs 14:43 Patient has correct armband on for positive identification. aj 15:02 Inserted saline lock: 22 gauge in left hand, using aseptic technique. Blood collected. aj 15:03 Lipase Sent. aj 15:03 Hepatic Function Sent. aj 15:03 CBC with Diff Sent. aj 15:03 Basic Metabolic Panel Sent. aj 15:57 Beka Celeste, RN is Primary Nurse. mg2 15:59 No provider procedures requiring assistance completed. mg2 16:21 IV discontinued, intact, bleeding controlled, No redness/swelling at site. Pressure mg2 dressing applied. Administered Medications: 15:03 Drug: HALdol 2.5 mg Route: IVP; Site: left hand; aj 15:57 Follow up: Response: No adverse reaction; Marked relief of symptoms mg2 15:03 Drug: Benadryl 12.5 mg Route: IVP; Site: left hand; aj 15:57 Follow up: Response: No adverse reaction; Marked relief of symptoms mg2 15:03 Drug: NS 0.9% 1000 ml Route: IV; Rate: 1 bolus; Site: left hand; aj 16:13 Follow up: Response: No adverse reaction; IV Status: Completed infusion mg2 16:14 Drug: Potassium Effervescent Tablet 50 mEq Route: PO; mg2 16:14 Follow up: Response: No adverse reaction; Medication administered at discharge. mg2 Outcome: 16:11 Discharge ordered by . 16:22 Discharged to home ambulatory, with family. mg2 16:22 Condition: good 16:22 Discharge instructions given to patient, family, Instructed on discharge instructions, follow up and referral plans. medication usage, Demonstrated understanding of instructions, follow-up care, medications, Prescriptions given X 2. 16:22 Patient left the ED. mg2 Signatures: Olga Washington RN RN Rissa Barnett RN RN Jairon Coronado MD MD gs Billeau, Sheri sb2 Beka Celeste RN RN mg2
--- NOTE | 2018-09-11 16:15 | EDPHYS ---
Physician Documentation [facility] Name: Alicia Morton Age: 38 yrs Sex: Female : 1980 Arrival Date: 09/11/2018 Time: 13:56 Bed 25 Private MD: None, None ED Physician Jairon Coronado HPI: 09/11 17:41 This 38 yrs old Female presents to ER via Ambulatory with complaints of gs Nausea/Vomiting. 17:41 The patient presents to the emergency department with vomiting. Onset: The gs symptoms/episode began/occurred 2 day(s) ago. Possible causes: flare up of bowel problem. The symptoms are aggravated by nothing. The symptoms are alleviated by nothing. Associated signs and symptoms: Pertinent negatives: fever, GI bleeding, hematuria. Severity of symptoms: At their worst the symptoms were severe in the emergency department the symptoms have improved markedly. The patient has experienced similar episodes in the past, chronically. The patient has been recently been admitted at [facility], was discharged from the hospital September 09, 2018. 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 - Social history:: Smoking status: Patient uses tobacco products, smokes one-half pack cigarettes per day. - Ebola Screening: : No symptoms or risks identified at this time. ROS: 17:41 All other systems are negative. gs Exam: 17:41 Head/Face: Normocephalic, atraumatic. Eyes: Pupils equal round and reactive to light, gs extra-ocular motions intact. Lids and lashes normal. Conjunctiva and sclera are non-icteric and not injected. Cornea within normal limits. Periorbital areas with no swelling, redness, or edema. ENT: Nares patent. No nasal discharge, no septal abnormalities noted. Tympanic membranes are normal and external auditory canals are clear. Oropharynx with no redness, swelling, or masses, exudates, or evidence of obstruction, uvula midline. Mucous membranes moist. Neck: Trachea midline, no thyromegaly or masses palpated, and no cervical lymphadenopathy. Supple, full range of motion without nuchal rigidity, or vertebral point tenderness. No Meningismus. Chest/axilla: Normal chest wall appearance and motion. Nontender with no deformity. No lesions are appreciated. Cardiovascular: Regular rate and rhythm with a normal S1 and S2. No gallops, murmurs, or rubs. Normal PMI, no JVD. No pulse deficits. Respiratory: Lungs have equal breath sounds bilaterally, clear to auscultation and percussion. No rales, rhonchi or wheezes noted. No increased work of breathing, no retractions or nasal flaring. Back: No spinal tenderness. No costovertebral tenderness. Full range of motion. Skin: Warm, dry with normal turgor. Normal color with no rashes, no lesions, and no evidence of cellulitis. MS/ Extremity: Pulses equal, no cyanosis. Neurovascular intact. Full, normal range of motion. Neuro: Awake and alert, GCS 15, oriented to person, place, time, and situation. Cranial nerves II-XII grossly intact. Motor strength 5/5 in all extremities. Sensory grossly intact. Cerebellar exam normal. Normal gait. 17:41 Constitutional: The patient appears alert, awake. 17:41 Abdomen/GI: Palpation: mild abdominal tenderness, in all quadrants, rebound tenderness, is not appreciated. Vital Signs: 14:09 BP 132 / 100; Pulse 73; Resp 16; Temp 98.5; Pulse Ox 100% on R/A; Pain 8/10; hb 15:58 BP 120 / 75; Pulse 70; Resp 18; Pulse Ox 95% on R/A; Pain 4/10; mg2 MDM: 14:41 Patient medically screened. gs 17:41 Differential diagnosis: Nonspecific abd pain, gastritis, viral gastroenteritis, gs gastroenteritis. Data reviewed: vital signs, nurses notes. Response to treatment: the patient's symptoms have markedly improved after treatment, the patient's symptoms have resolved after treatment, patient is well hydrated. no emesis during ed visit, and as a result, I will discharge patient. 09/11 14:44 Order name: Basic Metabolic Panel; Complete Time: 16:00 09/11 14:44 Order name: CBC with Diff; Complete Time: 16:00 09/11 14:44 Order name: Hepatic Function; Complete Time: 16:00 09/11 14:44 Order name: Lipase; Complete Time: 16:00 09/11 14:44 Order name: Urine Dipstick--Ancillary (enter results) 09/11 14:44 Order name: Urine --Ancillary (enter results) 09/11 14:44 Order name: IV Saline Lock; Complete Time: 15:02 09/11 14:44 Order name: Labs collected and sent; Complete Time: 15:03 Administered Medications: 15:03 Drug: HALdol 2.5 mg Route: IVP; Site: left hand; aj 15:57 Follow up: Response: No adverse reaction; Marked relief of symptoms mg2 15:03 Drug: Benadryl 12.5 mg Route: IVP; Site: left hand; aj 15:57 Follow up: Response: No adverse reaction; Marked relief of symptoms mg2 15:03 Drug: NS 0.9% 1000 ml Route: IV; Rate: 1 bolus; Site: left hand; aj 16:13 Follow up: Response: No adverse reaction; IV Status: Completed infusion mg2 16:14 Drug: Potassium Effervescent Tablet 50 mEq Route: PO; mg2 16:14 Follow up: Response: No adverse reaction; Medication administered at discharge. mg2 Disposition: 09/11/18 16:11 Discharged to Home. Impression: Vomiting, Hypokalemia. - Condition is Stable. - Discharge Instructions: Nausea and Vomiting, Adult. - Prescriptions for Potassium Chloride 20 meq Oral Packet - take 1 packet by ORAL route once daily 1 packet in 6 (six) ounces of water or juice; Take after meal; 20 packet. Phenergan 25 mg Rectal Suppository - insert 1 suppository by RECTAL route every 6 hours As needed; 12 suppository. - Medication Reconciliation Form, Thank You Letter, Antibiotic Education, Prescription Opioid Use form. - Follow up: Private Physician; When: 2 - 3 days; Reason: Re-evaluation by your physician. Signatures: Dispatcher [employer] Olga Wood RN RN aj Baxter, Heather, RN RN Coronado, Jairon, MD MD gs Gardose, Beka, RN RN mg2 Corrections: (The following items were deleted from the chart) 16:22 16:11 09/11/2018 16:11 Discharged to Home. Impression: Vomiting; Hypokalemia. Condition mg2 is Stable. Forms are Medication Reconciliation Form, Thank You Letter, Antibiotic Education, Prescription Opioid Use. Follow up: Private Physician; When: 2 - 3 days; Reason: Re-evaluation by your physician. gs
[2018-09-11] MEDS ORDERED: POTASSIUM 25 MEQ EFFERV TAB ONE (16:21)
[2018-09-11 16:31] VITALS: TEMP 98.5
[2018-09-11 16:36] VITALS: BP 120/75; O2SAT 95
[2018-09-11 16:38] LABS: Urine Blood NEGATIVE (NEG); Urine Glucose NEGATIVE (NEG); Urine Protein TRACE (NEG); Urine Specific Gravity 1.025 (1.005-1.030)
== END 2018-09-11 16:22 | disposition home or self-care (01) ==
LOC: ER 13:54
DX: R11.2 Nausea with vomiting, unspecified (principal); E87.6 Hypokalemia; Z91.018 Allergy to other foods; I11.9 Hypertensive heart disease without heart failure
CPT/HCPCS: 36415; 80048; 80076; 81003; 81025; 83690; 85025; 96361; 96374; 96375; 99284; J1630; J2550; J7030

== ENCOUNTER 2018-09-13 14:36 | Emergency (ER) | payer BC ==
[2018-09-13] MEDS ORDERED: NA CHLORIDE 0.9% 1,000 ML ONE (15:51)
[2018-09-13 15:57] LABS: Absolute Lymphocytes (CBC) 1.3 K/uL (0.7-4.9); Absolute Monocytes 0.7 K/uL (0.1-1.3); Absolute Neutrophil 4.3 K/uL (1.8-8.0); Basophils % 0.9 % (0-1.3); Eosinophils % 1.3 % (0-4.4); Hematocrit 48.3 % (36.0-45.0); Lymphocytes % 19.9 % (15.3-44.8); MPV 8.9 fL (7.6-11.3); Monocytes % 11.3 % (3.3-12.3)
[2018-09-13 16:06] LABS: Urine Blood TRACE (NEG); Urine Glucose NEGATIVE (NEG); Urine Protein 2+ (NEG); Urine Specific Gravity 1.025 (1.005-1.030)
[2018-09-13 16:11] LABS: Urine Bacteria 20-50 /HPF (<20); Urine RBC <5 /HPF (NONE SEEN)
[2018-09-13 16:12] LABS: Urine Culture Reflex Order NOT NEEDED; Urine Mucus HEAVY /HPF (NONE SEEN)
[2018-09-13 16:19] LABS: ALT/SGPT 45 U/L (12-78); AST/SGOT 120 U/L (15-37); Albumin 3.8 g/dL (3.4-5.0); Alkaline Phosphatase 85 U/L (45-117); BUN Blood Urea Nitrogen 4 mg/dL (7-18); Bicarbonate 23 mmol/L (21-32); Bilirubin Direct 0.2 mg/dL (0-0.2); Bilirubin Total 0.7 mg/dL (0.2-1.0); Glucose Level 92 mg/dL (74-106); Lipase 73 U/L (73-393); Potassium 3.5 mmol/L (3.5-5.1); Protein, Total 7.2 g/dL (6.4-8.2); Sodium Level 140 mmol/L (136-145)
[2018-09-13] MEDS ORDERED: PROMETHAZINE 25 MG/ML VIAL ONE (17:01)
[2018-09-13] MEDS ORDERED: MORPHINE 4 MG/ML SYR ONE (17:01)
--- NOTE | 2018-09-13 17:51 | ER ---
Nurse's Notes [facility] Name: Alicia Morton Age: 38 yrs Sex: Female : 1980 Arrival Date: 09/13/2018 Time: 14:38 Bed 30 Private MD: None, None Diagnosis: Nausea and vomiting;Diarrhea, unspecified Presentation: 09/13 14:40 Presenting complaint: Patient states: i am constantly throwing up and it has been going tw2 on for 3 months, they gave me suppositories but it isnt helping, suppositories are not working either, i am having abdominal pain its really bad. Transition of care: patient was not received from another setting of care. Onset of symptoms was September 13, 2018. Risk Assessment: Do you want to hurt yourself or someone else? Patient reports no desire to harm self or others. Initial Sepsis Screen: Does the patient meet any 2 criteria? No. Patient's initial sepsis screen is negative. Does the patient have a suspected source of infection? No. Patient's initial sepsis screen is negative. Care prior to arrival: None. 14:40 Method Of Arrival: Ambulatory tw2 14:40 Acuity: RICARDO 3 tw2 Triage Assessment: 14:42 General: Appears uncomfortable, unkempt, Behavior is crying. Pain: Complains of pain in tw2 abdomen. GI: Reports intolerance of fluids, intolerance of food, nausea, vomiting. YEAST PUMPER: 14:41 LMP 08/30/2017 tw2 Historical: - Allergies: 14:43 AVOCADO (LAURUS PERSEA); tw2 - Home Meds: 14:43 Zofran Oral [Active]; Protonix Oral [Active]; Adempas Oral 3 times per day [Active]; tw2 Docusate Sodium Oral [Active]; macitentan 10 mg Oral [Active]; Opsumit 10 mg Oral tab 1 tab once daily [Active]; - PMHx: 14:43 ASD; Diverticulitis; Pulmonary Hypertensive Artery Dz; tw2 - Immunization history:: Adult Immunizations up to date. - Social history:: Smoking status: Patient uses tobacco products, smokes one-half pack cigarettes per day. - Ebola Screening: : Patient denies travel to an Ebola-affected area in the 21 days before illness onset. Screenin:13 Abuse screen: Denies threats or abuse. Denies injuries from another. Nutritional rv screening: No deficits noted. Tuberculosis screening: No symptoms or risk factors identified. Fall Risk None identified. Assessment: 15:12 General: Appears in no apparent distress. uncomfortable, Behavior is calm, cooperative. rv Pain: Complains of pain in abdomen. Neuro: Level of Consciousness is awake, alert, obeys commands, Oriented to person, place, time, situation. Cardiovascular: Capillary refill < 3 seconds. Respiratory: Airway is patent. GI: Abdomen is round Reports nausea, vomiting. : No signs and/or symptoms were reported regarding the genitourinary system. EENT: No signs and/or symptoms were reported regarding the EENT system. Derm: Skin is intact. Musculoskeletal: No signs and/or symptoms reported regarding the musculoskeletal system. 17:23 Reassessment: Patient appears in no apparent distress at this time. Patient and/or rv family updated on plan of care and expected duration. Pain level reassessed. Patient is alert, oriented x 3, equal unlabored respirations, skin warm/dry/pink. patient is asleep. Vital Signs: 14:41 BP 151 / 96; Pulse 83; Resp 19; Temp 98.3(O); Pulse Ox 95% on R/A; Weight 54.43 kg (R); tw2 Height 5 ft. 4 in. (162.56 cm) (R); Pain 10/10; 15:00 BP 112 / 77; Pulse 68; Resp 18; Pulse Ox 99% on R/A; rv 16:00 BP 136 / 66; Pulse 79; Resp 18; Pulse Ox 99% on R/A; rv 17:00 BP 126 / 74; Pulse 77; Resp 17 S; Pulse Ox 99% on R/A; rv 17:30 BP 111 / 63; Pulse 67; Resp 18 S; Pulse Ox 99% on R/A; rv 18:00 BP 110 / 62; Pulse 63; Resp 16 S; Pulse Ox 99% on R/A; rv 14:41 Body Mass Index 20.60 (54.43 kg, 162.56 cm) tw2 ED Course: 14:38 Patient arrived in ED. sb2 14:39 None, None is Private Physician. sb2 14:41 Triage completed. tw2 14:42 Arm band placed on. tw2 15:00 Inserted saline lock: 22 gauge in right forearm, using aseptic technique. Blood rv collected. 15:04 Viral Patel NP is PHCP. pm1 15:04 Yonathan John MD is Attending Physician. pm1 15:13 Patient has correct armband on for positive identification. Bed in low position. Call rv light in reach. Side rails up X 1. Adult w/ patient. Pulse ox on. NIBP on. 15:48 Urine Microscopic Only Sent. rv 18:25 No provider procedures requiring assistance completed. IV discontinued, bleeding rv controlled, No redness/swelling at site. Pressure dressing applied. Administered Medications: 15:48 Drug: NS 0.9% 1000 ml Route: IV; Rate: 1000 ml; Site: right forearm; rv 17:51 Follow up: IV Status: Completed infusion rv 17:00 Drug: morphine 4 mg Route: IVP; Site: right forearm; rv 17:51 Follow up: Response: Pain is decreased rv 17:00 Drug: Phenergan 12.5 mg Route: IVP; Site: right forearm; rv 17:51 Follow up: Response: Nausea is decreased rv Outcome: 17:49 Discharge ordered by MD. pm1 18:25 Discharged to home ambulatory. rv 18:25 Condition: good 18:25 Discharge instructions given to patient, Instructed on discharge instructions, follow up and referral plans. medication usage, Demonstrated understanding of instructions, follow-up care, medications, Prescriptions given X 4. 18:26 Patient left the ED. rv Signatures: Viral Patel NP [employer] pm1 Leola Smith RN RN tw2 Apoorva Toledo sb2 Tony Romero RN RN rv
--- NOTE | 2018-09-13 17:51 | EDPHYS ---
Physician Documentation [facility] Name: Alicia Morton Age: 38 yrs Sex: Female : 1980 Arrival Date: 09/13/2018 Time: 14:38 Bed 30 Private MD: None, None ED Physician Yonathan John HPI: 09/13 16:00 This 38 yrs old Female presents to ER via Ambulatory with complaints of pm1 Nausea/Vomiting. 16:00 The patient presents to the emergency department with nausea, vomiting, diarrhea, pm1 abdominal pain. Onset: The symptoms/episode began/occurred Off and on for the past 3 months. Patient with onset of symptoms this AM. Patient without any N/V/D or pain yesterday.. Possible causes: flare up of bowel problem. The symptoms are aggravated by nothing. The symptoms are alleviated by nothing. Associated signs and symptoms: Pertinent negatives: dysuria, fever. The patient has experienced similar episodes in the past, multiple times. The patient has been recently seen at the [facility] Emergency Department, last week. 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 - Social history:: Smoking status: Patient uses tobacco products, smokes one-half pack cigarettes per day. - Ebola Screening: : Patient denies travel to an Ebola-affected area in the 21 days before illness onset. ROS: 16:00 Constitutional: Negative for fever, chills, and weight loss, Eyes: Negative for injury, pm1 pain, redness, and discharge, ENT: Negative for injury, pain, and discharge, Neck: Negative for injury, pain, and swelling, Cardiovascular: Negative for chest pain, palpitations, and edema, Respiratory: Negative for shortness of breath, cough, wheezing, and pleuritic chest pain. 16:00 Back: Negative for injury and pain, : Negative for injury, bleeding, discharge, and swelling, MS/Extremity: Negative for injury and deformity, Skin: Negative for injury, rash, and discoloration, Neuro: Negative for headache, weakness, numbness, tingling, and seizure. 16:00 Abdomen/GI: Positive for abdominal pain, nausea, vomiting, and diarrhea, of the left lower quadrant, Negative for constipation. Exam: 16:00 Constitutional: This is a well developed, well nourished patient who is awake, alert, pm1 and in no acute distress. Head/Face: Normocephalic, atraumatic. Eyes: Pupils equal round and reactive to light, extra-ocular motions intact. Lids and lashes normal. Conjunctiva and sclera are non-icteric and not injected. Cornea within normal limits. Periorbital areas with no swelling, redness, or edema. ENT: Nares patent. No nasal discharge, no septal abnormalities noted. Tympanic membranes are normal and external auditory canals are clear. Oropharynx with no redness, swelling, or masses, exudates, or evidence of obstruction, uvula midline. Mucous membranes moist. Neck: Trachea midline, no thyromegaly or masses palpated, and no cervical lymphadenopathy. Supple, full range of motion without nuchal rigidity, or vertebral point tenderness. No Meningismus. Chest/axilla: Normal chest wall appearance and motion. Nontender with no deformity. No lesions are appreciated. Cardiovascular: Regular rate and rhythm with a normal S1 and S2. No gallops, murmurs, or rubs. Normal PMI, no JVD. No pulse deficits. Respiratory: Lungs have equal breath sounds bilaterally, clear to auscultation and percussion. No rales, rhonchi or wheezes noted. No increased work of breathing, no retractions or nasal flaring. Abdomen/GI: Soft, non-tender, with normal bowel sounds. No distension or tympany. No guarding or rebound. No evidence of tenderness throughout. Back: No spinal tenderness. No costovertebral tenderness. Full range of motion. Skin: Warm, dry with normal turgor. Normal color with no rashes, no lesions, and no evidence of cellulitis. MS/ Extremity: Pulses equal, no cyanosis. Neurovascular intact. Full, normal range of motion. 16:00 Neuro: Orientation: is normal, Motor: is normal, moves all fours. Vital Signs: 14:41 BP 151 / 96; Pulse 83; Resp 19; Temp 98.3(O); Pulse Ox 95% on R/A; Weight 54.43 kg (R); tw2 Height 5 ft. 4 in. (162.56 cm) (R); Pain 10/10; 15:00 BP 112 / 77; Pulse 68; Resp 18; Pulse Ox 99% on R/A; rv 16:00 BP 136 / 66; Pulse 79; Resp 18; Pulse Ox 99% on R/A; rv 17:00 BP 126 / 74; Pulse 77; Resp 17 S; Pulse Ox 99% on R/A; rv 17:30 BP 111 / 63; Pulse 67; Resp 18 S; Pulse Ox 99% on R/A; rv 18:00 BP 110 / 62; Pulse 63; Resp 16 S; Pulse Ox 99% on R/A; rv 14:41 Body Mass Index 20.60 (54.43 kg, 162.56 cm) tw2 MDM: 15:26 Patient medically screened. pm1 17:48 Data reviewed: vital signs. Data interpreted: Pulse oximetry: on room air is 99 %. pm1 Interpretation: normal. 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 09/13 15:38 Order name: Basic Metabolic Panel; Complete Time: 16:35 pm1 09/13 15:38 Order name: CBC with Diff; Complete Time: 16:24 pm09/13 15:38 Order name: Creatinine for Radiology; Complete Time: 16:24 pm09/13 15:38 Order name: Hepatic Function; Complete Time: 16:35 pm1 09/13 15:38 Order name: Lipase; Complete Time: 16:35 pm1 09/13 15:38 Order name: Urine Microscopic Only; Complete Time: 16:24 pm1 09/13 15:38 Order name: IV Saline Lock; Complete Time: 15:48 pm1 09/13 15:38 Order name: Labs collected and sent; Complete Time: 15:48 pm1 09/13 15:38 Order name: Urine Dipstick-Ancillary (obtain specimen); Complete Time: 15:49 pm1 09/13 15:53 Order name: Urine Dipstick--Ancillary (enter results); Complete Time: 16:24 em1 09/13 15:53 Order name: Urine --Ancillary (enter results); Complete Time: 16:24 em1 Administered Medications: 15:48 Drug: NS 0.9% 1000 ml Route: IV; Rate: 1000 ml; Site: right forearm; rv 17:51 Follow up: IV Status: Completed infusion rv 17:00 Drug: morphine 4 mg Route: IVP; Site: right forearm; rv 17:51 Follow up: Response: Pain is decreased rv 17:00 Drug: Phenergan 12.5 mg Route: IVP; Site: right forearm; rv 17:51 Follow up: Response: Nausea is decreased rv Disposition: 09/14 06:57 Co-signature as Attending Physician, Yonathan John MD I agree with the assessment and kdr plan of care. Disposition: 09/13/18 17:49 Discharged to Home. Impression: Nausea and vomiting, Diarrhea, unspecified. - Condition is Stable. - Discharge Instructions: Food Choices to Help Relieve Diarrhea, Adult, Diarrhea, Adult, Nausea and Vomiting, Adult. - Prescriptions for Bentyl 20 mg Oral Tablet - take 1 tablet by ORAL route every 6 hours As needed; 20 tablet. Zofran 4 mg Oral Tablet - take 1 tablet by ORAL route every 12 hours As needed; 20 tablet. Phenergan 25 mg Rectal Suppository - insert 1 suppository by RECTAL route every 6 hours As needed; 12 suppository. Tylenol- Codeine #3 300-30 mg Oral Tablet - take 2 tablets by ORAL route every 6 hours As needed; 20 tablet. - Medication Reconciliation Form, Thank You Letter, Antibiotic Education, Prescription Opioid Use, Family Work Release form. - Follow up: Emergency Department; When: As needed; Reason: Worsening of condition. Follow up: Private Physician; When: 2 - 3 days; Reason: Recheck today's complaints, Continuance of care, Re-evaluation by your physician. - Problem is new. - Symptoms have improved. Signatures: Dispatcher [employer] EDMS Yonathan John MD MD kdr Viral Patel NP CATTLE BROKER pm1 Leola Smith, RN RN tw2 Tony Romero, RN RN rv Corrections: (The following items were deleted from the chart) 09/13 18:26 17:49 09/13/2018 17:49 Discharged to Home. Impression: Nausea and vomiting; Diarrhea, rv unspecified. Condition is Stable. Forms are Medication Reconciliation Form, Thank You Letter, Antibiotic Education, Prescription Opioid Use. Follow up: Emergency Department; When: As needed; Reason: Worsening of condition. Follow up: Private Physician; When: 2 - 3 days; Reason: Recheck today's complaints, Continuance of care, Re-evaluation by your physician. Problem is new. Symptoms have improved. pm1
[2018-09-13 20:29] VITALS: TEMP 98.3
[2018-09-13 20:30] VITALS: O2SAT 99
[2018-09-13 20:33] VITALS: BP 126/74
== END 2018-09-13 18:26 | disposition home or self-care (01) ==
LOC: ER 14:36
DX: R19.7 Diarrhea, unspecified (principal); F17.210 Nicotine dependence, cigarettes, uncomplicated; Q21.1 Atrial septal defect; Z91.018 Allergy to other foods
CPT/HCPCS: 36415; 80048; 80076; 81003; 81015; 81025; 83690; 85025; 96361; 96374; 96375; 99284; J2550; J7030

== ENCOUNTER 2018-10-05 14:18 | Emergency (ER) | payer BC ==
--- NOTE | 2018-10-05 14:32 | ER ---
Nurse's Notes [facility] Name: Alicia Morton Age: 38 yrs Sex: Female : 1980 Arrival Date: 10/05/2018 Time: 14:19 Bed Waiting Private MD: Diagnosis: Presentation: 10/05 14:21 Presenting complaint: Patient states: vomiting, radha ear pain, sore throat x 2 days. sv Transition of care: patient was not received from another setting of care. Onset of symptoms was October 03, 2018. Care prior to arrival: None. 14:21 Method Of Arrival: Ambulatory sv 14:21 Acuity: RICARDO 3 sv 14:25 Note Pt noted to walk outside. sv 14:32 Note Pt informed Madelin in registration that her son will be taking her to [place]. sv Triage Assessment: 14:24 General: Appears in no apparent distress. uncomfortable, Behavior is calm, cooperative, sv appropriate for age. Pain: Complains of pain in right ear and left ear and throat Pain currently is 7 out of 10 on a pain scale. Neuro: Level of Consciousness is awake, alert, obeys commands, Oriented to person, place, time, situation, Moves all extremities. Full function Gait is steady, Speech is normal. Respiratory: Respiratory effort is even, unlabored, Respiratory pattern is regular, symmetrical. GI: Reports nausea, vomiting. Historical: - Allergies: 14:23 AVOCADO (LAURUS PERSEA); sv - PMHx: 14:23 ASD; Diverticulitis; Pulmonary Hypertensive Artery Dz; sv 14:23 colitis; sv Vital Signs: 14:22 BP 134 / 86; Pulse 92; Resp 20; Temp 98.2; Pulse Ox 99% ; Weight 54.43 kg; Height 5 ft. sv 4 in. (162.56 cm); Pain 7/10; 14:22 Body Mass Index 20.60 (54.43 kg, 162.56 cm) sv ED Course: 14:19 Patient arrived in ED. as 14:22 Triage completed. sv 14:24 Arm band placed on Patient placed in waiting room, Patient notified of wait time. sv Administered Medications: No medications were administered Outcome: 14:32 Patient left the ED. sv Signatures: Cynthia Ingram RN RN sv Madelin Kasper as
[2018-10-05 14:43] VITALS: BP 134/86; TEMP 98.2; O2SAT 99
== END 2018-10-05 14:32 | disposition left against medical advice (07) ==
LOC: ER 14:18
DX: Z53.21 Procedure and treatment not carried out due to patient leaving prior to being seen by health care provider (principal)
CPT/HCPCS: 99281